=== PATIENT | female | born 1960 ===

== ENCOUNTER 2020-07-21 12:32 | Emergency (ER) | payer OTHER, SELFPAY ==
[2020-07-21 13:08] VITALS: BP 143/65; PULSE 84; RESP 16; TEMP 36.4; O2SAT 96; BMI 50.5
--- NOTE | 2020-07-21 13:16 | ED.FEMALEGU ---
HPI - Female Genitourinary General Chief complaint: Urogenital-Female Stated complaint: bladder pain Time Seen by Provider: 07/21/20 13:00 Source: patient Mode of arrival: ambulatory Limitations: no limitations History of Present Illness HPI Narrative: 59 yo female presenting with painful urination and bladder discomfort for the last 2 days. She has a history of a UTI in the past that felt similar to this. She denies fever, chills, hematuria, back pain, abd pain, N/V/D, vaginal discharge or lesions. MD elicited complaint: dysuria Onset (ago): day(s) (2) Location of symptoms: suprapubic and urethra Severity: moderate Female Urogenital Radiation: Suprapubic Severity scale (1-10): 4 Quality of pain: dull and burning Consistency: intermittent Vaginal discharge: none Vaginal bleeding: none Urinary symptoms: Dysuria, Urgency and Frequency Exacerbating factors: urination Relieving factors: none Associated symptoms: denies other symptoms Treatment prior to arrival: none Sexual activity: No Patient : No Related Data Previous Rx's Medication Instructions Recorded cefuroxime axetil 250 mg PO BID 7 Days #14 tab 07/21/20 phenazopyridine [Pyridium] 200 mg PO TID #6 tab 07/21/20 Allergies Allergy/AdvReac Type Severity Reaction Status Date / Time morphine [MORPHINE] Allergy Severe DIFF Unverified 06/24/20 18:51 BREATHING, DIZZY, anaphylaxis, shortness of breath oxycodone [OXYCODONE] Allergy Severe DIFF Unverified 06/24/20 18:51 BREATHING, DIZZY Sulfa (Sulfonamide Allergy Unknown anaphylaxis Unverified 05/14/20 00:00 Antibiotics) sulfamethoxazole Allergy Unknown UNKNOWN Unverified 06/24/20 18:51 [From BACTRIM] trimethoprim [From BACTRIM] Allergy Unknown UNKNOWN Unverified 06/24/20 18:51 SEASONAL ALLERGIES Allergy Intermediate ITCHY Uncoded 06/24/20 18:51 oxycodone Allergy Unknown Encephalopa Uncoded 05/06/20 00:00 thy Review of Systems Review of Systems: Constitutional: No Fever, No Chills Cardiovascular: No Chest Pain, No SOB Respiratory: No Cough, No Sputum Gastrointestinal: No Nausea, No Vomiting, No Diarrhea, No abdominal Pain Genitourinary: + Dysuria, + Urinary Frequency, No Hematuria Musculoskeletal: No joint pain, No Myalgias Skin: No Skin Lesions, No rash Neuro: No Weakness, No Numbness, No Dizziness, No Headache Heme/Lymph: No Bruising, No Lymphadenopathy Endocrine: No Polyuria, No Polydipsia PMFSH Past Medical History Attestation statement: The following information was validated with the patient. Social History Social History Alcohol intake: unknown Use of substances other than those prescribed or required for medical reasons: Unknown Advance Directives: No Advance Directives Information Provided: No Physical Exam Vital Signs: Vital Signs: Vital Signs Temp Pulse Resp BP Pulse Ox 07/21/20 13:08 97.6 F 84 16 143/65 H 96 Body Mass Index 50.5 Appearance: Alert. Oriented X3. No acute distress. HEENT: normal inspection CVS: Normal heart rate and rhythm. Pulses normal. Respiratory: No respiratory distress. Abd: soft, mild suprapubic tenderness, no rebound or guarding. +BS. exam deferred Skin: Skin warm and dry. Normal skin color, no rashes Extremities: no LE edema. Neuro: Oriented X 3. No motor deficit. No sensory deficit. Course Course Course Narrative: afebrile and well appearing. likely UTI, doubt pyelonephritis, STI, ovarian cyst/torsion, colitis. Reevaluation(s) Reevaluation #1: UA with some blood - no active infection at this time. will treat empircally for cystitis. encouraged to f/u with PCP and return to ED if worsens. MDM - Female Genitourinary Differential Diagnosis Differential diagnosis: Likely urinary tract infection, bacterial vaginosis, trichomoniasis, cervicitis, ovarian cyst, vaginitis, ruptured ovarian cyst, cyst of Bartholin's gland and cystitis Medical Records Attestation: I reviewed the patient's medical records. Lab Data Attestation: I reviewed the patient's lab results. Labs: Lab Results 07/21/20 Range/Units 13:27 Urine Color YELLOW Urine Appearance HAZY Urine pH 7.0 (5.0-8.0) Ur Specific [place] 1.020 (1.005-1.025) Urine Protein NEG (NEG-TRACE) MG/DL Urine Glucose (UA) NEG (NEG) MG/DL Urine Ketones NEG (NEG) MG/DL Urine Blood TRACE (NEG) Urine Nitrite NEG (NEG) Ur Leukocyte Esterase NEG (NEG) Discharge Plan Discharge Clinical Impression: Cystitis Patient Disposition: Home, Self-Care Instructions: Pelvic Pain in Women (ED) Additional Instructions: Stay hydrated and drink plenty of water. Follow up with your Primary Care Doctor this week. If your pain and discomfort do not improve or worsen despite treatment with antibiotics call your doctor right away or come back to the ER for further evaluation. No sexual activity until your symptoms are completely resolved. Prescriptions: New cefuroxime axetil 250 mg tablet 250 mg PO BID 7 Days Qty: 14 RF: 0 phenazopyridine [Pyridium] 200 mg tablet 200 mg PO TID Qty: 6 RF: 0
[2020-07-21 13:50] LABS: Appearance Urine HAZY; Color Urine YELLOW; Glucose Urine UA NEG (NEG); Leukocyte Esterase Urine NEG (NEG); Nitrite Urine NEG (NEG); Urine Blood TRACE (NEG); Urine Ketones NEG (NEG); Urine Protein NEG (NEG-TRACE)
[2020-07-21 13:56] LABS: Bacteria Urine 1+ /LPF; Mucus Urine 2+ /LPF; RBC Urine 0-2 /HPF (0); Squamous Epithelial Cell Urine 3+ /LPF; WBC Urine 0-2 /HPF (0-4)
== END 2020-07-21 14:14 | disposition home or self-care (01) ==
PROVIDERS: Physician Assistant; Emergency Provider Emergency Medicine; PCP Physician Assistant
DX: N30.90 Cystitis, unspecified without hematuria (principal); R10.9 Unspecified abdominal pain
CPT/HCPCS: 81001; 87086; 99283

== ENCOUNTER 2020-08-03 11:21 | Day surgery (SDC) | payer OTHER, SELFPAY ==
[2020-07-29 11:22] VITALS: BMI 49.4
--- NOTE | 2020-07-29 14:58 | HO.ANESPROP2 ---
Documented by User: Tabitha Trinh 08/02/20 12:56 HPI - Anesthesia Eval Consult details Narrative: 59yo F for colonoscopy: screening [facility] Past Medical History Medical History Anemia Arthritis Asthma Depression Elevated cholesterol Hx of transfusion of whole blood Lab test negative for COVID-19 virus Surgical History Surgical History History of carpal tunnel release Hx of Achilles tendon repair Hx of colonoscopy Hx of hysterectomy Social History Social History Alcohol intake: unknown Smoking Status: Former smoker Smoked in Last 30 Days: No Smoking Quit Date: 1998 Use of substances other than those prescribed or required for medical reasons: No Advance Directives Information Provided: No Recently lost weight without trying: No Meds Allergies Allergy/AdvReac Type Severity Reaction Status Date / Time morphine [MORPHINE] Allergy Severe DIFF Verified 07/29/20 11:33 BREATHING, DIZZY, anaphylaxis, shortness of breath oxycodone [OXYCODONE] Allergy Severe DIFF Verified 07/29/20 11:33 BREATHING, DIZZY sulfamethoxazole Allergy Unknown UNKNOWN Verified 07/29/20 11:33 [From BACTRIM] trimethoprim [From BACTRIM] Allergy Unknown UNKNOWN Verified 07/29/20 11:33 SEASONAL ALLERGIES Allergy Intermediate ITCHY Uncoded 06/24/20 18:51 Home Medications Medication Instructions Recorded Confirmed Type albuterol sulfate 1 vial PO Q4H PRN 07/29/20 07/29/20 History atorvastatin 1 tab PO DAILY 07/29/20 07/29/20 History fluticasone propionate [Flovent 1 puff PO BID 07/29/20 07/29/20 History HFA] ibuprofen 1 tab PO TID PRN 07/29/20 07/29/20 History Exam Exam Date and Time: July 29, 2020 1458 Height,Weight and Vital Signs: Height 4 ft 11 in Weight 111.13 kg Pertinent Lab Results Pertinent Lab Results: Laboratory Tests 11/08/18 05/05/20 14:47 11:00 WBC 10.5 Hgb 12.5 Hct 39.7 Plt Count 480 H Sodium 142 Potassium 4.3 Chloride 103 BUN 15 Creatinine 0.77 Assessment and Plan Assessment Anesthesia Assessment: Chart Reviewed Documented by User: Lorene Aguilar 08/03/20 12:59 PMFSH Past Medical History Medical History Anemia Arthritis Asthma Depression Elevated cholesterol Hx of transfusion of whole blood Lab test negative for COVID-19 virus Surgical History Surgical History History of carpal tunnel release Hx of Achilles tendon repair Hx of colonoscopy Hx of hysterectomy Social History Social History Alcohol intake: unknown Smoking Status: Former smoker Smoked in Last 30 Days: No Smoking Quit Date: 1998 Use of substances other than those prescribed or required for medical reasons: No Advance Directives Information Provided: No Recently lost weight without trying: No Meds Allergies Allergy/AdvReac Type Severity Reaction Status Date / Time morphine [MORPHINE] Allergy Severe DIFF Verified 07/29/20 11:33 BREATHING, DIZZY, anaphylaxis, shortness of breath oxycodone [OXYCODONE] Allergy Severe DIFF Verified 07/29/20 11:33 BREATHING, DIZZY sulfamethoxazole Allergy Unknown UNKNOWN Verified 07/29/20 11:33 [From BACTRIM] trimethoprim [From BACTRIM] Allergy Unknown UNKNOWN Verified 07/29/20 11:33 SEASONAL ALLERGIES Allergy Intermediate ITCHY Uncoded 06/24/20 18:51 Home Medications Medication Instructions Recorded Confirmed Type albuterol sulfate 1 vial PO Q4H PRN 07/29/20 07/29/20 History atorvastatin 1 tab PO DAILY 07/29/20 07/29/20 History fluticasone propionate [Flovent 1 puff PO BID 07/29/20 07/29/20 History HFA] ibuprofen 1 tab PO TID PRN 07/29/20 07/29/20 History Assessment and Plan Assessment Anesthesia Assessment: Anesthesia Plan Discussed and PAT Visit Final Anesthetic Review NPO: Yes ASA Class: II Final Preanesthetic Review: No Changes in Pt Med Stat, Meds/Allgs Chart Reviewed and Consent Obtained/Reviewed Patient Risk: Intermediate Procedure Risk: Low Anesthetic Plan Anesthetic Plan: MAC: Disposition: Standard PACU
[2020-08-03] MEDS: Lactated Ringers 1,000 ML 100 ML IVCONT (12:45)
[2020-08-03 12:46] VITALS: BP 137/69; PULSE 79; RESP 16; TEMP 36.6; O2SAT 96
--- NOTE | 2020-08-03 12:59 | MHC.SHP ---
Pre-Procedural Eval Section A The History & Physical has been completed within 30 days and I have reviewed it.: No Section B Chief Complaint: Screening Details of Present Illness: Colon cancer screening, constipation Relevant Social History: Tobacco Use (Past smoker, quitted > 20 yrs ago) Present Medications: see Short Stay Collaborative assessment Medical History: Significant History (Obesity) History of Previous Operations: Relevant previous surgery/procedure and date(s) (hysterectomy achilles tendon repair,right Left carpal tunnel release 02/26/2019 ) Allergies: Allergies Allergy/AdvReac Type Severity Reaction Status Date / Time morphine [MORPHINE] Allergy Severe DIFF Verified 07/29/20 11:33 BREATHING, DIZZY, anaphylaxis, shortness of breath oxycodone [OXYCODONE] Allergy Severe DIFF Verified 07/29/20 11:33 BREATHING, DIZZY sulfamethoxazole Allergy Unknown UNKNOWN Verified 07/29/20 11:33 [From BACTRIM] trimethoprim [From BACTRIM] Allergy Unknown UNKNOWN Verified 07/29/20 11:33 SEASONAL ALLERGIES Allergy Intermediate ITCHY Uncoded 06/24/20 18:51 Review of Systems Sugical H&P ROS: Negative: Constitution, Cardiovascular, Respiratory and Gastrointestinal Exam Surgical H&P Exam: Normal: Heart, Normal: Lungs, Normal: Extremities and Normal: Abdomen Plan Diagnosis/Plan: Unchanged Patient has been examined and remains a candidate for the planned procedure
--- NOTE | 2020-08-03 13:00 | HO.ANESPROP2 ---
[facility] Past Medical History Medical History Anemia Arthritis Asthma Depression Elevated cholesterol Hx of transfusion of whole blood Lab test negative for COVID-19 virus Surgical History Surgical History History of carpal tunnel release Hx of Achilles tendon repair Hx of colonoscopy Hx of hysterectomy Social History Social History Alcohol intake: unknown Smoking Status: Former smoker Smoked in Last 30 Days: No Smoking Quit Date: 1998 Use of substances other than those prescribed or required for medical reasons: No Advance Directives Information Provided: No Recently lost weight without trying: No Meds Allergies Allergy/AdvReac Type Severity Reaction Status Date / Time morphine [MORPHINE] Allergy Severe DIFF Verified 07/29/20 11:33 BREATHING, DIZZY, anaphylaxis, shortness of breath oxycodone [OXYCODONE] Allergy Severe DIFF Verified 07/29/20 11:33 BREATHING, DIZZY sulfamethoxazole Allergy Unknown UNKNOWN Verified 07/29/20 11:33 [From BACTRIM] trimethoprim [From BACTRIM] Allergy Unknown UNKNOWN Verified 07/29/20 11:33 SEASONAL ALLERGIES Allergy Intermediate ITCHY Uncoded 06/24/20 18:51 Home Medications Medication Instructions Recorded Confirmed Type albuterol sulfate 1 vial PO Q4H PRN 07/29/20 07/29/20 History atorvastatin 1 tab PO DAILY 07/29/20 07/29/20 History fluticasone propionate [Flovent 1 puff PO BID 07/29/20 07/29/20 History HFA] ibuprofen 1 tab PO TID PRN 07/29/20 07/29/20 History Exam Exam Date and Time: August 03, 2020 1300 Height,Weight and Vital Signs: Height 4 ft 11 in Weight 111.13 kg Last Vital Signs Temp 97.9 F 08/03/20 12:46 Pulse 79 08/03/20 12:46 Resp 16 08/03/20 12:46 BP 137/69 08/03/20 12:46 Pulse Ox 96 08/03/20 12:46 Airway Mallampati Class: II TM Dist: >3cm Neck ROM: Full Heart: RRR Lungs: CTA BL
--- NOTE | 2020-08-03 13:10 | PM.OP ---
Brief Operative Note Date of procedure: 08/03/20 Pre-op diagnosis: Colon cancer screening Post-op diagnosis: other (Diverticulosis, hemorrhoids) Procedure: COLONOSCOPY TILL CECUM Consent: Indications for the procedure and potential complications of bleeding, perforation, reaction to medications and missed diagnosis were discussed with the patient and informed consent was obtained. Instrument: Olympus PCF H 190 L variable stiffness pediatric colonoscope Monitoring: Vital signs and clinical assessment, intermittent blood pressure monitoring, continuous EKG monitoring, Pulse oximetry and Carbon Dioxide monitoring were done throughout the procedure. Colon withdrawl time was 12 minutes. Procedure: The patient was placed in the left lateral decubitis position and pre-procedure medications were administered. After a digital rectal examination of the ano-rectum, the video colonoscope was inserted into the rectum and advanced through the colon to the cecum. The colonoscope was slowly withdrawn in a retrograde panoramic fashion and the colon mucosa was carefully examined including a retroflexed view of the rectum. Findings and interventions are described below. Procedure Difficulty: Without difficulty Findings: Terminal Ileum: Not evaluated Cecum: Normal Ascending Colon: Normal Transverse Colon: Normal Descending Colon: Moderate diverticulosis Sigmoid Colon: Moderate diverticulosis Rectum: Normal Ano-rectum: Moderate internal hemorrhoids and perianal skin tags Colon preparation: Excellent/Good/ Fair/poor Impression and Post Procedure Diagnosis: Colonoscopy Findings: No polyps were detected. Moderate diverticulosis seen in the left colon Moderate hemorrhoids on retroflexed exam. Plan: Await pathology results Patient has an appointment on 09/27/20 in the GI Clinic with Young Mills M.D.-. Repeat Colonoscopy in 5 years due to past hx of colon polyps. Above findings were reviewed with the patient and a handout on diverticulosis handout was given in the discharge area Surgeon: Young Mills MD Anesthesia: MAC (Dr Tucker) Waiter/Waitress Cafeteria: Nuvia Thrasher Estimated blood loss (mL): 0 Pathology: none sent Condition: stable Disposition: PACU
[2020-08-03 13:59] VITALS: BP 112/57; PULSE 67; RESP 16; TEMP 36.3; O2SAT 96
[2020-08-03 14:14] VITALS: BP 158/82; PULSE 64; RESP 14; TEMP 36.3; O2SAT 97
--- NOTE | 2020-08-03 14:38 | HO.POSTANES ---
Post Anesthesia Evaluation Post Anesthesia Evaluation Vital Signs: Vital Signs Temp Pulse Resp BP Pulse Ox 08/03/20 14:14 97.4 F 64 14 158/82 H 97 08/03/20 13:59 97.4 F 67 16 112/57 L 96 08/03/20 12:46 97.9 F 79 16 137/69 96 Anesthesia: Monitored (TIVA) Mental Status: Awake Pain Control: Satisfactory Nausea/Vomiting: None Hydration: Adequate Anesthesia-Related Issues: No Anes. Related Issues
== END 2020-08-03 14:43 | disposition home or self-care (01) ==
PROVIDERS: PCP Physician Assistant; Visit Provider Internal Medicine Gastroenterology
PROC: 0DJD8ZZ Inspection of Lower Intestinal Tract, Via Natural or Artificial Opening Endoscopic (ICD-10-PCS; CPT 45378; principal; 2020-08-03 12:50)
DX: Z12.11 Encounter for screening for malignant neoplasm of colon (principal); Z86.010 Personal history of colon polyps; K57.30 Diverticulosis of large intestine without perforation or abscess without bleeding; K64.8 Other hemorrhoids; K64.4 Residual hemorrhoidal skin tags; J45.909 Unspecified asthma, uncomplicated; F32.9 Major depressive disorder, single episode, unspecified; E78.00 Pure hypercholesterolemia, unspecified; Z87.891 Personal history of nicotine dependence; Z79.51 Long term (current) use of inhaled steroids; Z79.899 Other long term (current) drug therapy; Z88.2 Allergy status to sulfonamides; Z88.8 Allergy status to other drugs, medicaments and biological substances
CPT/HCPCS: 45378

== ENCOUNTER 2020-09-16 09:33 | Outpatient (REF) | payer OTHER, SELFPAY ==
--- NOTE | 2020-09-16 11:13 | XR_ITS ---
EXAMINATION: XR HIP, LEFT CLINICAL INFORMATION: Left hip pain. COMPARISON: CT of abdomen and pelvis from 11/08/2018. TECHNIQUE: Two views of the left hip. FINDINGS: The femoral head is well-positioned within the intact acetabulum. The hip joint space is normal. No evidence of a significant degenerative or inflammatory arthropathy at the hip. No femoral fracture or osteonecrosis. There is enthesophyte formation at the lateral aspect of the iliac crest. No focal lytic or osteoblastic lesion. Soft tissues are unremarkable. 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 XR/XR hip LT min 2V IMPRESSION: No fracture or malalignment. No acute findings at the left hip compared to 11/08/2018.
[2020-09-16 11:27] LABS: MANUAL DIFF FLAG NO
[2020-09-16 11:45] LABS: Basophils Percent Auto 0.3 % (0-2); Eosinophils Absolute Auto 0.4 X10*3/uL (0.0-0.4); Eosinophils Percent Auto 5.2 % (0-4); Hematocrit 37.3 % (37-47); Imm Gran Abs Auto 0.01 X10*3/uL (0.00-0.03); Imm Gran Pct Auto 0.1 % (0.0-0.4); Lymphocytes Absolute Auto 1.8 X10*3/uL (1.2-4.9); Lymphocytes Percent Auto 25.4 % (20-40); Mean Corpuscular HGB Conc 32.2 g/dl (31.0-35.0); Mean Corpuscular Hemoglobin 28.1 pg (27.0-33.0); Mean Corpuscular Volume 87.4 fL (80-98); Mean Platelet Volume 8.5 fL (9.4-12.3); Monocytes Absolute Auto 0.7 X10*3/uL (0.1-1.2); Monocytes Percent Auto 9.2 % (2-11); Neutrophils Absolute Auto 4.2 X10*3/uL (2.0-8.3); Neutrophils Percent Auto 59.8 % (45-73); Platelet Count 517 X10*3/uL (160-400); Red Blood Count 4.27 X10*6/uL (4.20-5.50); Red Cell Distribution Width 14.1 % (11.0-16.0); White Blood Count 7.1 X10*3/uL (4.8-10.8)
[2020-09-16 12:03] LABS: Estimated Average Glucose 117 mg/dL; Hemoglobin A1c % 5.7 %
[2020-09-16 12:15] LABS: Alanine Aminotransferase 19 U/L (0-31); Albumin Level 4.3 g/dL (3.5-5.0); Alkaline Phosphatase 82 U/L (39-117); Anion Gap 14 (12-20); Aspartate Amino Transferase 22 U/L (5-31); Bilirubin Total 0.3 mg/dL (0.0-1.0); Blood Urea Nitrogen 13 mg/dL (9-16); Calcium 8.9 mg/dL (8.4-10.2); Carbon Dioxide 29 mmol/L (22-29); Chloride 102 mmol/L (96-108); Cholesterol 192 mg/dL; Estimated Glomerular Filt Rate > 60; Glucose Fasting 81 mg/dL (60-99); HDL Cholesterol 49 mg/dL; LDL Cholesterol Calculated 108 mg/dl; Potassium 4.4 mmol/l (3.3-5.1); Sodium 141 mmol/L (135-145); Total Protein 7.3 g/dL (6.5-8.0); Triglycerides 178 mg/dL
== END 2020-09-16 09:34 | disposition home or self-care (01) ==
LOC: HO.LAB 09:33
PROVIDERS: Nurse Practitioner Family; PCP Physician Assistant; Visit Provider Physician Assistant
DX: E78.00 Pure hypercholesterolemia, unspecified (principal); J45.909 Unspecified asthma, uncomplicated; M25.552 Pain in left hip; M19.90 Unspecified osteoarthritis, unspecified site
CPT/HCPCS: 36415; 73502; 80053; 80061; 83036; 85025

== ENCOUNTER 2020-10-11 11:00 | Outpatient (RCR) | payer OTHER, SELFPAY ==
--- NOTE | 2020-09-14 13:41 | MHC.PT.EP ---
[facility] [place] Office [place] Office [place] Office [address] Julissa Kohler [address] [phone] F: [phone] F: [phone] F: [phone] F: [phone] Physical Therapy Plan of Care Date of Evaluation: 09/14/20 Date of Surgery: NA Diagnosis: Trochanteric bursitis, L hip, unspecified throacic, thoracolumbar,and lumbosacral invertebral disorder Assessment: 60 year old female referred for Trochanteric bursitis, L hip, unspecified throacic, thoracolumbar,and lumbosacral invertebral disorder . She reports of having sudden onset of pain in L hip, thigh and knee about 3 weeks back. She denies any trauma or fall. Examination reveals 7/10 pain in L groin, GT, L thigh and knee with prolonged sitting, standing and walking, TTP over L hip flexor, GT, L SI, decreased trunk and hip ROM, altered pelvic symmetry, decreased muscle strength, altered posture, and gait. She is independent with BADLS but has pain with them. 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 She would benefit from PT to decrease in pain, improve ROM, increase muscle strength, postural correction, gait training and functional training. Frequency and Duration: The patient will be seen 2/week for 5 weeks. Short Term Goals: 1. Pt will have 50% decrease in pain in 2 weeks, 2. Pt will be able to move trunk and hip through all planes of motion with a pain no more than 2/10 in 3 weeks. Chief Of Field Operations Goals: 1. Pt will be able to perform all BADLS without any hip pain in 4 weeks. 2. Pt will return to PLOF in 5 weeks. Treatment Plan: Modalities to reduce pain, spasms and effusion. Manual therapy to restore motion and function. Therapeutic exercise to improve strength and flexibility. Neuromuscular re-education for posture and balance. Therapeutic activities to return to functional activities of daily living. Please sign and return to therapist. Thank you for your referral.
--- NOTE | 2020-10-27 10:30 | MHC.PT.DC ---
[facility] [place] Office [place] Office [place] Office [address] Julissa Kohler [address] [phone] F: [phone] F: [phone] F: [phone] F: [phone] Physical Therapy Discharge Report Diagnosis: Trochanteric bursitis, L hip, unspecified throacic, thoracolumbar,and lumbosacral invertebral disorder Date of Surgery: NA Date of Evaluation: 09/14/20 Date of Discharge: 10/27/20 Treatments to Date: 8 Cancellations to Date: 0 No Shows to Date: 0 Discharge Status: Recommend MD Follow-up Discharge Summary: Pt did not make improvements with therapy. She was therefore d/c and recommended to follow up with physician. Electronically signed by: Sunitha Faith DPT Please sign and return to therapist. Thank you for your referral.
== END 2020-10-27 10:31 | disposition other institution (70) ==
LOC: HO.PT 11:00
PROVIDERS: PCP Physician Assistant; Visit Provider Physician Assistant
DX: M70.62 Trochanteric bursitis, left hip (principal); M51.9 Unspecified thoracic, thoracolumbar and lumbosacral intervertebral disc disorder
CPT/HCPCS: 97033; 97110; 97140; 97161

== ENCOUNTER 2020-10-12 13:57 | Outpatient (REF) | payer OTHER, SELFPAY | END 2020-10-12 13:58 | disposition home or self-care (01) | LOC: HO.LAB 13:57 | PROVIDERS: Visit Provider Internal Medicine | DX: Z20.828 Contact with and (suspected) exposure to other viral communicable diseases (principal) | CPT/HCPCS: 36415; C9803; U0003 ==

== ENCOUNTER 2020-11-07 13:23 | Emergency (ER) | payer OTHER, SELFPAY ==
[2020-11-07 14:19] VITALS: BP 133/101; PULSE 86; RESP 16; TEMP 36.9; O2SAT 96; BMI 49.2
[2020-11-07 15:23] VITALS: BP 137/69; PULSE 79; RESP 18; TEMP 36.9; O2SAT 98
--- NOTE | 2020-11-07 16:10 | ED.EYEPROB ---
HPI - Eye Problem General Chief complaint: Eye Problems Stated complaint: eye swelling Time Seen by Provider: 11/07/20 16:09 History of Present Illness HPI Narrative: Patient complains of redness around the left orbit around the left eye that started yesterday that is mildly painful, no vision change no eye pain no discharge from eye, no photophobia, no known injury Related Data Home Medications Medication Instructions Recorded Confirmed albuterol sulfate 1 vial PO Q4H PRN 07/29/20 10/12/20 polyethylene glycol 3350 17 g PO 08/31/20 10/12/20 gram/dose oral powder atorvastatin 80 mg tablet 80 mg PO DAILY 10/19/20 Previous Rx's Medication Instructions Recorded fenofibrate nanocrystallized 48 mg 48 mg PO DAILY #90 tab 08/02/20 tablet ibuprofen 800 mg tablet 800 mg PO TID PRN #60 tab 08/05/20 fluticasone propionate 110 1 puff PO BID 30 Days #12 g 09/07/20 mcg/actuation HFA aerosol inhaler nabumetone 750 mg tablet 750 mg PO BID 30 Days #60 tab 09/07/20 cyclobenzaprine 10 mg tablet 10 mg PO BEDTIME #30 tab 10/12/20 nitrofurantoin macrocrystal 100 mg 100 mg PO BID 5 Days #10 cap 10/12/20 capsule phenazopyridine 200 mg tablet 200 mg PO TID 2 Days #6 tab 10/12/20 atorvastatin 80 mg tablet 80 mg PO DAILY #90 tab 10/19/20 cephalexin [Keflex] 500 mg PO QID 7 Days #28 cap 11/07/20 cetirizine 10 mg PO DAILY PRN #14 cap 11/07/20 erythromycin 0.5 inch OPHTHALMIC (EYE) TID #3.5 11/07/20 g Allergies Allergy/AdvReac Type Severity Reaction Status Date / Time morphine [MORPHINE] Allergy Severe DIFF Verified 09/07/20 17:39 BREATHING, DIZZY, anaphylaxis, shortness of breath oxycodone [OXYCODONE] Allergy Severe DIFF Verified 09/07/20 17:39 BREATHING, DIZZY sulfamethoxazole Allergy Unknown UNKNOWN Verified 09/07/20 17:39 [From BACTRIM] trimethoprim [From BACTRIM] Allergy Unknown UNKNOWN Verified 09/07/20 17:39 SEASONAL ALLERGIES Allergy Intermediate ITCHY Uncoded 06/24/20 18:51 Review of Systems Review of Systems: Positive for redness and mild pain in the orbit around the left eye Negatives are fever chills, no headache, no dizziness no weakness no double vision no pain in the eye, no pain with eye movement, no photophobia no vision change or vision loss, no discharge from the eye, no skin rash, no upper respiratory symptoms no runny nose no cough no sore throat Yes all other systems are reviewed and are negative PMFSH Past Medical History Source: nursing notes reviewed Medical History Anemia Arthritis Asthma Breast pain Depression Diverticulosis Elevated cholesterol Hemorrhoids Hx of transfusion of whole blood Lab test negative for COVID-19 virus Osteoarthritis Surgical History History of carpal tunnel release Hx of Achilles tendon repair Hx of colonoscopy Hx of hysterectomy Family History Family History Father Diabetes Mother CHF (congestive heart failure) Maternal Aunt Stomach cancer Social History Social History Alcohol intake: unknown Smoking Status: Former smoker Smoked in Last 30 Days: No Use of substances other than those prescribed or required for medical reasons: No Advance Directives: No Advance Directives Information Provided: Yes Physical Exam Vital Signs: Vital Signs: Last Vital Signs Temp 98.5 F 11/07/20 15:23 Pulse 79 11/07/20 15:23 Resp 18 11/07/20 15:23 BP 137/69 11/07/20 15:23 Pulse Ox 98 11/07/20 15:23 Body Mass Index 49.2 General appearance is no acute distress, comfortable relaxed and cooperative The head is normocephalic atraumatic The left orbit and upper and lower lids had very mild erythema mild warmth and mild tenderness, extraocular motions were fully intact and painless, pupils were equal round reactive to light, there was no conjunctival redness, no discharge from the eye no evidence of corneal abrasion or foreign body, no photophobia Pharynx was clear without swelling or redness Lungs were clear to auscultation bilaterally with full symmetrical equal breath sounds Respiratory was no acute respiratory distress extremities no rashes Course Course Course Narrative: Patient was treated for periorbital cellulitis Discharge Plan Discharge Clinical Impression: Periorbital cellulitis of left eye Patient Disposition: Home, Self-Care Additional Instructions: Painful redness of the skin around her left eye and eyelid is probably an infection so we are treating with antibiotic We are also treating with an antihistamine allergy medicine Return to ER any time for spreading redness, worse pain and swelling, eye ball pain, vision loss, discharge from the eye, any worse condition or any concerns If not improved in 2-3 days follow with primary doctor or return to ER for recheck Prescriptions: New cephalexin [Keflex] 500 mg capsule 500 mg PO QID 7 Days Qty: 28 RF: 0 cetirizine 10 mg capsule 10 mg PO DAILY PRN (Reason: allergy symptoms) Qty: 14 RF: 0 erythromycin 5 mg/gram (0.5 %) ointment 0.5 inch ophthalmic (eye) TID Qty: 3.5 RF: 0 No Action fenofibrate nanocrystallized 48 mg tablet 48 mg PO DAILY Qty: 90 RF: 0 ibuprofen 800 mg tablet 800 mg PO TID PRN (Reason: pain) Qty: 60 RF: 2 Hold Instructions: Doctor's Order cyclobenzaprine 10 mg tablet 10 mg PO BEDTIME Qty: 30 RF: 2 atorvastatin 80 mg tablet 80 mg PO DAILY RF: 0 atorvastatin 80 mg tablet 80 mg PO DAILY Qty: 90 RF: 3 albuterol sulfate 2.5 mg /3 mL (0.083 %) solution for nebulization 1 vial PO Q4H PRN (Reason: wheezing) RF: 0 polyethylene glycol 3350 17 gram/dose powder PO RF: 0 Flovent HFA 110 mcg/actuation HFA aerosol inhaler 1 puff PO BID 30 Days Qty: 12 RF: 2 nabumetone 750 mg tablet 750 mg PO BID 30 Days Qty: 60 RF: 1 nitrofurantoin macrocrystal 100 mg capsule 100 mg PO BID 5 Days Qty: 10 RF: 0 phenazopyridine [Pyridium] 200 mg tablet 200 mg PO TID 2 Days Qty: 6 RF: 0 Interventions: ED Discharge Assessment Last Done: 11/07/20 16:39 Discharge Date/Time: 11/07/20 16:52
[2020-11-07] MEDS: cephALEXin 500 MG CAPSULE PO (16:19)
[2020-11-07] MEDS: Loratadine 10 MG TABLET PO (16:19)
== END 2020-11-07 16:52 | disposition home or self-care (01) ==
PROVIDERS: Emergency Provider Emergency Medicine; PCP Physician Assistant
DX: L03.213 Periorbital cellulitis (principal); H57.12 Ocular pain, left eye; Z79.899 Other long term (current) drug therapy; Z87.891 Personal history of nicotine dependence
CPT/HCPCS: 99283; 99284

== ENCOUNTER 2020-11-11 13:58 | Outpatient (REF) | payer OTHER, SELFPAY ==
--- NOTE | ~2020-11-11 | US_ITS ---
EXAMINATION: US DIAGNOSTIC ULTRASOUND BREAST, RIGHT CLINICAL INFORMATION: Palpable abnormality with pain not o'clock position. COMPARISON: Mammography of same day and studies dating back to August 27, 2015. TECHNIQUE: Ultrasound of the breast is performed with real-time reyna scale imaging and color Doppler. FINDINGS: There is no focal suspicious finding. There is no solid mass, architectural abnormality, duct ectasia, or edema in the soft tissue planes. Results are discussed with the patient at time of visit. US/US breast RT limited IMPRESSION: No specific ultrasound findings to suggest malignancy. ASSESSMENT: BI-RADS 1: Negative RECOMMENDATION: Routine annual mammography screening due in 12 months. This patient's information was entered into a reminder system with a target due date for their next mammogram.
--- NOTE | ~2020-11-11 | MM_ITS ---
EXAMINATION: MM DIAGNOSTIC DIGITAL BREAST TOMOSYNTHESIS, BILATERAL CLINICAL INFORMATION: Bilateral palpable lumps/pain 9 o'clock position on the right and 3 o'clock position on the left. The lifetime risk of breast cancer based on the Tyrer-Cuzick Model is 3.9%. COMPARISON: Mammography: 08/14/2019 and studies dating back to 08/27/2015. TECHNIQUE: Digital breast tomosynthesis is performed in both the craniocaudal and mediolateral oblique views along with computer-aided detection (CAD). Synthesized 2D images are generated from the tomosynthesis. Additional spot compression views of the left breast in craniocaudal and mediolateral projections were performed. Bilateral targeted breast ultrasound was performed and reported separately. FINDINGS: The breasts are almost entirely fatty (ACR BI-RADS breast composition Category a). There is a stable parenchymal pattern of the right breast without new abnormal dominant mass or suspicious grouping of microcalcifications. Within the left breast superiorly approximately 8 cm from the nipple there is a macrolobular density containing a single calcification. This measures approximately 9 x 5 mm in size. This does not correspond with the region of palpable abnormality at the 3 o'clock position. Review of previous studies demonstrates that this was present back to the study of 10/04/2016 without significant change. Ultrasound examination of the right and left breast does not demonstrate any evidence of abnormal cystic or solid mass in the region of palpable abnormalities. No abnormal distal sound-shadowing is seen. No edematous change within the tissues is noted. Results are provided to the patient at the time of the visit by the technologist. MM/MM tomosynthesis diagnostic BI IMPRESSION: No specific mammographic or ultrasound findings to suggest malignancy. ASSESSMENT: BI-RADS 1: Negative RECOMMENDATION: Routine annual mammography screening due in 12 months. This patient's information was entered into a reminder system with a target due date for their next mammogram.
--- NOTE | ~2020-11-11 | US_ITS ---
EXAMINATION: US DIAGNOSTIC ULTRASOUND BREAST, LEFT CLINICAL INFORMATION: Palpable abnormality with pain 9:00 position. COMPARISON: Mammography of same day and studies dating back to August 27, 2015. TECHNIQUE: Ultrasound of the breast is performed with real-time reyna scale imaging and color Doppler. FINDINGS: There is no focal suspicious finding. There is no solid mass, architectural abnormality, duct ectasia, or edema in the soft tissue planes. Results are discussed with the patient at time of visit. US/US breast LT limited IMPRESSION: No specific ultrasound findings to suggest malignancy. ASSESSMENT: BI-RADS 1: Negative RECOMMENDATION: Routine annual mammography screening due in 12 months. This patient's information was entered into a reminder system with a target due date for their next mammogram.
== END 2020-11-11 13:59 | disposition home or self-care (01) ==
LOC: HO.MAMMO 13:58
PROVIDERS: PCP Physician Assistant; Visit Provider Physician Assistant
DX: N63.25 Unspecified lump in the left breast, overlapping quadrants (principal); N63.15 Unspecified lump in the right breast, overlapping quadrants; N64.4 Mastodynia
CPT/HCPCS: 76642; 77062; 77066

== ENCOUNTER → 2020-11-29 08:46 | Outpatient (BNVA) | payer OTHER, SELFPAY | PROVIDERS: PCP Physician Assistant; Visit Provider Internal Medicine Gastroenterology ==

== ENCOUNTER → 2020-12-01 13:02 | Outpatient (BNVA) | payer OTHER, SELFPAY | PROVIDERS: PCP Physician Assistant; Visit Provider Surgery | DX: N63.0 Unspecified lump in unspecified breast (principal) | CPT/HCPCS: 99202 ==

== ENCOUNTER 2021-01-22 10:29 | Emergency (ER) | payer OTHER, SELFPAY ==
[2021-01-22 10:34] VITALS: BP 159/60; PULSE 98; RESP 18; TEMP 36.8; O2SAT 97; BMI 36.6
[2021-01-22 11:01] LABS: Glucose Urine UA NEG (NEG); Leukocyte Esterase Urine 2+ (NEG); Nitrite Urine NEG (NEG); PH 6.5 (5.0-8.0); UACC Culture Trigger YES; Urine Blood 1+ (NEG); Urine Ketones NEG (NEG); Urine Protein NEG (NEG-TRACE)
[2021-01-22 11:04] LABS: Appearance Urine CLEAR; Color Urine YELLOW
[2021-01-22 11:20] LABS: Renal Epithelial Cells Urine 2+ /LPF; Squamous Epithelial Cell Urine 2+ /LPF
[2021-01-22 11:49] LABS: MANUAL DIFF FLAG NO
[2021-01-22 11:50] LABS: Basophils Percent Auto 0.2 % (0-2); Eosinophils Absolute Auto 0.1 X10*3/uL (0.0-0.4); Hematocrit 36.6 % (37-47); Hemoglobin 11.6 g/dl (12.0-16.0); Imm Gran Abs Auto 0.03 X10*3/uL (0.00-0.03); Imm Gran Pct Auto 0.2 % (0.0-0.4); Lymphocytes Absolute Auto 1.6 X10*3/uL (1.2-4.9); Lymphocytes Percent Auto 12.3 % (20-40); Mean Corpuscular HGB Conc 31.7 g/dl (31.0-35.0); Mean Corpuscular Hemoglobin 27.4 pg (27.0-33.0); Mean Corpuscular Volume 86.3 fL (80-98); Mean Platelet Volume 8.3 fL (9.4-12.3); Monocytes Absolute Auto 1.3 X10*3/uL (0.1-1.2); Monocytes Percent Auto 9.6 % (2-11); Neutrophils Percent Auto 76.7 % (45-73); Platelet Count 422 X10*3/uL (160-400); Red Blood Count 4.24 X10*6/uL (4.20-5.50); Red Cell Distribution Width 14.5 % (11.0-16.0)
[2021-01-22 12:17] LABS: Anion Gap 14 (12-20); Blood Urea Nitrogen 13 mg/dL (9-16); Calcium 9.5 mg/dL (8.4-10.2); Carbon Dioxide 28 mmol/L (22-29); Chloride 103 mmol/L (96-108); Creatinine Clr Calc Pharmacy 79.3; Estimated Glomerular Filt Rate > 60; Glucose Random 97 mg/dL (60-115); Potassium 5.1 mmol/L (3.3-5.1); Sodium 140 mmol/L (135-145)
--- NOTE | 2021-01-22 12:35 | ED_ITS ---
HPI - Abdominal Pain General Chief Complaint: Abdominal Pain Stated Complaint: LOWER ABD PAIN Time Seen by Provider: 01/22/21 10:43 Source: patient Mode of arrival: ambulatory Limitations: no limitations History of Present Illness HPI narrative: 60-year-old female with a past medical history of chronic back pain, GERD, high cholesterol, osteoarthritis, asthma here with complaints of suprapubic discomfort with urinary frequency and foul odor x3 days. Also having some low back pain. No flank pain or abdominal pain or nausea or vomiting. Had some chills last evening but no fever. Related Data Home Medications Medication Instructions Recorded Confirmed albuterol sulfate 1 vial PO Q4H PRN 07/29/20 01/11/21 polyethylene glycol 3350 17 g PO 08/31/20 01/11/21 gram/dose oral powder Previous Rx's Medication Instructions Recorded fluticasone propionate 110 1 puff PO BID 30 Days #12 g 09/07/20 mcg/actuation HFA aerosol inhaler phenazopyridine 200 mg tablet 200 mg PO TID 2 Days #6 tab 10/12/20 atorvastatin 80 mg tablet 80 mg PO DAILY #90 tab 10/19/20 cetirizine 10 mg PO DAILY PRN #14 cap 11/07/20 cyclobenzaprine 10 mg tablet 10 mg PO BEDTIME #30 tab 01/11/21 fenofibrate nanocrystallized 48 mg 48 mg PO DAILY #90 tab 01/11/21 tablet ibuprofen 800 mg tablet 800 mg PO TID PRN #60 tab 01/11/21 cefpodoxime 100 mg PO Q12H #14 tab 01/22/21 phenazopyridine [Pyridium] 200 mg PO TID PRN #6 tab 01/22/21 Allergies Allergy/AdvReac Type Severity Reaction Status Date / Time morphine [MORPHINE] Allergy Severe DIFF Verified 11/29/20 08:47 BREATHING, DIZZY, anaphylaxis, shortness of breath oxycodone [OXYCODONE] Allergy Severe DIFF Verified 11/29/20 08:47 BREATHING, DIZZY sulfamethoxazole Allergy Unknown UNKNOWN Verified 11/29/20 08:47 [From BACTRIM] trimethoprim [From BACTRIM] Allergy Unknown UNKNOWN Verified 11/29/20 08:47 SEASONAL ALLERGIES Allergy Intermediate ITCHY Uncoded 06/24/20 18:51 Review of Systems Review of Systems Yes all other systems are reviewed and are negative Constitutional: Reports no additional constitutional complaints, Denies body ache(s), Reports chills, Denies fever(s), Denies headache(s) and Denies weakness Eyes: Reports no additional eye complaints and Denies change in vision Reports system reviewed and no additional complaints, except as documented, Denies dizziness, Denies headache(s), Denies nasal congestion, Denies nasal discharge and Denies neck pain Cardiovascular: Reports no additional cardiovascular complaints, Denies chest pain, Denies leg edema and Denies dyspnea Respiratory: Reports no additional respiratory complaints, Denies cough and Denies dyspnea Gastrointestinal: Reports no additional gastrointestinal complaints, Denies abdominal pain, Denies diarrhea, Denies nausea and Denies vomiting Genitourinary: Reports no additional female genitourinary complaints, Denies hematuria, Denies dysuria, Denies flank pain, Denies urinary incontinence and Reports urinary urgency Comments: frequency, suprapubic discomfort Musculoskeletal: Reports no additional musculoskeletal complaints, Reports back pain, Denies arthralgias, Denies joint swelling, Denies neck pain, Denies numbness and Denies tingling Skin/Breast: Reports system reviewed and no additional complaints, except as docu and Denies rash Reports system reviewed and no additional complaints, except as documented, Denies Abnormal speech present, Denies dizziness, Denies headache(s), Denies numbness, Denies tingling and Denies weakness Physical Exam Vital Signs: Vital Signs: Last Vital Signs Temp 98.4 F 01/22/21 12:45 Pulse 84 01/22/21 12:45 Resp 16 01/22/21 12:45 BP 130/64 01/22/21 12:45 Pulse Ox 96 01/22/21 12:45 Body Mass Index 36.6 Const: General: cooperative, healthy appearing, comfortable and no acute distress Orientation/consciousness: patient oriented x3 Limitations: no limitations HENMT: Head: Yes normal to inspection Ears: hearing grossly normal bilaterally General nose exam: Normal external nose present Face and sinus: Yes normal facial exam Mouth: Normal oral and palatal mucosa present Throat: Yes posterior oropharynx normal Eyes: General: appearance normal, both eyes and all related structures Pupils: Equal, round and reactive pupils present Neck: Neck: Yes normal visual inspection Chest: Chest palpation & inspection: normal inspection of the chest Resp: Effort & Inspection: normal respiratory effort Auscultation: clear to auscultation bilaterally Cardio: Rate: regular rate Rhythm: regular rhythm Peripheral pulses: Peripheral pulses 2+ throughout GI: Inspection: Yes normal to inspection Palpation (GI): Soft to palpation, Tenderness to palpation present (GI) suprapubicly, no guarding and not rigid Auscultation: normal bowel sounds Back/Spine/Pelvis: Thoracic/Lumbar Spine: thoracic and lumbar spine normal to inspection Skin: General skin exam: no rashes or lesions noted Neuro: General: patient oriented x3, no focal motor deficits and normal sensation to monofilament Cranial nerves: Yes Equal, round and reactive pupils present Cognition (Neuro): normal cognition Speech: No Abnormal speech present Gait exam (Neuro): Normal gait present Motor exam (neuro): 5/5 motor strength present throughout Extrem: General: Yes normal to inspection, Yes no pedal edema and Yes no calf tenderness Course Course Course Narrative: 60 year old female here with suprapubic discomfort, urinary frequency and urgency and foul odor with low back pain and subjective chills x3 days. On arrival she has some mild discomfort suprapubic area but no abdominal pain. No flank pain or tenderness. Afebrile on arrival. Labs and urine reviewed from triage. UA consistent with a UTI. Will start patient on course of antibiotics with Pyridium for symptoms. Reviewed worrisome signs and symptoms such as fever, vomiting, flank pain and when to return to the emergency department. Comfortable with discharge home. MDM - Abdominal Pain Medical Records Attestation: I reviewed the patient's medical records. Lab Data Attestation: I reviewed the patient's lab results. Result diagrams: 01/22/21 11:45 01/22/21 11:45 Labs: Lab Results 01/22/21 01/22/21 01/22/21 Range/Units 10:42 11:45 11:45 WBC 13.0 H (4.8-10.8) X10*3/uL RBC 4.24 (4.20-5.50) X10*6/uL Hgb 11.6 L (12.0-16.0) g/dl Hct 36.6 L (37-47) % MCV 86.3 (80-98) fL MCH 27.4 (27.0-33.0) pg MCHC 31.7 (31.0-35.0) g/dl RDW 14.5 (11.0-16.0) % Plt Count 422 H (160-400) X10*3/uL MPV 8.3 L (9.4-12.3) fL Immature Gran % (Auto) 0.2 (0.0-0.4) % Neut % (Auto) 76.7 H (45-73) % Lymph % (Auto) 12.3 L (20-40) % [place] % (Auto) 9.6 (2-11) % Eos % (Auto) 1.0 (0-4) % Baso % (Auto) 0.2 (0-2) % Lymph # (Auto) 1.6 (1.2-4.9) X10*3/uL [place] # (Auto) 1.3 H (0.1-1.2) X10*3/uL Eos # (Auto) 0.1 (0.0-0.4) X10*3/uL Baso # (Auto) 0.0 (0.0-0.2) X10*3/uL Abs Immat Gran (auto) 0.03 (0.00-0.03) X10*3/uL Absolute Neuts (auto) 10.0 H (2.0-8.3) X10*3/uL Absolute Nucleated RBC 0.000 (0.0-0.012) X10*3/uL Nucleated RBC % (auto) 0.0 (0.0-0.2) /100WBC Hold Blue Top SEE NOTE Sodium (135-145) mmol/L Potassium (3.3-5.1) mmol/L Chloride (96-108) mmol/L Carbon Dioxide (22-29) mmol/L Anion Gap (12-20) BUN (9-16) mg/dL Creatinine (0.5-1.4) mg/dL Estim Creat Clear Calc Estimated GFR Random Glucose (60-115) mg/dL Calcium (8.4-10.2) mg/dL Urine Color YELLOW Urine Appearance CLEAR Urine pH 6.5 (5.0-8.0) Ur Specific [place] 1.010 (1.005-1.025) Urine Protein NEG (NEG-TRACE) MG/DL Urine Glucose (UA) NEG (NEG) MG/DL Urine Ketones NEG (NEG) MG/DL Urine Blood 1+ H (NEG) Urine Nitrite NEG (NEG) Ur Leukocyte Esterase 2+ H (NEG) Urine RBC 1-4 (0) /HPF Urine WBC 10-14 H (0-4) /HPF Ur Squamous Epith Cells 2+ /LPF Ur Renal Epithelial Cell 2+ /LPF Urine Bacteria NONE /LPF 01/22/21 Range/Units 11:45 WBC (4.8-10.8) X10*3/uL RBC (4.20-5.50) X10*6/uL Hgb (12.0-16.0) g/dl Hct (37-47) % MCV (80-98) fL MCH (27.0-33.0) pg MCHC (31.0-35.0) g/dl RDW (11.0-16.0) % Plt Count (160-400) X10*3/uL MPV (9.4-12.3) fL Immature Gran % (Auto) (0.0-0.4) % Neut % (Auto) (45-73) % Lymph % (Auto) (20-40) % [place] % (Auto) (2-11) % Eos % (Auto) (0-4) % Baso % (Auto) (0-2) % Lymph # (Auto) (1.2-4.9) X10*3/uL [place] # (Auto) (0.1-1.2) X10*3/uL Eos # (Auto) (0.0-0.4) X10*3/uL Baso # (Auto) (0.0-0.2) X10*3/uL Abs Immat Gran (auto) (0.00-0.03) X10*3/uL Absolute Neuts (auto) (2.0-8.3) X10*3/uL Absolute Nucleated RBC (0.0-0.012) X10*3/uL Nucleated RBC % (auto) (0.0-0.2) /100WBC Hold Blue Top Sodium 140 (135-145) mmol/L Potassium 5.1 (3.3-5.1) mmol/L Chloride 103 (96-108) mmol/L Carbon Dioxide 28 (22-29) mmol/L Anion Gap 14 (12-20) BUN 13 (9-16) mg/dL Creatinine 0.77 (0.5-1.4) mg/dL Estim Creat Clear Calc 79.3 Estimated GFR > 60 Random Glucose 97 (60-115) mg/dL Calcium 9.5 D (8.4-10.2) mg/dL Urine Color Urine Appearance Urine pH (5.0-8.0) Ur Specific [place] (1.005-1.025) Urine Protein (NEG-TRACE) MG/DL Urine Glucose (UA) (NEG) MG/DL Urine Ketones (NEG) MG/DL Urine Blood (NEG) Urine Nitrite (NEG) Ur Leukocyte Esterase (NEG) Urine RBC (0) /HPF Urine WBC (0-4) /HPF Ur Squamous Epith Cells /LPF Ur Renal Epithelial Cell /LPF Urine Bacteria /LPF Discharge Plan Discharge Clinical Impression: UTI (urinary tract infection) Patient Disposition: Home, Self-Care Instructions: Urinary Tract Infection in Women (ED) Additional Instructions: Increase fluids, rest See PCP Sunday for persistent symptoms Return here for 2 or more vomiting episodes, high back pain, fever >100.4 Prescriptions: New phenazopyridine [Pyridium] 200 mg tablet 200 mg PO TID PRN (Reason: pain) Qty: 6 RF: 0 cefpodoxime 100 mg tablet 100 mg PO Q12H Qty: 14 RF: 0 No Action atorvastatin 80 mg tablet 80 mg PO DAILY Qty: 90 RF: 3 albuterol sulfate 2.5 mg /3 mL (0.083 %) solution for nebulization 1 vial PO Q4H PRN (Reason: wheezing) RF: 0 cetirizine 10 mg capsule 10 mg PO DAILY PRN (Reason: allergy symptoms) Qty: 14 RF: 0 polyethylene glycol 3350 17 gram/dose powder PO RF: 0 ibuprofen 800 mg tablet 800 mg PO TID PRN (Reason: pain) Qty: 60 RF: 2 Hold Instructions: Doctor's Order cyclobenzaprine 10 mg tablet 10 mg PO BEDTIME Qty: 30 RF: 2 fenofibrate nanocrystallized 48 mg tablet 48 mg PO DAILY Qty: 90 RF: 0 Flovent HFA 110 mcg/actuation HFA aerosol inhaler 1 puff PO BID 30 Days Qty: 12 RF: 2 phenazopyridine [Pyridium] 200 mg tablet 200 mg PO TID 2 Days Qty: 6 RF: 0 Referrals: Lit Billings PA-C [Primary Care Provider] - 2 days Interventions: ED Discharge Assessment Last Done: 01/22/21 13:22 Discharge Date/Time: 01/22/21 13:22 [facility] Past Medical History Attestation statement: The following information was validated with the patient. Source: old records reviewed and nursing notes reviewed Medical History Anemia Arthritis Asthma Breast pain Depression Diverticulosis Elevated cholesterol Hemorrhoids Hx of transfusion of whole blood Lab test negative for COVID-19 virus Osteoarthritis Surgical History History of carpal tunnel release Hx of Achilles tendon repair Hx of colonoscopy Hx of hysterectomy Family History Family History Father Diabetes Mother CHF (congestive heart failure) Maternal Aunt Stomach cancer Social History Social History Household Members: Spouse Alcohol intake: never Smoking Status: Never smoker Use of substances other than those prescribed or required for medical reasons: No Advance Directives: Yes Advance Directives Information Provided: Yes Advance Directives on File: No
[2021-01-22 12:45] VITALS: BP 130/64; PULSE 84; RESP 16; TEMP 36.9; O2SAT 96
== END 2021-01-22 13:22 | disposition home or self-care (01) ==
PROVIDERS: Emergency Provider Emergency Medicine; PCP Physician Assistant
DX: N39.0 Urinary tract infection, site not specified (principal); R10.30 Lower abdominal pain, unspecified; Z79.899 Other long term (current) drug therapy
CPT/HCPCS: 36415; 80048; 81001; 81003; 85025; 87086; 99283; 99284

== ENCOUNTER 2021-03-22 12:49 | Outpatient (REF) | payer OTHER, SELFPAY | END 2021-03-22 12:50 | disposition home or self-care (01) | LOC: HO.LAB 12:49 | PROVIDERS: Visit Provider Nurse Practitioner Family | DX: N30.00 Acute cystitis without hematuria (principal) | CPT/HCPCS: 87086 ==

== ENCOUNTER 2021-04-28 12:04 | Emergency (ER) | payer OTHER, SELFPAY ==
--- NOTE | ~2021-04-28 | CT_ITS ---
EXAMINATION: CT ABDOMEN AND PELVIS WITH CONTRAST CLINICAL INFORMATION: Left lower quadrant pain. COMPARISON: CT abdomen and pelvis IV contrast 11/08/2018 TECHNIQUE: Multidetector volumetric images were obtained from the superior aspect of the liver through the pubic symphysis following administration 85 mL of Omnipaque 350 intravenous contrast. Sagittal and coronal reformatted images were obtained on the technologist's workstation. Oral contrast: No This CT examination was performed using dose optimization techniques as appropriate, variously including the following: *Automated exposure control *Adjustment of mA and/or kV according to patient size (this includes techniques or standardized protocols for targeted exams where dose is matched to indication/reason for exam; i.e. extremities or head) *Use of iterative reconstruction technique DLP: 1009 mGy-cm FINDINGS: LUNG BASES: The heart size is enlarged. The lung bases are clear. LIVER, GALLBLADDER, AND BILIARY TREE: The liver is normal in size, shape, and diffusely hypoattenuated. No focal hepatic lesion or biliary ductal dilatation is present. The gallbladder is unremarkable with no evidence of radiopaque gallstones, gallbladder wall thickening, or obvious pericholecystic inflammatory changes. PANCREAS: Unremarkable. SPLEEN: Unremarkable. ADRENAL GLANDS: Unremarkable. KIDNEYS AND URETERS: The kidneys are normal in size, shape, and attenuation. There is a nonobstructive 3 mm calculi lower pole left kidney. No additional radiopaque calculi, caliectasis or hydronephrosis seen. No perinephric stranding. -11 Hounsfield units question likely angiomyolipoma. BLADDER: Unremarkable. GASTROINTESTINAL TRACT: There is diffuse colonic diverticulosis with focal area of mural thickening at the junction of sigmoid and descending colon with pericolic fat stranding consistent with acute diverticulitis. Rest of the colon, small bowel loops and appendix is unremarkable. No free air or collection seen. ABDOMINAL WALL: No significant hernia is appreciated. LYMPH NODES: Normal. VASCULAR: Unremarkable. PELVIC VISCERA: No fracture pelvic mass or free fluid seen. The uterus is atrophied or surgically absent. OSSEOUS STRUCTURES: There are degenerative disc changes with vacuum disc phenomena and spondylosis at every lumbar disc level including lower thoracic disc levels. No fracture or lytic process seen. CT/CT abdomen pelvis w con IMPRESSION: Diffuse colonic diverticulosis with acute sigmoid diverticulitis without obstruction, free air or fluid collection. Mild constipation. Nonobstructive 3 mm radiopaque calculi are lower pole left kidney. Mild attenuation of liver likely fatty replacement.
[2021-04-28 12:22] VITALS: BP 134/77; PULSE 90; RESP 18; TEMP 36.7; O2SAT 96; BMI 70.8
[2021-04-28 13:02] LABS: Glucose Urine UA NEG (NEG); Leukocyte Esterase Urine 1+ (NEG); Nitrite Urine NEG (NEG); PH 7.5 (5.0-8.0); UACC Culture Trigger YES; Urine Blood NEG (NEG); Urine Ketones NEG (NEG); Urine Protein NEG (NEG-TRACE)
[2021-04-28 13:03] LABS: Appearance Urine CLOUDY; Color Urine YELLOW
[2021-04-28 13:13] LABS: Amorphous Sediment Urine 4+ /LPF; RBC Urine 0-2 /HPF (0); Squamous Epithelial Cell Urine 1+ /LPF; WBC Urine 0-2 /HPF (0-4)
--- NOTE | 2021-04-28 14:05 | ED.FEMALEGU ---
HPI - Female Genitourinary General Chief complaint: Urogenital-Female Stated complaint: bladder pain Time Seen by Provider: 04/28/21 13:31 Source: patient Mode of arrival: ambulatory Limitations: no limitations History of Present Illness HPI Narrative: 60-year-old female with history of recurrent UTIs who presents to the ED with lower abdominal pain and concern for UTI. Patient denies any dysuria states she has felt like this before with infections denies fevers or chills, denies chest pain or shortness of breath. Denies nausea vomiting or diarrhea. Does admit to feeling more constipated recently but did have a bowel movement this morning. Related Data Home Medications Medication Instructions Recorded Confirmed albuterol sulfate 1 vial PO Q4H PRN 07/29/20 01/11/21 polyethylene glycol 3350 17 g PO 08/31/20 01/11/21 gram/dose oral powder Previous Rx's Medication Instructions Recorded phenazopyridine 200 mg tablet 200 mg PO TID 2 Days #6 tab 10/12/20 atorvastatin 80 mg tablet 80 mg PO DAILY #90 tab 10/19/20 cetirizine 10 mg PO DAILY PRN #14 cap 11/07/20 cyclobenzaprine 10 mg tablet 10 mg PO BEDTIME #30 tab 01/11/21 cefpodoxime 100 mg PO Q12H #14 tab 01/22/21 phenazopyridine [Pyridium] 200 mg PO TID PRN #6 tab 01/22/21 ibuprofen 800 mg tablet 800 mg PO TID PRN #60 tab 03/21/21 ciprofloxacin HCl 500 mg tablet 500 mg PO BID 5 Days #10 tab 03/22/21 phenazopyridine 100 mg tablet 100 mg PO TID PRN #6 tab 03/22/21 fluticasone propionate 110 1 puff PO BID #12 g 03/31/21 mcg/actuation HFA aerosol inhaler fenofibrate nanocrystallized 48 mg 48 mg PO DAILY #90 tab 04/04/21 tablet amoxicillin-pot clavulanate 1 tab PO Q12H #20 tab 04/28/21 [Augmentin] Allergies Allergy/AdvReac Type Severity Reaction Status Date / Time morphine [MORPHINE] Allergy Severe DIFF Verified 04/28/21 12:22 BREATHING, DIZZY, anaphylaxis, shortness of breath oxycodone [OXYCODONE] Allergy Severe DIFF Verified 04/28/21 12:22 BREATHING, DIZZY sulfamethoxazole Allergy Unknown UNKNOWN Verified 04/28/21 12:22 [From BACTRIM] trimethoprim [From BACTRIM] Allergy Unknown UNKNOWN Verified 04/28/21 12:22 SEASONAL ALLERGIES Allergy Intermediate ITCHY Uncoded 06/24/20 18:51 Review of Systems Review of Systems: Constitutional : No Weight loss, No Fever, No Chills, No Night Sweats, No Fatigue, No Malaise ENT/Mouth : No Hearing loss, No Ear Pain, No Nasal Congestion, No Sinus Pain, No Hoarseness, No sore throat, No Rhinorrhea, No Swallowing Difficulty Eyes: No Eye Pain, No Swelling, No Redness, No Foreign Body, No Discharge, No Vision Changes Cardiovascular : No Chest Pain, No SOB, No Dyspnea on Exertion, No Orthopnea, No Edema, No Palpitations Respiratory : No Cough, No Sputum, No Wheezing, No Smoke Exposure, No Dyspnea Gastrointestinal : No Nausea, No Vomiting, No Diarrhea, No Constipation, + abdominal Pain, No Hematochezia, No Melena Genitourinary : no irregular bleeding, No Dysuria, No Urinary Frequency, No Hematuria, No Urinary Incontinence, No Urgency, No Flank Pain, No Urinary Flow Changes, No Hesitancy Musculoskeletal : No joint pain, No Myalgias, No Joint Swelling Skin : No Skin Lesions, No rash Neuro : No Weakness, No Numbness, No Paresthesias, No Loss of Consciousness, No Dizziness, No Headache Psych : No Anxiety/Panic, No Depression, No SI/HI/AH/VH, No Social Issues, Heme/Lymph: No Bruising, No Bleeding,No Lymphadenopathy Endocrine : No Polyuria, No Polydipsia, No Temperature Intolerance [facility] Past Medical History Attestation statement: The following information was validated with the patient. Source: old records reviewed and obtained from family Medical History (Updated 04/28/21 @ 16:16 by SURYA Esquivel) Anemia Arthritis Asthma Breast pain Depression Diverticulosis Elevated cholesterol Hemorrhoids Hx of transfusion of whole blood Lab test negative for COVID-19 virus Osteoarthritis UTI (urinary tract infection) Surgical History History of carpal tunnel release Hx of Achilles tendon repair Hx of colonoscopy Hx of hysterectomy Family History Family History Father Diabetes Mother CHF (congestive heart failure) Maternal Aunt Stomach cancer Social History Social History Household Members: Spouse Alcohol intake: never Advance Directives: Yes Advance Directives Information Provided: Yes Advance Directives on File: No Patient : No Physical Exam Vital Signs: Vital Signs: Last Vital Signs Temp 96.9 F 04/28/21 14:20 Pulse 71 04/28/21 14:20 Resp 16 04/28/21 14:20 BP 134/69 04/28/21 14:20 Pulse Ox 97 04/28/21 14:20 Body Mass Index 70.8 vital signs have been reviewed as normal and appeared to be correct. Blood pressure normal. Heart rate normal. Respiration rate normal. Temperature normal. Oxygen saturation normal. Appearance: Alert. Oriented X3. No acute distress. Head: Normal external exam. Normocephalic. Atraumatic. No Sal[place]o signs noted. No raccoon eyes noted Eyes: Conjunctiva and sclera normal. ENT: EAC normal. Moist mucous membranes. No drooling noted. No muffled voice noted. Neck: Normal inspection. Neck supple. FROM. No meningeal signs. CVS: Pulses normal throughout. Regular rate and rhythm Respiratory: No respiratory distress. Painless inspiration. No accessory muscle usage noted lungs clear to auscultation bilaterally no wheezing rhonchi or rales. Abdomen: No visible injury noted. Abdomen soft with focal tenderness to left lower abdomen. No tenderness to the right lower abdomen right upper abdomen or epigastric region. Back: Full range of motion noted. No CVA tenderness Skin: Skin warm and dry. Normal skin color. Normal skin turgor. Extremities: No lower extremity edema. Extremities exhibit normal range of motion. Neuro: Oriented X 3. No motor deficit. No sensory deficit. Course Course Course Narrative: Patient's blood returning without significant abnormalities however CT scan with evidence of acute sigmoid diverticulitis without perforation will treat patient with Cipro Flagyl discharged home with close outpatient follow-up and strict return precautions. MDM - Female Genitourinary MDM Narrative Medical decision making narrative: Patient's vital signs are stable and she is afebrile. Patient presenting to the ED with lower abdominal pain. Urinalysis obtained in triage without evidence of infection. Given left lower abdominal nature concern for intra-abdominal pathology such as diverticulitis is and this patient has total hysterectomy no longer has her ovaries no acute concern for ovarian torsion no reports of vaginal discharge or vaginal bleeding. Will check basic blood work including LFTs and lipase. We will obtain a CT scan looking for evidence of intra-abdominal pathology. Patient resting comfortably at this time. Lab Data Result diagrams: 04/28/21 14:00 04/28/21 14:00 Labs: Lab Results 04/28/21 04/28/21 04/28/21 Range/Units 12:50 14:00 14:00 WBC 9.7 (4.8-10.8) X10*3/uL RBC 4.28 (4.20-5.50) X10*6/uL Hgb 11.5 L (12.0-16.0) g/dl Hct 37.3 (37-47) % MCV 87.1 (80-98) fL MCH 26.9 L (27.0-33.0) pg MCHC 30.8 L (31.0-35.0) g/dl RDW 14.2 (11.0-16.0) % Plt Count 446 H (160-400) X10*3/uL MPV 8.3 L (9.4-12.3) fL Immature Gran % (Auto) 0.2 (0.0-0.4) % Neut % (Auto) 69.8 (45-73) % Lymph % (Auto) 18.3 L (20-40) % [place] % (Auto) 8.4 (2-11) % Eos % (Auto) 3.0 (0-4) % Baso % (Auto) 0.3 (0-2) % Lymph # (Auto) 1.8 (1.2-4.9) X10*3/uL [place] # (Auto) 0.8 (0.1-1.2) X10*3/uL Eos # (Auto) 0.3 (0.0-0.4) X10*3/uL Baso # (Auto) 0.0 (0.0-0.2) X10*3/uL Abs Immat Gran (auto) 0.02 (0.00-0.03) X10*3/uL Absolute Neuts (auto) 6.8 (2.0-8.3) X10*3/uL Absolute Nucleated RBC 0.000 (0.0-0.012) X10*3/uL Nucleated RBC % (auto) 0.0 (0.0-0.2) /100WBC Sodium 142 (135-145) mmol/L Potassium 4.6 (3.3-5.1) mmol/L Chloride 104 (96-108) mmol/L Carbon Dioxide 31 H (22-29) mmol/L Anion Gap 12 (12-20) BUN 17 H (9-16) mg/dL Creatinine 0.81 (0.5-1.4) mg/dL Estim Creat Clear Calc 63.7 Estimated GFR > 60 Random Glucose 90 (60-115) mg/dL Calcium 9.9 (8.4-10.2) mg/dL Total Bilirubin 0.4 (0.0-1.0) mg/dL AST 21 (5-31) U/L ALT 14 (0-31) U/L Alkaline Phosphatase 85 (39-117) U/L Total Protein 7.4 (6.5-8.0) g/dL Albumin 4.1 (3.5-5.0) g/dL Lipase 23 (8-78) U/L Urine Color YELLOW Urine Appearance CLOUDY Urine pH 7.5 (5.0-8.0) Ur Specific [place] 1.010 (1.005-1.025) Urine Protein NEG (NEG-TRACE) MG/DL Urine Glucose (UA) NEG (NEG) MG/DL Urine Ketones NEG (NEG) MG/DL Urine Blood NEG (NEG) Urine Nitrite NEG (NEG) Ur Leukocyte Esterase 1+ H (NEG) Urine RBC 0-2 (0) /HPF Urine WBC 0-2 (0-4) /HPF Ur Squamous Epith Cells 1+ /LPF Amorphous Sediment 4+ /LPF Urine Bacteria NONE /LPF Discharge Plan Discharge Clinical Impression: Diverticulitis Patient Disposition: Home, Self-Care Additional Instructions: Today you were diagnosed with diverticulitis you will be treated with an antibiotic. As discussed modify your diet at least for the next 10 days to avoid any spicy fatty or small foods, stick to a bland foods. Afterwards I would completely continue to cut out nuts and seeds as this increases your risk of recurrent infection. Prescriptions: New amoxicillin-pot clavulanate [Augmentin] 875-125 mg tablet 1 tab PO Q12H Qty: 20 RF: 0 No Action atorvastatin 80 mg tablet 80 mg PO DAILY Qty: 90 RF: 3 ibuprofen 800 mg tablet 800 mg PO TID PRN (Reason: pain) Qty: 60 RF: 1 Hold Instructions: Doctor's Order fluticasone propionate [Flovent HFA] 110 mcg/actuation HFA aerosol inhaler 1 puff PO BID Qty: 12 RF: 2 fenofibrate nanocrystallized 48 mg tablet 48 mg PO DAILY Qty: 90 RF: 3 albuterol sulfate 2.5 mg /3 mL (0.083 %) solution for nebulization 1 vial PO Q4H PRN (Reason: wheezing) RF: 0 cetirizine 10 mg capsule 10 mg PO DAILY PRN (Reason: allergy symptoms) Qty: 14 RF: 0 phenazopyridine [Pyridium] 200 mg tablet 200 mg PO TID PRN (Reason: pain) Qty: 6 RF: 0 cefpodoxime 100 mg tablet 100 mg PO Q12H Qty: 14 RF: 0 polyethylene glycol 3350 17 gram/dose powder PO RF: 0 cyclobenzaprine 10 mg tablet 10 mg PO BEDTIME Qty: 30 RF: 2 phenazopyridine [Pyridium] 200 mg tablet 200 mg PO TID 2 Days Qty: 6 RF: 0 ciprofloxacin HCl 500 mg tablet 500 mg PO BID 5 Days Qty: 10 RF: 0 phenazopyridine 100 mg tablet 100 mg PO TID PRN (Reason: pain) Qty: 6 RF: 0 Interventions: ED Discharge Assessment Last Done: 04/28/21 16:32 Discharge Date/Time: 04/28/21 16:33 Print Language: Upper Sorbian
[2021-04-28 14:08] LABS: MANUAL DIFF FLAG NO
[2021-04-28 14:11] LABS: Basophils Percent Auto 0.3 % (0-2); Eosinophils Absolute Auto 0.3 X10*3/uL (0.0-0.4); Hematocrit 37.3 % (37-47); Hemoglobin 11.5 g/dl (12.0-16.0); Imm Gran Abs Auto 0.02 X10*3/uL (0.00-0.03); Imm Gran Pct Auto 0.2 % (0.0-0.4); Lymphocytes Absolute Auto 1.8 X10*3/uL (1.2-4.9); Lymphocytes Percent Auto 18.3 % (20-40); Mean Corpuscular HGB Conc 30.8 g/dl (31.0-35.0); Mean Corpuscular Hemoglobin 26.9 pg (27.0-33.0); Mean Corpuscular Volume 87.1 fL (80-98); Mean Platelet Volume 8.3 fL (9.4-12.3); Monocytes Absolute Auto 0.8 X10*3/uL (0.1-1.2); Monocytes Percent Auto 8.4 % (2-11); Neutrophils Absolute Auto 6.8 X10*3/uL (2.0-8.3); Neutrophils Percent Auto 69.8 % (45-73); Platelet Count 446 X10*3/uL (160-400); Red Blood Count 4.28 X10*6/uL (4.20-5.50); Red Cell Distribution Width 14.2 % (11.0-16.0); White Blood Count 9.7 X10*3/uL (4.8-10.8)
[2021-04-28 14:20] VITALS: BP 134/69; PULSE 71; RESP 16; TEMP 36.1; O2SAT 97
[2021-04-28 14:41] LABS: Alanine Aminotransferase 14 U/L (0-31); Albumin Level 4.1 g/dL (3.5-5.0); Alkaline Phosphatase 85 U/L (39-117); Anion Gap 12 (12-20); Aspartate Amino Transferase 21 U/L (5-31); Bilirubin Total 0.4 mg/dL (0.0-1.0); Blood Urea Nitrogen 17 mg/dL (9-16); Calcium 9.9 mg/dL (8.4-10.2); Carbon Dioxide 31 mmol/L (22-29); Chloride 104 mmol/L (96-108); Creatinine Clr Calc Pharmacy 63.7; Estimated Glomerular Filt Rate > 60; Glucose Random 90 mg/dL (60-115); Lipase 23 U/L (8-78); Potassium 4.6 mmol/L (3.3-5.1); Sodium 142 mmol/L (135-145); Total Protein 7.4 g/dL (6.5-8.0)
[2021-04-28] MEDS: iohexoL 350 MG/ML 100 ML INFUS..BTL IV (14:57)
[2021-04-28] MEDS: Amoxicillin/Potassium Clav 875 MG TABLET PO (16:24)
== END 2021-04-28 16:33 | disposition home or self-care (01) ==
PROVIDERS: Physician Assistant; Emergency Provider Emergency Medicine Emergency Medical Services; PCP Physician Assistant
DX: K57.32 Diverticulitis of large intestine without perforation or abscess without bleeding (principal); Z87.440 Personal history of urinary (tract) infections
CPT/HCPCS: 36415; 74177; 80053; 81001; 81003; 83690; 85025; 87086; 99284; Q9967

== ENCOUNTER 2021-05-16 13:13 | Outpatient (REF) | payer OTHER, SELFPAY | END 2021-05-16 13:14 | disposition home or self-care (01) | LOC: HO.LNP 13:13 | PROVIDERS: PCP Physician Assistant | DX: N39.0 Urinary tract infection, site not specified (principal) | CPT/HCPCS: 87086; 87088; 87186; 99202 ==

== ENCOUNTER 2021-05-27 09:54 | Emergency (ER) | payer OTHER, SELFPAY ==
[2021-05-27 10:35] VITALS: BP 152/72; PULSE 95; RESP 18; TEMP 37.2; O2SAT 96; BMI 49.1
--- NOTE | 2021-05-27 10:56 | ED_ITS ---
HPI - Abdominal Pain General Chief Complaint: Abdominal Pain Stated Complaint: low abd pain Time Seen by Provider: 05/27/21 10:55 Source: patient Mode of arrival: ambulatory Limitations: no limitations History of Present Illness HPI narrative: History of recurrent UTI treated with cefpodoxime and Levaquin last week urine showed E coli which was sensitive to Cipro toxin is still feeling the pain in the suprapubic area with frequency which is going on almost every month for last 1 year seen urologist 2 weeks ago for same never had any cystoscopy no hematuria no flank pain no nausea or vomiting Related Data Home Medications Medication Instructions Recorded Confirmed albuterol sulfate 1 vial PO Q4H PRN 07/29/20 01/11/21 polyethylene glycol 3350 17 g PO 08/31/20 01/11/21 gram/dose oral powder bisacodyl 5 mg tablet,delayed 10 mg PO ONCE 05/16/21 release cetirizine 10 mg tablet 10 mg PO DAILY PRN 05/16/21 Previous Rx's Medication Instructions Recorded phenazopyridine 200 mg tablet 200 mg PO TID 2 Days #6 tab 10/12/20 (Pyridium) atorvastatin 80 mg tablet 80 mg PO DAILY #90 tab 10/19/20 cetirizine 10 mg capsule 10 mg PO DAILY PRN #14 cap 11/07/20 cefpodoxime 100 mg tablet 100 mg PO Q12H #14 tab 01/22/21 phenazopyridine 200 mg tablet 200 mg PO TID PRN #6 tab 01/22/21 (Pyridium) ciprofloxacin HCl 500 mg tablet 500 mg PO BID 5 Days #10 tab 03/22/21 phenazopyridine 100 mg tablet 100 mg PO TID PRN #6 tab 03/22/21 fluticasone propionate 110 1 puff PO BID #12 g 03/31/21 mcg/actuation HFA aerosol inhaler (Flovent HFA) fenofibrate nanocrystallized 48 mg 48 mg PO DAILY #90 tab 04/04/21 tablet amoxicillin 875 mg-potassium 1 tab PO Q12H #20 tab 04/28/21 clavulanate 125 mg tablet (Augmentin) cyclobenzaprine 10 mg tablet 10 mg PO BEDTIME #30 tab 05/03/21 ibuprofen 800 mg tablet 800 mg PO TID PRN #60 tab 05/03/21 nitrofurantoin macrocrystal 100 mg 100 mg PO BID 5 Days #10 cap 05/18/21 capsule amitriptyline 25 mg tablet 25 mg PO BEDTIME #30 tab 05/27/21 phenazopyridine 200 mg tablet 200 mg PO TID PRN #6 tab 05/27/21 (Pyridium) Allergies Allergy/AdvReac Type Severity Reaction Status Date / Time morphine [MORPHINE] Allergy Severe DIFF Verified 05/16/21 13:14 BREATHING, DIZZY, anaphylaxis, shortness of breath oxycodone [OXYCODONE] Allergy Severe DIFF Verified 05/16/21 13:14 BREATHING, DIZZY sulfamethoxazole Allergy Unknown UNKNOWN Verified 05/16/21 13:14 [From BACTRIM] trimethoprim [From BACTRIM] Allergy Unknown UNKNOWN Verified 05/16/21 13:14 SEASONAL ALLERGIES Allergy Intermediate ITCHY Uncoded 06/24/20 18:51 Review of Systems Review of Systems Yes all other systems are reviewed and are negative Physical Exam Vital Signs: Vital Signs: Last Vital Signs Temp 99.0 F 05/27/21 10:35 Pulse 95 05/27/21 10:35 Resp 18 05/27/21 10:35 BP 152/72 H 05/27/21 10:35 Pulse Ox 96 05/27/21 10:35 Body Mass Index 49.1 Appearance: Alert. Oriented X3. No acute distress. Eyes: No pallor or icterus ENT: Pharynx normal. Oral Mucosa moist Neck: Normal inspection. Neck supple. CVS: Normal heart rate and rhythm. Pulses normal. Respiratory: No respiratory distress. Equal air entry bilateral, no wheezing/rales/rhonchi Abdomen: Soft and mild tenderness suprapubic area. Bowel sounds are present, no mass palpable, no CVA tenderness Skin: Skin warm and dry. Normal skin color. Normal skin turgor. Extremities: No lower extremity edema. No calf tenderness Neuro: Oriented X 3. Course Course Course Narrative: Patient's symptoms likely from chronic interstitial history of cystitis UA done which shows nitrite negative leuko esterase positive with blood will start patient on Pyridium and amitriptyline advised to follow-up with urologist to do cystoscopy will wait for the urine culture before starting on any antibiotic at this time MDM - Abdominal Pain Lab Data Labs: Lab Results 05/27/21 Range/Units 11:55 Urine Color YELLOW Urine Appearance CLEAR Urine pH 6.5 (5.0-8.0) Ur Specific [place] 1.020 (1.005-1.025) Urine Protein NEG (NEG-TRACE) MG/DL Urine Glucose (UA) NEG (NEG) MG/DL Urine Ketones NEG (NEG) MG/DL Urine Blood 1+ H (NEG) Urine Nitrite NEG (NEG) Ur Leukocyte Esterase 2+ H (NEG) Urine RBC 1-4 (0) /HPF Urine WBC 10-14 H (0-4) /HPF Ur Squamous Epith Cells 1+ /LPF Ur Renal Epithelial Cell TRACE /LPF Urine Bacteria 1+ /LPF Discharge Plan Discharge Clinical Impression: Chronic interstitial cystitis Patient Disposition: Home, Self-Care Instructions: Interstitial Cystitis (ED) Additional Instructions: You likely have chronic interstitial cystitis Take amitriptyline as advise every night Pyridium for 2 days for severe pain Follow-up with urologist next week Prescriptions: New amitriptyline 25 mg tablet 25 mg PO BEDTIME Qty: 30 RF: 0 phenazopyridine [Pyridium] 200 mg tablet 200 mg PO TID PRN (Reason: pain) Qty: 6 RF: 0 No Action atorvastatin 80 mg tablet 80 mg PO DAILY Qty: 90 RF: 3 fluticasone propionate [Flovent HFA] 110 mcg/actuation HFA aerosol inhaler 1 puff PO BID Qty: 12 RF: 2 fenofibrate nanocrystallized 48 mg tablet 48 mg PO DAILY Qty: 90 RF: 3 ibuprofen 800 mg tablet 800 mg PO TID PRN (Reason: pain) Qty: 60 RF: 2 Hold Instructions: Doctor's Order cyclobenzaprine 10 mg tablet 10 mg PO BEDTIME Qty: 30 RF: 3 nitrofurantoin macrocrystal 100 mg capsule 100 mg PO BID 5 Days Qty: 10 RF: 0 albuterol sulfate 2.5 mg /3 mL (0.083 %) solution for nebulization 1 vial PO Q4H PRN (Reason: wheezing) RF: 0 cetirizine 10 mg capsule 10 mg PO DAILY PRN (Reason: allergy symptoms) Qty: 14 RF: 0 phenazopyridine [Pyridium] 200 mg tablet 200 mg PO TID PRN (Reason: pain) Qty: 6 RF: 0 cefpodoxime 100 mg tablet 100 mg PO Q12H Qty: 14 RF: 0 amoxicillin-pot clavulanate [Augmentin] 875-125 mg tablet 1 tab PO Q12H Qty: 20 RF: 0 polyethylene glycol 3350 17 gram/dose powder PO RF: 0 phenazopyridine [Pyridium] 200 mg tablet 200 mg PO TID 2 Days Qty: 6 RF: 0 ciprofloxacin HCl 500 mg tablet 500 mg PO BID 5 Days Qty: 10 RF: 0 phenazopyridine 100 mg tablet 100 mg PO TID PRN (Reason: pain) Qty: 6 RF: 0 Interventions: ED Discharge Assessment Last Done: 05/27/21 12:59 Discharge Date/Time: 05/27/21 12:59 PMFSH Past Medical History Medical History Anemia Arthritis Asthma Breast pain Depression Diverticulosis Elevated cholesterol Hemorrhoids Hx of transfusion of whole blood Lab test negative for COVID-19 virus Lumbar spondylitis Osteoarthritis Other chronic pain UTI (urinary tract infection) Surgical History History of carpal tunnel release Hx of Achilles tendon repair Hx of colonoscopy Hx of hysterectomy Family History Family History Father Diabetes Mother CHF (congestive heart failure) Maternal Aunt Stomach cancer Social History Social History Household Members: Spouse Alcohol intake: never Advance Directives: Yes Advance Directives Information Provided: Yes Advance Directives on File: No
[2021-05-27] MEDS: Phenazopyridine HCL 200 MG TABLET PO (11:54)
[2021-05-27 12:05] LABS: Appearance Urine CLEAR; Color Urine YELLOW; Glucose Urine UA NEG (NEG); Leukocyte Esterase Urine 2+ (NEG); Nitrite Urine NEG (NEG); PH 6.5 (5.0-8.0); UACC Culture Trigger YES; Urine Blood 1+ (NEG); Urine Ketones NEG (NEG); Urine Protein NEG (NEG-TRACE)
[2021-05-27 12:24] LABS: Bacteria Urine 1+ /LPF; Renal Epithelial Cells Urine TRACE /LPF; Squamous Epithelial Cell Urine 1+ /LPF
== END 2021-05-27 12:59 | disposition home or self-care (01) ==
PROVIDERS: Emergency Provider Internal Medicine; PCP Physician Assistant
DX: N30.10 Interstitial cystitis (chronic) without hematuria (principal); R10.30 Lower abdominal pain, unspecified; E78.5 Hyperlipidemia, unspecified; Z87.440 Personal history of urinary (tract) infections; Z79.02 Long term (current) use of antithrombotics/antiplatelets; Z79.899 Other long term (current) drug therapy
CPT/HCPCS: 81001; 81003; 87086; 99283

== ENCOUNTER 2021-06-09 18:28 | Emergency (ER) | payer OTHER, SELFPAY ==
[2021-06-09 19:20] VITALS: BP 153/78; PULSE 97; RESP 18; TEMP 36.8; O2SAT 95; BMI 48.4
[2021-06-09 19:32] LABS: Glucose Urine UA 100 MG/DL (NEG); Leukocyte Esterase Urine TRACE (NEG); Nitrite Urine POS (NEG); Specific Gravity - Urine 1.015 (1.005-1.025); UACC Culture Trigger YES; Urine Blood TRACE (NEG); Urine Ketones 5 MG/DL (NEG); Urine Protein 2+ MG/DL (NEG-TRACE)
[2021-06-09 19:33] LABS: Appearance Urine CLEAR; Color Urine ORANGE
[2021-06-09 19:38] LABS: Bacteria Urine 1+ /LPF; Squamous Epithelial Cell Urine 1+ /LPF; WBC Urine 0-2 /HPF (0-4)
== END 2021-06-09 21:00 | disposition left against medical advice (07) ==
PROVIDERS: Emergency Provider Emergency Medicine; PCP Physician Assistant
DX: R10.9 Unspecified abdominal pain (principal); Z87.440 Personal history of urinary (tract) infections
CPT/HCPCS: 81001; 87086; 99282; 99283

== ENCOUNTER → 2021-07-04 09:04 | Outpatient (BNVA) | payer OTHER, SELFPAY | PROVIDERS: PCP Physician Assistant | DX: N30.00 Acute cystitis without hematuria (principal) | CPT/HCPCS: 99212 ==

== ENCOUNTER → 2021-09-05 08:48 | Outpatient (BNVA) | payer OTHER, SELFPAY | PROVIDERS: PCP Physician Assistant | DX: N30.00 Acute cystitis without hematuria (principal) | CPT/HCPCS: 99212 ==

== ENCOUNTER 2021-10-03 06:58 | Emergency (ER) | payer OTHER, SELFPAY ==
[2021-10-03 07:16] VITALS: BP 164/72; PULSE 69; RESP 20; TEMP 36.2; O2SAT 96; BMI 48.4
[2021-10-03 08:01] LABS: IDNOW Serial# 08D9AD1C
[2021-10-03 08:02] LABS: COVID-19 Test Positive (Negative)
--- NOTE | 2021-10-03 08:17 | ED.URI ---
HPI - URI/Sore Throat General Chief Complaint: Upper Respiratory Symptoms Stated Complaint: COVID Symptoms Time Seen by Provider: 10/03/21 08:17 Source: patient Mode of arrival: ambulatory Limitations: no limitations History of Present Illness MD elicited complaint: cough and other (body aches) Pertinent past history: other (vaccinated x 2) Onset (ago): day(s) (yesterday) Consistency: constant Severity: mild Description of mucous: clear Able to tolerate fluids by mouth: Yes Exacerbating factors: nothing Relieving factors: nothing Context: sick contacts (daughter with COVID) Associated symptoms: myalgias and cough Treatments prior to arrival: none Related Data Home Medications Medication Instructions Recorded Confirmed albuterol sulfate 1 vial PO Q4H PRN 07/29/20 08/25/21 polyethylene glycol 3350 17 g PO 08/31/20 08/25/21 gram/dose oral powder bisacodyl 5 mg tablet,delayed 10 mg PO ONCE 05/16/21 08/25/21 release cetirizine 10 mg tablet 10 mg PO DAILY PRN 05/16/21 08/25/21 fenofibrate 160 mg tablet 160 mg PO DAILY 07/12/21 08/25/21 fenofibrate nanocrystallized 48 mg 48 mg PO DAILY 09/05/21 tablet Previous Rx's Medication Instructions Recorded ibuprofen 800 mg tablet 800 mg PO TID PRN #60 tab 05/03/21 estradiol (Estrace) See Rx Instructions .ROUTE DAILY 07/04/21 30 Days #42.5 g lisinopril 5 mg tablet 5 mg PO DAILY #30 tab 07/12/21 rosuvastatin 10 mg tablet 10 mg PO DAILY 30 Days #30 tab 07/12/21 nitrofurantoin 100 mg PO Q12H 7 Days #14 cap 08/25/21 monohydrate/macrocrystals 100 mg capsule (Macrobid) phenazopyridine 100 mg tablet 100 mg PO TID PRN #6 tab 08/25/21 (Pyridium) cyclobenzaprine 10 mg tablet 10 mg PO BEDTIME #30 tab 09/13/21 fluticasone propionate 110 1 puff PO BID #12 g 09/19/21 mcg/actuation HFA aerosol inhaler (Flovent HFA) Allergies Allergy/AdvReac Type Severity Reaction Status Date / Time morphine [MORPHINE] Allergy Severe DIFF Verified 09/05/21 09:08 BREATHING, DIZZY, anaphylaxis, shortness of breath oxycodone [OXYCODONE] Allergy Severe DIFF Verified 09/05/21 09:08 BREATHING, DIZZY sulfamethoxazole Allergy Unknown UNKNOWN Verified 09/05/21 09:08 [From BACTRIM] trimethoprim [From BACTRIM] Allergy Unknown UNKNOWN Verified 09/05/21 09:08 SEASONAL ALLERGIES Allergy Intermediate ITCHY Uncoded 09/05/21 09:08 Review of Systems Review of Systems: Constitutional : no Fever, positive Chills, positive fatigue, positive Malaise ENT/Mouth : no sore throat, positive runny nose Eyes: No Discharge Cardiovascular : No Chest Pain, No SOB Respiratory : No Cough, No Sputum Gastrointestinal : No Nausea, No Vomiting, No Diarrhea Genitourinary : No Dysuria, No Urinary Frequency Musculoskeletal : positive Myalgia Skin : No rash Neuro : No Headache PMFSH Past Medical History Medical History Anemia Arthritis Asthma Breast pain Depression Diverticulosis Elevated cholesterol Hemorrhoids Hx of transfusion of whole blood Lab test negative for COVID-19 virus Lumbar spondylitis Osteoarthritis Other chronic pain UTI (urinary tract infection) Surgical History History of carpal tunnel release Hx of Achilles tendon repair Hx of colonoscopy Hx of hysterectomy Family History Family History Father Diabetes Mental health disorder Mother CHF (congestive heart failure) Maternal Aunt Stomach cancer Social History Social History Household Members: Spouse Housing: Apartment Alcohol intake: never Patient Tobacco Use Status: Never used Tobacco e-Cigarette/Vaping Use: Never Used Second Hand Smoke Exposure: No Advance Directives: No Advance Directives Information Provided: No service: No Current occupational status: retired and disabled Physical Exam Vital Signs: Vital Signs: Last Vital Signs Temp 97.1 F 10/03/21 07:16 Pulse 69 10/03/21 07:16 Resp 20 10/03/21 07:16 BP 164/72 H 10/03/21 07:16 Pulse Ox 96 10/03/21 07:16 BMI result Body Mass Index 48.4 Appearance: Alert. Oriented X3. No acute distress. Eyes: Pupils equal, round and reactive to light. ENT: Pharynx normal. Neck: Normal inspection. Neck supple. CVS: Normal heart rate and rhythm. Pulses normal. Respiratory: No respiratory distress. Breath sounds normal. Abdomen: Soft and nontender. Skin: Skin warm and dry. Normal skin color. Normal skin turgor. Extremities: No lower extremity edema. Neuro: Oriented X 3. No motor deficit. No sensory deficit. MDM - URI/Sore Throat MDM Narrative Medical decision making narrative: 61 yo female with obesity, HTN, asthma here with COVID symptoms after exposure - no hypoxia clear lungs - not toxic, vaccianted x 2, given preacutions to return. Mab form filled out though discussed if this is omicron it won't work for her. Patient aware unsure she is going to get Mab done. Lab Data Labs: Lab Results 10/03/21 Range/Units 07:39 COVID-19 ([facility]) Positive A (Negative) COVID-19 Clin Com See Note Discharge Plan Discharge Clinical Impression: COVID-19 Patient Disposition: Home, Self-Care Instructions: COVID-19 (Coronavirus Disease 2019) (ED) Additional Instructions: return to ED for any worsening symptoms or concerns monitor your breathing quarantine for 10 days Prescriptions: No Action ibuprofen 800 mg tablet 800 mg PO TID PRN (Reason: pain) Qty: 60 RF: 2 Hold Instructions: Doctor's Order cyclobenzaprine 10 mg tablet 10 mg PO BEDTIME Qty: 30 RF: 3 Flovent HFA 110 mcg/actuation HFA aerosol inhaler 1 puff PO BID Qty: 12 RF: 4 albuterol sulfate 2.5 mg /3 mL (0.083 %) solution for nebulization 1 vial PO Q4H PRN (Reason: wheezing) RF: 0 polyethylene glycol 3350 17 gram/dose powder PO RF: 0 fenofibrate 160 mg tablet 160 mg PO DAILY RF: 0 rosuvastatin 10 mg tablet 10 mg PO DAILY 30 Days Qty: 30 RF: 3 lisinopril 5 mg tablet 5 mg PO DAILY Qty: 30 RF: 4 nitrofurantoin monohyd/m-cryst [Macrobid] 100 mg capsule 100 mg PO Q12H 7 Days Qty: 14 RF: 0 phenazopyridine [Pyridium] 100 mg tablet 100 mg PO TID PRN (Reason: pain) Qty: 6 RF: 0 estradiol [Estrace] 0.01 % (0.1 mg/gram) cream See Rx Instructions .Route DAILY 30 Days Qty: 42.5 RF: 0 cetirizine 10 mg tablet 10 mg PO DAILY PRN (Reason: allergies) RF: 0 bisacodyl 5 mg tablet,delayed release (DR/EC) 10 mg PO ONCE RF: 0
== END 2021-10-03 09:14 | disposition home or self-care (01) ==
PROVIDERS: Emergency Provider Emergency Medicine; PCP Physician Assistant
DX: U07.1 COVID-19 (principal); I10 Essential (primary) hypertension; J45.909 Unspecified asthma, uncomplicated
CPT/HCPCS: 36415; 87635; 99283

== ENCOUNTER → 2021-11-17 07:47 | Outpatient (BNVA) | payer OTHER, SELFPAY | PROVIDERS: PCP Physician Assistant; Referring Provider Physician Assistant; Visit Provider Internal Medicine Gastroenterology | DX: K59.09 Other constipation (principal); K21.9 Gastro-esophageal reflux disease without esophagitis; K64.9 Unspecified hemorrhoids; K57.90 Diverticulosis of intestine, part unspecified, without perforation or abscess without bleeding; E66.01 Morbid (severe) obesity due to excess calories; Z68.42 Body mass index [BMI] 45.0-49.9, adult; Z86.010 Personal history of colon polyps | CPT/HCPCS: 99212 ==

== ENCOUNTER 2022-01-03 13:34 | Outpatient (REF) | payer OTHER, SELFPAY ==
--- NOTE | ~2022-01-03 | US_ITS ---
EXAMINATION: US VENOUS WITH DOPPLER UPPER EXTREMITY, RIGHT CLINICAL INFORMATION: Pain COMPARISON: None TECHNIQUE: Ultrasound of the upper extremity is performed using compression sonography and color and pulse Doppler flow with assessment of augmentation of flow. There is also imaging and Doppler assessment of the jugular and subclavian veins. Spectral analysis with color-flow imaging is performed. FINDINGS: The right internal jugular, subclavian, axillary, brachial, basilic and cephalic veins are patent. Radial and ulnar veins are patent. There is a small fluid collection adjacent to the vessels in the medial antecubital fossa measuring 2.8 x 0.9 1.7 cm. US/US venous duplex UE RT IMPRESSION: No DVT demonstrated in the rightupper extremity. Small 2.8 x 0.9 x 1.7 cm fluid collection in the medial antecubital fossa.
== END 2022-01-03 13:35 | disposition home or self-care (01) ==
LOC: HO.US 13:34
PROVIDERS: PCP Physician Assistant; Visit Provider Nurse Practitioner Family
DX: M79.601 Pain in right arm (principal); M79.89 Other specified soft tissue disorders
CPT/HCPCS: 93971

== ENCOUNTER 2022-01-18 11:34 | Outpatient (REF) | payer OTHER, SELFPAY ==
--- NOTE | ~2022-01-18 | XR_ITS ---
EXAMINATION: XR SHOULDER, RIGHT CLINICAL INFORMATION: Right shoulder pain. COMPARISON: None TECHNIQUE: AP external rotation, Grashey, scapular Y, and axillary views of the right shoulder. FINDINGS: Prominent acromioclavicular marginal osteophytes with mild adjacent soft tissue calcification. Tiny inferior glenohumeral marginal osteophytes. No osseous erosion. No fracture or dislocation. XR/XR shoulder RT min 2V IMPRESSION: Severe acromioclavicular and minimal glenohumeral osteoarthritis.
== END 2022-01-18 11:35 | disposition home or self-care (01) ==
LOC: HO.XRAY 11:34
PROVIDERS: PCP Physician Assistant; Visit Provider Nurse Practitioner Family
DX: M25.511 Pain in right shoulder (principal)
CPT/HCPCS: 73030

== ENCOUNTER → 2022-01-19 10:18 | Outpatient (BNVA) | payer OTHER, SELFPAY | PROVIDERS: PCP Physician Assistant; Visit Provider Physician Assistant | DX: M19.011 Primary osteoarthritis, right shoulder (principal) | CPT/HCPCS: 99202 ==

== ENCOUNTER 2022-02-02 12:09 | Outpatient (REF) | payer OTHER, SELFPAY ==
--- NOTE | ~2022-02-02 | FL_ITS ---
PROCEDURE: XR ARTHROGRAM SHOULDER, RIGHT CLINICAL INFORMATION: Primary osteoarthritis right AC joint. COMPARISON: None TECHNIQUE: Following explaining fluoroscopy-guided right shoulder steroid injection procedure, benefits and risk, a written consent was obtained. The area around the right anterior shoulder joint was marked, cleaned and draped in usual sterile manner. 1% lidocaine was injected overlying the right AC joint. A 22-gauge spinal needle was advanced from the skin into the joint space and 2 mL of nonionic contrast was injected and single image obtained for documentation. Subsequently 40 mg of Depo-Medrol, 1 mL of 1% lidocaine and 1 mL of 0.25% Sensorcaine as a 3 mL volume was injected. Postprocedure needle was withdrawn and complete hemostasis achieved at puncture site. Sterile Band-Aid applied postprocedure. Patient tolerated procedure extremely well. FINDINGS: There are moderate hypertrophic changes of right AC joint on AP view. 40 mg of Depo-Medrol was injected into the right AC joint. FLUOROSCOPY TIME: 2.0 minutes DOSE AREA PRODUCT: 7.039 uGy-m2 (microgray-meter squared) FL/FL arthrogram shoulder RT IMPRESSION: Successful fluoroscopy-guided right AC joint steroid injection performed without immediate complications.
== END 2022-02-02 12:10 | disposition home or self-care (01) ==
LOC: HO.XRAY 12:09
PROVIDERS: Visit Provider Physician Assistant
DX: M19.011 Primary osteoarthritis, right shoulder (principal)
CPT/HCPCS: 23350; 73040

== ENCOUNTER 2022-02-08 08:22 | Outpatient (REF) | payer OTHER, SELFPAY ==
[2022-02-08 08:41] LABS: MANUAL DIFF FLAG NO
[2022-02-08 09:09] LABS: Basophils Absolute Auto 0.1 X10*3/uL (0.0-0.2); Basophils Percent Auto 0.6 % (0-2); Eosinophils Absolute Auto 0.3 X10*3/uL (0.0-0.4); Eosinophils Percent Auto 2.6 % (0-4); Hemoglobin 12.1 g/dl (12.0-16.0); Imm Gran Abs Auto 0.02 X10*3/uL (0.00-0.03); Imm Gran Pct Auto 0.2 % (0.0-0.4); Immature Retic Fraction 11.5 % (3.0-15.9); Lymphocytes Absolute Auto 1.9 X10*3/uL (1.2-4.9); Lymphocytes Percent Auto 18.8 % (20-40); Mean Corpuscular HGB Conc 31.8 g/dl (31.0-35.0); Mean Corpuscular Hemoglobin 27.3 pg (27.0-33.0); Mean Corpuscular Volume 85.8 fL (80.0-98.0); Mean Platelet Volume 8.3 fL (9.4-12.3); Monocytes Percent Auto 9.3 % (2-11); Neutrophils Percent Auto 68.5 % (45-73); Platelet Count 494 X10*3/uL (160-400); Red Blood Count 4.43 X10*6/uL (4.20-5.50); Red Cell Distribution Width 14.9 % (11.0-16.0); Retic HGB Equivalent 31.5 pg (30.0-35.0); Reticulocyte Percent 1.6 % (0.5-1.8); White Blood Count 10.2 X10*3/uL (4.8-10.8)
[2022-02-08 09:35] LABS: Alanine Aminotransferase 14 U/L (0-31); Albumin Level 4.1 g/dL (3.5-5.0); Alkaline Phosphatase 79 U/L (39-117); Anion Gap 12 (12-20); Aspartate Amino Transferase 18 U/L (5-31); Bilirubin Direct 0.2 mg/dL (0.0-0.5); Bilirubin Total 0.7 mg/dL (0.0-1.0); Blood Urea Nitrogen 19 mg/dL (9-16); Calcium 9.9 mg/dL (8.4-10.2); Carbon Dioxide 29 mmol/L (22-29); Chloride 102 mmol/L (96-108); Estimated Glomerular Filt Rate > 60; Glucose Random 89 mg/dL (60-115); Iron 63 mcg/dL (30-160); Percent Iron Saturation 19 % (15-50); Potassium 4.3 mmol/L (3.3-5.1); Sodium 139 mmol/L (135-145); Total Iron Binding Capacity 334 mcg/dL (228-428); Total Protein 7.4 g/dL (6.5-8.0); Unsaturated Iron Binding 271 ug/dL
[2022-02-08 09:54] LABS: Ferritin 126 ng/mL (10-250)
[2022-02-08 11:08] LABS: Folate 17.1 ng/mL (> or = 4.0); Vitamin B12 437 pg/mL (200-900)
== END 2022-02-08 08:23 | disposition home or self-care (01) ==
LOC: HO.LAB 08:22
PROVIDERS: PCP Physician Assistant; Visit Provider Internal Medicine
DX: R79.89 Other specified abnormal findings of blood chemistry (principal); D64.9 Anemia, unspecified; E78.00 Pure hypercholesterolemia, unspecified
CPT/HCPCS: 36415; 80053; 82248; 82607; 82728; 82746; 83540; 85025; 85045

== ENCOUNTER 2022-02-21 09:03 | Outpatient (REF) | payer OTHER, SELFPAY ==
--- NOTE | ~2022-02-21 | MM_ITS ---
EXAMINATION: MM SCREENING DIGITAL BREAST TOMOSYNTHESIS, BILATERAL CLINICAL INFORMATION: Screening. Asymptomatic. The lifetime risk of breast cancer based on the Tyrer-Cuzick Model is 3%. COMPARISON: Mammography: 11/11/2020, 08/14/2019, 08/30/2018; bilateral targeted breast ultrasound 11/11/2020; outside mammography 10/19/2017 ([facility]). TECHNIQUE: Digital breast tomosynthesis is performed in both the craniocaudal and mediolateral oblique views along with computer-aided detection (CAD). Synthesized 2D images are generated from the tomosynthesis. Additional left cleavage and left MLO views are provided. FINDINGS: The breasts are almost entirely fatty (ACR BI-RADS breast composition Category a). Background stromal markings are stable. There is no developing density or interval mass or architectural abnormality. No abnormal calcifications. There is a wire fragment again seen mid lower inner right breast approximately 1.5 cm length similar to prior exams. The axilla and skin contours are unremarkable. No significant changes. MM/MM tomosynthesis screening BI IMPRESSION: No mammographic evidence of malignancy. ASSESSMENT: BI-RADS 2: Benign RECOMMENDATION: Routine annual mammography screening. This patient's information was entered into a reminder system with a target due date for their next mammogram.
== END 2022-02-21 09:04 | disposition home or self-care (01) ==
LOC: HO.MAMMO 09:03
PROVIDERS: PCP Physician Assistant; Visit Provider Physician Assistant
DX: Z12.31 Encounter for screening mammogram for malignant neoplasm of breast (principal)
CPT/HCPCS: 77063; 77067

== ENCOUNTER 2022-03-03 08:27 | Outpatient (REF) | payer OTHER, SELFPAY | END 2022-03-03 08:28 | disposition home or self-care (01) | LOC: HO.LAB 08:27 | PROVIDERS: PCP Physician Assistant | DX: N30.00 Acute cystitis without hematuria (principal); R73.03 Prediabetes; Z87.440 Personal history of urinary (tract) infections | CPT/HCPCS: 87086; 99212 ==

== ENCOUNTER → 2022-05-18 07:58 | Outpatient (BNVA) | payer OTHER, SELFPAY | PROVIDERS: PCP Physician Assistant; Referring Provider Physician Assistant; Visit Provider Internal Medicine Gastroenterology | DX: D64.9 Anemia, unspecified (principal); K21.9 Gastro-esophageal reflux disease without esophagitis; K59.09 Other constipation; K57.90 Diverticulosis of intestine, part unspecified, without perforation or abscess without bleeding; K64.9 Unspecified hemorrhoids; Z86.010 Personal history of colon polyps | CPT/HCPCS: 99212 ==

== ENCOUNTER 2022-08-02 09:51 | Outpatient (REF) | payer OTHER, SELFPAY | END 2022-08-02 09:52 | disposition home or self-care (01) | LOC: HO.LAB 09:51 | PROVIDERS: Visit Provider Nurse Practitioner Family | DX: R35.0 Frequency of micturition (principal) | CPT/HCPCS: 87086 ==

== ENCOUNTER 2022-11-13 09:19 | Outpatient (REF) | payer OTHER, SELFPAY ==
--- NOTE | ~2022-11-13 | XR_ITS ---
EXAMINATION: XR HIP, RIGHT CLINICAL INFORMATION: Right hip pain COMPARISON: None TECHNIQUE: Two views of the right hip. FINDINGS: No fracture or dislocation. The right hip is well aligned. Subchondral sclerosis present. Osteophyte formation along the acetabulum. The visualized right pelvis is intact. Soft tissue calcification adjacent to the greater trochanter can be seen with calcific tendinosis. Degenerative change of the visualized lumbar spine. XR/XR hip RT min 2V IMPRESSION: Mild to moderate degenerative changes of the right hip. Possible calcific tendinosis at the right femoral greater trochanter.
[2022-11-13 09:34] LABS: MANUAL DIFF FLAG NO
[2022-11-13 10:18] LABS: Basophils Absolute Auto 0.1 X10*3/uL (0.0-0.2); Basophils Percent Auto 0.9 % (0-2); Eosinophils Absolute Auto 0.4 X10*3/uL (0.0-0.4); Eosinophils Percent Auto 6.5 % (0-4); Hematocrit 37.9 % (37.0-47.0); Hemoglobin 11.9 g/dl (12.0-16.0); Imm Gran Abs Auto 0.02 X10*3/uL (0.00-0.03); Imm Gran Pct Auto 0.3 % (0.0-0.4); Lymphocytes Absolute Auto 1.5 X10*3/uL (1.2-4.9); Lymphocytes Percent Auto 26.3 % (20-40); Mean Corpuscular HGB Conc 31.4 g/dl (31.0-35.0); Mean Corpuscular Hemoglobin 27.5 pg (27.0-33.0); Mean Corpuscular Volume 87.5 fL (80.0-98.0); Mean Platelet Volume 8.6 fL (9.4-12.3); Monocytes Absolute Auto 0.6 X10*3/uL (0.1-1.2); Monocytes Percent Auto 9.7 % (2-11); Neutrophils Absolute Auto 3.3 x10*3/uL (2.0-8.3); Neutrophils Percent Auto 56.3 % (45-73); Platelet Count 529 X10*3/uL (160-400); Red Blood Count 4.33 X10*6/uL (4.20-5.50); Red Cell Distribution Width 13.8 % (11.0-16.0); White Blood Count 5.9 X10*3/uL (4.8-10.8)
[2022-11-13 11:13] LABS: Alanine Aminotransferase 18 U/L (0-31); Albumin Level 4.2 g/dL (3.5-5.0); Alkaline Phosphatase 68 U/L (39-117); Anion Gap 10 (12-20); Aspartate Amino Transferase 23 U/L (5-31); Bilirubin Total 0.4 mg/dL (0.0-1.0); Blood Urea Nitrogen 15 mg/dL (9-16); Calcium 9.7 mg/dL (8.4-10.2); Carbon Dioxide 32 mmol/L (22-29); Chloride 104 mmol/L (96-108); Cholesterol 269 mg/dL; Estimated Glomerular Filt Rate > 60; Glucose Fasting 91 mg/dL (60-99); HDL Cholesterol 51 mg/dL; LDL Cholesterol Calculated 175 mg/dl; Potassium 4.4 mmol/L (3.3-5.1); Sodium 142 mmol/L (135-145); Total Protein 7.1 g/dL (6.5-8.0); Triglycerides 218 mg/dL
== END 2022-11-13 09:20 | disposition home or self-care (01) ==
LOC: HO.LAB 09:19
PROVIDERS: PCP Physician Assistant; Visit Provider Nurse Practitioner Family
DX: R42 Dizziness and giddiness (principal); M25.551 Pain in right hip; I10 Essential (primary) hypertension; E78.00 Pure hypercholesterolemia, unspecified
CPT/HCPCS: 36415; 73502; 80053; 80061; 84443; 85025

== ENCOUNTER 2022-11-14 07:29 | Outpatient (RCR) | payer OTHER, SELFPAY ==
--- NOTE | 2022-11-14 16:36 | MHC.PT.EP ---
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 REPORTS PAIN FOR ABOUT 1 YEAR, I THINK IT MAY BE ARTHRITIS . OF NOTE, Pt ALSO REPORTS R SHLDER PAIN. REPORTS NO SPECIFIC TRAUMA. PRESENTS TO PT WITH DECREASED R HIP STRENGTH, TTP GREATER TROCH/ITB R, DECREASED HIP MOBILITY. SHOULD BENEFIT FROM PT TO ADDRESS THESE ISSUES Frequency and Duration: The patient will be seen 2X/WK X 6 WKS Short Term Goals: 1. INCREASED AWARENESS POSTURE AND HIP CARE 2. IMPROVED TOLERANCE TO PROLONGED SIT/STAND Prison Goals: 1. DECREASED R HIP PAIN AT LEAST 50% WITH ADLS 2. I HEP WITH DC EX PLAN Treatment Plan: Modalities to reduce pain, spasms and effusion. Manual therapy to restore motion and function. Therapeutic exercise to improve strength and flexibility. Neuromuscular re-education for posture and balance. Therapeutic activities to return to functional activities of daily living. Electronically signed by: JO PRITCHARD PT Please sign and return to therapist. Thank you for your referral.
--- NOTE | 2023-01-26 11:45 | MHC.PT.DC ---
[facility] [place] Office [place] Office [place] Office [address] Julissa Koh[address] [phone] F: [phone] F: [phone] F: [phone] F: [phone] Physical Therapy Discharge Report Diagnosis: PAIN IN R HIP Date of Surgery: NA Date of Evaluation: 11/14/22 Date of Discharge: 01/26/23 Treatments to Date: 1 Cancellations to Date: 1 No Shows to Date: 2 Discharge Status: Visit Non-compliance Discharge Summary: Pt SEEN FOR INIT EVAL ONLY. 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 REPORTS PAIN FOR ABOUT 1 YEAR, I THINK IT MAY BE ARTHRITIS . OF NOTE, Pt ALSO REPORTS R SHLDER PAIN. REPORTS NO SPECIFIC TRAUMA. PRESENTS TO PT WITH DECREASED R HIP STRENGTH, TTP GREATER TROCH/ITB R, DECREASED HIP MOBILITY. SHOULD BENEFIT FROM PT TO ADDRESS THESE ISSUES. Pt THEN CANCELLED NEXT APPT THEN NO SHOW X 2 Electronically signed by: JO PRITCHARD PT Please sign and return to therapist. Thank you for your referral.
== END 2023-01-26 11:46 | disposition home or self-care (01) ==
LOC: HO.PT 07:29
PROVIDERS: Visit Provider Nurse Practitioner Family
DX: M25.551 Pain in right hip (principal)
CPT/HCPCS: 97110; 97161

== ENCOUNTER 2022-11-22 08:42 | Outpatient (REF) | payer OTHER, SELFPAY ==
[2022-11-22 10:03] LABS: Alanine Aminotransferase 17 U/L (0-31); Albumin Level 4.1 g/dL (3.5-5.0); Alkaline Phosphatase 67 U/L (39-117); Anion Gap 13 (12-20); Aspartate Amino Transferase 21 U/L (5-31); Bilirubin Total 0.4 mg/dL (0.0-1.0); Blood Urea Nitrogen 14 mg/dL (9-16); Calcium 9.5 mg/dL (8.4-10.2); Carbon Dioxide 27 mmol/L (22-29); Chloride 106 mmol/L (96-108); Estimated Glomerular Filt Rate > 60; Glucose Random 91 mg/dL (60-115); Iron 87 mcg/dL (30-160); Potassium 4.3 mmol/L (3.3-5.1); Sodium 142 mmol/L (135-145); Total Protein 6.9 g/dL (6.5-8.0)
[2022-11-22 10:36] LABS: Percent Iron Saturation 33 % (15-50); Total Iron Binding Capacity 260 mcg/dL (228-428); Unsaturated Iron Binding 173 ug/dL
== END 2022-11-22 08:43 | disposition home or self-care (01) ==
LOC: HO.LAB 08:42
PROVIDERS: PCP Physician Assistant; Visit Provider Nurse Practitioner Family
DX: D64.9 Anemia, unspecified (principal); D75.839 Thrombocytosis, unspecified; R42 Dizziness and giddiness
CPT/HCPCS: 36415; 80053; 83540

== ENCOUNTER → 2022-12-11 13:46 | Outpatient (BNV) | payer MEDICARE, OTHER, MEDICAID, SELFPAY | PROVIDERS: PCP Physician Assistant; Visit Provider Internal Medicine | DX: D75.839 Thrombocytosis, unspecified (principal) | CPT/HCPCS: 99204; 99213 ==

== ENCOUNTER 2022-12-18 09:01 | Outpatient (REF) | payer OTHER, SELFPAY ==
[2022-12-18 11:42] LABS: Cholesterol 274 mg/dL; HDL Cholesterol 50 mg/dL; LDL Cholesterol Calculated 182 mg/dl; Triglycerides 214 mg/dL
== END 2022-12-18 09:02 | disposition home or self-care (01) ==
LOC: HO.LAB 09:01
PROVIDERS: PCP Physician Assistant; Visit Provider Nurse Practitioner Family
DX: E78.00 Pure hypercholesterolemia, unspecified (principal)
CPT/HCPCS: 36415; 80061

== ENCOUNTER 2023-02-20 10:01 | Day surgery (SDC) | payer OTHER, SELFPAY ==
--- NOTE | ~2023-02-20 | CT_ITS ---
PROCEDURE: CT-GUIDED BONE MARROW ASPIRATION AND BIOPSY CLINICAL INDICATION: Thrombocytosis. COMPARISON: None available. TECHNIQUE: Following explaining CT fluoroscopy-guided iliac crest biopsy procedure, benefits and risk, a written consent was obtained. Patient was placed prone on CT fluoroscopy table and preliminary CT imaging was obtained through the pelvis. Lead markers were placed along the right posterior iliac crest and repeat CT imaging was performed. An optimal lead marker was selected and marked on the skin. The marked area was cleaned and draped in the usual sterile manner. 1% lidocaine was administered at puncture site. Through a small skin incision an 18-gauge guide needle was advanced from the skin incision to the posterior iliac crest cortex. Hand drill was applied and the needle was drilled through the cortex. Syringes containing heparin and EDTA were attached to syringe and simple bone marrow aspirates were performed. Subsequently coaxial long needle was advanced and a bone matter biopsy was performed. Postprocedure the guide needle was withdrawn and complete hemostasis achieved at puncture site. Simple Band-Aid applied postprocedure. Conscious sedation was administered for 30 minutes and patient monitored by IR nursing and IR radiologist. FINDINGS: On preliminary CT imaging there are scattered diverticuli and stool in the colon. No mass, free fluid seen. The urinary bladder is nondistended. Bone windows reveal no abnormality of the pelvis. There is mild sclerosis of the left SI joint likely sacroiliitis. Mild degenerative disc changes are seen at L3-L4, L4-L5 and L5/S1 disc levels with vacuum disc phenomena. Bilateral facet joint arthropathy seen at these disc levels worse at the L5-S1 disc level. CT fluoroscopy-guided right posterior iliac crest bone marrow biopsy was performed. DLP: 244 mGy-cm
[2023-02-20 10:32] VITALS: BMI 43.0
[2023-02-20 10:58] LABS: MANUAL DIFF FLAG NO
[2023-02-20 11:00] LABS: Basophils Percent Auto 0.5 % (0-2); Eosinophils Absolute Auto 0.4 X10*3/uL (0.0-0.4); Eosinophils Percent Auto 5.2 % (0-4); Hematocrit 39.2 % (37.0-47.0); Hemoglobin 12.6 g/dl (12.0-16.0); Imm Gran Abs Auto 0.02 X10*3/uL (0.00-0.03); Imm Gran Pct Auto 0.2 % (0.0-0.4); Lymphocytes Absolute Auto 1.6 X10*3/uL (1.2-4.9); Lymphocytes Percent Auto 20.2 % (20-40); Mean Corpuscular HGB Conc 32.1 g/dl (31.0-35.0); Mean Corpuscular Hemoglobin 27.7 pg (27.0-33.0); Mean Corpuscular Volume 86.2 fL (80.0-98.0); Mean Platelet Volume 8.3 fL (9.4-12.3); Monocytes Absolute Auto 0.6 X10*3/uL (0.1-1.2); Neutrophils Absolute Auto 5.4 x10*3/uL (2.0-8.3); Neutrophils Percent Auto 66.9 % (45-73); Platelet Count 483 X10*3/uL (160-400); Red Blood Count 4.55 X10*6/uL (4.20-5.50); Red Cell Distribution Width 14.1 % (11.0-16.0)
[2023-02-20 11:06] LABS: Prothrombin Time 11.5 SEC (10.0-13.1)
[2023-02-20 11:08] LABS: Partial Thromboplastin Time 36.1 SEC (26.0-36.4)
[2023-02-20 12:34] LABS: Bone Marrow SEE SEPARATE REPORT
[2023-02-20 12:40] VITALS: BP 143/77; PULSE 64; RESP 18; TEMP 36.8; O2SAT 97
[2023-02-20 12:55] VITALS: BP 145/77; PULSE 63; RESP 18; O2SAT 94
[2023-02-20 13:10] VITALS: BP 137/72; PULSE 73; RESP 18; O2SAT 96
[2023-02-20 13:25] VITALS: BP 136/83; PULSE 73; RESP 18; O2SAT 96
[2023-02-20 13:55] VITALS: BP 128/77; PULSE 81; RESP 18; O2SAT 95
[2023-02-20 14:35] VITALS: BP 123/78; PULSE 71; RESP 18; TEMP 36.8; O2SAT 99
== END 2023-02-20 15:00 | disposition home or self-care (01) ==
PROVIDERS: Pathology Anatomic Pathology & Clinical Pathology; Radiology Diagnostic Radiology; PCP Physician Assistant; Visit Provider Internal Medicine
DX: D75.839 Thrombocytosis, unspecified (principal); D64.9 Anemia, unspecified; J45.909 Unspecified asthma, uncomplicated
CPT/HCPCS: 36415; 38222; 85025; 85610; 85730; 88184; 88185; 88237; 88264; 88305; 88311; 88313; 88374; 99152; J1642; J2250; J3010

== ENCOUNTER 2023-02-24 11:00 | Outpatient (REF) | payer OTHER, SELFPAY ==
--- NOTE | ~2023-02-24 | MR_ITS ---
EXAMINATION: MR BRAIN WITHOUT CONTRAST CLINICAL INFORMATION: Concern for Alzheimer's disease COMPARISON: None. TECHNIQUE: MRI of the brain was obtained using routine sequences without contrast. FINDINGS: Motion degraded examination. No acute infarct. No acute intracranial hemorrhage or extra-axial fluid collection. Age appropriate mild generalized parenchymal volume loss. Slight asymmetric prominence of the anterior left temporal horn, however the hippocampi appear relatively symmetric. Patchy T2 hyperintense foci in the subcortical and periventricular white matter are nonspecific but most suggestive of mild chronic microangiopathy.No mass lesion, mass effect, or herniation pattern. Normal intracranial arterial and dural venous sinus flow voids. Expanded partially empty sella. The orbits are grossly unremarkable. Mild patchy ethmoid air cell mucosal disease. The mastoid air cells are well aerated. Normal marrow signal. MR/MR head/brain wo con IMPRESSION: No acute intracranial abnormality. Mild nonspecific white matter disease likely reflecting mild chronic microangiopathy. Mild age-appropriate generalized parenchymal volume loss, without specific lobar predilection. Expanded partially empty sella.
== END 2023-02-24 11:01 | disposition home or self-care (01) ==
LOC: HO.MRI 11:00
PROVIDERS: PCP Physician Assistant; Visit Provider Physician Assistant
DX: R41.3 Other amnesia (principal)
CPT/HCPCS: 70551

== ENCOUNTER → 2023-03-19 09:15 | Outpatient (BNVA) | payer OTHER, SELFPAY | PROVIDERS: PCP Physician Assistant; Visit Provider Nurse Practitioner Family | DX: G56.03 Carpal tunnel syndrome, bilateral upper limbs (principal); M25.512 Pain in left shoulder; M70.61 Trochanteric bursitis, right hip; M16.11 Unilateral primary osteoarthritis, right hip | CPT/HCPCS: 99202 ==

== ENCOUNTER 2023-04-25 06:03 | Outpatient (REF) | payer OTHER, SELFPAY ==
--- NOTE | ~2023-04-25 | FL_ITS ---
EXAMINATION: XR FLUOROSCOPY WITH IMAGES CLINICAL INFORMATION: Pain in right hip. Right hip injection. COMPARISON: None available. TECHNIQUE: Fluoroscopy Supervised By: Dr. Brian Lanza. Fluoroscopy Time: 0.1 minutes. Cumulative Dose: 1.44 mGy. DAP: 0.242 Gycm2. Images: 1. FINDINGS: A single right hip exam reveals needle positioned along the greater trochanter with contrast opacifying the adjacent soft tissues. No gross bony abnormality seen FL/FL guidance in treatment room IMPRESSION: Fluoroscopy was provided to referring physician for right hip injection.
--- NOTE | ~2023-04-25 | FL_ITS ---
EXAMINATION: XR FLUOROSCOPY WITH IMAGES CLINICAL INFORMATION: Pain in left shoulder. COMPARISON: None available. TECHNIQUE: Fluoroscopy Supervised By: Dr. Brian Lanza. Fluoroscopy Time: 0.2 minutes. Cumulative Dose: 1.15 mGy. DAP: 0.126 Gycm2. Images: 1. FINDINGS: There is solitary needle positioned overlying the AC joint with contrast opacifying the joint space. There is hypertrophic changes at the AC joint. FL/FL guidance in treatment room IMPRESSION: Fluoroscopy guidance was provided for left AC joint injection by pain management team..
== END 2023-04-25 06:04 | disposition home or self-care (01) ==
LOC: CF 06:03
PROVIDERS: Visit Provider Internal Medicine
DX: M70.61 Trochanteric bursitis, right hip (principal); M25.512 Pain in left shoulder
CPT/HCPCS: 20605; 20610; J3301

== ENCOUNTER 2023-04-25 09:15 | Outpatient (AMB) | payer OTHER, SELFPAY ==
[2023-04-25 09:26] VITALS: BP 162/78; PULSE 60; RESP 14; O2SAT 98
--- NOTE | 2023-04-25 09:26 | MHC.OFFVIS ---
Intake Vital Signs 04/25/23 09:26 BP 162/78 H Blood Pressure Location Lt radial Position Sitting Respiration 14 Pulse 60 Pulse Source Pulse Oximeter Pulse Oximetry (%) 98 Oxygen Delivery Method Room Air Intake Visit Reasons: L acromioclavicular thera/ R thera GTB inj Allergies morphine [MORPHINE] Allergy (Severe, Verified 04/25/23 09:26) DIFF BREATHING, DIZZY, anaphylaxis, shortness of breath oxycodone [OXYCODONE] Allergy (Severe, Verified 04/25/23 09:26) DIFF BREATHING, DIZZY sulfamethoxazole [From BACTRIM] Allergy (Unknown, Verified 04/25/23 09:) UNKNOWN trimethoprim [From BACTRIM] Allergy (Unknown, Verified 04/25/23:) UNKNOWN SEASONAL ALLERGIES Allergy (Intermediate, Uncoded 04/25/23 09:26) ITCHY HPI L acromioclavicular thera/ R thera GTB inj HPI Details Patient presents for scheduled procedure. Denies any recent cough, cold, infection, fever or other significant changes in medical history since last office visit. COUNTS INCLUDE 234 BEDS AT THE [facility] Medical History Anemia Arthritis Asthma Breast pain COVID-19 Depression Diverticulosis Elevated cholesterol Hemorrhoids Hx of transfusion of whole blood Lab test negative for COVID-19 virus Lumbar spondylitis Osteoarthritis Other chronic pain UTI (urinary tract infection) Surgical History History of carpal tunnel release Hx of Achilles tendon repair Hx of colonoscopy Hx of hysterectomy Family History Father Diabetes Mental health disorder Schizo-affective schizophrenia Mother CHF (congestive heart failure) Dementia Maternal Aunt Stomach cancer Social History Household Members: Spouse Housing: Apartment Alcohol intake: never Patient Tobacco Use Status: Never used Tobacco e-Cigarette/Vaping Use: Never Used Second Hand Smoke Exposure: No service: No Current occupational status: retired and disabled Cognitive needs: No Hearing needs: No Vision needs: No Physical Exam Vital Signs: Last Vital Signs Pulse 60 04/25/23 09:26 Resp 14 04/25/23 09:26 BP 162/78 H 04/25/23 09:26 Pulse Ox 98 04/25/23 09:26 Oxygen Delivery Method Room Air 04/25/23 09:26 Office Procedures Joint Injection/Drain Joint Injection/Drain Primary Site: left shoulder Prep: site was prepped using sterile technique Injected: 40 mg of, Kenalog, with 1 mL of (ropivacaine 0.5%) and in the joint Approach Used: anterior Procedure: The patient tolerated the procedure well Coding 22623 - Acromioclavicular (with fluoro guidance) Procedure code (CPT) selection complete Joint Injection/Drain Joint Injection/Drain Details: Greater Trochanteric Bursa Injection, Right After informed written consent was obtained, the patient was placed in the supine position. Pre-procedure oxygen saturation, heart rate, and blood pressure were recorded. The skin was prepped with Chloroprep, and draped in a sterile fashion. With the use of fluroscopy the greater trochanter was identified. With a 25-gauge 1.5 hypodermic needle 1% lidocaine was injected subcutaneously over the entry site. A 22-gauge 5 spinal needle was then advanced toward the trochanteric bursa. Once in position, and after negative aspiration, 0.5 mL of Isovue was injected outlining the bursa followed by injection of 40 mg Kenalog mixed with 0.5% ropivcaine (3mL total). There was no evidence of paresthesias throughout needle placement. The stylet was replaced and then the needle was withdrawn. The patient tolerated the procedure well and there was no evidence of procedural complications. The patient was observed in the procedure room for 20 minutes, vitals were stable, and discharged in stable condition. Coding 35478 - Glenohumeral/Tronchanteric Bursa/Intraarticular Procedure code (CPT) selection complete Assessment & Plan Assessment & Plan (1) Trochanteric bursitis of right hip: Code(s): M70.61 - Trochanteric bursitis, right hip (2) Left shoulder pain: Code(s): M25.512 - Pain in left shoulder Plan Patient is status post left AC joint and right GTB injection with Kenalog 40 mg at each site. Patient tolerated procedure well and was discharged home in stable condition with discharge instructions. All questions were answered. We will follow-up via telephone or in clinic to assess response to therapy. A follow-up appointment was made during today's visit. Orders: Orders FL guidance in treatment room Today M25.512 - Pain in left shoulder FL guidance in treatment room Today M70.61 - Trochanteric bursitis, right hip Coding Level of Care Code Procedure Only Diagnoses Trochanteric bursitis of right hip M70.61 Left shoulder pain M25.512 CPT Codes Coding - Joint 5: 91040 - Acromioclavicular ([id number]) Coding - Joint 7: 89271 - Glenohumeral/Tronchanteric Bursa/Intraarticular ([id number])
== END 2023-04-25 10:47 | disposition home or self-care (01) ==
PROVIDERS: PCP Physician Assistant; Visit Provider Internal Medicine
DX: M70.61 Trochanteric bursitis, right hip (principal); M25.512 Pain in left shoulder
CPT/HCPCS: 20605; 20610; 77002

== ENCOUNTER 2023-05-02 08:12 | Outpatient (REF) | payer OTHER, SELFPAY ==
--- NOTE | 2023-05-02 08:15 | EMG_ITS ---
Please see scanned EMG / Nerve Conduction Report. MTDD
== END 2023-05-02 08:13 | disposition home or self-care (01) ==
LOC: HO.NEURO 08:12
PROVIDERS: PCP Physician Assistant; Visit Provider Nurse Practitioner Family
DX: G56.03 Carpal tunnel syndrome, bilateral upper limbs (principal)
CPT/HCPCS: 95885; 95913

== ENCOUNTER 2023-06-29 09:13 | Outpatient (AMB) | payer OTHER, SELFPAY ==
[2023-06-29 09:30] VITALS: BP 156/76; PULSE 86; RESP 18; O2SAT 96; BMI 43.1
--- NOTE | 2023-06-29 09:30 | MHC.OFFVIS ---
Intake Vital Signs 06/29/23 09:30 Height 4 ft 11 in Weight 213 lb 4 oz BMI 43.1 BP 156/76 H Blood Pressure Location Lt radial Position Sitting Respiration 18 Pulse 86 Pulse Source Pulse Oximeter Pulse Oximetry (%) 96 Oxygen Delivery Method Room Air Intake Visit Reasons: RIGHT ANKLE PAIN Allergies morphine [MORPHINE] Allergy (Severe, Verified 06/29/23 09:31) DIFF BREATHING, DIZZY, anaphylaxis, shortness of breath oxycodone [OXYCODONE] Allergy (Severe, Verified 06/29/23 09:31) DIFF BREATHING, DIZZY sulfamethoxazole [From BACTRIM] Allergy (Unknown, Verified 06/29/23 09:31) UNKNOWN trimethoprim [From BACTRIM] Allergy (Unknown, Verified 06/29/23 09:31) UNKNOWN SEASONAL ALLERGIES Allergy (Intermediate, Uncoded 04/25/23 09:26) ITCHY HPI HPI Comments History of Present Illness Details Shobha is a very pleasant 62-year-old female presents the office today for one-week of right ankle pain. Patient reports she developed pain while she was walking. The pain initially was 10/10 worse with movement and tender to palpation on the lateral aspect of her right ankle. She has been taking ibuprofen for the pain with good effect. Today she reports the pain is much improved, no longer tender to palpation or experiencing pain with movement/walking. She reports her pain is currently 5/10. She has not had imaging done since the injury. [facility] Medical History COVID-19 Lumbar spondylitis Other chronic pain UTI (urinary tract infection) Osteoarthritis Breast pain Hemorrhoids Diverticulosis Arthritis Hx of transfusion of whole blood Anemia Depression Lab test negative for COVID-19 virus Asthma Elevated cholesterol Surgical History Hx of hysterectomy Hx of Achilles tendon repair Hx of colonoscopy History of carpal tunnel release Family History Father Diabetes Mental health disorder Schizo-affective schizophrenia Mother CHF (congestive heart failure) Dementia Maternal Aunt Stomach cancer Social History Household Members: Spouse Housing: Apartment Alcohol intake: never Patient Tobacco Use Status: Never used Tobacco e-Cigarette/Vaping Use: Never Used Second Hand Smoke Exposure: No service: No Current occupational status: retired and disabled Cognitive needs: No Hearing needs: No Vision needs: No Review of Systems Const All systems reviewed & are unremarkable except as noted in HPI and below Physical Exam Vital Signs: Last Vital Signs Pulse 86 06/29/23 09:30 Resp 18 06/29/23 09:30 BP 156/76 H 06/29/23 09:30 Pulse Ox 96 06/29/23 09:30 Oxygen Delivery Method Room Air 06/29/23 09:30 BMI result Body Mass Index 43.1 General: awake, alert, oriented. Answers questions appropriately. Fully engaged in examination. Skin: warm, dry, intact HEENT: Normocephalic. Hearing intact. Cardiac: External chest normal in appearance. Respiratory: No cough, audible wheezing or stridor. Abdomen: without gross distension. MS: No obvious swelling or deformities. Right ankle nontender to palpation with full active ROM. No gait abnormalities appreciated. Neurological: Oriented to person, place, time and situation. Thought process intact. Psychiatric: Appropriate mood and affect. Good judgment and insight. Assessment & Plan Assessment & Plan (1) Right ankle pain: Code(s): M25.571 - Pain in right ankle and joints of right foot Qualifiers: Chronicity: acute Qualified Code(s): M25.571 - Pain in right ankle and joints of right foot Plan Shobha is a very pleasant 62-year-old female who presented to the office today for evaluation and management of her acute right ankle pain. History, physical exam and provocative testing most consistent with right ankle sprain. Continue with ibuprofen as needed for the pain. X-ray right ankle ordered Referral placed for Orthopedics, patient advised to follow-up with them if pain persists. All questions and concerns were answered during the visit. Patient verbalizes understanding and agrees with the plan. Orders: Orders XR ankle RT min 3V Today M25.571 - Pain in right ankle and joints of right foot Referrals Orthopedics Referral M25.571 - Pain in right ankle and joints of right foot Coding Level of Care Code Est Pt Level 3 (15938) Diagnoses Acute right ankle pain M25.571 Chronicity: acute
== END 2023-06-29 09:35 | disposition home or self-care (01) ==
PROVIDERS: PCP Physician Assistant; Visit Provider Registered Nurse Emergency
DX: M25.571 Pain in right ankle and joints of right foot (principal)
CPT/HCPCS: 99213

== ENCOUNTER → 2023-06-29 09:13 | Outpatient (BNVA) | payer OTHER, SELFPAY | PROVIDERS: PCP Physician Assistant; Visit Provider Registered Nurse Emergency | DX: M25.571 Pain in right ankle and joints of right foot (principal) | CPT/HCPCS: 99212 ==

== ENCOUNTER 2023-07-04 07:56 | Outpatient (AMB) | payer OTHER, SELFPAY ==
--- NOTE | 2023-07-04 08:18 | A.OFFVIS_ITS ---
Intake Vital Signs 07/04/23 08:19 Height 4 ft 11 in Weight 214 lb 2 oz BMI 43.2 BP 132/80 Blood Pressure Location Lt brachial Position Sitting Pulse 82 Pulse Source Pulse Oximeter Pulse Oximetry (%) 97 Oxygen Delivery Method Room Air Intake Visit Reasons: [id number] Intake Note: Pt presents to the office today for a new patient visit for amnesia. Pt is here with her . Patients states she is starting to forget little things which is causing her anxiety. Patients states she gets confused with times, what day it is, if he's working or not. Patients states she gets angry sometimes for no reason. Allergies morphine [MORPHINE] Allergy (Severe, Verified 07/04/23 08:22) DIFF BREATHING, DIZZY, anaphylaxis, shortness of breath oxycodone [OXYCODONE] Allergy (Severe, Verified 07/04/23 08:22) DIFF BREATHING, DIZZY sulfamethoxazole [From BACTRIM] Allergy (Unknown, Verified 07/04/23 08:22) UNKNOWN trimethoprim [From BACTRIM] Allergy (Unknown, Verified 07/04/23 08:22) UNKNOWN SEASONAL ALLERGIES Allergy (Intermediate, Uncoded 07/04/23 08:22) ITCHY Medication List - Last Reconciled 07/04/23 by Porsche Taylor MD acetaminophen 500 mg PO Q4-6H PRN albuterol sulfate 2.5 mg (3 mL) PO Q4H PRN cetirizine 10 mg PO DAILY PRN 90 days diclofenac sodium 1% 2 grams topical QID fenofibrate nanocrystallized 48 mg PO DAILY fluticasone propionate 110 mcg/actuation (Flovent HFA) 1 puff PO BID ibuprofen 800 mg PO TID PRN lisinopril 5 mg PO DAILY olopatadine 0.2% 1 drp ophthalmic (eye) DAILY 30 days rosuvastatin 20 mg PO DAILY 90 days tizanidine 4 mg PO BID PRN HPI HPI Comments History of Present Illness Details 62y/o female comes for evaluation of mem ory issues. SHe is accompanied by her who says that she started having memory issues about 2 years ago and has worsened since then.she frequently misplaces her keys , forgets to eat, forgets her wallet, repeats questions, forgets appointments etc. she forgets her grocery list often. she is independent in all her ADLs. and does chores at home. She has anxiety and depression . No hallucinations or behavior issues. she sleeps good.No snoring. [facility] Medical History (Updated 07/04/23 @ 09:29 by Porsche Taylor MD) Mild cognitive impairment COVID-19 Lumbar spondylitis Other chronic pain UTI (urinary tract infection) Osteoarthritis Breast pain Hemorrhoids Diverticulosis Arthritis Hx of transfusion of whole blood Anemia Depression Lab test negative for COVID-19 virus Asthma Elevated cholesterol Surgical History Hx of hysterectomy Hx of Achilles tendon repair Hx of colonoscopy History of carpal tunnel release Family History Father Diabetes Mental health disorder Schizo-affective schizophrenia Mother CHF (congestive heart failure) Dementia Maternal Aunt Stomach cancer Social History Household Members: Spouse Housing: Apartment Alcohol intake: never Patient Tobacco Use Status: Never used Tobacco e-Cigarette/Vaping Use: Never Used Second Hand Smoke Exposure: No service: No Current occupational status: retired and disabled Cognitive needs: No Hearing needs: No Vision needs: No Review of Systems Const Denies body aches, Denies chills, Denies excessive sweating, Denies fatigue and Denies fever(s) Eyes Denies blurry vision Card Denies chest pain, Denies chest pain with activity, Denies syncope, Denies irregular heart rhythm and Denies dyspnea Resp Denies chest congestion, Denies cough, Denies hemoptysis, Denies dyspnea and Denies wheezing GI Denies abdominal pain, Denies melena, Denies hematochezia, Denies coffee ground emesis, Denies diarrhea, Denies nausea and Denies vomiting Denies urinary frequency, Denies dysuria, Denies urinary hesitancy and Denies urinary urgency Musc Denies arthralgias, Denies limited range of motion, Denies muscle cramps and Denies muscle weakness Skin/Breast Denies rash and Denies skin ulcer Neuro Denies syncope, Denies memory loss and Denies seizure-like activity Psych Denies anxiety, Denies depression, Denies memory loss, Denies panic attacks and Denies paranoia Endo Denies excessive sweating, Denies fatigue, Denies flushing, Denies polydipsia and Denies polyuria Aller/Immun Denies wheezing Physical Exam Vital Signs: Last Vital Signs Pulse 82 07/04/23 08:19 BP 132/80 07/04/23 08:19 Pulse Ox 97 07/04/23 08:19 Oxygen Delivery Method Room Air 07/04/23 08:19 BMI result Body Mass Index 43.2 Const General: cooperative, healthy appearing and comfortable Eyes Pupils: Equal, round and reactive pupils present Neuro General: gait normal, tone normal, moves all extremities and no focal motor deficits Cranial nerves: Yes Facial sensation intact/muscles of mastication intact, Yes Equal, round and reactive pupils present, Yes Bilaterally intact EOM present, Yes Nystagmus not present, Yes Normal facial strength present, Yes Midline tongue present and Yes Symmetric palate elevation present Gait exam (Neuro): Antalgic gait present Motor exam (neuro): 5/5 motor strength present throughout and Normal motor muscle tone present throughout Deep tendon reflexes (DTR's): Right triceps reflex intensity grade: 2+, Left triceps reflex intensity grade: 2+, Rt Biceps (C5, C6): 2+, Left biceps reflex intensity grade: 2+, Right brachioradialis reflex intensity grade: 2+, Left brachioradialis reflex intensity grade: 2+, Right patellar reflex intensity grade: 2+ and Left patellar reflex intensity grade: 2+ Coordination: [id number] test normal Psych Appearance: grossly normal Speech and movement: Normal speech and movement present Affect: Anxious affect present Orientation What is the (year) (season) (date) (day) (month)?: year, season and month Where are we (state) ([facility]) (town or city) (hospital) (floor)?: state, town or city, hospital/clinic and floor Registration Name of 3 unrelated objects clearly and slowly, then ask patient to repeat all 3 of them. (1st repeat determines score. Make sure they can repeat all three): object 1, object 2 and object 3 Attention & Calculation (CHOOSE ONE) Spell WORLD backwards (DLROW): 4 letters Language Show patient a wristwatch & ask what it is. Repeat for pencil.: watch and pencil Ask the patient to repeat the phrase 'No ifs, ands, or buts' after you.: correct Ask the patient to 'take a piece of paper with their right hand' 'fold paper in half' 'place paper on floor': take paper in right hand, fold paper in half and place paper on floor Print the sentence 'CLOSE YOUR EYES' on a piece. If patient actually closes eyes then score.: followed written direction Give patient a blank piece of paper & ask to write a sentence. Score if it contains a noun & verb.: sentence contains subject and verb Score Score: 22 Results Reviewed Results Reviewed: MRI Brain 02/27 Mild nonspecific white matter disease likely reflecting mild chronic microangiopathy. Mild age-appropriate generalized parenchymal volume loss, without specific lobar predilection. Expanded partially empty sella. Assessment & Plan Assessment & Plan (1) Mild cognitive impairment: Comment: ? related to mood or early dementia Code(s): G31.84 - Mild cognitive impairment of uncertain or unknown etiology Plan Reviewed her MRI , TSH ESR and Vit B 12 . I will trial her on namenda XR 7 mg qd and refer her for cognitive therapy. will consider SSRI if her mood worsens Orders: Orders OT Evaluation and Treatment Today G31.84 - Mild cognitive impairment of uncertain or unknown etiology Medications: New memantine 7 mg PO DAILY 30 ea 0RF Coding Level of Care Code New Pt Level 4 (51627) Diagnoses Mild cognitive impairment G31.84
[2023-07-04 08:19] VITALS: BP 132/80; PULSE 82; O2SAT 97; BMI 43.2
== END 2023-07-04 08:59 | disposition home or self-care (01) ==
PROVIDERS: Visit Provider Psychiatry & Neurology Neurology
DX: G31.84 Mild cognitive impairment of uncertain or unknown etiology (principal)
CPT/HCPCS: 99204

== ENCOUNTER → 2023-07-04 07:56 | Outpatient (BNVA) | payer OTHER, SELFPAY | PROVIDERS: Visit Provider Psychiatry & Neurology Neurology ==

== ENCOUNTER 2023-08-13 11:42 | Outpatient (REF) | payer MEDICARE, MEDICAID, SELFPAY ==
--- NOTE | ~2023-08-13 | XR_ITS ---
EXAMINATION: XR ANKLE, RIGHT CLINICAL INFORMATION: Pain in right ankle and joints of foot COMPARISON: None available. TECHNIQUE: AP, lateral, and mortise views of the right ankle. FINDINGS: Small plantar calcaneal spur. Ankle joint effusion with lateral soft tissue swelling. Tiny 2 mm ossific/calcific focus at the inferomedial aspect of the medial malleolus. 5 mm ossicle projecting over the medial aspect of the tibiotalar joint. XR/XR ankle RT min 3V IMPRESSION: Small ossicles at the medial aspect of the ankle of indeterminate age. Soft tissue swelling predominantly at the lateral aspect of the ankle with ankle joint effusion. Correlation with clinical exam recommended to determine further management. Recommend follow-up imaging in 10-14 days if fracture is suspected. This study was presented today 08/15/2023 at 1:40 PM for interpretation. Stat results provided at this time as requested by referring provider.
== END 2023-08-13 11:43 | disposition home or self-care (01) ==
LOC: HO.XRAY 11:42
PROVIDERS: PCP Physician Assistant; Visit Provider Registered Nurse Emergency
DX: M25.571 Pain in right ankle and joints of right foot (principal)
CPT/HCPCS: 73610

== ENCOUNTER 2023-08-13 13:33 | Outpatient (AMB) | payer MEDICARE, MEDICAID, SELFPAY ==
--- NOTE | 2023-08-13 13:33 | MHC.PC.OV ---
Vital Signs 08/13/23 13:35 Height 4 ft 11 in Weight 203 lb 2 oz BMI 41.0 BP 138/74 Blood Pressure Location Lt brachial Position Sitting Pulse 79 Pulse Source Pulse Oximeter Pulse Oximetry (%) 95 Oxygen Delivery Method Room Air Intake Visit Reasons: groin pain/ possible scyatica Intake Note: Patient is here today for pain in lower back and both ankle. Right is worse than left. Complaint of numbness over abdomen and both hips. 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 Accompanied by: Spouse Allergies morphine [MORPHINE] Allergy (Severe, Verified 08/13/23 14:04) DIFF BREATHING, DIZZY, anaphylaxis, shortness of breath oxycodone [OXYCODONE] Allergy (Severe, Verified 08/13/23 14:04) DIFF BREATHING, DIZZY sulfamethoxazole [From BACTRIM] Allergy (Unknown, Verified 08/13/23 14:04) UNKNOWN trimethoprim [From BACTRIM] Allergy (Unknown, Verified 08/13/23 14:04) UNKNOWN SEASONAL ALLERGIES Allergy (Intermediate, Uncoded 08/13/23 13:35) ITCHY Medication List - Last Reconciled 08/13/23 by Lit Billings PA-C acetaminophen 500 mg PO Q4-6H PRN albuterol sulfate 2.5 mg (3 mL) PO Q4H PRN cetirizine 10 mg PO DAILY PRN 90 days diclofenac sodium 1% 2 grams topical QID fenofibrate nanocrystallized 48 mg PO DAILY fluticasone propionate 110 mcg/actuation (Flovent HFA) 1 puff PO BID ibuprofen 800 mg PO TID PRN lisinopril 5 mg PO DAILY memantine 21 mg PO DAILY olopatadine 0.2% 1 drp ophthalmic (eye) DAILY 30 days rosuvastatin 20 mg PO DAILY 90 days tizanidine 4 mg PO BID PRN Tobacco use date assessed: 08/13/23 Fall risk assessment: No Falls in past year Last assessed Fall Risk: 08/13/23 Dental Screening Dental Screen Date: 08/13/23 Did you have a dental visit in the last 12 months?: No Did you have a dental problem in the last 6 months where you did not have access to dental care?: No Was dental information given to patient?: Patient has dentist HPI groin pain/ possible scyatica HPI Details Patient is a 62-year-old female here today for problem visit. Has been suffering with lower back and bilateral hip pain with radiculopathy down right lower extremity over the last 4 weeks. She reports she has been experiencing right lower foot and ankle numbness and tingling. Has followed with Pain Management gotten x-ray of her ankle those awaiting radiology read out. She has been using [id number] pain medication without much relief. She reports it is difficult to stand or sit for long periods of time. Of note she does have bilateral osteoarthritis of hips. [facility] Medical History Mild cognitive impairment COVID-19 Lumbar spondylitis Other chronic pain UTI (urinary tract infection) Osteoarthritis Breast pain Hemorrhoids Diverticulosis Arthritis Hx of transfusion of whole blood Anemia Depression Lab test negative for COVID-19 virus Asthma Elevated cholesterol Surgical History Hx of hysterectomy Hx of Achilles tendon repair Hx of colonoscopy History of carpal tunnel release Family History Father Diabetes Mental health disorder Schizo-affective schizophrenia Mother CHF (congestive heart failure) Dementia Maternal Aunt Stomach cancer Social History Household Members: Spouse Housing: Apartment Alcohol intake: never Patient Tobacco Use Status: Never used Tobacco e-Cigarette/Vaping Use: Never Used Second Hand Smoke Exposure: No service: No Current occupational status: retired and disabled Cognitive needs: No Hearing needs: No Vision needs: No Questionnaire Thrive Questionnaire Date Thrive assessed: 10/24/22 KWADWO-7 AMB Questionnaire KWADWO-7 Date KWADWO - 7 assessed: 10/24/22 Source: Developed by Drs. Nakul Lee, Sonya Jo, Freddie Kothari and colleagues, with an educational jena from [employer]. Review of Systems Const Denies headache(s) Eyes Denies loss of vision ENT Denies vertigo, Denies dizziness, Denies headache(s) and Denies sore throat Card Denies chest pain, Denies leg edema and Denies lightheadedness Resp Denies cough, Denies hemoptysis and Denies wheezing GI Denies abdominal pain, Denies melena, Denies constipation, Denies diarrhea and Denies vomiting Denies urinary frequency, Denies dysuria and Denies urinary urgency Musc Denies arthralgias, Denies joint swelling, Denies numbness and Denies tingling Neuro Denies Abnormal speech present, Denies behavioral changes, Denies vertigo, Denies dizziness, Denies headache(s), Denies loss of vision, Denies memory loss, Denies numbness and Denies tingling Psych Denies anxiety, Denies behavioral changes, Denies depression, Denies memory loss and Denies panic attacks Darrel/Lymph Denies easy bleeding and Denies easy bruising Aller/Immun Denies wheezing Physical exam (Primary Care) Vital Signs: Last Vital Signs Pulse 79 08/13/23 13:35 BP 138/74 08/13/23 13:35 Pulse Ox 95 08/13/23 13:35 Oxygen Delivery Method Room Air 08/13/23 13:35 BMI result Body Mass Index 41.0 Tobacco/Smoking Status: Tobacco use Status Tobacco use date assessed 08/13/23 08/13/23 13:43 Patient Tobacco Use Status Never used Tobacco 08/13/23 13:43 e-Cigarette/Vaping Use Never Used 08/13/23 13:43 Thrive Assessment: Date of Thrive Assessment Date Thrive assessed 10/24/22 08/13/23 13:43 Const General: healthy appearing, no acute distress, alert and awake Nutritional Appearance: well nourished Orientation/consciousness: oriented to person, oriented to place and oriented to time HENMT Ears: TM's normal bilaterally General nose exam: Normal nasal mucous membranes and turbinates present Eyes Conjunctivae: conjunctivae normal Sclerae: sclerae normal Pupils: Equal, round and reactive pupils present Neck Neck: Yes no lymphadenopathy and Yes no JVD Thyroid: Thyroid normal Carotids: no bruits Resp Effort & Inspection: normal respiratory effort and not tachypneic Auscultation: no crackles, no rales, no rhonchi and no wheezes Cardio Rate: regular rate Rhythm: regular rhythm Heart sounds: no murmurs and normal S1 and S2 GI Palpation (GI): Soft to palpation, nontender, no hepatomegaly and no splenomegaly Auscultation: normal bowel sounds Back/Spine/Pelvis Other: AMBULATING WITH AN ANTALGIC GAIT. ABLE TO PERFORM STRAIGHT LEG RAISE. 2+ PATELLAR DEEP TENDON REFLEXES Skin General skin exam: no rashes or lesions noted and dry skin Neuro General: oriented to person, oriented to place and oriented to time Cranial nerves: Yes Equal, round and reactive pupils present Speech: No Abnormal speech present Gait exam (Neuro): Normal gait present Motor exam (neuro): no tremor noted Extrem Right upper extremity: full ROM Left upper extremity: full ROM Right lower extremity: full ROM; no edema Left lower extremity: full ROM; no edema Psych Mental Status: mental status grossly normal Speech and movement: Normal speech and movement present Affect: normal affect Attitude: cooperative Thought process: Normal thought process present Office Procedures Flu Questionnaire Does the patient have a severe egg allergy?: No Does the patient have severe life threatening allergies?: No Does the patient have a fever or illness today?: No Has the patient ever had Guillain-[place] Syndrome?: No Has the patient ever had any past reaction to a flu shot?: No Immunizations flu vacc [id number] 6mos up(PF) 60 mcg(15 mcgx4)/0.5 mL IM syringe Performing Provider: Lit Billings PA-C Performing Location: [facility] Administered by: CARLA Amaya on 08/13/23 14:10 Dose Route Admin Location Dispensed Lot Number Expiration Date NDC Bilingual Teacher 0.5 mL IM Left Deltoid 0.5 mL [id number] 04/06/24 94501-485-70 [employer] VIS Given Date VIS Provided VIS Publication Date 08/13/23 Single Vaccine 21 Eligibility Eligibility Date Funding Source Not [facility] Eligible 08/13/23 Private Assessment and Plan Assessment & Plan (1) Lumbar radiculopathy: Code(s): M54.16 - Radiculopathy, lumbar region Plan: PATIENT PRESENTS WITH LOWER LUMBAR SPINE PAIN WITH SIGNS SYMPTOMS OF RADICULOPATHY YOU WORSE DOWN RIGHT LOWER EXTREMITY. SHE ALSO HAS SOME PAIN LOCATED IN BILATERAL GROIN LIKELY RELATED TO HER OSTEOARTHRITIS. WILL SUPPLY PATIENT WITH PREDNISONE TAPER. WOULD LIKELY BENEFIT FROM FORMAL PHYSICAL THERAPY FOR. SHE WILL FOLLOW-UP WITH PAIN MANAGEMENT FOR POSSIBLE CORTISONE INJECTION ONLY BY SPINE. Orders: Orders Influenza [id number] Immunization 08/13/23 Z23 - Encounter for immunization XR lumbar spine 2-3V 08/13/23 M54.16 - Radiculopathy, lumbar region PT Evaluation and Treatment 08/13/23 M51.9 - Unspecified thoracic, thoracolumbar and lumbosacral intervertebral disc disorder, M54.16 - Radiculopathy, lumbar region Medications: New prednisone Take 3 tablets x3 days, 2 tablets x3 days, 1 tablet x3 days 10 mg PO DIRECTED 9 days 18 tabs 0RF Refilled ibuprofen 800 mg PO TID PRN 60 tabs 4RF pain M54.5 - Low back pain Coding Level of Care Code Est Pt Level 3 (96179) Diagnoses Lumbar radiculopathy M54.16
[2023-08-13 13:35] VITALS: BP 138/74; PULSE 79; O2SAT 95; BMI 41.0
== END 2023-08-13 14:24 | disposition home or self-care (01) ==
PROVIDERS: PCP Physician Assistant; Visit Provider Physician Assistant
DX: Z23 Encounter for immunization (principal)
CPT/HCPCS: 90471; 90686; 99213

== ENCOUNTER 2023-09-03 07:07 | Outpatient (REF) | payer MEDICARE, MEDICAID, SELFPAY ==
--- NOTE | ~2023-09-03 | XR_ITS ---
EXAMINATION: XR LUMBOSACRAL SPINE CLINICAL INFORMATION: Radiculopathy COMPARISON: None available. TECHNIQUE: Three views of the lumbosacral spine. FINDINGS: 5 nonrib-bearing lumbar-type vertebral bodies. No acute visible fracture or dislocation. Moderate multilevel degenerative changes disc space narrowing, endplate sclerosis, vacuum disc phenomenon, osteophyte formation, and lower lumbar spine facet arthropathy. Vertebral body heights and disc spaces are otherwise maintained. Posterior elements are intact. Paraspinal soft tissues are unremarkable. Visualized bowel gas is unremarkable. Pelvic phleboliths are noted. XR/XR lumbar spine 2-3V IMPRESSION: 1. No acute visible fracture or dislocation. 2. Moderate multilevel degenerative changes.
[2023-09-03 08:15] LABS: Hemoglobin 11.8 g/dl (12.0-16.0); Mean Corpuscular HGB Conc 31.9 g/dl (31.0-35.0); Mean Corpuscular Hemoglobin 28.3 pg (27.0-33.0); Mean Corpuscular Volume 88.7 fL (80.0-98.0); Mean Platelet Volume 8.3 fL (9.4-12.3); Platelet Count 514 X10*3/uL (160-400); Red Blood Count 4.17 X10*6/uL (4.20-5.50); Red Cell Distribution Width 13.5 % (11.0-16.0); White Blood Count 10.9 X10*3/uL (4.8-10.8)
[2023-09-03 08:40] LABS: Creatinine Urine 27.59 mg/dL; Microalbum/Creatinine Ratio Ur 32.6 ug/mg cr (<30)
[2023-09-03 08:41] LABS: Alanine Aminotransferase 21 U/L (0-31); Albumin Level 4.1 g/dL (3.5-5.0); Alkaline Phosphatase 49 U/L (39-117); Anion Gap 11 (12-20); Aspartate Amino Transferase 24 U/L (5-31); Bilirubin Total 0.4 mg/dL (0.0-1.0); Blood Urea Nitrogen 17 mg/dL (9-16); Calcium 9.6 mg/dL (8.4-10.2); Carbon Dioxide 31 mmol/L (22-29); Chloride 106 mmol/L (96-108); Cholesterol 207 mg/dL (<200); Estimated Glomerular Filt Rate > 60; Glucose Fasting 96 mg/dL (60-99); HDL Cholesterol 56 mg/dL (>40); LDL Cholesterol Calculated 122 mg/dL (<100); Potassium 4.1 mmol/L (3.3-5.1); Sodium 144 mmol/L (135-145); Total Protein 7.2 g/dL (6.5-8.0); Triglycerides 147 mg/dL (<150)
== END 2023-09-03 07:08 | disposition home or self-care (01) ==
LOC: HO.XRAY 07:07
PROVIDERS: PCP Physician Assistant; Visit Provider Physician Assistant
DX: M54.16 Radiculopathy, lumbar region (principal); I10 Essential (primary) hypertension; E78.2 Mixed hyperlipidemia
CPT/HCPCS: 36415; 72100; 80053; 80061; 82043; 82570; 85027

== ENCOUNTER 2023-09-19 09:23 | Outpatient (AMB) | payer MEDICARE, MEDICAID, SELFPAY ==
--- NOTE | 2023-09-19 09:30 | A.OFFVIS_ITS ---
Intake Vital Signs 09/19/23 09:35 Height 4 ft 11 in Weight 200 lb BMI 40.4 Intake Visit Reasons: nprob- Pain in right ankle and right foot Intake Note: Shobha 63 yr old female presents today wit her Alexei for a new problem visit for her pain in right ankle and foot. States she has numbness from her heel to her toes and pain in her plantar and started about 3 months ago. States she doesn't recall any injury. Reports she is having difficulty walking up stairs due to complete numbness. Also states she is having groin pain for about 1 yr ago. States she also had an injection in her lower back that was suppose to help with her hip however pain never improved. Allergies morphine [MORPHINE] Allergy (Severe, Verified 09/19/23 09:34) DIFF BREATHING, DIZZY, anaphylaxis, shortness of breath oxycodone [OXYCODONE] Allergy (Severe, Verified 09/19/23 09:34) DIFF BREATHING, DIZZY sulfamethoxazole [From BACTRIM] Allergy (Unknown, Verified 09/19/23 09:34) UNKNOWN trimethoprim [From BACTRIM] Allergy (Unknown, Verified 09/19/23 09:34) UNKNOWN SEASONAL ALLERGIES Allergy (Intermediate, Uncoded 09/19/23 09:34) ITCHY Medication List - Last Reconciled 09/19/23 by Jud Snowden MD acetaminophen 500 mg PO Q4-6H PRN albuterol sulfate 2.5 mg (3 mL) PO Q4H PRN cetirizine 10 mg PO DAILY PRN 90 days diclofenac sodium 1% 2 grams topical QID fenofibrate nanocrystallized 48 mg PO DAILY fluticasone propionate 110 mcg/actuation (Flovent HFA) 1 puff PO BID ibuprofen 800 mg PO TID PRN lisinopril 5 mg PO DAILY memantine 28 mg PO DAILY olopatadine 0.2% 1 drp ophthalmic (eye) DAILY 30 days prednisone 10 mg PO DIRECTED 9 days rosuvastatin 20 mg PO DAILY 90 days tizanidine 4 mg PO BID PRN HPI HPI Comments History of Present Illness Details Her main complaints is numbness for the past 3-4 months, new onset. Woke up Tinging/tightness, feels like a band around ankle. Numb from ankle to plantar aspect. Says it is not pain. Denies symptoms on calf. She also has hip/thigh pain, worse with standing. No groin pain. Achilles tendon surgery 2013. No issues post op. Treatment done so far: prednisone, ibuprofen injection - SI? Seen by Neurology for forgetfulness. Internal medicine/PCP, suspected lumbar radiculitis. Prescribed prednisone taper. Has seen pain management for shoulder, hip, ankle pain. They show me a linda on right SI area from pain management. [facility] Medical History Mild cognitive impairment COVID-19 Lumbar spondylitis Other chronic pain UTI (urinary tract infection) Osteoarthritis Breast pain Hemorrhoids Diverticulosis Arthritis Hx of transfusion of whole blood Anemia Depression Lab test negative for COVID-19 virus Asthma Elevated cholesterol Surgical History Hx of hysterectomy Hx of Achilles tendon repair Hx of colonoscopy History of carpal tunnel release Family History Father Diabetes Mental health disorder Schizo-affective schizophrenia Mother CHF (congestive heart failure) Dementia Maternal Aunt Stomach cancer Social History (Updated 09/19/23 @ 09:35 by Daisha Camarena [facility]) Household Members: Spouse Housing: Apartment Alcohol intake: never Patient Tobacco Use Status: Never used Tobacco e-Cigarette/Vaping Use: Never Used Second Hand Smoke Exposure: No service: No Current occupational status: retired and disabled 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 Patient was appropriately conversant and oriented. Good historian. MSK: No specific abnormalities found on inspection of the spine and all extremities. No pain with palpation over the lumbar area. Lumbar ROM was full. Bilateral hip, knee and ankle ROM WNL. No ligamentous laxity or crepitance. No increased effusion. Straight-leg raising test negative. FABERE test negative. No tenderness on plantar fascia, malleoli, Achillis tendon. But she says that on a regular basis, it feels numb and tight. No footdrop. Strength is 5/5 in all muscle groups tested. No increased tone noted. Neurological: Neurologic examination of the upper and lower extremities was nonfocal with intact sensation, muscle stretch reflexes and without focal motor deficits . Thomas?s negative bilaterally. Babinski was down going bilaterally. Clonus was negative. Gait is non-antalgic without loss of balance. Results Reviewed Results Reviewed: I independently reviewed the results of the following: EMG done by Dr. Etienne 05/02 showed bilateral Carpal Tunnel Syndrome Ordering Physician: Lit Billings PA-C Date of Service: 09/03/23 Procedure(s): XR lumbar spine 2-3V Accession Number(s): [id number] cc: Lit Billings PA-C~ EXAMINATION: XR LUMBOSACRAL SPINE CLINICAL INFORMATION: Radiculopathy COMPARISON: None available. TECHNIQUE: Three views of the lumbosacral spine. FINDINGS: 5 nonrib-bearing lumbar-type vertebral bodies. No acute visible fracture or dislocation. Moderate multilevel degenerative changes disc space narrowing, endplate sclerosis, vacuum disc phenomenon, osteophyte formation, and lower lumbar spine facet arthropathy. Vertebral body heights and disc spaces are otherwise maintained. Posterior elements are intact. Paraspinal soft tissues are unremarkable. Visualized bowel gas is unremarkable. Pelvic phleboliths are noted. XR/XR lumbar spine 2-3V IMPRESSION: 1. No acute visible fracture or dislocation. 2. Moderate multilevel degenerative changes. Ordering Physician: Liza Glass APRN, [facility]AUHT[facility]OC Date of Service: 08/13/23 Procedure(s): XR ankle RT min 3V Accession Number(s): [id number] cc: Lit Billings PA-C; Liza Glass APRN, CLINICAL STAFF ANESTHESIOLOGIST~ EXAMINATION: XR ANKLE, RIGHT CLINICAL INFORMATION: Pain in right ankle and joints of foot COMPARISON: None available. TECHNIQUE: AP, lateral, and mortise views of the right ankle. FINDINGS: Small plantar calcaneal spur. Ankle joint effusion with lateral soft tissue swelling. Tiny 2 mm ossific/calcific focus at the inferomedial aspect of the medial malleolus. 5 mm ossicle projecting over the medial aspect of the tibiotalar joint. XR/XR ankle RT min 3V IMPRESSION: Small ossicles at the medial aspect of the ankle of indeterminate age. Soft tissue swelling predominantly at the lateral aspect of the ankle with ankle joint effusion. Correlation with clinical exam recommended to determine further management. Recommend follow-up imaging in 10-14 days if fracture is suspected. This study was presented today 08/15/2023 at 1:40 PM for interpretation. Stat results provided at this time as requested by referring provider. I reviewed records from the following: As above Assessment & Plan Assessment & Plan (1) Numbness of foot: Code(s): R20.0 - Anesthesia of skin (2) Right tibial neuropathy: Code(s): G57.41 - Lesion of medial popliteal nerve, right lower limb (3) Lumbar radiculopathy: Code(s): M54.16 - Radiculopathy, lumbar region Plan Numbness in the distribution of distal tibial nerve. She has already seen pain management and had injections for possibly the SI joint or GT? Her symptoms are suggestive of distal entrapment neuropathy? We will schedule for EMG right lower extremity evaluate between distal tibial neuropathy versus lumbar radiculopathy. Assessment and plan discussed with patient, and patient was agreeable. All questions were answered thoroughly. Jud Snowden MD, MIKAEL Board Certified, [place] Board of Physical Medicine and Rehabilitation (ABPMR) Board Certified, [place] Board of Electrodiagnostic Medicine (ABEM) Orders: Orders NE electromyogram (EMG) Today M54.16 - Radiculopathy, lumbar region, R20.0 - Anesthesia of skin NE nerve conduction velocity Today M54.16 - Radiculopathy, lumbar region, R20.0 - Anesthesia of skin Coding Level of Care Code New Pt Level 4 (89075) Diagnoses Numbness of foot R20.0 Right tibial neuropathy G57.41 Lumbar radiculopathy M54.16
[2023-09-19 09:35] VITALS: BMI 40.4
== END 2023-09-19 09:52 | disposition home or self-care (01) ==
PROVIDERS: PCP Physician Assistant; Visit Provider Physical Medicine & Rehabilitation
DX: R20.0 Anesthesia of skin (principal); G57.41 Lesion of medial popliteal nerve, right lower limb
CPT/HCPCS: 99203

== ENCOUNTER → 2023-09-19 09:23 | Outpatient (BNVA) | payer MEDICARE, MEDICAID, SELFPAY | PROVIDERS: PCP Physician Assistant; Visit Provider Physical Medicine & Rehabilitation | DX: R20.0 Anesthesia of skin (principal); G57.41 Lesion of medial popliteal nerve, right lower limb; M54.16 Radiculopathy, lumbar region | CPT/HCPCS: 99202 ==

== ENCOUNTER 2023-09-24 14:35 | Outpatient (AMB) | payer MEDICARE, MEDICAID, SELFPAY ==
--- NOTE | 2023-09-24 14:49 | MHC.OFFVIS ---
Intake Vital Signs 09/24/23 14:51 Height 4 ft 11 in Weight 199 lb 2 oz BMI 40.2 BP 142/74 H Blood Pressure Location Rt brachial Position Sitting Respiration 16 Pulse 75 Pulse Source Pulse Oximeter Pulse Oximetry (%) 98 Oxygen Delivery Method Room Air Intake Visit Reasons: 3m f/u Amnesia - Confirmed Intake Note: Pt presents to the office for a 3 month follow up for amnesia. 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 She is accompanied by her . Pt's reports that patient is more alert and remember better. She is on memantine 28 mg and no side effect reported. Pt remember conversation and not asking same questions over and over again. She still can misplaces her keys, forgets her grocery list but it happen much less. She is independent in all her ADLs, drives locally and does chores at home. Denies anxiety or depression at this time. No hallucinations or behavior issues. She sleeps good for 8 hrs. [facility] Medical History Mild cognitive impairment COVID-19 Lumbar spondylitis Other chronic pain UTI (urinary tract infection) Osteoarthritis Breast pain Hemorrhoids Diverticulosis Arthritis Hx of transfusion of whole blood Anemia Depression Lab test negative for COVID-19 virus Asthma Elevated cholesterol Surgical History Hx of hysterectomy Hx of Achilles tendon repair Hx of colonoscopy History of carpal tunnel release Family History Father Diabetes Mental health disorder Schizo-affective schizophrenia Mother CHF (congestive heart failure) Dementia Maternal Aunt Stomach cancer Social History Household Members: Spouse Housing: Apartment Alcohol intake: never Patient Tobacco Use Status: Never used Tobacco e-Cigarette/Vaping Use: Never Used Second Hand Smoke Exposure: No service: No Current occupational status: retired and disabled 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 Cognitive needs: No Hearing needs: No Vision needs: No Review of Systems Const All systems reviewed & are unremarkable except as noted in HPI and below Physical Exam Vital Signs: Last Vital Signs Pulse 75 09/24/23 14:51 Resp 16 09/24/23 14:51 BP 142/74 H 09/24/23 14:51 Pulse Ox 98 09/24/23 14:51 Oxygen Delivery Method Room Air 09/24/23 14:51 BMI result Body Mass Index 40.2 Const General: cooperative, healthy appearing and comfortable Eyes Pupils: Equal, round and reactive pupils present Neuro General: gait normal, tone normal, moves all extremities and no focal motor deficits Cranial nerves: Yes Facial sensation intact/muscles of mastication intact, Yes Equal, round and reactive pupils present, Yes Bilaterally intact EOM present, Yes Nystagmus not present, Yes Normal facial strength present, Yes Midline tongue present and Yes Symmetric palate elevation present Gait exam (Neuro): Antalgic gait present Motor exam (neuro): 5/5 motor strength present throughout and Normal motor muscle tone present throughout Deep tendon reflexes (DTR's): Right triceps reflex intensity grade: 2+, Left triceps reflex intensity grade: 2+, Rt Biceps (C5, C6): 2+, Left biceps reflex intensity grade: 2+, Right brachioradialis reflex intensity grade: 2+, Left brachioradialis reflex intensity grade: 2+, Right patellar reflex intensity grade: 2+ and Left patellar reflex intensity grade: 2+ Coordination: [id number] test normal Psych Appearance: grossly normal Speech and movement: Normal speech and movement present Affect: Anxious affect present Assessment & Plan Assessment & Plan (1) Mild cognitive impairment: Comment: ? related to mood or early dementia Code(s): G31.84 - Mild cognitive impairment of uncertain or unknown etiology Plan Continue to take memantine 28 mg daily. Advised patient to increase physical, social and cognitive activities. Have well balanced diet, manages blood pressure well. Medications: Refilled memantine 28 mg PO DAILY 30 ea 2RF Coding Level of Care Code Est Pt Level 3 (08921) Diagnoses Mild cognitive impairment G31.84
[2023-09-24 14:51] VITALS: BP 142/74; PULSE 75; RESP 16; O2SAT 98; BMI 40.2
== END 2023-09-24 15:09 | disposition home or self-care (01) ==
PROVIDERS: PCP Physician Assistant; Visit Provider Nurse Practitioner Family
DX: G31.84 Mild cognitive impairment of uncertain or unknown etiology (principal)
CPT/HCPCS: 99213

== ENCOUNTER → 2023-09-24 14:35 | Outpatient (BNVA) | payer MEDICARE, MEDICAID, SELFPAY | PROVIDERS: PCP Physician Assistant; Visit Provider Nurse Practitioner Family | DX: G31.84 Mild cognitive impairment of uncertain or unknown etiology (principal) | CPT/HCPCS: 99212 ==

== ENCOUNTER 2023-11-05 13:52 | Outpatient (AMB) | payer MEDICARE, MEDICAID, SELFPAY ==
[2023-11-05 13:53] VITALS: BP 138/84; PULSE 76; O2SAT 98; BMI 39.4
--- NOTE | 2023-11-05 13:53 | A.OFFPC_ITS ---
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: No Accompanied by: Spouse Allergies morphine [MORPHINE] Allergy (Severe, Verified 11/05/23 14:08) DIFF BREATHING, DIZZY, anaphylaxis, shortness of breath oxycodone [OXYCODONE] Allergy (Severe, Verified 11/05/23 14:08) DIFF BREATHING, DIZZY sulfamethoxazole [From BACTRIM] Allergy (Unknown, Verified 11/05/23 14:08) UNKNOWN trimethoprim [From BACTRIM] Allergy (Unknown, Verified 11/05/23 14:08) UNKNOWN SEASONAL ALLERGIES Allergy (Intermediate, Uncoded 11/05/23 13:55) ITCHY Medication List - Last Reconciled 11/05/23 by Lit Billings PA-C acetaminophen 500 mg PO Q4-6H PRN albuterol sulfate 2.5 mg (3 mL) PO Q4H PRN cetirizine 10 mg PO DAILY PRN 90 days diclofenac sodium 1% 2 grams topical QID fenofibrate nanocrystallized 48 mg PO DAILY fluticasone propionate 110 mcg/actuation (Flovent HFA) 1 puff PO BID ibuprofen 800 mg PO TID PRN ibuprofen 800 mg PO TID PRN lisinopril 5 mg PO DAILY memantine 28 mg PO DAILY olopatadine 0.2% 1 drp ophthalmic (eye) DAILY 30 days rosuvastatin 20 mg PO DAILY 90 days tizanidine 4 mg PO BID PRN 30 days Tobacco use date assessed: 11/05/23 Fall risk assessment: No Falls in past year Last assessed Fall Risk: 11/05/23 Dental Screening Dental Screen Date: 11/05/23 Did you have a dental visit in the last 12 months?: Yes Did you have a dental problem in the last 6 months where you did not have access to dental care?: No Was dental information given to patient?: Patient has dentist HPI f/u HLD 2 HPI Details Patient is a 63 year-old female?here today for a follow-up. Patient's past medical history significant for bilateral carpal syndrome, hyperlipidemia, obesity hypertension, asthma, memory impairment Concern--> continues to suffer with bilateral plantar fasciitis symptoms. Has trouble with ambulating with 1st steps after long periods of sitting. Will be getting EMG test in her lower extremities to evaluate for neuropathy. .. Mild cognitive impairment: Now seeing Neurology and has been started on medication. Has good family support and lives with her of 30 years.. .. Asthma:? Has been stable with the use of her albuterol inhaler and need. Has some trouble with changes in seasons. Otherwise no recent asthma exacerbations .. Obesity: Patient's BMI remains elevated at 39.4. She does understand she needs to be more physically active and adapt to better eating habits to reduce her weight. .. Hyperlipidemia:? Most recent lipid panel showing much improved total cholesterol and LDL. She continues now on moderate dose statin therapy. .. Thrombocythemia: Followed by Hematology for her elevated platelet count levels, ? myelodysplastic disease. Has underwent bone marrow biopsy which was negative. Laboratory Tests 02/08/22 11/13/22 12/13/22 08:39 09:33 15:15 RBC 4.43 Hgb 12.1 Plt Count 529 H 562 H Triglycerides Cholesterol LDL Cholesterol, C alc Urine Microalbumin 12/18/22 12/18/22 09/03/23 09:07 09:07 07:24 RBC Hgb Plt Count Triglycerides 214 Cholesterol 274 LDL Cholesterol, C alc 182 Urine Microalbumin 9.0 09/03/23 09/03/23 07:26 07:26 RBC 4.17 L Hgb Plt Count Triglycerides 147 Cholesterol 207 H LDL Cholesterol, C alc 122 H Urine Microalbumin [facility] Medical History Mild cognitive impairment COVID-19 Lumbar spondylitis Other chronic pain UTI (urinary tract infection) Osteoarthritis Breast pain Hemorrhoids Diverticulosis Arthritis Hx of transfusion of whole blood Anemia Depression Lab test negative for COVID-19 virus Asthma Elevated cholesterol Surgical History Hx of hysterectomy Hx of Achilles tendon repair Hx of colonoscopy History of carpal tunnel release Family History Father Diabetes Mental health disorder Schizo-affective schizophrenia Mother CHF (congestive heart failure) Dementia Maternal Aunt Stomach cancer Social History Household Members: Spouse Housing: Apartment Alcohol intake: never Patient Tobacco Use Status: Never used Tobacco e-Cigarette/Vaping Use: Never Used Second Hand Smoke Exposure: No service: No Current occupational status: retired and disabled 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 1. Little interest or pleasure in doing things: not at all 2. Feeling down, depressed, or hopeless: not at all 3. Trouble falling or staying asleep, or sleeping too much: not at all 4. Feeling tired or having little energy: not at all 5. Poor appetite or overeating: not at all 6. Feeling bad about yourself - or that you are a failure or have let yourself or your family down: not at all 7. Trouble concentrating on things, such as reading the newspaper or watching television: not at all 8. Moving or speaking so slowly that other people could have noticed. Or the opposite - being so fidgety or restless that you have been moving around a lot more than usual: not at all 9. Thoughts that you would be better off or of hurting yourself in some way: not at all Total score: 0 Depression Screening Interpretation: Negative Depression Screening Done: Yes [id number] - PHQ-9 Billing: Yes Source: Developed by Drs. Nakul Lee, Sonya Jo, Freddie Kothari and colleagues, with an educational jena from [employer]. Thrive Questionnaire Date Thrive assessed: 11/05/23 I am a: Patient What is your living situation today?: I have a steady place to live Within the past 12 months, did the food you bought not last and you didn't have the money to get more?: Never true Within the past 12 months, did you worry whether your food would run out before you got money to buy more?: Never true Do you have trouble paying for medicines?: No Do you have trouble getting transportation to medical appointments?: No Do you have trouble paying your heating and electricity bill?: No Do you have trouble taking care of your child, family member or friend?: No Do you have trouble with day-to-day activities such as bathing, preparing meals, shopping, managing finances, etc.?: No Are you currently unemployed and looking for a job?: No Are you interested in more education?: No Please select the resources that you would like help with: None Currently or been in a relationship where the following occur: no concerns reported THRIVE Score: 0 AUDIT C Alcohol Use Questionnaire (AUDIT-C) 1. How often do you have a drink containing alcohol?: Never 3. How often do you have six or more drinks on one occasion?: Never Total Score: 0 Score Reviewed/Action Taken: No KWADWO-7 AMB Questionnaire KWADWO-7 Date KWADWO - 7 assessed: 11/05/23 Feeling nervous, anxious, or on edge: 0 = Not at all Not being able to stop or control worryin = Not at all Worrying too much about different things: 0 = Not at all Trouble relaxin = Not at all Being so restless that it is hard to sit still: 0 = Not at all Becoming easily annoyed or irritable: 0 = Not at all Feeling afraid as if something awful might happen: 0 = Not at all Total KWADWO-7 score (0-4 normal; 5-9 mild; 10-14 moderate; 15-21 severe): 0 Source: Developed by Drs. Nakul Lee, Sonya Jo, Freddie Kothari and colleagues, with an educational jena from [employer]. KWADWO-7 Assessment Billing KWADWO-7 Assessment Tool: KWADWO-7 Assessment 91908 ACT Questionnaire In the past 4 weeks, how much of the time did your asthma keep you from getting as much done at work, school or at home?: None of the time During the past 4 weeks, how often have you had shortness of breath?: Not at all During the past 4 weeks, how often did your asthma symptoms wake you up at night or earlier than usual in the morning?: Not at all During the past 4 weeks, how often have you had to use your rescue inhaler or nebulizer medication?: Not at all How would you rate your asthma control during the past 4 weeks?: Completely controlled ACT Interpretation: Negative Score: 25 Review of Systems Const Denies headache(s) Eyes Denies loss of vision ENT Denies vertigo, Denies dizziness, Denies headache(s) and Denies sore throat Card Denies chest pain, Denies leg edema and Denies lightheadedness Resp Denies cough, Denies hemoptysis and Denies wheezing GI Denies abdominal pain, Denies melena, Denies constipation, Denies diarrhea and Denies vomiting Denies urinary frequency, Denies dysuria and Denies urinary urgency Musc Denies arthralgias, Denies joint swelling, Denies numbness and Denies tingling Neuro Denies Abnormal speech present, Denies behavioral changes, Denies vertigo, Denies dizziness, Denies headache(s), Denies loss of vision, Denies memory loss, Denies numbness and Denies tingling Psych Denies anxiety, Denies behavioral changes, Denies depression, Denies memory loss and Denies panic attacks Darrel/Lymph Denies easy bleeding and Denies easy bruising Aller/Immun Denies wheezing Physical exam (Primary Care) Vital Signs: Last Vital Signs Pulse 76 11/05/23 13:53 BP 138/84 11/05/23 13:53 Pulse Ox 98 11/05/23 13:53 Oxygen Delivery Method Room Air 11/05/23 13:53 BMI result Body Mass Index 39.4 BMI Assessment/Plan discussion: High Tobacco/Smoking Status: Tobacco use Status Tobacco use date assessed 11/05/23 11/05/23 13:56 Patient Tobacco Use Status Never used Tobacco 11/05/23 13:54 e-Cigarette/Vaping Use Never Used 11/05/23 13:54 PHQ-9: PHQ-9 Score PHQ-9: Total score 0 11/05/23 14:01 Depression Screening Interpretation: Negative Thrive Assessment: Date of Thrive Assessment Date Thrive assessed 11/05/23 11/05/23 13:56 Currently or been in a relationship where the following occur: no concerns reported Const Other: Obese General: healthy appearing, no acute distress, alert and awake Nutritional Appearance: well nourished Orientation/consciousness: oriented to person, oriented to place and oriented to time HENMT Ears: TM's normal bilaterally General nose exam: Normal nasal mucous membranes and turbinates present Eyes Conjunctivae: conjunctivae normal Sclerae: sclerae normal Pupils: Equal, round and reactive pupils present Neck Neck: Yes no lymphadenopathy and Yes no JVD Thyroid: Thyroid normal Carotids: no bruits Resp Effort & Inspection: normal respiratory effort and not tachypneic Auscultation: no crackles, no rales, no rhonchi and no wheezes Cardio Rate: regular rate Rhythm: regular rhythm Heart sounds: no murmurs and normal S1 and S2 GI Palpation (GI): Soft to palpation, nontender, no hepatomegaly and no splenomegaly Auscultation: normal bowel sounds Skin General skin exam: no rashes or lesions noted and dry skin Neuro General: oriented to person, oriented to place and oriented to time Cranial nerves: Yes Equal, round and reactive pupils present Speech: No Abnormal speech present Gait exam (Neuro): Normal gait present Motor exam (neuro): no tremor noted Extrem Right upper extremity: full ROM Left upper extremity: full ROM Right lower extremity: full ROM; no edema Left lower extremity: full ROM; no edema Psych Mental Status: mental status grossly normal Speech and movement: Normal speech and movement present Affect: normal affect Attitude: cooperative Thought process: Normal thought process present Assessment and Plan Assessment & Plan (1) Hypertension: Code(s): I10 - Essential (primary) hypertension Qualifiers: Hypertension type: primary hypertension Qualified Code(s): I10 - Essential (primary) hypertension Plan: patient's blood pressure today in office acceptable. Will continue current dose of antihypertensive medication with goal blood pressure to be below 140/90 (2) HLD (hyperlipidemia): Code(s): E78.5 - Hyperlipidemia, unspecified Qualifiers: Hyperlipidemia type: mixed hyperlipidemia Qualified Code(s): E78.2 - Mixed hyperlipidemia Plan: patient's most recent lipid panel showing much improved total cholesterol and LDL. Will continue her on her current dose of statin therapy with goal LDL to remain below 130 (3) Thrombocythemia: Code(s): D75.839 - Thrombocytosis, unspecified Plan: patient followed by Hematology for her thrombocytopenia. Had bone marrow biopsy which was negative. Continues to follow hematology. (4) Asthma: Code(s): J45.909 - Unspecified asthma, uncomplicated Qualifiers: Asthma severity: mild Asthma persistence: unspecified Asthma complication type: uncomplicated Qualified Code(s): J45.909 - Unspecified asthma, uncomplicated Plan: Patient reports her asthma has been fairly well controlled with p.r.n. use of her albuterol inhaler, allergy medication and daily use of Flovent maintenance inhaler. Has not had any as his asthma exacerbations or nighttime awakenings with asthma symptoms. (5) Memory deficit: Code(s): R41.3 - Other amnesia Plan: Patient now followed by Neurology. Has been started on amantadine. She does get a lot of family support and lives with her of 30 years, takes care for while. (6) Obese: Code(s): E66.9 - Obesity, unspecified Qualifiers: Obesity type: due to excess calories Serious obesity comorbidity presence: with serious comorbidity Body mass index: BMI 39.0-39.9 Obesity classification: adult class 2 (BMI 35 - 39.9) Qualified Code(s): E66.01 - Morbid (severe) obesity due to excess calories; Z68.39 - Body mass index [BMI] 39.0-39.9, adult Plan: Patient has been able to reduce her weight and BMI now under 40. Has done this by dietary control. (7) Plantar fasciitis, bilateral: Code(s): M72.2 - Plantar fascial fibromatosis Plan: Has bilateral plantar pain worse after long periods of sitting and 1st steps in the morning. Most consistent with a plantar fasciitis. Will be getting EMG testing of lower extremities to rule out neuropathy. Orders: Orders Microalbumin, Random (w Creat) Today I10 - Essential (primary) hypertension Complete Blood Count no Diff Today D64.9 - Anemia, unspecified Lipid Panel Today E78.2 - Mixed hyperlipidemia Medications: Refilled ibuprofen 800 mg PO TID PRN 60 tabs 4RF pain M54.5 - Low back pain Coding Level of Care Code Est Pt Level 4 (22419) Diagnoses Primary hypertension I10 Hypertension type: primary hypertension Mixed hyperlipidemia E78.2 Hyperlipidemia type: mixed hyperlipidemia Thrombocythemia D75.839 Mild asthma without complication, unspecified whether persistent J45.909 Asthma severity: mild Asthma persistence: unspecified Asthma complication type: uncomplicated Memory deficit R41.3 Class 2 severe obesity due to excess calories with serious comorbidity and body mass index (BMI) of 39.0 to 39.9 in adult E66.01; Z68.39 Obesity type: due to excess calories Serious obesity comorbidity presence: with serious comorbidity Body mass index: BMI 39.0-39.9 Obesity classification: adult class 2 (BMI 35 - 39.9) Plantar fasciitis, bilateral M72.2 Additional Codes KWADWO-7 Assessment Billing - KWADWO-7 Assessment Tool: KWADWO-7 Assessment [id number] ([id number])
== END 2023-11-05 14:30 | disposition home or self-care (01) ==
PROVIDERS: PCP Physician Assistant; Visit Provider Physician Assistant
DX: I10 Essential (primary) hypertension (principal); E66.01 Morbid (severe) obesity due to excess calories; Z68.39 Body mass index [BMI] 39.0-39.9, adult; E78.2 Mixed hyperlipidemia; D75.839 Thrombocytosis, unspecified; J45.909 Unspecified asthma, uncomplicated; R41.3 Other amnesia; M72.2 Plantar fascial fibromatosis
CPT/HCPCS: 99214

== ENCOUNTER 2024-01-07 12:56 | Outpatient (RCR) | payer MEDICARE, MEDICAID, SELFPAY ==
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
== END 2024-08-08 14:04 | disposition home or self-care (01) ==
LOC: HO.SH 12:56
PROVIDERS: Visit Provider Psychiatry & Neurology Neurology
DX: G31.84 Mild cognitive impairment of uncertain or unknown etiology (principal)
CPT/HCPCS: 96125

== ENCOUNTER 2024-02-15 08:49 | Outpatient (REF) | payer MEDICARE, MEDICAID, SELFPAY ==
[2024-02-15 09:34] LABS: Hematocrit 34.5 % (37.0-47.0); Hemoglobin 11.2 g/dl (12.0-16.0); Mean Corpuscular HGB Conc 32.5 g/dl (31.0-35.0); Mean Corpuscular Hemoglobin 28.6 pg (27.0-33.0); Mean Platelet Volume 8.3 fL (9.4-12.3); Platelet Count 514 X10*3/uL (160-400); Red Blood Count 3.92 X10*6/uL (4.20-5.50); Red Cell Distribution Width 13.1 % (11.0-16.0)
[2024-02-15 10:09] LABS: Cholesterol 172 mg/dL (<200); HDL Cholesterol 62 mg/dL (>40); LDL Cholesterol Calculated 84 mg/dL (<100); Triglycerides 132 mg/dL (<150)
[2024-02-15 10:20] LABS: Creatinine Urine 76.27 mg/dL; Microalbumin Urine < 5.0 mg/L
== END 2024-02-15 08:50 | disposition home or self-care (01) ==
LOC: HO.LAB 08:49
PROVIDERS: PCP Physician Assistant; Visit Provider Physician Assistant
DX: E78.2 Mixed hyperlipidemia (principal); D64.9 Anemia, unspecified; I10 Essential (primary) hypertension
CPT/HCPCS: 36415; 80061; 82043; 82570; 85027

== ENCOUNTER 2024-02-20 08:19 | Outpatient (AMB) | payer MEDICARE, MEDICAID, SELFPAY ==
--- NOTE | 2024-02-20 08:27 | AM.OFFWIN_ITS ---
Intake Vital Signs 02/20/24 08:28 Height 4 ft 11 in Weight 195 lb BMI 39.4 BP 136/80 Blood Pressure Location Rt brachial Position Sitting Pulse 78 Pulse Source Pulse Oximeter Temp 97.8 F Temp Source Oral Pulse Oximetry (%) 98 Intake Visit Reasons: EP feeling irritation? Intake Note: pt is here for c/o feeling irritation in the private area, she agreed to give urine sample due to possible UTI Patient Tobacco Use Status: Never used Tobacco Allergies morphine [MORPHINE] Allergy (Severe, Verified 02/20/24 08:29) DIFF BREATHING, DIZZY, anaphylaxis, shortness of breath oxycodone [OXYCODONE] Allergy (Severe, Verified 02/20/24 08:29) DIFF BREATHING, DIZZY sulfamethoxazole [From BACTRIM] Allergy (Unknown, Verified 02/20/24 08:29) UNKNOWN trimethoprim [From BACTRIM] Allergy (Unknown, Verified 02/20/24 08:29) UNKNOWN SEASONAL ALLERGIES Allergy (Intermediate, Uncoded 11/05/23 13:55) ITCHY Do you need a note to return to daycare/school/sports/work: Yes HPI HPI Comments History of Present Illness Details She said + irritation in vaginal area Ongoing x 2 days She denies itching + discomfort Denies pressure No denies discharge vaginally + dysuria No frequency or urgency No fevers No hematuria or vaginal discharge No new meds or similar symptoms in past PFSH Medical History Mild cognitive impairment COVID-19 Lumbar spondylitis Other chronic pain UTI (urinary tract infection) Osteoarthritis Breast pain Hemorrhoids Diverticulosis Arthritis Hx of transfusion of whole blood Anemia Depression Lab test negative for COVID-19 virus Asthma Elevated cholesterol Surgical History Hx of hysterectomy Hx of Achilles tendon repair Hx of colonoscopy History of carpal tunnel release Family History Father Diabetes Mental health disorder Schizo-affective schizophrenia Mother CHF (congestive heart failure) Dementia Maternal Aunt Stomach cancer Social History Household Members: Spouse Housing: Apartment Alcohol intake: never Patient Tobacco Use Status: Never used Tobacco e-Cigarette/Vaping Use: Never Used Second Hand Smoke Exposure: No service: No Current occupational status: retired and disabled 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 Cognitive needs: No Hearing needs: No Vision needs: No Review of Systems Const Denies chills and Denies fever(s) GI Denies abdominal pain, Denies diarrhea, Denies nausea and Denies vomiting Denies abnormal vaginal bleeding, Denies difficulty voiding, Reports dysuria, Reports pelvic pain, Denies urinary incontinence, Denies urinary hesitancy, Denies urinary urgency, Denies vaginal discharge and Denies vaginal odor Musc Denies back pain Skin/Breast Denies rash Physical Exam Vital Signs: Last Vital Signs Temp 97.8 F 02/20/24 08:28 Pulse 78 02/20/24 08:28 BP 136/80 02/20/24 08:28 Pulse Ox 98 02/20/24 08:28 BMI result Body Mass Index 39.4 General: Non-toxic, NAD. Speaking full sentences. Skin: Warm dry throughout Eye: EOMI Respiratory: CTA bilaterally. No wheezes, rales or rhonchi Cardiac: RRR. No murmur Abdominal: BS present. Non-tender to palpation. No rebound or guarding. No flank pain. MSK: Full ROM extremities. Neurology: A/O. No aphasia or facial droop. Gait without abnormality Psych: Good mood and affect Results AMB Urinalysis, Automated UA Leukoctes 500 Bebe/uL Last Edit by Nelson Amador CMA on 02/20/24 08:3 6 UA Nitrite Negative Last Edit by Nelson Amador CMA on 02/20/24 08:36 UA Urobilinogen 0.2 mg/dL Last Edit by Nelson Amador CMA on 02/20/24 08 :36 UA Protein 0 mg/dL Last Edit by Nelson Amador CMA on 02/20/24 08:36 UA pH 7.0 Last Edit by Nelson Amador CMA on 02/20/24 08:36 UA Blood 200 Maury/uL Last Edit by Nelson Amador CMA on 02/20/24 08:36 UA Specific [place] 1.010 Last Edit by Nelson Amador CMA on 02/20/24 08:36 UA Ketone Negative Last Edit by Nelson Amador CMA on 02/20/24 08:36 UA Bilirubin 0 mg/dL Last Edit by Nelson Amador CMA on 02/20/24 08:36 UA Glucose 0 mg/dL Last Edit by Nelson Amador CMA on 02/20/24 08:36 Results Reviewed Results Reviewed: Laboratory Last Values Urine pH (Auto) 7.0 02/20/24 08:35 Specific [place] (Auto) 1.010 02/20/24 08:35 Urine Protein (Auto) 0 mg/dL 02/20/24 08:35 Glucose (UA)(Auto) 0 mg/dL 02/20/24 08:35 Urine Ketones (Auto) Negative 02/20/24 08:35 Urine Blood (Auto) 200 Maruy/uL 02/20/24 08:35 Urine Nitrite (Auto) Negative 02/20/24 08:35 Urine Bilirubin (Auto) 0 mg/dL 02/20/24 08:35 Urine Urobilinogen (Auto) 0.2 mg/dL 02/20/24 08:35 Leukocyte Esterase (Auto) 500 Bebe/uL 02/20/24 08:35 Assessment & Plan Assessment & Plan (1) UTI (urinary tract infection): Code(s): N39.0 - Urinary tract infection, site not specified Qualifiers: Hematuria presence: without hematuria Urinary tract infection type: acute cystitis Qualified Code(s): N30.00 - Acute cystitis without hematuria Plan: Patient seen and evaluated. U/A: + leuks and blood Pt denies vaginal discharge or bleeding but + dysuria Non-toxic without flank or abdominal pain Keflex to pharmacy Increase fluids F/U with PCP in 1 week in not resolved Calll with cocnerns Inability to urinate or worsening symptoms go to ED Patient gave verbal understanding and had no additional questions or concerns at time of discharge All questions answered Orders: Orders AMB Urinalysis Automated Today Z13.9 - Encounter for screening, unspecified Medications: New cephalexin 500 mg PO BID 14 caps 0RF Coding Level of Care Code Est Pt Level 3 (79580) Diagnoses Acute cystitis without hematuria N30.00 Hematuria presence: without hematuria Urinary tract infection type: acute cystitis
[2024-02-20 08:28] VITALS: BP 136/80; PULSE 78; TEMP 36.6; O2SAT 98; BMI 39.4
== END 2024-02-20 08:59 | disposition home or self-care (01) ==
PROVIDERS: PCP Physician Assistant; Visit Provider Physician Assistant
DX: N30.00 Acute cystitis without hematuria (principal); Z13.9 Encounter for screening, unspecified
CPT/HCPCS: 81003; 99213

== ENCOUNTER 2024-07-15 11:34 | Outpatient (AMB) | payer MEDICARE, MEDICAID, SELFPAY ==
--- NOTE | 2024-07-15 11:36 | MHC.OFFVIS ---
Vital Signs 07/15/24 11:38 Height 4 ft 11 in Weight 190 lb 6 oz BMI 38.4 BP 120/58 L Blood Pressure Location Rt brachial Position Sitting Pulse 84 Pulse Source Pulse Oximeter Pulse Oximetry (%) 98 Oxygen Delivery Method Room Air Intake Visit Reasons: 6 mnts f/u for Amnesia Intake Note: Patient presents for a 10 mon follow up. 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 Accompanied by: Spouse Allergies morphine [MORPHINE] Allergy (Severe, Verified 07/15/24 11:43) DIFF BREATHING, DIZZY, anaphylaxis, shortness of breath oxycodone [OXYCODONE] Allergy (Severe, Verified 07/15/24 11:43) DIFF BREATHING, DIZZY sulfamethoxazole [From BACTRIM] Allergy (Unknown, Verified 07/15/24 11:43) UNKNOWN trimethoprim [From BACTRIM] Allergy (Unknown, Verified 07/15/24 11:43) UNKNOWN SEASONAL ALLERGIES Allergy (Intermediate, Uncoded 11/05/23 13:55) ITCHY Medication List - Last Reconciled 07/15/24 by Porsche Taylor MD acetaminophen 500 mg PO Q4-6H PRN albuterol sulfate 2.5 mg (3 mL) PO Q4H PRN cephalexin 500 mg PO BID cetirizine 10 mg PO DAILY PRN 90 days diclofenac sodium 1% 2 grams topical QID fenofibrate nanocrystallized 48 mg PO DAILY fluticasone propionate 110 mcg/actuation (Flovent HFA) 1 puff PO BID ibuprofen 800 mg PO TID PRN lisinopril 5 mg PO DAILY memantine 28 mg PO DAILY olopatadine 0.2% 1 drp ophthalmic (eye) DAILY 30 days rosuvastatin 20 mg PO DAILY 90 days tizanidine 4 mg PO BID PRN 30 days HPI Comments Details: 63 y/o female comes for follow up of memory issues. She is accompanied by her . She is on memantine 28 mg and no side effect reported.she is more confused in the evenings. She still can misplaces her keys, forgets her grocery list but it happen much less. She is independent in all her ADL and does chores at home. she stopped driving - as she gets confused with directions. Denies anxiety or depression at this time. No hallucinations or behavior issues. She sleeps good for 8 hrs. PFSH Medical History (Updated 07/15/24 @ 11:58 by Porsche Taylor MD) Dementia Mild cognitive impairment COVID-19 Lumbar spondylitis Other chronic pain UTI (urinary tract infection) Osteoarthritis Breast pain Hemorrhoids Diverticulosis Arthritis Hx of transfusion of whole blood Anemia Depression Lab test negative for COVID-19 virus Asthma Elevated cholesterol Surgical History Hx of hysterectomy Hx of Achilles tendon repair Hx of colonoscopy History of carpal tunnel release Family History Father Diabetes Mental health disorder Schizo-affective schizophrenia Mother CHF (congestive heart failure) Dementia Maternal Aunt Stomach cancer Social History Household Members: Spouse Housing: Apartment Alcohol intake: never Patient Tobacco Use Status: Never used Tobacco e-Cigarette/Vaping Use: Never Used Second Hand Smoke Exposure: No service: No Current occupational status: retired and disabled 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 Cognitive needs: No Hearing needs: No Vision needs: No Physical Exam Vital Signs: Last Vital Signs Pulse 84 07/15/24 11:38 BP 120/58 L 07/15/24 11:38 Pulse Ox 98 07/15/24 11:38 Oxygen Delivery Method Room Air 07/15/24 11:38 BMI result Body Mass Index 38.4 Const General: cooperative, healthy appearing and comfortable Eyes Pupils: Equal, round and reactive pupils present Neuro General: gait normal, tone normal, moves all extremities and no focal motor deficits Cranial nerves: Yes Facial sensation intact/muscles of mastication intact, Yes Equal, round and reactive pupils present, Yes Bilaterally intact EOM present, Yes Nystagmus not present, Yes Normal facial strength present, Yes Midline tongue present and Yes Symmetric palate elevation present Gait exam (Neuro): Antalgic gait present Motor exam (neuro): 5/5 motor strength present throughout and Normal motor muscle tone present throughout Deep tendon reflexes (DTR's): Right triceps reflex intensity grade: 2+, Left triceps reflex intensity grade: 2+, Rt Biceps (C5, C6): 2+, Left biceps reflex intensity grade: 2+, Right brachioradialis reflex intensity grade: 2+, Left brachioradialis reflex intensity grade: 2+, Right patellar reflex intensity grade: 2+ and Left patellar reflex intensity grade: 2+ Coordination: [id number] test normal Psych Appearance: grossly normal Speech and movement: Normal speech and movement present Affect: Anxious affect present Orientation What is the (year) (season) (date) (day) (month)?: year, season, day and month Where are we (state) (county) (town or city) (hospital) (floor)?: state, hospital/clinic and floor Registration Name of 3 unrelated objects clearly and slowly, then ask patient to repeat all 3 of them. (1st repeat determines score. Make sure they can repeat all three): object 1, object 2 and object 3 Attention & Calculation (CHOOSE ONE) Spell WORLD backwards (DLROW): 3 letters Language Show patient a wristwatch & ask what it is. Repeat for pencil.: watch and pencil Ask the patient to repeat the phrase 'No ifs, ands, or buts' after you.: correct Ask the patient to 'take a piece of paper with their right hand' 'fold paper in half' 'place paper on floor': take paper in right hand Give patient a blank piece of paper & ask to write a sentence. Score if it contains a noun & verb.: sentence contains subject and verb Ask patient to copy figure of intersecting pentagons exactly. Score if all 10 angles & 2 intersects are included.: all 10 angles present & 2 are intersected Score Score: 19 Assessment & Plan Assessment & Plan (1) Dementia: Code(s): F03.90 - Unspecified dementia, unspecified severity, without behavioral disturbance, psychotic disturbance, mood disturbance, and anxiety Category: Medical Qualifiers: Dementia type: unspecified type Dementia severity: mild Dementia behavioral or psychological symptom: with anxiety Qualified Code(s): F03.A4 - Unspecified dementia, mild, with anxiety Plan Continue to take memantine 28 mg daily. Advised patient to increase physical, social and cognitive activities. Have well balanced diet, manages blood pressure well. Orders: Referrals Speech and Hearing Referral F03.A4 - Unspecified dementia, mild, with anxiety Medications: New donepezil 1/2 tab qd for 4 weeks then 1 tab qd orally bedtime; 30 tabs 6RF Coding Level of Care Code Est Pt Level 4 (85413) Complex EM visit Add On G2211 Diagnoses Mild dementia with anxiety, unspecified dementia type F03.A4 Dementia type: unspecified type Dementia severity: mild Dementia behavioral or psychological symptom: with anxiety
[2024-07-15 11:38] VITALS: BP 120/58; PULSE 84; O2SAT 98; BMI 38.4
== END 2024-07-15 12:07 | disposition home or self-care (01) ==
PROVIDERS: PCP Physician Assistant; Visit Provider Psychiatry & Neurology Neurology
DX: F03.A4 Unspecified dementia, mild, with anxiety (principal)
CPT/HCPCS: 99214; G2211

== ENCOUNTER → 2024-07-15 11:34 | Outpatient (BNVA) | payer MEDICARE, MEDICAID, SELFPAY | PROVIDERS: PCP Physician Assistant; Visit Provider Psychiatry & Neurology Neurology | DX: F03.A4 Unspecified dementia, mild, with anxiety (principal) | CPT/HCPCS: 99212 ==

== ENCOUNTER → 2024-08-02 10:10 | Outpatient (BNV) | payer MEDICARE, MEDICAID, SELFPAY | PROVIDERS: PCP Physician Assistant; Visit Provider Radiology Diagnostic Radiology | DX: F03.90 Unspecified dementia, unspecified severity, without behavioral disturbance, psychotic disturbance, mood disturbance, and anxiety (principal) | CPT/HCPCS: 70551 ==

== ENCOUNTER 2024-08-02 10:31 | Outpatient (REF) | payer MEDICARE, MEDICAID, SELFPAY ==
--- NOTE | ~2024-08-02 | MR_ITS ---
EXAMINATION: MR BRAIN WITHOUT CONTRAST CLINICAL INFORMATION: Unspecified dementia. COMPARISON: MRI dated 05/27/2023. TECHNIQUE: MRI of the brain was obtained using routine sequences without contrast. FINDINGS: Submitted for interpretation on September 08, 2024. No restricted diffusion. No acute intracranial hemorrhage, mass effect, midline shift, hydrocephalus or herniation. Bilateral multifocal patchy and punctate deep periventricular matter hyperintense T2 FLAIR signal involving centrum semiovale and anglin radiata, basal ganglia, extracapsular. Old lacunar infarcts with the cribriform pattern involving basal ganglia. Zhong-white matter differentiation is normal. There is a 7 mm fluid signal characteristic structure medial to the left temporal horn lateral ventricle/uncus without perilesional vasogenic edema or mass effect. Flow-void signal within the main cerebral vessels is normal. 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 Craniocervical junction is intact. Posterior cranial fossa contents demonstrated no acute brain abnormality. MR/MR head/brain wo con IMPRESSION: No acute brain abnormality. Probable small vessel occlusive disease. 7 mm choroid fissure cyst, left side. Electronically signed by: Cyril Magana MD 09/08/2024 03:40 PM EST
== END 2024-08-02 10:32 | disposition home or self-care (01) ==
LOC: HO.MRI 10:31
PROVIDERS: PCP Physician Assistant; Visit Provider Psychiatry & Neurology Neurology
DX: F03.90 Unspecified dementia, unspecified severity, without behavioral disturbance, psychotic disturbance, mood disturbance, and anxiety (principal)
CPT/HCPCS: 70551

== ENCOUNTER 2024-09-30 07:14 | Outpatient (REF) | payer MEDICARE, MEDICAID, SELFPAY ==
[2024-09-30 07:35] LABS: MANUAL DIFF FLAG NO
[2024-09-30 08:02] LABS: Basophils Percent Auto 0.7 % (0-2); Eosinophils Absolute Auto 0.4 X10*3/uL (0.0-0.4); Hematocrit 36.3 % (37.0-47.0); Hemoglobin 11.8 g/dl (12.0-16.0); Imm Gran Abs Auto 0.01 X10*3/uL (0.00-0.03); Imm Gran Pct Auto 0.2 % (0.0-0.4); Lymphocytes Absolute Auto 1.1 X10*3/uL (1.2-4.9); Mean Corpuscular HGB Conc 32.5 g/dl (31.0-35.0); Mean Corpuscular Hemoglobin 28.6 pg (27.0-33.0); Mean Corpuscular Volume 87.9 fL (80.0-98.0); Mean Platelet Volume 8.2 fL (9.4-12.3); Monocytes Absolute Auto 0.5 X10*3/uL (0.1-1.2); Monocytes Percent Auto 8.1 % (2-11); Neutrophils Absolute Auto 3.8 x10*3/uL (2.0-8.3); Platelet Count 510 X10*3/uL (160-400); Red Blood Count 4.13 X10*6/uL (4.20-5.50); Red Cell Distribution Width 13.1 % (11.0-16.0); White Blood Count 5.8 X10*3/uL (4.8-10.8)
[2024-09-30 08:23] LABS: Albumin Level 4.4 g/dL (3.5-5.0); Anion Gap 12 (12-20); Aspartate Amino Transferase 37 U/L (5-31); Bilirubin Total 0.4 mg/dL (0.0-1.0); Blood Urea Nitrogen 19 mg/dL (9-16); Calcium 10.3 mg/dL (8.4-10.2); Carbon Dioxide 27 mmol/L (22-29); Chloride 107 mmol/L (96-108); Estimated Glomerular Filt Rate > 60; Glucose Random 88 mg/dL (60-115); Iron 112 mcg/dL (30-160); Percent Iron Saturation 39 % (15-50); Potassium 3.8 mmol/L (3.3-5.1); Sodium 142 mmol/L (135-145); Total Iron Binding Capacity 289 mcg/dL (228-428); Total Protein 7.4 g/dL (6.5-8.0); Unsaturated Iron Binding 177 ug/dL
[2024-09-30 08:52] LABS: Ferritin 127 ng/mL (10-250)
[2024-09-30 08:58] LABS: Folate 15.2 ng/mL (> or = 4.0); Vitamin B12 912 pg/mL (200-900)
[2024-09-30 09:11] LABS: Alanine Aminotransferase 21 U/L (0-31); Alkaline Phosphatase 52 U/L (39-117)
[2024-10-01 22:58] LABS: Homocysteine 9.1 umol/L (<10.4)
[2024-10-04 03:19] LABS: Methylmalonic Acid 142 nmol/L (69-390)
== END 2024-09-30 07:15 | disposition home or self-care (01) ==
LOC: HO.LAB 07:14
PROVIDERS: PCP Physician Assistant; Visit Provider Nurse Practitioner Family
DX: D64.9 Anemia, unspecified (principal); F03.A4 Unspecified dementia, mild, with anxiety
CPT/HCPCS: 36415; 80053; 82607; 82728; 82746; 83090; 83540; 83921; 84443; 85025

== ENCOUNTER 2024-11-19 09:19 | Outpatient (AMB) | payer MEDICARE, MEDICAID, SELFPAY ==
[2024-11-19 09:33] VITALS: BP 130/60; PULSE 71; TEMP 36.2; O2SAT 98; BMI 37.8
--- NOTE | 2024-11-19 09:36 | AM.OFFVISMDC ---
Intake Vital Signs 11/19/24 09:33 Height 4 ft 11 in Weight 187 lb 4 oz BMI 37.8 BP 130/60 Blood Pressure Location Lt brachial Position Sitting Pulse 71 Pulse Source Pulse Oximeter Temp 97.1 F Temp Source Skin Pulse Oximetry (%) 98 Oxygen Delivery Method Room Air Intake Visit Reasons: annual exam Intake Note: Patient is here for an Annual Wellness Visit. 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 Guide Present Accompanied by: Spouse Allergies morphine [MORPHINE] Allergy (Severe, Verified 11/19/24 09:46) DIFF BREATHING, DIZZY, anaphylaxis, shortness of breath oxycodone [OXYCODONE] Allergy (Severe, Verified 11/19/24 09:46) DIFF BREATHING, DIZZY sulfamethoxazole [From BACTRIM] Allergy (Unknown, Verified 11/19/24 09:46) UNKNOWN trimethoprim [From BACTRIM] Allergy (Unknown, Verified 11/19/24 09:46) UNKNOWN SEASONAL ALLERGIES Allergy (Intermediate, Uncoded 11/19/24 09:46) ITCHY Medication List - Last Reconciled 11/19/24 by Lit Billings PA-C acetaminophen 500 mg PO Q4-6H PRN albuterol sulfate 2.5 mg (3 mL) PO Q4H PRN cetirizine 10 mg PO DAILY PRN 90 days diclofenac sodium 1% 2 grams topical QID donepezil 1/2 tab qd for 4 weeks then 1 tab qd orally bedtime; fenofibrate nanocrystallized 48 mg PO DAILY fluticasone propionate 110 mcg/actuation 1 puff PO BID ibuprofen 800 mg PO TID PRN lisinopril 5 mg PO DAILY memantine 28 mg PO DAILY olopatadine 0.2% 1 drp ophthalmic (eye) DAILY 30 days rosuvastatin 20 mg PO DAILY 90 days tizanidine 4 mg PO BID PRN 30 days HPI annual exam HPI Details Patient is a 63 year-old female?here today for an annual wellness visit. . Patient's past medical history significant for bilateral carpal syndrome, hyperlipidemia, obesity hypertension, asthma, memory impairment. Concern--> reports having bilateral plantar pain which has been evident as an issue in the past. She did get cortisone injections in her plantar regions which significantly reduced her plantar pain. 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 Also reviewed her comprehensive care plan that was scanned into patient's documents Colonoscopy: 2019- hx of polyps- need repeat colonoscopy 2024 Vaccine: UTD with PCV and Tdap , UTD COVID vaccine, Considering shingrex Mammo: MAmmo-02/2022 BIRADS 1 - PFSH Medical History (Updated 11/19/24 @ 10:10 by Lit Billings PA-C) Dementia Mild cognitive impairment COVID-19 Lumbar spondylitis Other chronic pain UTI (urinary tract infection) Osteoarthritis Breast pain Hemorrhoids Diverticulosis Arthritis Hx of transfusion of whole blood Anemia Depression Lab test negative for COVID-19 virus Asthma Elevated cholesterol Surgical History Hx of hysterectomy Hx of Achilles tendon repair Hx of colonoscopy History of carpal tunnel release Family History Father Diabetes Mental health disorder Schizo-affective schizophrenia Mother CHF (congestive heart failure) Dementia Maternal Aunt Stomach cancer Social History Household Members: Spouse Housing: Apartment Alcohol intake: never Patient Tobacco Use Status: Never used Tobacco e-Cigarette/Vaping Use: Never Used Second Hand Smoke Exposure: No service: No Current occupational status: retired and disabled 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 Cognitive needs: No Hearing needs: No Vision needs: No Questionnaire Medicare Wellness Checkup [age] What gender do you identify with?: female During the past 4 weeks, how much have you been bothered by emotional problems such as feeling anxious, depressed, irritable, sad or downhearted, and blue?: moderately During the past 4 weeks, has your physical & emotional health limited your social activities with family, friends, neighbors, or groups?: quite a bit During the past 4 weeks, how much bodily pain have you generally had?: moderate pain During the past 4 weeks, was someone available to help you if you needed & wanted help?: yes, some During the past 4 weeks, what was the hardest physical activity you could do for at least 2 minutes?: very light Can you get to places out of walking distance without help? (For eg., can you travel alone on buses, taxis or drive your car?): No Can you go shopping for groceries or clothes without someone's help?: No Can you prepare your own meals?: No Can you do your housework without help?: No Because of any health problems, do you need the help of another person with your personal care needs such as eating, bathing, dressing or getting around the house?: Yes Can you handle your own money without help?: No During the past 4 weeks, how would you rate your health in general?: good During the past 4 weeks how have things been going for you?: good & bad parts about equal Are you having difficulties driving your car?: not applicable, I don't use a car Do you always fasten your seat belt when you are in a car?: yes, usually During past 4 weeks, have you been bothered by the following: never: Falling or dizzy when standing up, Sexual problems?, Trouble eating well?, Teeth or denture problems? and Problems using the telephone? and sometimes: Tiredness or fatigue? Have you fallen 2 or more times in the past year?: No Are you afraid of falling?: Yes Are you a smoker?: no During the past 4 weeks, how many drinks of wine, beer, or other alcoholic beverages did you have?: no alcohol at all Do you exercise for about 20 minutes 3 or more times a week?: no, I usually do not exercise this much Have you been given information to help with the following?: no: Hazards in your house that might hurt you? and no: Keeping track of your medications? How often do you have trouble taking medicines the way you have been told to take them?: I do not have to take medicine How confident are you that you can control & manage most of your health problems?: very confident What is your race?: or origin or descent Mini Mental State Exam (MMSE) Orientation What is the (year) (season) (date) (day) (month)?: year Where are we (state) (county) (town or city) (hospital) (floor)?: town or city Attention & Calculation (CHOOSE ONE) Ask pt to begin with 100 & count backward by 7. Stop after 5 repeats. If pt cannot ask them to spell the word WORLD backward.: 93 Spell WORLD backwards (DLROW): 5 letters Score Score: 8 Activity of Daily Living Bathing - sponge bath, tub bath or shower: receives help in bathing only one body part (such as back or leg) Dressing - getting clothes from closets & drawers, including inner/outer garments & fasteners.: gets clothes & gets completely dressed without help Toileting - going to the 'toilet room' for urine/bowel elimination & cleaning self/arranging clothes: goes to toilet room, cleans self, arranges clothes without help Transfer: moves in & out of bed and chair without help (may use support object) Continence: controls urination/bowel movements completely by self Feeding: feeds self without help Total Score: 0 Information obtained from: patient Using telephone: independent Traveling: needs assistance Shopping: needs assistance Preparing meals: dependent Housework: needs assistance Taking medicine: needs assistance Managing money: needs assistance PHQ-9 Over the last 2 weeks, how often have you been bothered by any of the following problems? 1. Little interest or pleasure in doing things: nearly every day 2. Feeling down, depressed, or hopeless: several days 3. Trouble falling or staying asleep, or sleeping too much: not at all 4. Feeling tired or having little energy: more than half the days 5. Poor appetite or overeating: not at all 6. Feeling bad about yourself - or that you are a failure or have let yourself or your family down: not at all 7. Trouble concentrating on things, such as reading the newspaper or watching television: nearly every day 8. Moving or speaking so slowly that other people could have noticed. Or the opposite - being so fidgety or restless that you have been moving around a lot more than usual: more than half the days 9. Thoughts that you would be better off or of hurting yourself in some way: not at all Total score: 11 Depression Screening Interpretation: Positive Depression Screening Follow-up: Existing condition and Declines treatment Depression Screening Done: Yes 95245 - PHQ-9 Billing: Yes Source: Developed by Drs. Nakul Lee, Sonya Jo, Freddie Kothari and colleagues, with an educational jena from [employer]. Thrive Questionnaire Date Thrive assessed: 11/19/24 I am a: Patient What is your living situation today?: I have a steady place to live Within the past 12 months, did the food you bought not last and you didn't have the money to get more?: Often true Within the past 12 months, did you worry whether your food would run out before you got money to buy more?: I choose not to answer this question Do you have trouble paying for medicines?: I choose not to answer this question Do you have trouble getting transportation to medical appointments?: I choose not to answer this question Do you have trouble paying your heating and electricity bill?: I choose not to answer this question Do you have trouble taking care of your child, family member or friend?: I choose not to answer this question Do you have trouble with day-to-day activities such as bathing, preparing meals, shopping, managing finances, etc.?: I choose not to answer this question Are you currently unemployed and looking for a job?: I choose not to answer this question Are you interested in more education?: I choose not to answer this question Please select the resources that you would like help with: None Currently or been in a relationship where the following occur: I choose not to answer THRIVE Score: 1 KWADWO-7 AMB Questionnaire KWADWO-7 Date KWADWO - 7 assessed: 11/19/24 Feeling nervous, anxious, or on edge: 1 = Several days Not being able to stop or control worryin = Not at all Worrying too much about different things: 0 = Not at all Trouble relaxin = Not at all Being so restless that it is hard to sit still: 0 = Not at all Becoming easily annoyed or irritable: 0 = Not at all Feeling afraid as if something awful might happen: 0 = Not at all Total KWADWO-7 score (0-4 normal; 5-9 mild; 10-14 moderate; 15-21 severe): 1 Source: Developed by Drs. Nakul Lee, Sonya Jo, Freddie Kothari and colleagues, with an educational jena from [employer]. KWADWO-7 Assessment Billing KWADWO-7 Assessment Tool: KWADWO-7 Assessment 40318 AUDIT C Alcohol Use Questionnaire (AUDIT-C) 1. How often do you have a drink containing alcohol?: Never Total Score: 0 Physical Exam Vital Signs: Last Vital Signs Temp 97.1 F 11/19/24 09:33 Pulse 71 11/19/24 09:33 BP 130/60 11/19/24 09:33 Pulse Ox 98 11/19/24 09:33 Oxygen Delivery Method Room Air 11/19/24 09:33 BMI result Body Mass Index 37.8 Assessment & Plan Assessment & Plan (1) Annual wellness visit: Code(s): Z00.00 - Encounter for general adult medical examination without abnormal findings Plan: As per HPI (2) History of adenomatous polyp of colon: Code(s): Z86.0101 - Personal history of adenomatous and serrated colon polyps Plan: History of colonic polyps. Done in 2019 needed repeat in 5 years (3) Breast cancer screening: Code(s): Z12.39 - Encounter for other screening for malignant neoplasm of breast Qualifiers: Breast cancer screening modality: mammogram Qualified Code(s): Z12.31 - Encounter for screening mammogram for malignant neoplasm of breast Plan: Need for screening mammogram (4) Postmenopausal: Code(s): Z78.0 - Asymptomatic menopausal state Plan: Willing to do bone density (5) Plantar fasciitis, bilateral: Code(s): M72.2 - Plantar fascial fibromatosis Plan: As per HPI and will try to set patient up with Podiatry for evaluation and possible cortisone injections in plantar regions. Orders: Orders XR DEXA axial skeleton 11/19/24 Z78.0 - Asymptomatic menopausal state MM tomosynthesis screening BI 11/19/24 Z12.31 - Encounter for screening mammogram for malignant neoplasm of breast Referrals Gastroenterology Referral Z86.0101 - Personal history of adenomatous and serrated colon polyps Podiatry Referral M72.2 - Plantar fascial fibromatosis Medications: Refilled tizanidine 4 mg PO BID PRN 60 tabs 2RF for muscle spasm 30 days M62.830 - Muscle spasm of back Quality Reporting (2019) Depression/Bipolar (159/160/161/177) PHQ-9: Total score: 11 Coding Level of Care Code Medicare Subsequent (G0439) Est Pt Level 3 (93011) Diagnoses Annual wellness visit Z00.00 History of adenomatous polyp of colon Z86.0101 Encounter for screening mammogram for malignant neoplasm of breast Z12.31 Breast cancer screening modality: mammogram Postmenopausal Z78.0 Plantar fasciitis, bilateral M72.2 Additional Codes PHQ-9 - 53123 - PHQ-9 Billing: Yes ([id number]) KWADWO-7 Assessment Billing - KWADWO-7 Assessment Tool: KWADWO-7 Assessment 32691 ([id number]) Advance Care Planning Advance Care Planning discussion: Completed/Scanned Date of discussion: 11/19/24
== END 2024-11-19 10:17 | disposition home or self-care (01) ==
PROVIDERS: PCP Physician Assistant; Visit Provider Physician Assistant
DX: Z00.00 Encounter for general adult medical examination without abnormal findings (principal); M72.2 Plantar fascial fibromatosis; Z78.0 Asymptomatic menopausal state; Z86.0101 Personal history of adenomatous and serrated colon polyps; Z12.31 Encounter for screening mammogram for malignant neoplasm of breast

== ENCOUNTER → 2024-11-19 09:19 | Outpatient (BNVA) | payer MEDICARE, MEDICAID, SELFPAY | PROVIDERS: PCP Physician Assistant; Visit Provider Physician Assistant | DX: Z00.00 Encounter for general adult medical examination without abnormal findings (principal); M72.2 Plantar fascial fibromatosis; Z78.0 Asymptomatic menopausal state; Z86.0101 Personal history of adenomatous and serrated colon polyps | CPT/HCPCS: 96127; 99212 ==

== ENCOUNTER 2025-01-16 09:05 | Outpatient (REF) | payer MEDICARE, MEDICAID, SELFPAY ==
--- NOTE | ~2025-01-16 | MM_ITS ---
EXAMINATION: DXA BONE DENSITY AXIAL HISTORY: Z78.0 - Asymptomatic menopausal state TECHNIQUE: Red Zebra Dual energy absorptiometry (DEXA) of the lumbar spine, total left hip, and femoral neck was performed. COMPARISON: There are no prior studies for comparison. FINDINGS: The bone mineral density of the lumbar spine is 1.982 with a T-score of 6.7, and a Z-score of 7.7. This is indicative of normal bone mineral density. The bone mineral density of the left total hip is 1.250 with a T-score of 1.9, and a Z-score of 2.7. This is indicative of normal bone mineral density. The bone mineral density of the left femoral neck is 1.140 with a T-score of 0.7, and a Z-score of 1.9. This is indicative of normal bone mineral density. FRACTURE RISK: The FRAX index suggests a risk of major osteoporotic fracture of 3.1%, and of hip fracture 0.1%. MM/XR DEXA axial skeleton IMPRESSION: Based on bone mineral density, and according to World Health Organization (WHO) criteria, the diagnosis is consistent with normal bone mineral density. All bone density values are in grams per centimeter squared (g/cm2). Statistically, 68% of repeat scans fall within 1 SD (+/- 0.010 g/cm2 for AP spine L1-L4) and 1 SD (+/- 0.012 g/cm2 for femur total) FRAX is a trademark of the [employer]'s [place] [facility] [employer], a World Health Organization (WHO) Collaborating Center. Electronically signed by: Nakul Garcia MD 01/16/2025 10:34 AM EDT
== END 2025-01-16 09:06 | disposition home or self-care (01) ==
LOC: HO.MAMMO 09:05
PROVIDERS: PCP Physician Assistant; Visit Provider Physician Assistant
DX: Z12.31 Encounter for screening mammogram for malignant neoplasm of breast (principal); Z13.820 Encounter for screening for osteoporosis; Z78.0 Asymptomatic menopausal state
CPT/HCPCS: 77063; 77067; 77080

== ENCOUNTER → 2025-01-16 10:00 | Outpatient (BNV) | payer MEDICARE, MEDICAID, SELFPAY | PROVIDERS: PCP Physician Assistant; Visit Provider Radiology Diagnostic Radiology | DX: E28.39 Other primary ovarian failure (principal) | CPT/HCPCS: 77080 ==

== ENCOUNTER 2025-02-11 08:03 | Outpatient (REF) | payer MEDICARE, MEDICAID, SELFPAY ==
[2025-02-11 09:40] LABS: MANUAL DIFF FLAG NO
[2025-02-11 10:26] LABS: Basophils Absolute Auto 0.1 X10*3/uL (0.0-0.2); Basophils Percent Auto 0.9 % (0-2); Eosinophils Absolute Auto 0.4 X10*3/uL (0.0-0.4); Hemoglobin 11.5 g/dl (12.0-16.0); Imm Gran Abs Auto 0.02 X10*3/uL (0.00-0.03); Imm Gran Pct Auto 0.3 % (0.0-0.4); Mean Corpuscular HGB Conc 32.9 g/dl (31.0-35.0); Mean Corpuscular Hemoglobin 28.5 pg (27.0-33.0); Mean Corpuscular Volume 86.8 fL (80.0-98.0); Mean Platelet Volume 8.1 fL (9.4-12.3); Monocytes Absolute Auto 0.6 X10*3/uL (0.1-1.2); Monocytes Percent Auto 8.4 % (2-11); Neutrophils Absolute Auto 3.6 x10*3/uL (2.0-8.3); Neutrophils Percent Auto 54.4 % (45-73); Platelet Count 487 X10*3/uL (160-400); Red Blood Count 4.03 X10*6/uL (4.20-5.50); Red Cell Distribution Width 13.5 % (11.0-16.0); White Blood Count 6.5 X10*3/uL (4.8-10.8)
[2025-02-11 11:14] LABS: Alanine Aminotransferase 24 U/L (0-31); Albumin Level 4.2 g/dL (3.5-5.0); Alkaline Phosphatase 50 U/L (39-117); Anion Gap 12 (12-20); Aspartate Amino Transferase 33 U/L (5-31); Bilirubin Total 0.4 mg/dL (0.0-1.0); Blood Urea Nitrogen 21 mg/dL (9-16); Calcium 9.7 mg/dL (8.4-10.2); Carbon Dioxide 28 mmol/L (22-29); Chloride 106 mmol/L (96-108); Estimated Glomerular Filt Rate > 60; Glucose Random 88 mg/dL (60-115); Sodium 142 mmol/L (135-145); TSH reflex Free T4 0.91 uIU/mL (0.32-4.0); Total Protein 7.1 g/dL (6.5-8.0)
[2025-02-11 11:32] LABS: Folate 15.2 ng/mL (> or = 4.0); Vitamin B12 714 pg/mL (200-900)
== END 2025-02-11 08:04 | disposition home or self-care (01) ==
LOC: HO.LAB 08:03
PROVIDERS: PCP Physician Assistant; Visit Provider Psychiatry & Neurology Neurology
DX: G30.1 Alzheimer's disease with late onset (principal); F02.B0 Dementia in other diseases classified elsewhere, moderate, without behavioral disturbance, psychotic disturbance, mood disturbance, and anxiety
CPT/HCPCS: 80053; 82542; 82607; 82746; 84443; 85025; 99212

== ENCOUNTER 2025-02-11 08:03 | Outpatient (AMB) | payer MEDICARE, MEDICAID, SELFPAY ==
[2025-02-11 08:07] VITALS: BP 140/74; PULSE 68; O2SAT 99; BMI 38.0
--- NOTE | 2025-02-11 08:07 | MHC.OFFVIS ---
Vital Signs 02/11/25 08:07 Height 4 ft 11 in Weight 188 lb BMI 38.0 BP 140/74 H Blood Pressure Location Rt brachial Position Sitting Pulse 68 Pulse Source Pulse Oximeter Pulse Oximetry (%) 99 Oxygen Delivery Method Room Air Intake Visit Reasons: 6 mnts f/u for Amnesia Intake Note: Patient presents for follow up Speech therapy note scanned 01/11/24 and new med trial donepezil Allergies morphine [MORPHINE] Allergy (Severe, Verified 02/11/25 08:09) DIFF BREATHING, DIZZY, anaphylaxis, shortness of breath oxycodone [OXYCODONE] Allergy (Severe, Verified 02/11/25 08:09) DIFF BREATHING, DIZZY sulfamethoxazole [From BACTRIM] Allergy (Unknown, Verified 02/11/25 08:09) UNKNOWN trimethoprim [From BACTRIM] Allergy (Unknown, Verified 02/11/25 08:09) UNKNOWN SEASONAL ALLERGIES Allergy (Intermediate, Uncoded 02/11/25 08:09) ITCHY Medication List - Last Reconciled 02/11/25 by Porsche Taylor MD acetaminophen 500 mg PO Q4-6H PRN albuterol sulfate 2.5 mg (3 mL) PO Q4H PRN cetirizine 10 mg PO DAILY PRN 90 days diclofenac sodium 1% 2 grams topical QID donepezil 1/2 tab qd for 4 weeks then 1 tab qd orally bedtime; fenofibrate nanocrystallized 48 mg PO DAILY fluticasone propionate 110 mcg/actuation 1 puff PO BID ibuprofen 800 mg PO TID PRN lisinopril 5 mg PO DAILY memantine 28 mg PO DAILY olopatadine 0.2% 1 drp ophthalmic (eye) DAILY 30 days rosuvastatin 20 mg PO DAILY 90 days tizanidine 4 mg PO BID PRN 30 days HPI Comments Details: 64 y/o female comes for follow up of memory issues. she is doing good except for evenings but if she takes a nap for 30 minutes she is better She is accompanied by her . She is on memantine 28 mg and no side effect reported. She still can misplaces her keys, forgets her grocery list but it happen much less. She is independent in most ADL and does chores at home. 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 she becomes anxious and worries a lot No hallucinations or behavior issues. She sleeps good for 8 hrs. 7pm-4am [facility] Medical History (Updated 02/11/25 @ 08:31 by Porsche Taylor MD) Alzheimer's dementia, late onset Dementia Mild cognitive impairment COVID-19 Lumbar spondylitis Other chronic pain UTI (urinary tract infection) Osteoarthritis Breast pain Hemorrhoids Diverticulosis Arthritis Hx of transfusion of whole blood Anemia Depression Lab test negative for COVID-19 virus Asthma Elevated cholesterol Surgical History Hx of hysterectomy Hx of Achilles tendon repair Hx of colonoscopy History of carpal tunnel release Family History Father Diabetes Mental health disorder Schizo-affective schizophrenia Mother CHF (congestive heart failure) Dementia Maternal Aunt Stomach cancer Social History Household Members: Spouse Housing: Apartment Alcohol intake: never Patient Tobacco Use Status: Never used Tobacco e-Cigarette/Vaping Use: Never Used Second Hand Smoke Exposure: No service: No Current occupational status: retired and disabled 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 Cognitive needs: No Hearing needs: No Vision needs: No Physical Exam Vital Signs: Last Vital Signs Pulse 68 02/11/25 08:07 BP 140/74 H 02/11/25 08:07 Pulse Ox 99 02/11/25 08:07 Oxygen Delivery Method Room Air 02/11/25 08:07 BMI result Body Mass Index 38.0 Const General: cooperative, healthy appearing and comfortable Eyes Pupils: Equal, round and reactive pupils present Neuro General: gait normal, tone normal, moves all extremities and no focal motor deficits Cranial nerves: Yes Facial sensation intact/muscles of mastication intact, Yes Equal, round and reactive pupils present, Yes Bilaterally intact EOM present, Yes Nystagmus not present, Yes Normal facial strength present, Yes Midline tongue present and Yes Symmetric palate elevation present Gait exam (Neuro): Antalgic gait present Motor exam (neuro): 5/5 motor strength present throughout and Normal motor muscle tone present throughout Coordination: [id number] test normal Psych Appearance: grossly normal Speech and movement: Normal speech and movement present Affect: Anxious affect present Orientation What is the (year) (season) (date) (day) (month)?: year, season and month Where are we (state) (county) (town or city) (hospital) (floor)?: state, hospital/clinic and floor Registration Name of 3 unrelated objects clearly and slowly, then ask patient to repeat all 3 of them. (1st repeat determines score. Make sure they can repeat all three): object 1, object 2 and object 3 Attention & Calculation (CHOOSE ONE) Spell WORLD backwards (DLROW): 4 letters Language Show patient a wristwatch & ask what it is. Repeat for pencil.: watch and pencil Ask the patient to repeat the phrase 'No ifs, ands, or buts' after you.: correct Ask the patient to 'take a piece of paper with their right hand' 'fold paper in half' 'place paper on floor': take paper in right hand and fold paper in half Print the sentence 'CLOSE YOUR EYES' on a piece. If patient actually closes eyes then score.: followed written direction Give patient a blank piece of paper & ask to write a sentence. Score if it contains a noun & verb.: sentence contains subject and verb Ask patient to copy figure of intersecting pentagons exactly. Score if all 10 angles & 2 intersects are included.: all 10 angles present & 2 are intersected Score Score: 21 Assessment & Plan Assessment & Plan (1) Alzheimer's dementia, late onset: Comment: positive AMYVID scan Code(s): G30.1 - Alzheimer's disease with late onset; F02.80 - Dementia in other diseases classified elsewhere, unspecified severity, without behavioral disturbance, psychotic disturbance, mood disturbance, and anxiety Category: Medical Qualifiers: Dementia behavioral or psychological symptom: without behavioral, psychotic, or mood disturbance or anxiety Dementia severity: moderate Qualified Code(s): G30.1 - Alzheimer's disease with late onset; F02.B0 - Dementia in other diseases classified elsewhere, moderate, without behavioral disturbance, psychotic disturbance, mood disturbance, and anxiety Plan she will be a good candidate for treatment with ANti amyloid therapy Info on Renee given I will check her APO E status to determine leo risk for ARIA Get prior auth form insurance and schedule her for infusions.Continue to take memantine 28 mg daily donepezil 10mg qd Advised patient to increase physical, social and cognitive activities. Have well balanced diet, manages blood pressure well. Orders: Orders Other Ref Test - Misc Today F02.B0 - Dementia in other diseases classified elsewhere, moderate, without behavioral disturbance, psychotic disturbance, mood disturbance, and anxiety, G30.1 - Alzheimer's disease with late onset Vitamin B12 and Folate Today F02.B0 - Dementia in other diseases classified elsewhere, moderate, without behavioral disturbance, psychotic disturbance, mood disturbance, and anxiety, G30.1 - Alzheimer's disease with late onset Complete Blood Count Auto Diff Today F02.B0 - Dementia in other diseases classified elsewhere, moderate, without behavioral disturbance, psychotic disturbance, mood disturbance, and anxiety, G30.1 - Alzheimer's disease with late onset Comprehensive Met. Panel Today F02.B0 - Dementia in other diseases classified elsewhere, moderate, without behavioral disturbance, psychotic disturbance, mood disturbance, and anxiety, G30.1 - Alzheimer's disease with late onset TSH reflex Free T4 Today F02.B0 - Dementia in other diseases classified elsewhere, moderate, without behavioral disturbance, psychotic disturbance, mood disturbance, and anxiety, G30.1 - Alzheimer's disease with late onset Coding Level of Care Code Est Pt Level 4 (27545) Complex EM visit Add On G2211 Diagnoses Moderate late onset Alzheimer's dementia without behavioral disturbance, psychotic disturbance, mood disturbance, or anxiety G30.1; F02.B0 Dementia behavioral or psychological symptom: without behavioral, psychotic, or mood disturbance or anxiety Dementia severity: moderate
== END 2025-02-11 08:36 | disposition home or self-care (01) ==
LOC: HO.HSMS 08:04
PROVIDERS: PCP Physician Assistant; Visit Provider Psychiatry & Neurology Neurology
DX: G30.1 Alzheimer's disease with late onset (principal); F02.B0 Dementia in other diseases classified elsewhere, moderate, without behavioral disturbance, psychotic disturbance, mood disturbance, and anxiety
CPT/HCPCS: 99214; G2211

== ENCOUNTER → 2025-02-17 08:57 | Outpatient (BNVA) | payer MEDICARE, MEDICAID, SELFPAY | PROVIDERS: PCP Physician Assistant; Visit Provider Psychiatry & Neurology Neurology ==

== ENCOUNTER 2025-04-23 11:39 | Outpatient (REF) | payer MEDICARE, MEDICAID, SELFPAY ==
--- NOTE | ~2025-04-23 | MR_ITS ---
EXAMINATION: MR BRAIN WITHOUT CONTRAST CLINICAL INFORMATION: Late onset Alzheimer's disease. 10 days post Kinsula infusion. COMPARISON: 08/02/2024, and 02/24/2023. TECHNIQUE: MRI of the brain was obtained using routine sequences without contrast. Examination performed on a Siemens 1.5 Lizzette high-field unit. FINDINGS: There is no diffusion restriction. There is no intracranial hemorrhage, acute infarction, mass effect, or edema. Ventricles, sulci, and cisterns are mildly diffusely prominent, in keeping with age-appropriate cerebral and cerebellar volume loss. No asymmetric pattern of atrophy. No shift of midline. No abnormal hemosiderin deposition is identified. There are similar numerous scattered punctate and mildly confluent foci of white matter T2 hyperintensity in the periventricular, subcortical, and hemispheric deep white matter. These foci are nonspecific but statistically most likely relate to small vessel ischemic changes. There is a 7 mm left choroid fissure cyst, unchanged. Midline structures appear normally formed. There is a partial empty sella present. Posterior fossa structures appear normal. Cerebellar tonsils are appropriately located. Major flow voids are preserved within the skull base. The globes and orbital contents demonstrate no abnormalities. Paranasal sinuses are clear bilaterally. Nasal septum is midline without spur. The mastoids and tympanic cavities are normally aerated. Extracranial soft tissues demonstrate no abnormalities. No suspicious bone marrow changes are evident. Atlantoaxial joint demonstrates mild to moderate degenerative changes. MR/MR head/brain wo con IMPRESSION: 1. No evidence of intracranial hemorrhage, acute infarction, mass effect, or edema. 2. Mild to moderate changes of small vessel ischemia, similar to the prior exam. 3. Stable age-appropriate cerebral and cerebellar involutional changes. No asymmetric pattern of atrophy present. Electronically signed by: Lorenzo Brown MD 04/23/2025 01:12 PM EDT
== END 2025-04-23 11:40 | disposition home or self-care (01) ==
LOC: HO.MRI 11:39
PROVIDERS: PCP Physician Assistant; Visit Provider Psychiatry & Neurology Neurology
DX: G30.1 Alzheimer's disease with late onset (principal); F02.B0 Dementia in other diseases classified elsewhere, moderate, without behavioral disturbance, psychotic disturbance, mood disturbance, and anxiety
CPT/HCPCS: 70551

== ENCOUNTER → 2025-04-23 11:39 | Outpatient (BNV) | payer MEDICARE, MEDICAID, SELFPAY | PROVIDERS: PCP Physician Assistant; Visit Provider Radiology Diagnostic Radiology | DX: I67.82 Cerebral ischemia (principal) | CPT/HCPCS: 70551 ==

== ENCOUNTER 2025-05-11 10:15 | Outpatient (RCR) | payer MEDICARE, MEDICAID, SELFPAY ==
[2025-04-13 09:31] VITALS: BP 145/55; PULSE 68; RESP 16; TEMP 36.7; O2SAT 98; BMI 37.4
--- NOTE | 2025-04-13 10:10 | HE.PHANOTE ---
Renee Patients last MRI in July 2024. Patients 1st treatment 04/13/25. Contacted MD to make sure OK to initiate treatment with Kisunla. Dr. Taylor said to start Kisunla today and follow up MRI will be ordered, which is needed before 2nd dose.
[2025-04-13] MEDS: SODIUM CHLORIDE 0.9% IV (10:43)
[2025-04-13] MEDS: [UNRECOGNIZED DRUG - OTHER] IV (10:43)
[2025-04-13 11:19] VITALS: BP 140/64; PULSE 69
[2025-05-11 10:28] VITALS: BP 152/77; PULSE 69; RESP 16; TEMP 36.8; O2SAT 97
[2025-05-11] MEDS: SODIUM CHLORIDE 0.9% IV (11:09)
[2025-05-11] MEDS: [UNRECOGNIZED DRUG - OTHER] IV (11:09)
== END 2025-05-27 09:43 | disposition home or self-care (01) ==
LOC: HO.INF 10:15
PROVIDERS: Visit Provider Psychiatry & Neurology Neurology
DX: G30.1 Alzheimer's disease with late onset (principal); Z00.6 Encounter for examination for normal comparison and control in clinical research program
CPT/HCPCS: 96365; J0175

== ENCOUNTER 2025-06-22 08:07 | Outpatient (AMB) | payer MEDICARE, MEDICAID, SELFPAY ==
--- NOTE | 2025-06-22 08:15 | A.OFFPC_ITS ---
Vital Signs 06/22/25 08:16 Height 4 ft 11 in Weight 175 lb 2 oz BMI 35.4 BP 130/70 Blood Pressure Location Lt brachial Position Sitting Pulse 68 Pulse Source Pulse Oximeter Temp 97.3 F Temp Source Temporal Artery Scan Pulse Oximetry (%) 97 Oxygen Delivery Method Room Air Intake Visit Reasons: f/u HTN /HLD Intake Note: Patient is here to follow up on HTN, HLD. 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 Required: No Nutrition Internship: Present Accompanied by: Spouse Allergies morphine (MORPHINE) Allergy (Severe, Verified 06/22/25 08:30) DIFF BREATHING, DIZZY, anaphylaxis, shortness of breath oxycodone (OXYCODONE) Allergy (Severe, Verified 06/22/25 08:30) DIFF BREATHING, DIZZY sulfamethoxazole (From BACTRIM) Allergy (Unknown, Verified 06/22/25 08:30) UNKNOWN trimethoprim (From BACTRIM) Allergy (Unknown, Verified 06/22/25 08:30) UNKNOWN SEASONAL ALLERGIES Allergy (Intermediate, Uncoded 06/22/25 08:30) ITCHY Medication List - Last Reconciled 06/22/25 by Lit Billings PA-C acetaminophen 500 mg PO Q4-6H PRN albuterol sulfate 2.5 mg (3 mL) PO Q4H PRN atovaquone 1,500 mg PO QAM [Bedside commode As directed] cetirizine 10 mg PO DAILY PRN 90 days diclofenac sodium 1% 2 grams topical QID donepezil 1/2 tab qd for 4 weeks then 1 tab qd orally bedtime; fenofibrate nanocrystallized 48 mg PO DAILY fluticasone propionate 110 mcg/actuation 1 puff PO BID ibuprofen 800 mg PO TID PRN lisinopril 5 mg PO DAILY memantine 28 mg PO DAILY olopatadine 0.2% 1 drp ophthalmic (eye) DAILY 30 days prednisone mg PO rosuvastatin 20 mg PO DAILY 90 days [Shower chair As directed] tizanidine 4 mg PO BID PRN 30 days walker (Ultra-Light Rollator misc) As directed Tobacco use date assessed: 06/22/25 Fall risk assessment: 1 Fall in past year Last assessed Fall Risk: 06/22/25 Dental Screening Dental Screen Date: 06/22/25 Did you have a dental visit in the last 12 months?: No Did you have a dental problem in the last 6 months where you did not have access to dental care?: No Was dental information given to patient?: No HPI f/u HTN /HLD HPI Details Patient is a 64 year-old female?here today for a follow-up. Patient's past medical history significant for bilateral carpal syndrome, hyperlipidemia, obesity hypertension, asthma, memory impairment Patient has sustained a fall in early May resulting left arm and leg stiffness she eventually was seen at a local ER with workup including CT of head showing a right greater than left frontotemporoparietal subcortical white matter hypodensities likely representing edema. Has no large vessel occlusions. Repeat MRI was normal of the brain. Patient was consulted on tele Neurology at [facility] and discontinued denosumab and she received IV methylprednisone for 5 days and then taper down on prednisone. He needed a repeat MRI in 4 weeks from discharge. Also needs neurology outpatient follow-up. ..-- > personally reach out to patient's local neurologist whom will be getting patient repeat MRI to evaluate concern area frontoparietal region Concern-- > The patient also suffers from plantar fasciitis, which causes significant discomfort in both feet. She has experienced tightness and heaviness in her legs, described as a sensation of rubber bands around them. . .. Asthma:? Has been stable with the use of her albuterol inhaler and need. Has some trouble with changes in seasons. Otherwise no recent asthma exacerbations .. Obesity: Patient's BMI remains elevated at 39.4. She does understand she needs to be more physically active and adapt to better eating habits to reduce her weight. .. Hyperlipidemia:? Most recent lipid panel showing much improved total cholesterol and LDL. She continues now on moderate dose statin therapy. .. Thrombocythemia: Followed by Hematology for her elevated platelet count levels, ? myelodysplastic disease. Has underwent bone marrow biopsy which was negative. [facility] Medical History (Updated 06/22/25 @ 08:59 by Lit Billings PA-C) Alzheimer's dementia, late onset Dementia Mild cognitive impairment COVID-19 Lumbar spondylitis Other chronic pain UTI (urinary tract infection) Osteoarthritis Breast pain Hemorrhoids Diverticulosis Arthritis Hx of transfusion of whole blood Anemia Depression Lab test negative for COVID-19 virus Asthma Elevated cholesterol Surgical History Hx of hysterectomy Hx of Achilles tendon repair Hx of colonoscopy History of carpal tunnel release Family History Father Diabetes Mental health disorder Schizo-affective schizophrenia Mother CHF (congestive heart failure) Dementia Maternal Aunt Stomach cancer Social History Household Members: Spouse Housing: Apartment Alcohol intake: never Patient Tobacco Use Status: Never used Tobacco e-Cigarette/Vaping Use: Never Used Second Hand Smoke Exposure: No service: No Current occupational status: retired and disabled 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 Cognitive needs: Yes (Walker) Hearing needs: No Vision needs: Yes (Glasses) Questionnaire Thrive Questionnaire Date Thrive assessed: 11/19/24 I am a: Patient What is your living situation today?: I have a steady place to live Within the past 12 months, did the food you bought not last and you didn't have the money to get more?: Often true Within the past 12 months, did you worry whether your food would run out before you got money to buy more?: I choose not to answer this question Do you have trouble paying for medicines?: I choose not to answer this question Do you have trouble getting transportation to medical appointments?: I choose not to answer this question Do you have trouble paying your heating and electricity bill?: I choose not to answer this question Do you have trouble taking care of your child, family member or friend?: I choose not to answer this question Do you have trouble with day-to-day activities such as bathing, preparing meals, shopping, managing finances, etc.?: I choose not to answer this question Are you currently unemployed and looking for a job?: I choose not to answer this question Are you interested in more education?: I choose not to answer this question Please select the resources that you would like help with: None Currently or been in a relationship where the following occur: I choose not to answer THRIVE Score: 1 KWADWO-7 AMB Questionnaire KWADWO-7 Date KWADWO - 7 assessed: 11/19/24 Source: Developed by Drs. Nakul Lee, Sonya Jo, Freddie Kothari and colleagues, with an educational jena from [employer]. Review of Systems Const Denies headache(s) Eyes Denies loss of vision ENT Denies vertigo, Denies dizziness, Denies headache(s) and Denies sore throat Card Denies chest pain, Denies leg edema and Denies lightheadedness Resp Denies cough, Denies hemoptysis and Denies wheezing GI Denies abdominal pain, Denies melena, Denies constipation, Denies diarrhea and Denies vomiting Denies urinary frequency, Denies dysuria and Denies urinary urgency Musc Denies arthralgias, Denies joint swelling, Denies numbness and Denies tingling Neuro Denies Abnormal speech present, Denies behavioral changes, Denies vertigo, Denies dizziness, Denies headache(s), Denies loss of vision, Denies memory loss, Denies numbness and Denies tingling Psych Denies anxiety, Denies behavioral changes, Denies depression, Denies memory loss and Denies panic attacks Darrel/Lymph Denies easy bleeding and Denies easy bruising Aller/Immun Denies wheezing Physical exam (Primary Care) Vital Signs: Last Vital Signs Temp 97.3 F 06/22/25 08:16 Pulse 68 06/22/25 08:16 BP 130/70 06/22/25 08:16 Pulse Ox 97 06/22/25 08:16 Oxygen Delivery Method Room Air 06/22/25 08:16 BMI result Body Mass Index 35.4 Tobacco/Smoking Status: Tobacco use Status Tobacco use date assessed 06/22/25 06/22/25 08:24 Patient Tobacco Use Status Never used Tobacco 06/22/25 08:24 e-Cigarette/Vaping Use Never Used 06/22/25 08:24 Thrive Assessment: Date of Thrive Assessment Date Thrive assessed 11/19/24 06/22/25 08:24 Currently or been in a relationship where the following occur: I choose not to answer Const Other: Obese General: healthy appearing, no acute distress, alert and awake Nutritional Appearance: well nourished Orientation/consciousness: oriented to person HENMT Ears: TM's normal bilaterally General nose exam: Normal nasal mucous membranes and turbinates present Eyes Conjunctivae: conjunctivae normal Sclerae: sclerae normal Pupils: Equal, round and reactive pupils present Neck Neck: Yes no lymphadenopathy and Yes no JVD Thyroid: Thyroid normal Carotids: no bruits Resp Effort & Inspection: normal respiratory effort and not tachypneic Auscultation: no crackles, no rales, no rhonchi and no wheezes Cardio Rate: regular rate Rhythm: regular rhythm Heart sounds: no murmurs and normal S1 and S2 GI Palpation (GI): Soft to palpation, nontender, no hepatomegaly and no splenomegaly Auscultation: normal bowel sounds Skin General skin exam: no rashes or lesions noted and dry skin Neuro Other: Somewhat confused General: oriented to person Cranial nerves: Yes Equal, round and reactive pupils present Speech: No Abnormal speech present Gait exam (Neuro): Normal gait present Motor exam (neuro): no tremor noted Extrem Right upper extremity: full ROM Left upper extremity: full ROM Right lower extremity: full ROM; no edema Left lower extremity: full ROM; no edema Psych Mental Status: mental status grossly normal Speech and movement: Normal speech and movement present Affect: normal affect Attitude: cooperative Thought process: Normal thought process present Coding Level of Care Code Est Pt Level 4 (44641) Diagnoses Intracranial edema G93.6 Plantar fasciitis, bilateral M72.2 Chronic idiopathic constipation K59.04 Constipation type: chronic idiopathic constipation Assessment & Plan Assessment & Plan (1) Intracranial edema: Code(s): G93.6 - Cerebral edema Category: Medical Plan: The plan for managing intracranial edema includes ordering a follow-up MRI to assess the current status of the condition. The MRI will be coordinated with the neurologist to ensure the appropriate protocol is followed, potentially requiring a special MRI in [place] if local facilities are unable to perform it. The patient will continue to be monitored for any changes in symptoms, and adjus tments to her treatment plan will be made as necessary. (2) Plantar fasciitis, bilateral: Code(s): M72.2 - Plantar fascial fibromatosis Category: Medical Plan: Patient continues to suffer with bilateral plantar fasciitis. Has seen Podiatry in the past and has worked to reduce her for pain. She is interested in seeing a exchange engineer again. (3) Constipation: Code(s): K59.00 - Constipation, unspecified Category: Medical Qualifiers: Constipation type: chronic idiopathic constipation Qualified Code(s): K59.04 - Chronic idiopathic constipation Plan: The management of constipation will involve the introduction of a stool softener or laxative to facilitate bowel movements. The patient is advised to maintain adequate hydration to support gastrointestinal function. Orders: Referrals Podiatry Referral M72.2 - Plantar fascial fibromatosis Medications: New sennosides (senna) 17.2 mg (2 x 8.6 mg) PO BEDTIME 60 caps 2RF 30 days K59.04 - Chronic idiopathic constipation
[2025-06-22 08:16] VITALS: BP 130/70; PULSE 68; TEMP 36.3; O2SAT 97; BMI 35.4
== END 2025-06-22 09:09 | disposition home or self-care (01) ==
LOC: HO.HMCH 08:07
PROVIDERS: PCP Physician Assistant; Visit Provider Physician Assistant
DX: G93.6 Cerebral edema (principal); M72.2 Plantar fascial fibromatosis; K59.04 Chronic idiopathic constipation

== ENCOUNTER → 2025-06-22 08:07 | Outpatient (BNVA) | payer MEDICARE, MEDICAID, SELFPAY | PROVIDERS: PCP Physician Assistant; Visit Provider Physician Assistant | DX: G93.6 Cerebral edema (principal); M72.2 Plantar fascial fibromatosis; K59.04 Chronic idiopathic constipation | CPT/HCPCS: 99212 ==

== ENCOUNTER 2025-06-25 10:38 | Outpatient (AMB) | payer MEDICARE, MEDICAID, SELFPAY ==
--- OUTSIDE RECORDS SUMMARY | 2025-06-17 11:00 | XMS_ITS | Encounter Summary ---
Author Organization [facility] Address [address] [facility] [address] [place] [address] Phone Care Team Providers Care Gluing Machine Operator Name Role Phone Lit Billings Primary Care Provider + Reason for Visit * Auth/Cert (Routine) Specialty Diagnoses / Procedures Referred By Emmanuel quintanilla Referred To Contact Referral ID Status Reason Start Date Expiration Date Visits Re quested Visits Authorized [id number] 1 1 Encounter Details Date Type Department Care Team (Late st Contact Info) Description 06/17/2025 11:00 AM EDT Home [facility] Visit [facility] [address] [place] [phone] Rocky Stovall RN [address] [place] [address] [email or web address] SN OASIS START OF CARE (SOC) Social History Tobacco Use Types Packs/Day Years Used Date Smoking Tobacco: Former Cigarettes Smokeless Tobacco: Never Comments:quit many many yea rs ago Alcohol Use Standard Drinks/Week Comments Never 0 (1 standard drink = 0.6 oz pur e alcohol) Home Health Assessment: Transportation Answer Date Recorded Lack of Transportation (Medical) No 06/17/2025 Lack of Transportation (Non-Medical) No 06/17/2025 Patient Unable or Declines to Respond No 06/17/2025 Education Answer Date Recorded Are you interested in more education? Not on sandi e 02/02/2023 Are you concerned about learning? Not on file 02/02/2023 No 02/02/2023 No 02/02/2023 Food Answer Date Recorded Within the past 6 months we worried whether our food would run out before we got money to buy more. Never True 05/20/2025 Within the past 6 months the food we bought just didn't last and we didn't have enough money to get more. Never True Residential Stability Answer Date Recor ded What is your housing situation today? I have roderick gaytan 05/20/2025 How many times have you moved in the past 12 sun ths? One time 05/20/2025 Paying for Meds Answer Date Recorded Do you have trouble paying for medicines? No 05/20/2025 Paying Utility Bills Answer Date Record ed Do you have trouble paying your heating or elect ricity bill? No 05/20/2025 Transportation Answer Date Recorded Has the lack of transportati on kept you from medical appointments or from getting medications? No 05/20/2025 Digital Access Answer Date Recorded No 05/20/2025 Yes 05/20/2025 Do you have reliable internet access at home? Ye s 05/20/2025 Do you have a device (e.g., phone, tablet, computer) with a working camera? Yes 05/20/2025 Intimate Partner Violence Answer Date R ecorded Are you denied basic needs s uch as food, clothing, or medical care? No 05/20/2025 In the past 12 months have y ou been in a relationship with a person who hurts, threatens, or tries to control you? No 05/20/2025 Are you denied basic needs s uch as food, clothing, or medical care? No 05/20/2025 In the past 12 months have y ou been in a relationship with a person who hurts, threatens, or tries to control you? No 05/20/2025 Comments No Sex and Gender Information Value Date Recorded Sex Assigned at Female 08/11/2021 7:46 PM EDT Legal Sex Female 9:51 PM EDT Gender Identity Female 08/11/2021 7:46 PM EDT Sexual Orientation Not on file documented as of this encounter Plan of Treatment Upcoming Encounters Date Type Department Care Team (Late st Contact Info) Description 06/29/2025 2:15 AM EDT Home Care Visit [facility] [address] [place] [phone] Vickie Perez, OT [address] [place] [address] 07/01/2025 12:30 AM EDT [facility] [address] [place] [phone] Rocky Stovall, MARY [address] [place] [address] 07/01/2025 12:30 PM EDT Home [facility] [address] [place] [address] Maribel Lyon, PT [address] [place] [address] 07/02/2025 2:00 AM EDT Home Care Visit [facility] [address] [place] [phone] Vickie Perez, OT [address] [place] [address] 07/06/2025 2:15 AM EDT Home Care Visit [facility] [address] [place] [address] Vickie Perez, OT [address] [place] [address] 07/08/2025 1:00 AM EDT Home Care Visit [facility] [address] [place] [address] Rocky Stovall, MARY [address] [place] [address] 07/08/2025 2:30 AM EDT Home Care [facility] [address] [facility] [place] [address] Maribel Lyon, PT [address] [place] [address] 07/09/2025 Home Care Visit [facility] [address] [place] [address] Vickie Perez, OT [address] [place] [address] 07/13/2025 1:15 AM EDT Home Care Visit [facility] [address] [place] [address] Vickie Perez, OT [address] [place] [address] 07/15/2025 1:00 AM EDT Home Care Visit [facility] [address] [place] [phone] Rocky Stovall RN [address] [place] [address] 07/15/2025 1:30 AM EDT Home Care Visit [facility] [address] [place] [phone] Maribel Lyon, PT [address] [place] [address] 07/16/2025 Home Care Visit [facility] [address] [place] [address] Vickie Perez, OT [address] [place] [address] 07/22/2025 1:00 AM EDT Home Care Visit [facility] [address] [place] [address] Rocky Stovall RN [address] [place] [address] 07/29/2025 12:30 AM EDT [facility] Visit [facility] [address], [place] [phone] Rocky Stovall RN [address] [place] [address] 08/05/2025 12:30 AM EDT Appointment [facility] [address], [place] [phone] Rocky Stovall RN [address] [place] [address] 09/01/2025 8:30 AM EST [facility] [address] [place] [address] Nakul Briones MD [address] [place] [address] [email or web address] documented as of this encounter Visit Diagnoses Not on filedocumented in this encounter Home Health Visit - Care Plan Visit Details Visit Type -SN OASIS START O F CARE (SOC) Discipline -Chcf Problems Problem Description Start Date Status Goals Interve ntions HH - Infection - Actual or Risk of Disciplines: All Active Home Health Disciplines 06/17/2025 Active 1 goal linked to scheduled/documen yue intervention 2 goal interventions scheduled/document ed in this visit HH - Community Resources - Lack of Knowledge/Access Disciplines: All Active Home Health Disciplines 06/17/2025 Active 1 goal linked to scheduled/documen yue intervention 1 goal intervention scheduled/document ed in this visit HH - Falls - Risk of Disciplines: All Active Home Health Disciplines 06/17/2025 Active 1 goal linked to scheduled/documen yue intervention 2 goal interventions scheduled/document ed in this visit HH - Standard of Care Disciplines: All Active Home Health Disciplines 06/17/2025 Active 1 goal linked to scheduled/documen yue intervention 7 goal interventions scheduled/document ed in this visit HH - Pain Disciplines: All Active Home Health Disciplines 06/17/2025 Active 1 goal linked to scheduled/documen yue intervention 2 goal interventions scheduled/document ed in this visit HH - Telehealth/Virtual Care Disciplines: All Active Home Health Disciplines 06/17/2025 Active 1 goal linked to scheduled/documen yue intervention 2 goal interventions scheduled/document ed in this visit HH - Medication Management Disciplines: All Active Home Health Disciplines 06/17/2025 Active 1 goal linked to scheduled/documen yue intervention 2 goal interventions scheduled/document ed in this visit HH - Health Maintenance Disciplines: All Active Home Health Disciplines 06/17/2025 Active 1 goal linked to scheduled/documen yue intervention 1 goal intervention scheduled/document ed in this visit HH - Focus of Care and Teaching Disciplines: All Active Home Health Disciplines w/RD 06/17/2025 Active 1 goal linked to scheduled/documen yue intervention 1 goal intervention scheduled/document ed in this visit HH - Advance Care Planning Disciplines: All Active Home Health Disciplines 06/17/2025 Active 1 goal linked to scheduled/documen yue intervention 1 goal intervention scheduled/document ed in this visit HH - Emergency Planning - Knowledge of Disciplines: All Active Home Health Disciplines 06/17/2025 Active 1 goal linked to scheduled/documen yue intervention 3 goal interventions scheduled/document ed in this visit HH - Neurological Status - Actual or Risk of Impairment Disciplines: All Active Home Health Disciplines 06/17/2025 Active 1 goal linked to scheduled/documen yue intervention 2 goal interventions scheduled/document ed in this visit Goals Goal Associated Problem Outcome Goal Met? Visit Notes HH - Patient will have no new infection; any new infection that occurs will be identified and treated promptly; existing infection will resolve without complication Description: Patient and caregiver(s) will demonstrate understanding of infection prevention, monitoring, and treatment as appropriate HH - Infection - Actual or Risk of No HH - Demonstrate/verbalize knowledge of community resources HH - Community Resources - Lack of Knowledge/Access No HH - Knowledge and management of fall prevention measures. HH - Falls - Risk of No HH - Achieve care management for a safe to home/community discharge from homecare HH - Standard of Care No HH - Frequency of pain interfering with patient's activity or movement will improve with activity or movement by discharge. Description: Pain will be managed over the course of care. Patient's acceptable level of pain is 0 - no pain. HH - Pain No HH - Telehealth visits along with in-person home visits will be utilized when appropriate to achieve optimal wellness and home safety Description: Telehealth visits along with in-person home visits will be utilized when appropriate to achieve optimal wellness and home safety related to assessment, demonstration, observation, teaching and training. HH - Telehealth/Virtual Care No HH - Safe medication management, avoid unnecessary harm related to medication errors and/or interactions HH - Medication Management No HH - Patient preferences will be utilized to achieve optimal wellness and home safety. HH - Health Maintenance No HH - Communication and collaboration to achieve patient goals HH - Focus of Care and Teaching No HH - Verbalize awareness of Advance Care Planning. HH - Advance Care Planning No HH - Knowledge of options for managing care in the event of an emergency related situation. HH - Emergency Planning - Knowledge of No HH - Knowledge of neuro-sensory deficits related to HH - Neurological Status - Actual or Risk of Impairment No Interventions Intervention Associated Problem/Goal Status Variance Visit Notes HH - I/E infection Description: adhere to infection precautions, infection prevention measures and s/s of infection Problem:HH - Infection - Actual or Risk of Goal:HH - Patient will have no new infection; any new infection that occurs will be identified and treated promptly; existing infection will resolve without complication Completed - Assess infection risk and s/s Problem:HH - Infection - Actual or Risk of Goal:HH - Patient will have no new infection; any new infection that occurs will be identified and treated promptly; existing infection will resolve without complication Completed - Assess need for community resources Problem:HH - Community Resources - Lack of Knowledge/Access Goal:HH - Demonstrate/verbali ze knowledge of community resources Completed HH - Complete fall risk assessment scale Problem:HH - Falls - Risk of Goal:HH - Knowledge and management of fall prevention measures. Completed HH - I/E fall prevention measures Description: cognitive impairment: strategies to minimize impairments with memory deficits, distractibility, judgement, impulsivity, and safety awareness, diagnosis/age related changes/prior history of falls: symptoms and side effects of illness/injury/histor y of falls placing patient at increased risk for falls. may include management of dizziness/orthostasis , environmental hazards: modification of environment to include clear walkways, secure animals, and move frequently used items within reach, use of equipment, impaired functional mobility: supervision for mobility/activity, appropriate footwear and as indicated safe use of assistive device(s), pain affecting level of function: impact of pain on an increased risk of falls and poly pharmacy: side effects of medications placing a patient at high risk for a fall Problem: - Falls - Risk of Goal:HH - Knowledge and management of fall prevention measures. Completed HH - Assess vital signs, pulse oximetry, pain, and as indicated, orthostatic vital signs Description: use agency-specific parameters Problem:HH - Standard of Care Goal:HH - Achieve care management for a safe to home/community discharge from homecare Completed HH - Assess skin integrity Problem:HH - Standard of Care Goal:HH - Achieve care management for a safe to home/community discharge from homecare Completed HH - I/E management of skin integrity and non-wound impairment Description: s/s of pressure injury, pressure reduction, and injury prevention measures and skin care Problem: - Standard of Care Goal:HH - Achieve care management for a safe to home/community discharge from homecare Completed HH - Assess safety needs of patient (other than falls) Problem: - Standard of Care Goal:HH - Achieve care management for a safe to home/community discharge from homecare Completed HH - I/E discharge plan Problem:HH - Standard of Care Goal:HH - Achieve care management for a safe to home/community discharge from homecare Completed HH - Complete Jb scale at SOC and weekly Problem: - Standard of Care Goal:HH - Achieve care management for a safe to home/community discharge from homecare Completed HH - Diet: Description: Regular diet Problem: - Standard of Care Goal:HH - Achieve care management for a safe to home/community discharge from homecare Completed HH - Assess pain Problem:HH - Pain Goal:HH - Frequency of pain interfering with patient's activity or movement will improve with activity or movement by discharge. Completed HH - I/E pain management Problem:HH - Pain Goal:HH - Frequency of pain interfering with patient's activity or movement will improve with activity or movement by discharge. Completed HH - Assess the patient's access/technology, monitoring device availability, cognitive, mental, physical ability, and willingness to effectively participate in telehealth care Problem: - Telehealth/Virtual Care Goal: - Telehealth visits along with in-person home visits will be utilized when appropriate to achieve optimal wellness and home safety Completed The patient has: 1. Reliable Wi-Fi/Internet access: Yes 2. Patient [place]: Active 3. An active e-mail address: Yes 4. The following device(s): Android 5. The following monitoring device(s): No Devices and does not need training 6. The patient has the ability, only with assistance of a caregiver, to participate in Telehealth Care. 7. The patient is willing to participate. HH - I/E telehealth care including access/technology, patient monitoring devices, and willingness to effectively participate in telehealth care Problem: - Telehealth/Virtual Care Goal: - Telehealth visits along with in-person home visits will be utilized when appropriate to achieve optimal wellness and home safety Completed HH - I/E medication management: administration, purpose, dosages, preparation, setup, scheduling, side effects, food/drug interactions, and potential complications as indicated Description: Update patient's copy of medication list as needed. Problem: - Medication Management Goal: - Safe medication management, avoid unnecessary harm related to medication errors and/or interactions Completed HH - Complete medication review every visit and medication reconciliation as indicated. Pharmacy information: Description: [facility] Problem:HH - Medication Management Goal:HH - Safe medication management, avoid unnecessary harm related to medication errors and/or interactions Completed - Assess the patient's care preferences, goals, and strengths, the assessment of the patient's mental, psychosocial, and cognitive status were completed, and the following were identified: Description: explain directions for new medications, explain medical terms/forms, provide written education and call caregiver to set up visit bathe and dress without assistance, management of medications, managing symptoms and be treated at home, avoid emergency room visits and/or hospitalizations, be treated at home and increase strength/endurance sets and pursues goals, strong coping skills, housing stability, financial stability and/or steady employment, adequate support systems in place, willing to follow established treatment plan, good communication skills, motivated and/or ready for change and accepts and/or pursues goals Problem: - Health Maintenance Goal: - Patient preferences will be utilized to achieve optimal wellness and home safety. Completed HH - Focus of care, teaching completed and plan for next visit Problem: - Focus of Care and Teaching Goal:HH - Communication and collaboration to achieve patient goals Completed Primary Clinical Focus this Visit & Instruction Provided: Patient referred to homecare services after STR s/p hospitalization fall,increased fatigue and mild left side weakness on Wednesday 05/16. describes patient having stiffness of the left arm and leg. She sustained a fall but when she was evaluated by EMS declined transfer to the ED. Over the past 3 days left-sided weakness has worsened and patient was brought in for evaluation -ED discussed case with neurology and further workup with MRI with and without contrast has been recommended. There is concern for ARIA-E (inflammatory consequence of anti-amyloid therapy that can lead to cerebral edema) vs. new ischemic stroke. -Holding off aspirin and any anticoagulation until MRI results are known -CT head and CTA head and neck performed showed right greater than left frontoparietal subcortical white matter hypodensities with sulcal effacement, likely representing edema. No large vessel occlusions Repeat MRI performed which is read as normal. Tx as follow as per Neurology recommendation: Discontinuation of donanemab Received Methylprednisolone 1g IV x 5 days, followed by taper- 60 mg prednisone daily x 2 weeks, then down by 10 mg every 2 weeks. When at 20 mg, can consider further taper or continuation depending on clinical picture. Continue atovaquone until dose is down to 20mg daily -Repeat MRI brain in 4 weeks. Her PMHX includes: Alzheimer's dementia, hypertension, hyperlipidemia Today Patient seen lying in bed @ 2 level apartment where she resides with her spouse/HCP. Patient has alzheimer's dementia and need assistance with activities and is receiving 13.5 hrs/week EMAIL ADMINISTRATOR service through [employer]. Spouse said patient now transferred to 1st floor and using commode and is been bathed @ kitchen d/t difficulties getting up to second floor. Bathroom and shower only located in second floor. Per spouse moving to first floor one level apartment in a month or two. VSS, A&O X 2, with complains of pain to her Right hip and increased weakness to BLEs, notable weak grasp to her R Hand. Per spouse pt. usually more confused in the evening. Denies any Resp.distress, GI/ concerns. LSCTA. Appetite fair per spouse-mostly forgets to eat-finish her meals-will benefit from supplemental drinks. Pt. need continuous supervision / d/t dementia per spouse. Spouse and EMAIL ADMINISTRATOR administer all the oral pills, spouse able to ID proper dosages and usages of all the medications including the prednisone taper dose. Using bottles for now-and agrees to work on to pre-fill weekly med box for better management of oral meds. I/E on fall/safety/bleeding precautions, s/s of alter mental status to monitor for, slow position changes, and when to contact VNA//911- partial verbalization Pt./CG agrees to have 8-10 SN visit for cv/cp/neurological assessment, response to prednisone taper dose fall/safety/meds management teaching. PCP office contacted via phone for meds review- pending response and also requested to send prescription for VIT D-3, Glucerna, and Glucometer Identified skills to be provided and taught: cv/cp/neurological assessment, fall/safety/meds management teaching, response to prednisone taper dose The identified person that we will be teaching is patient/CG Other disciplines ordered to assist patient in meeting goals: PT/OT Anticipated number of visits to meet goals: 8-10 SN visits Instruction Provided to: patient and caregiver Response to Instruction/Teaching: Is partially able to teach back topics as evidenced by needing re-enforcement. Plan for Next Visit Specific Focus & Education Needed: cv/cp/neurological assessment, fall/safety/meds management teaching, response to prednisone taper dose New Orders: SOC Updated Discharge Plan: 8-10 SN visits or until goals met HH - I/E advance directive information. Written information provided to the patient and caregiver, as indicated. The patient has: Description: [facility] Problem:HH - Advance Care Planning Goal:HH - Verbalize awareness of Advance Care Planning. Completed HH - I/E management of care in an urgent or emergency (ER) situation: When to call your Home Care Team/911, ER plans, supplies, evacuation, when to contact local ER officials and how to stay informed Problem:HH - Emergency Planning - Knowledge of Goal:HH - Knowledge of options for managing care in the event of an emergency related situation. Completed HH - Emergency planning assessment: the emergency plan, supplies needed, emergency contact numbers and an evacuation plan were reviewed Description: Patient and Caregiver is/are knowledgeable of emergency plans. Problem:HH - Emergency Planning - Knowledge of Goal:HH - Knowledge of options for managing care in the event of an emergency related situation. Completed HH - Establish an individualized emergency plan: Description: Evacuation Plan is: evacuate Priority Medical Needs are: N/A A triage code has been assigned. A triage code and emergency plan will be reassessed for continued accuracy. Specific risks based on location: loss of utilities and severe storms An emergency supply list has been provided. Problem:HH - Emergency Planning - Knowledge of Goal:HH - Knowledge of options for managing care in the event of an emergency related situation. Completed HH - I/E management of neurological status: Description: confusion/delirium/co gnitive impairment/communicat ion management, disease management and positioning Problem:HH - Neurological Status - Actual or Risk of Impairment Goal:HH - Knowledge of neuro-sensory deficits related to Completed HH - Assess neurological status, cognition, delirium, communication, and positioning Problem:HH - Neurological Status - Actual or Risk of Impairment Goal:HH - Knowledge of neuro-sensory deficits related to Completed documented in this encounter Care Teams Gluing Machine Operator Relationship Specialty Start Date End Date Lit Billings PA [address] [place] [id number] PCP - General 08/11/21 documented as of this encounter Additional Source Comments The information contained in this document represents components of the legal health record. It is not the complete legal health record.[facility]
--- OUTSIDE RECORDS SUMMARY | 2025-06-22 13:30 | XMS_ITS | Encounter Summary ---
Author Organization [facility] Address [address] [place] [address] Phone Care Team Providers Care Cad Librarian Name Role Phone Lit Billings Primary Care Provider + Reason for Visit * Auth/Cert (Routine) Specialty Diagnoses / Procedures Referred By Emmanuel quintanilla Referred To Contact Referral ID Status Reason Start Date Expiration Date Visits Re quested Visits Authorized [id number] 1 1 Encounter Details Date Type Department Care Team (Late st Contact Info) Description 06/22/2025 1:30 PM EDT Home Care Visit [facility] [address] [place] [phone] Vickie Perez, OT [address] [place] [address] [email or web address] OT EVALUATION Social History Tobacco Use Types Packs/Day Years [...] you moved in the past 12 sun th? One time 05/20/2025 Paying for Meds Answer [...] on file documented as of this encounter Last Filed Vital Signs Vital Sign Reading Time Taken Comments Blood Pressure 138/76 06/22/2025 2:26 PM EDT Pulse 74 06/22/2025 2:26 PM EDT Temperature - - Respiratory Rate - - Oxygen Saturation 96% 06/22/2025 2:26 PM EDT Inhaled Oxygen Concentration - - Weight - - Height - - Body Mass Index - - documented in this encounter Plan of Treatment Upcoming Encounters Date Type Department Care Team (Late st Contact Info) Description 06/29/2025 2:15 AM EDT Home Care Visit [facility] [address] [place] [phone] Vickie Perez, OT [address] [place] [address] [email or web address] 07/01/2025 12:30 AM EDT Home Care Visit [facility] [address] [place] [phone] Rocky Stovall, RN [address] [place] [address] 07/01/2025 12:30 PM EDT Home Care Visit [facility] [address] [place] [phone] Maribel Lyon, PT [address] [place] [address] 07/02/2025 2:00 AM EDT Home Care Visit [facility] [address] [place] [phone] Vickie Perez, OT [address] [place] [address] [email or web address] 07/06/2025 2:15 AM EDT Home Care Visit [facility] [address] [place] [phone] Vickie Perez, OT [address] [place] [address] 07/08/2025 1:00 AM EDT Home Care Visit [facility] [address] [place] [phone] Rocky Stovall, MARY [address] [place] [address] [email or web address] 07/08/2025 2:30 AM EDT Home Care Visit [facility] [address] [place] [phone] Maribel Lyon, PT [address] [place] [address] [email or web address] 07/09/2025 Home Care Visit [facility] [address] [place] [phone] Vickie Perez, OT [address] [place] [address] [email or web address] 07/13/2025 1:15 AM EDT Home Care Visit [facility] [address] [place] [phone] Vickie Perez, OT [address] [place] [address] [email or web address] 07/15/2025 1:00 AM EDT Home Care Visit [facility] [address] [place] [phone] Rocky Stovall RN [address] [place] [address] [email or web address] 07/15/2025 1:30 AM EDT Home Care Visit [facility] [address] [place] [phone] Maribel Lyon, PT [address] [place] [address] [email or web address] 07/16/2025 Home Care Visit [facility] [address] [place] [phone] Vickie Perez, OT [address] [place] [address] [email or web address] 07/22/2025 1:00 AM EDT Home Care Visit [facility] [address] [place], [place] [phone] Rocky Stovall RN [address] [place] [address] [email or web address] 07/29/2025 12:30 AM EDT Home Care Visit [facility] [address] [place], [place] [phone] Rocky Stovall RN [address] [place] [address] [email or web address] 08/05/2025 12:30 AM EDT Appointment [facility] [address] [place], [place] [phone] Rocky Stovall RN [address] [place] [address] [email or web address] 09/01/2025 8:30 AM EST Office Visit [facility] [address] [place] [address] Nakul Briones MD [address] [place] [phone] [email or web address] as of this encounter Visit Diagnoses Not on filedocumented in this encounter Home Health Visit - Care Plan Visit Details Visit Type -OT EVALUATION Discipline -Occupational Therapy Problems Problem Description Start Date Status Goals Interve ntions HH - Falls - Risk of Disciplines: All Active Home Health Disciplines 06/17/2025 Active 1 goal linked to scheduled/document ed intervention 1 goal intervention scheduled/document ed in this visit HH - Standard of Care Disciplines: All Active Home Health Disciplines 06/17/2025 Active 1 goal linked to scheduled/document ed intervention 2 goal interventions scheduled/document ed in this visit HH - Telehealth/Virtua l Care Disciplines: All Active Home Health Disciplines 06/17/2025 Active 1 goal linked to scheduled/document ed intervention 1 goal intervention scheduled/document ed in this visit HH - Medication Management Disciplines: All Active Home Health Disciplines 06/17/2025 Active 1 goal linked to scheduled/document ed intervention 2 goal interventions scheduled/document ed in this visit HH - Focus of Care and Teaching Disciplines: All Active Home Health Disciplines w/RD 06/17/2025 Active 1 goal linked to scheduled/document ed intervention 1 goal intervention scheduled/document ed in this visit HH - Emergency Planning - Knowledge of Disciplines: All Active Home Health Disciplines 06/17/2025 Active 1 goal linked to scheduled/document ed intervention 2 goal interventions scheduled/document ed in this visit Goals Goal Associated Problem Outcome Goal Met? Visit Notes HH - Knowledge and management of fall prevention measures. HH - Falls - Risk of No HH - Achieve care management for a safe to home/community discharge from homecare HH - Standard of Care No HH - Telehealth visits along with [...] HH - Medication Management No HH - Communication and collaboration to achieve patient goals HH - Focus of Care and Teaching No HH - Knowledge of options for managing care in the event of an emergency related situation. HH - Emergency Planning - Knowledge of No Interventions Intervention Associated Problem/Goal Status Variance Visit Notes HH - I/E fall prevention measures Description: cognitive impairment: strategies to minimize impairments with memory deficits, distractibility, judgement, impulsivity, and safety awareness, diagnosis/age related changes/prior history of falls: symptoms and side effects of illness/injury/hist ory of falls placing patient at increased risk for falls. may include management of dizziness/orthostas is, environmental hazards: modification of environment to include [...] orthostatic vital signs Description: use agency-specific parameters Problem: - Standard of Care Goal:HH - Achieve care management for a safe to home/community discharge from homecare Completed HH - Assess skin integrity Problem: - Standard of Care Goal:HH - Achieve care management for a safe to home/community discharge from homecare Completed HH - Assess the patient's access/technology, monitoring device availability, cognitive, mental, physical ability, and willingness to effectively participate in telehealth care Problem: - Telehealth/Virtual Care Goal: - Telehealth visits along with in-person home visits will be utilized when appropriate to achieve optimal wellness and home safety Scheduled with variance Not Applicable for Visiting Discipline - I/E medication management: administration, purpose, dosages, preparation, setup, scheduling, side effects, food/drug interactions, and potential complications as indicated Description: Update patient's copy of medication list as needed. Problem: - Medication Management Goal: - Safe medication management, avoid unnecessary harm related to medication errors and/or interactions Completed - Complete medication review every visit and medication reconciliation as indicated. Pharmacy information: Description: [facility] Problem: - Medication Management Goal: - Safe medication management, avoid unnecessary harm related to medication errors and/or interactions Completed - Focus of care, teaching completed and plan for next visit Problem: - Focus of Care and Teaching Goal: - Communication and collaboration to achieve patient goals Completed Primary Clinical Focus this Visit & Instruction Provided: OT juaquin for 64 yo female per soc note Patient referred to homecare services after STR [...] weeks. Her PMHX includes: Alzheimer's dementia, hypertension, hyperlipidemia. Patient went to rehab following hospital stay, now dc home with spouse as primary caregiver. Patient also does have RIPSAW GRADER support. Patient is living on the first floor of the home due to not being able to access stairs to second floor. No bathroom on first floor, patient is using a commode, spouse or blood bank assistant bathing patient on shower chair next to sink. Patinet is using a rollator , completing mobility at times without due to forgetting however more instability noted walking without. Spouse is working on getting family into one level living. Due to patient's decreased STM/carryover /cognition patient will req constant cues/Spv for safety. Spouse does not leave patient alone. Spouse goals for patient to be more stable, eventually be able to get up stairs (will work on with PT), strength, endurance, resume use of her cell phone (used to call family and have increased ease of answering calls). OT plan to address these deficits plan for 1 x 1 week, 2 x 3 weeks. OT GOALS: 1. Patient will answer incoming call on phone with > or = 75% accuracy by 07/18/25. 2. Patient will make a phone call to friend/family with less than or = mod vc by 07/18/25. 3. Caregiver will demonstrate understanding of recommendations for UE HEP for functioanl strength/endurance for ADL by 07/18/25. 4. Patient will complete transitional movements/functional mobility in context of ADL with dist Spv no LOB by 07/18/25. 5. Patient will access and navigate through [employer] with [employer] of device only by 07/18/25. Instruction Provided to: patient, caregiver Response to Instruction/Teaching: req further educ Plan for Next Visit Specific Focus & Education Needed: UE HEP, use of phone New Orders: 1 x 1 week, 2 x 3 weeks Updated Discharge Plan: when patient/caregiver are able to carry out recommendations HH - I/E management of care in [...] event of an emergency related situation. Completed documented in this encounter Care Teams Cad Librarian Relationship Specialty Start Date End Date Lit Billings PA [address] [place] [id number] PCP - General 08/11/21 documented as of this encounter Additional Source Comments The information contained in this document represents components of the legal health record. It is not the complete legal health record.[facility]
--- OUTSIDE RECORDS SUMMARY | 2025-06-23 13:00 | XMS_ITS | Encounter Summary ---
Author Organization [facility] Address [address] [place] [address] Phone Care Team Providers Care Sand Buffer Name Role Phone Lit Billings Primary Care Provider + Reason for Visit * Auth/Cert (Routine) Specialty Diagnoses / Procedures Referred By Emmanuel quintanilla Referred To Contact Referral ID Status Reason Start Date Expiration Date Visits Re quested Visits Authorized [id number] 1 1 Encounter Details Date Type Department Care Team (Late st Contact Info) Description 06/23/2025 1:00 PM EDT [facility] Visit [facility] [address] [place] [phone] Maribel Lyon, PT [address] [place] [address] [email or web address] PT EVALUATION Social History Tobacco Use Types Packs/Day [...] have you moved in the past 12 sun? One time 05/20/2025 Paying for Meds Answer [...] Sign Reading Time Taken Comments Blood Pressure 140/74 06/23/2025 1:07 PM EDT Pulse 80 06/23/2025 1:07 PM EDT Temperature - - Respiratory Rate - - Oxygen Saturation 97% 06/23/2025 1:07 PM EDT Inhaled Oxygen Concentration - - Weight - - Height - - Body Mass Index - - documented in this encounter Plan of Treatment Upcoming Encounters Date Type Department Care Team (Late st Contact Info) Description 06/29/2025 2:15 AM EDT [facility] Visit [facility] [address] [place] [phone] Vickie Perez, OT [address] [place] [address] 07/01/2025 12:30 AM EDT Home Care Visit [facility] [address] [place] [phone] Rocky Stovall, RN [address] [place] [address] 07/01/2025 12:30 PM EDT Home Care Visit [facility] [address] [place] [phone] Maribel Lyon, PT [address] [place] [address] 07/02/2025 2:00 AM EDT Home Care Visit [facility] [address] [place] [phone] Vickie Perez, OT [address] [place] [address] 07/06/2025 2:15 AM EDT Home [facility] [address] [place] [phone] Vickie Perez, OT [address] [place] [address] 07/08/2025 1:00 AM EDT Home Care Visit [facility] [address] [place] [phone] Rocky Stovall, MARY [address] [place] [address] 07/08/2025 2:30 AM EDT Home [facility] [address] [place] [phone] Maribel Lyon, PT [address] [place] [address] 07/09/2025 Home Care Visit [facility] [address] [place] [phone] Vickie Perez, OT [address] [place] [address] 07/13/2025 1:15 AM EDT Home Care Visit [facility] [address] [place] [phone] Vickie Perez, OT [address] [place] [address] 07/15/2025 1:00 AM EDT Home Care Visit [facility] [address] [place] [phone] Rocky Stovall RN [address] [place] [address] 07/15/2025 1:30 AM EDT Home Care Visit [facility] [address] [place] [address] Maribel Lyon, PT [address] [place] [address] 07/16/2025 Home Care Visit [facility] [address] [place] [phone] Vickie Preez, OT [address] [place] [address] 07/22/2025 1:00 AM EDT Home Care Visit [facility] [address], [place] [phone] Rocky Stovall RN [address] [place] [address] 07/29/2025 12:30 AM EDT Home Care Visit [facility] [address], [place] [phone] Rocky Stovall RN [address] [place] [address] 08/05/2025 12:30 AM EDT Appointment [facility] [address] [place] [address] Rocky Stovall RN [address] [place] [address] 09/01/2025 8:30 AM EST Office Visit [facility] [place] [address] [facility] [address] [place] [address] Nakul Briones MD [address] [facility] [address] [place] [phone] [email or web address] documented as of this encounter Visit Diagnoses Not on filedocumented in this encounter Home Health Visit - Care Plan Visit Details Visit Type -PT EVALUATION Discipline -Physical Therapy Problems Problem Description Start Date Status Goals Interve ntions HH - Standard of Care Disciplines: All [...] goal intervention scheduled/document ed in this visit Goals Goal Associated Problem Outcome Goal Met? Visit Notes HH - Achieve care management for a [...] Problem/Goal Status Variance Visit Notes HH - Assess vital signs, pulse oximetry, [...] a safe to home/community discharge from homecare Scheduled HH - Assess pain Problem: - Pain Goal:HH - Frequency of pain interfering with patient's activity or movement will improve with activity or movement by discharge. Completed HH - Assess the patient's access/technology, monitoring device availability, cognitive, mental, physical ability, and willingness to effectively participate in telehealth care Problem:HH - Telehealth/Virtual Care Goal:HH - Telehealth visits along with in-person home visits will be utilized when appropriate to achieve optimal wellness and home safety Scheduled HH - Complete medication review every visit and medication reconciliation as indicated. [facility] information: [facility] Problem:HH - Medication Management Goal:HH - Safe medication management, avoid unnecessary harm related to medication errors and/or interactions Completed HH - I/E medication management: administration, purpose, dosages, preparation, setup, scheduling, side effects, food/drug interactions, and potential complications as indicated Description: Update patient's copy of medication list as needed. Problem:HH - Medication Management Goal:HH - Safe medication management, avoid unnecessary harm related to medication errors and/or interactions Scheduled - Focus of care, teaching completed and plan for next visit Problem: - Focus of Care and Teaching Goal: - Communication and collaboration to achieve patient goals Completed PHYSICAL THERAPY EVALUATION Pt with moderate dementia referred for home health physical therapy evaluation after STR s/p hospitalization due to a fall on the stairs and new mild left side weakness on Sunday05/16/25. The Left-sided weakness progressed over a period of 3 days and the pt presented to the ED for evaluation. Neurology was consulted. There is question of a new ischemic stroke. MRI is pending. PMH sig for: Chronic bilateral plantarfaciitis, dementia, GERD, HTN PLOF: No device. Mobility was independent with no assistive device, with pt needing SPV for cognition only due to dementia. Alexei showed therapist a video of pt dancing in her living room 1 week before her suspected stroke. Environment/Social: Lives in a 2 level apartment with Alexei who takes attentive care of pt. Has [employer] 30 hyrs/week in the morning and at night. The bedrooms and the only bathroom is upstairs. Alexei has brought pts bed down to the living room and pt is using a bedside commode. Pt has not done the stairs since her fall on the stairs in early May, and she has developed a fear of the stairs. Pt's c/c is burning pain in bilateral plantar surface of her feet. Current status: Transfers: SPV with reminders to use the rollator Bed mobility: Mod I Gait: Ambulates with SPV with rollator Stairs: Pt agrees to attempt 2 steps today on the stiars, which she did with ease with 2 hands on 1 rail, but expressed nervousness doing so. Strength: Grossly symmetrical 4 extremities, but pt reports h eaviness in the left extremities. Balance: Tinetti: The pt appears to recovering well from her stroke. She would benefit from brief skilled physical therapy in the home to specifically to work on the stairs. Recommended to Alexei that the pt would benefit from a pair of shoes which provided arch support. Recommend out-pt physical therapy once no longer home bound to address the plantarfaciitis. New Orders: HHPT 1x per week x 4 weeks HH - I/E management of care in an urgent or emergency (ER) situation: When to call your Home Care Team/911, ER plans, supplies, evacuation, when to contact local ER officials and how to stay informed Problem:HH - Emergency Planning - Knowledge of Goal:HH - Knowledge of options for managing care in the event of an emergency related situation. Scheduled HH - Emergency planning assessment: the emergency plan, supplies needed, emergency contact numbers and an evacuation plan were reviewed Description: Patient and Caregiver is/are knowledgeable of emergency plans. Problem:HH - Emergency Planning - Knowledge of Goal:HH - Knowledge of options for managing care in the event of an emergency related situation. Scheduled HH - Assess neurological status, cognition, delirium, communication, and positioning Problem:HH - Neurological Status - Actual or Risk of Impairment Goal:HH - Knowledge of neuro-sensory deficits related to Completed documented in this encounter Care Teams Sand Buffer Relationship Specialty Start Date End Date Lit Billings PA [address] [place] [phone] PCP - General 08/11/21 documented as of this encounter Additional Source Comments The information contained in this document represents components of the legal health record. It is not the complete legal health record.[facility]
--- OUTSIDE RECORDS SUMMARY | 2025-06-24 12:00 | XMS_ITS | Encounter Summary ---
Author Organization [facility] Address [address] [place] [address] Phone Care Team Providers Care Grain Sampler Name Role Phone Lit Billings Primary Care Provider + Reason for Visit * Auth/Cert (Routine) Specialty Diagnoses / Procedures Referred By Emmanuel quintanilla Referred To Contact Referral ID Status Reason Start Date Expiration Date Visits Re quested Visits Authorized [id number] 1 1 Encounter Details Date Type Department Care Team (Late st Contact Info) Description 06/24/2025 12:00 PM EDT Home [facility] [address] [place] [phone] Rocky Stovall RN [address] [place] [address] [email or web address] SN HOME VISIT Social History Tobacco Use Types Packs/Day Years [...] Sign Reading Time Taken Comments Blood Pressure 130/78 06/24/2025 12:14 PM EDT Pulse 73 06/24/2025 12:14 PM EDT Temperature 37 C (98.6 F) 06/24/2025 12:14 PM EDT Respiratory Rate 18 06/24/2025 12:14 PM EDT Oxygen Saturation 94% 06/24/2025 12:14 PM EDT Inhaled Oxygen Concentration - - Weight - - Height - - Body Mass Index - - documented in this encounter Plan of Treatment Upcoming Encounters Date Type Department Care Team (Late st Contact Info) Description 06/29/2025 2:15 AM EDT Home [facility] Visit [facility] [address] [place] [phone] Vickie Perez, OT [address] [place] [address] 07/01/2025 12:30 AM EDT Home [facility] Visit [facility] [address] [place] [phone] Rocky Stovall, RN [address] [place] [address] 07/01/2025 12:30 PM EDT Home [facility] [address] [place] [phone] Maribel Lyon, PT [address] [place] [address] 07/02/2025 2:00 AM EDT Home Care Visit [facility] [address] [place] [phone] Vickie Perez, OT [address] [place] [address] 07/06/2025 2:15 AM EDT Home Care Visit [facility] [address] [place] [phone] Vickie Perez, OT [address] [place] [address] 07/08/2025 1:00 AM EDT Home [facility] Visit [facility] [address] [place] [phone] Rocky Stovall RN [address] [place] [address] 07/08/2025 2:30 AM EDT Home Care Visit [facility] [address] [place] [address] Maribel Lyon, PT [address] [place] [address] 07/09/2025 Home Care Visit [facility] [address] [place] [phone] Vickie Perez, OT [address] [place] [address] 07/13/2025 1:15 AM EDT Home Care Visit [facility] [address] [place] [phone] Vickie Perez, OT [address] [place] [address] 07/15/2025 1:00 AM EDT Home Care Visit [facility] [address] [place] [address] Rocky Stovall RN [address] [place] [address] 07/15/2025 1:30 AM EDT Home Care Visit [facility] [address] [place] [address] Maribel Lyon, PT [address] [place] [address] 07/16/2025 Home Care Visit [facility] [address], [place] [phone] Vickie Perez, OT [address] [place] [address] 07/22/2025 1:00 AM EDT Home Care Visit [facility] [address] [place], [place] [phone] Rocky Stovall RN [address] [place] [address] 07/29/2025 12:30 AM EDT Home Care Visit [facility] [address] [place], [place] [phone] Rocky Stovall RN [address] [place] [address] 08/05/2025 12:30 AM EDT Appointment [facility] [address], [place] [phone] Rocky Stovall RN [address] [place] [address] 09/01/2025 8:30 AM EST Office [facility] [address] [facility] [address] [place] [address] Nakul Briones MD [address] [facility] [address] [place] [address] [email or web address] documented as of this encounter Visit Diagnoses Not on filedocumented in this encounter Home Health Visit - Care Plan Visit Details Visit Type -SN HOME VISIT Discipline -Halfway Problems Problem Description Start Date Status Goals [...] 1 goal linked to scheduled/documen yue intervention 6 goal interventions scheduled/document ed in this visit [...] Actual or Risk of No HH - Knowledge and management of [...] teaching and training. HH - Telehealth/Virtual Care Completed Yes HH - Safe medication management, avoid unnecessary [...] existing infection will resolve without complication Completed HH - Assess infection risk and s/s Problem:HH - Infection - Actual or Risk of Goal:HH - Patient will have no new infection; any new infection that occurs will be identified and treated promptly; existing infection will resolve without complication Completed HH - I/E fall prevention measures Description: cognitive impairment: strategies to minimize impairments with memory deficits, distractibility, judgement, impulsivity, and safety awareness, diagnosis/age related changes/prior history of falls: symptoms and side effects of illness/injury/history of falls placing patient at increased risk for falls. may include management of dizziness/orthostasis, environmental hazards: modification of environment to include [...] and injury prevention measures and skin care Problem:HH - Standard of Care Goal:HH - Achieve care management for a safe to home/community discharge from homecare Completed HH - I/E discharge plan Problem:HH - Standard of Care Goal:HH - Achieve care management for a safe to home/community discharge from homecare Completed HH - Complete Jb scale at SOC and weekly Problem:HH - Standard of Care Goal:HH - Achieve care management for a safe to home/community discharge from homecare Completed HH - Diet: Description: Regular diet Problem:HH - Standard of Care Goal:HH - [...] 1. Reliable Wi-Fi/Internet access: Yes 2. Patient Busy: Active 3. An active e-mail address: Yes 4. The following device(s): Android 5. The following monitoring device(s): No Monitoring Devices and does not need training 6. The patient has the ability, only with assistance of a caregiver, to participate in Telehealth Care. 7. The patient is willing to participate. HH - I/E medication management: administration, purpose, [...] medication errors and/or interactions Completed HH - Focus of care, teaching completed and plan for next visit Problem:HH - Focus of Care and Teaching Goal:HH - Communication and collaboration to achieve patient goals Completed Primary Clinical Focus this Visit & Instruction Provided: Patient lying on bed, cooperative with care/assessment. VSS, afebrile with complains of pain to her LLE and weak grasp to Left hand. Pt. started senna which been effective for bowel movements. Still poor appetite- PCP declined to prescribe supplement protein drink. Spouse been buying but very expensive per him. Glucometer not prescribed yet by PCP for glucose monitoring d/t prednisone use. Will start 40 mg dose starting tomorrow. Demonstrated the med box pre-fill to spouse-agrees to fill it own his own next week. Spouse agrees to follow up again with PCP office about it. Neurology appointment in August- not able to get sooner appointment d/t waiting list. Per spouse patient has sundowning-more agitated and confused in the evening. I/E on re-directing with calendar, wall board, watches and distraction techniques. Re-enforce on fall/safety, neuro precautions and when to contact VNA/MD/911. Instruction Provided to: patient/CG Response to Instruction/Teaching : Is partially able to teach back topics as evidenced by Plan for Next Visit Specific Focus & Education Needed: cv/cp/neuro assessment, fall/safety teaching, med box-Prefill teaching New Orders: no Updated Discharge Plan: on, once stable and goals met - I/E management of care in an urgent or emergency (ER) situation: When to call your Home Care Team/91, ER plans, supplies, evacuation, when to contact [...] - I/E management of neurological status: Description: confusion/delirium/cogn itive impairment/communicatio n management, disease management and positioning Problem:HH - Neurological Status - Actual or Risk of Impairment Goal:HH - Knowledge of neuro-sensory deficits related to Completed HH - Assess neurological status, cognition, delirium, communication, and positioning Problem:HH - Neurological Status - Actual or Risk of Impairment Goal:HH - Knowledge of neuro-sensory deficits related to Completed documented in this encounter Care Teams Grain Sampler Relationship Specialty Start Date End Date Lit Billings PA [address] [place] [id number] PCP - General 08/11/21 documented as of this encounter Additional Source Comments The information contained in this document represents components of the legal health record. It is not the complete legal health record.[facility]
--- OUTSIDE RECORDS SUMMARY | 2025-06-24 14:00 | XMS_ITS | Encounter Summary ---
Author Organization [facility] Address [address] [address] [place] [address] Phone Care Team Providers Care Bakery Associate Name Role Phone Lit Billings Primary Care Provider + Reason for Visit * Auth/Cert (Routine) Specialty Diagnoses / Procedures Referred By Emmanuel quintanilla Referred To Contact Referral ID Status Reason Start Date Expiration Date Visits Re quested Visits Authorized [id number] 1 1 Encounter Details Date Type Department Care Team (Late st Contact Info) Description 06/24/2025 2:00 PM EDT Home [facility] [address] [place] [phone] Vickie Perez, OT [address] [place] [address] [email or web address] OT HOME VISIT Social History Tobacco Use Types [...] 2:15 AM EDT Home Care Visit [facility] [address] [place] [address] Vickie Perez, OT [address] [place] [address] 07/01/2025 12:30 AM EDT Home Care Visit [facility] [address] [place] [address] Rocky Stovall, MARY [address] [place] [address] 07/01/2025 12:30 PM EDT Home Care Visit [facility] [address] [place] [address] Maribel Lyon, PT [address] [place] [address] 07/02/2025 2:00 AM EDT Home Care Visit [facility] [address] [place] [phone] Vickie Perez, OT [address] [place] [address] 07/06/2025 2:15 AM EDT Home Care Visit [facility] [address] [place] [address] Vickie Perez, OT [address] [place] [address] 07/08/2025 1:00 AM EDT Home Care Visit [facility] [address] [place] [address] Rocky Stovall, MARY [address] [place] [address] 07/08/2025 2:30 AM EDT Home Care Visit [facility] [address] [place] [phone] LyonMaribel, PT [address] [place] [address] 07/09/2025 Home Care Visit [facility] [address] [place] [address] Vickie Perez, OT [address] [place] [address] 07/13/2025 1:15 AM EDT Home Care Visit [facility] [address] [place] [phone] Vickie Perez, OT [address] [place] [address] 07/15/2025 1:00 AM EDT Home Care Visit [facility] [address] [place] [address] Rocky Stovall RN [address] [place] [address] 07/15/2025 1:30 AM EDT Home Care Visit [facility] [address] [place] [phone] Maribel Lyon, PT [address] [place] [address] 07/16/2025 Home Care Visit [facility] [address] [place] [address] Vickie Perez, OT [address] [place] [address] 07/22/2025 1:00 AM EDT Home Care Visit [facility] [address] [place] [address] Rocky Stovall RN [address] [place] [address] 07/29/2025 12:30 AM EDT Home Care Visit [facility] [address] [place], [place] [phone] Rocky Stovall RN [address] [place] [address] 08/05/2025 12:30 AM EDT Appointment [facility] [address] [place], [place] [phone] Rocky Stovall RN [address] [place] [address] 09/01/2025 8:30 AM EST Office Visit [facility] [address] [facility] [address] [place] [address] Nakul Briones MD [address] [facility] [address] [place] [address] [email or web address] documented as of this encounter Visit Diagnoses Not on filedocumented in this encounter Home Health Visit - Care Plan Visit Details Visit Type -OT HOME VISIT Discipline -Occupational Therapy Problems Problem Description Start [...] discharge from homecare Scheduled HH - Assess skin integrity Problem: - Standard of Care Goal:HH - Achieve care management for a safe to home/community discharge from homecare Scheduled HH - Assess the patient's access/technology, monitoring device availability, cognitive, mental, physical ability, and willingness to effectively participate in telehealth care Problem:HH - Telehealth/Virtual Care Goal:HH - Telehealth visits along with in-person home visits will be utilized when appropriate to achieve optimal wellness and home safety Scheduled HH - I/E medication management: administration, purpose, dosages, preparation, setup, scheduling, side effects, food/drug interactions, and potential complications as indicated Description: Update patient's copy of medication list as needed. Problem:HH - Medication Management Goal:HH - Safe medication management, avoid unnecessary harm related to medication errors and/or interactions Scheduled HH - Complete medication review every visit and medication reconciliation as indicated. [facility] information: [facility] Problem:HH - Medication Management Goal:HH - Safe medication management, avoid unnecessary harm related to medication errors and/or interactions Scheduled HH - Focus of care, teaching completed and plan for next visit Problem: - Focus of Care and Teaching Goal:HH - Communication and collaboration to achieve patient goals Scheduled HH - I/E management of care in [...] event of an emergency related situation. Scheduled documented in this encounter Care Teams Bakery Associate Relationship Specialty Start Date End Date Lit Billings PA [address] [place] [phone] PCP - General 08/11/21 documented as of this encounter Additional Source Comments The information contained in this document represents components of the legal health record. It is not the complete legal health record.[facility]
--- NOTE | 2025-06-25 10:44 | A.OFFVIS_ITS ---
Vital Signs 06/25/25 11:04 Height 4 ft 11 in Weight 174 lb BMI 35.1 Intake Visit Reasons: Plantar Fascial Fibromatosis Intake Note: Shobha is a 64 year old female who presents today as a new patient for an evaluation of her bilateral Plantar fascial fibromatosis. She states this has been going on for about 6-7 years. She states she has tried OTC ibuprofen and massages but it has not helped. Patient states the bottom of her feet feel numb and tight and it affects her ability to walk. She mentions she has tried injections in the past and found relief for her pain and now she is interested in receiving injections again. Allergies morphine (MORPHINE) Allergy (Severe, Verified 06/25/25 11:03) DIFF BREATHING, DIZZY, anaphylaxis, shortness of breath oxycodone (OXYCODONE) Allergy (Severe, Verified 06/25/25 11:03) DIFF BREATHING, DIZZY sulfamethoxazole (From BACTRIM) Allergy (Unknown, Verified 06/25/25 11:03) UNKNOWN trimethoprim (From BACTRIM) Allergy (Unknown, Verified 06/25/25 11:03) UNKNOWN SEASONAL ALLERGIES Allergy (Intermediate, Uncoded 06/22/25 08:30) ITCHY Medication List - Last Reconciled 06/25/25 by Nam Coffey DPM acetaminophen 500 mg PO Q4-6H PRN albuterol sulfate 2.5 mg (3 mL) PO Q4H PRN atovaquone 1,500 mg PO QAM [Bedside commode As directed] cetirizine 10 mg PO DAILY PRN 90 days diclofenac sodium 1% 2 grams topical QID donepezil 1/2 tab qd for 4 weeks then 1 tab qd orally bedtime; fenofibrate nanocrystallized 48 mg PO DAILY fluticasone propionate 110 mcg/actuation 1 puff PO BID ibuprofen 800 mg PO TID PRN lisinopril 5 mg PO DAILY memantine 28 mg PO DAILY olopatadine 0.2% 1 drp ophthalmic (eye) DAILY 30 days prednisone mg PO rosuvastatin 20 mg PO DAILY 90 days sennosides (senna) 17.2 mg (2 x 8.6 mg) PO BEDTIME 30 days [Shower chair As directed] tizanidine 4 mg PO BID PRN 30 days walker (Ultra-Light Rollator misc) As directed HPI HPI Plantar Fascial Fibromatosis: Details: The patient is a 64-year-old female past medical history of Alzheimer's dementia, CVA, right hip pain, hyperlipidemia, lumbar radiculopathy who presents with chronic worsening bilateral feet pain and numbness. The symptoms have persisted for several years, with numbness and tightness affecting the toes and bottom of both feet, accompanied by burning sensations and cramping, particularly at night. The patient has a history of a recent stroke workup/cerebral edema in early May. She denies any lower extremity motor weakness. Patient ambulates using a rolling walker for assistance. She is also participating in home-based physical therapy due to her stroke, focusing on walking and strength exercises. She also has a history of right hip pain. The patient previously had injections for plantar fasciitis to her heels which had helped in the past. She denies pain to her heels, she denies pain first step in the morning, she denies pain that worsens after resting. [facility] Medical History (Updated 06/25/25 @ 11:55 by Nam Coffey DPM) Alzheimer's dementia, late onset Dementia Mild cognitive impairment COVID-19 Lumbar spondylitis Other chronic pain UTI (urinary tract infection) Osteoarthritis Breast pain Hemorrhoids Diverticulosis Arthritis Hx of transfusion of whole blood Anemia Depression Lab test negative for COVID-19 virus Asthma Elevated cholesterol Surgical History Hx of hysterectomy Hx of Achilles tendon repair Hx of colonoscopy History of carpal tunnel release Family History Father Diabetes Mental health disorder Schizo-affective schizophrenia Mother CHF (congestive heart failure) Dementia Maternal Aunt Stomach cancer Social History Household Members: Spouse Housing: Apartment Alcohol intake: never Patient Tobacco Use Status: Never used Tobacco e-Cigarette/Vaping Use: Never Used Second Hand Smoke Exposure: No service: No Current occupational status: retired and disabled 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 Mild varicosities noted to the dorsal feet bilaterally. Derm: No ecchymosis, no open lesions, no lacerations. No wounds. No clinical signs of infection. Neuro: [place] David Monofilament test 6/10 right foot, 8/10 left foot. MSK: Positive straight leg raise test bilaterally. No pain on palpation along the medial calcaneal tubercle or along the arch, no pain to the medial fascia band, no pain on maximum dorsiflexion of the ankle or activation of windlass mechanism. Results Reviewed Results Reviewed: Laboratory Tests 02/11/25 09:38 Vitamin B12 714 Laboratory Tests 02/11/25 09:38 Folate 15.2 Podiatry X-ray Read: 08/13/2023 X-ray [right/left] ankle 3 views (AP, Mortise, Lateral) reviewed which shows moderate plantar calcaneal heel spur, no fractures, dislocations, osteochondral defects, or gross abnormalities. Anatomic alignment of the tibiotalar joint. Bone density is within normal limits. No evidence of swelling, foreign body, or calcifications. I personally reviewed the imaging and my findings are listed above. Assessment & Plan Assessment & Plan (1) Numbness of foot: Comment: Right worse than left Code(s): R20.0 - Anesthesia of skin Category: Medical Plan: * I discussed with the patient the potential causes of her neuropathy, including lumbar radiculopathy, vitamin-B deficiency, idiopathic peripheral neuropathy. * Given her normal vitamin-B test in February of this year, and her history with lumbar radiculopathy, she has recommended further workup and management of her lumbar radiculopathy first. * Referred to pain management. * Rx EMG/NCV * I explained the role of gabapentin as a possible medication in managing her symptoms and the importance of discussing this option with her primary care physician due to her recent stroke. * We also discussed the benefits of physical therapy focusing on back exercises to alleviate her symptoms. * Rx physical therapy (2) Lumbar radiculopathy: Code(s): M54.16 - Radiculopathy, lumbar region Category: Medical Plan: * Referred to pain management for further workup including lumbar x-rays/MRI e valuation. * The patient states that she is taking muscle relaxant medication which she finds relief from. Continue as needed. (3) Alzheimer's dementia, late onset: Comment: positive AMYVID scan Code(s): G30.1 - Alzheimer's disease with late onset; F02.80 - Dementia in other diseases classified elsewhere, unspecified severity, without behavioral disturbance, psychotic disturbance, mood disturbance, and anxiety Category: Medical Qualifiers: Dementia severity: moderate Dementia behavioral or psychological symptom: without behavioral, psychotic, or mood disturbance or anxiety Qualified Code(s): G30.1 - Alzheimer's disease with late onset; F02.B0 - Dementia in other diseases classified elsewhere, moderate, without behavioral disturbance, psychotic disturbance, mood disturbance, and anxiety Plan: positive AMYVID scan (4) Plantar fasciitis, bilateral: Code(s): M72.2 - Plantar fascial fibromatosis Category: Medical Plan: * Reviewed right ankle x-ray of the patient. * No clinical signs or symptoms of plantar fasciitis at this time. * Continue stretching and ctpev-ye-easotn exercises. * The patient is working with physical therapy for gait mobility and strengthening exercises. Orders: Orders NE electromyogram (EMG) Today M54.16 - Radiculopathy, lumbar region, R20.0 - Anesthesia of skin PT Evaluation and Treatment Today M54.16 - Radiculopathy, lumbar region NE nerve conduction velocity Today M54.16 - Radiculopathy, lumbar region, R20.0 - Anesthesia of skin Referrals Pain Management Referral M54.16 - Radiculopathy, lumbar region Coding Level of Care Code New Pt Level 4 (79658) Diagnoses Numbness of foot R20.0 Lumbar radiculopathy M54.16 Moderate late onset Alzheimer's dementia without behavioral disturbance, psychotic disturbance, mood disturbance, or anxiety G30.1; F02.B0 Dementia severity: moderate Dementia behavioral or psychological symptom: without behavioral, psychotic, or mood disturbance or anxiety Plantar fasciitis, bilateral M72.2 Time Spent (min) 35
[2025-06-25 11:04] VITALS: BMI 35.1
--- OUTSIDE RECORDS SUMMARY | 2025-06-25 12:48 | XMS_ITS | Encounter Summary ---
Author Organization [employer] [facility] Address [address] [place] [address] Phone Care Team Providers Care Mr Teacher Name Role Phone Lit Billings Primary Care Provider + Encounter Details Date Type Department Care Team (Late st Contact Info) Description 05/20/2025 Procedure Pass [facility], [facility] Scan - [facility] [address] [place] [address] Social History Tobacco Use Types Packs/Day Years Used Date Smoking Tobacco: Former Cigarettes Smokeless Tobacco: Never Comments:quit many many yea rs ago Alcohol Use Standard Drinks/Week Comments Never 0 (1 standard drink = 0.6 oz pur e alcohol) Education Answer Date Recorded Are you interested [...] your housing situation today? I have roderick sing 05/20/2025 How many times have you moved [...] on file documented as of this encounter Functional Status * Calculated C-SSRS Risk Score (Lifetime/Recent) Answer Date of Assessment Author No Risk Indicated 05/20/2025 4:03 PM EDT Matias Mcqueen RN * [place] Suicide Severity Rating Scale (Screener/Recent Self-Report) Question Answer Date of Assessment Author 1. Wish to be (Past 1 Month) No 05/20/2025 4:03 PM EDT Matias Mcqueen RN 2. Non-Specific Active Suicidal Thoughts (Past 1 Month) No 05/20/2025 4:03 PM EDT Matias Mcqueen RN 6. Suicidal Behavior (Lifetime) No 05/20/2025 4:03 PM EDT Matias Mcqueen RN documented as of this encounter Plan of Treatment Upcoming Encounters Date Type Department Care Team (Late st Contact Info) Description 06/29/2025 2:15 AM EDT Home Care Visit [facility] [address] [place] [phone] Vickie Perez, OT [address] [place] [address] 07/01/2025 12:30 AM EDT Home Care Visit [facility] [address] [place] [phone] Rocky Stovall RN [address] [place] [address] 07/01/2025 12:30 PM EDT Home Care Visit [facility] [address] [place] [phone] Maribel Lyon, PT [address] [place] [address] 07/02/2025 2:00 AM EDT [facility] [address] [place] [phone] Vickie Perez, OT [address] [place] [address] 07/06/2025 2:15 AM EDT Home Care Visit [facility] [address] [place] [phone] Vickie Perez, OT [address] [place] [address] 07/08/2025 1:00 AM EDT Home Care Visit [facility] [address] [place] [phone] Rocky Stovall, MARY [address] [place] [address] 07/08/2025 2:30 AM EDT Home Care Visit [facility] [address] [place] [phone] Maribel Lyon, PT [address] [place] [address] 07/09/2025 Home Care Visit [facility] [address] [place] [phone] Vickie Perez, OT [address] [place] [address] 07/13/2025 1:15 AM EDT Home Care Visit [facility] [address] [place] [phone] Vickie Perez, OT [address] [place] [address] 07/15/2025 1:00 AM EDT Home Care Visit [facility] [address] [place] [phone] Rocky Stovall, RN [address] [place] [address] 07/15/2025 1:30 AM EDT Home Care Visit [facility] [address] [place] [phone] Maribel Lyon, PT [address] [place] [address] 07/16/2025 Home Care Visit [facility] [address] [place] [phone] Vickie Perez, OT [address] [place] [address] 07/22/2025 1:00 AM EDT Home Care Visit [facility] [address] [place], [place] [phone] Rocky Stovall RN [address] [place] [address] 07/29/2025 12:30 AM EDT Home Care Visit [facility] [address] [place], [place] [phone] Rocky Stovall RN [address] [place] [address] 08/05/2025 12:30 AM EDT Appointment [facility] [address] [place], [place] [phone] Rocky Stovall RN [address] [place] [address] 09/01/2025 8:30 AM EST Office Visit [facility] [place] [facility] [address] [address] [place] [address] Nakul Briones MD [address] [facility] [address], [address] [place] [address] [email or web address] documented as of this encounter Visit Diagnoses Not on filedocumented in this encounter Additional Health Concerns Infection Onset Date Last Indicated Resolved Time CoV-Risk Comment:Per note documentation 05/20/2025 05/20/2025 7:54 AM EDT documented as of this encounter Care Teams Mr Teacher Relationship Specialty Start Date End Date Lit Billings PA [address] [place] [address] PCP - General 08/11/21 documented as of this encounter Additional Source Comments The information contained in this document represents components of the legal health record. It is not the complete legal health record.[facility]
--- OUTSIDE RECORDS SUMMARY | 2025-06-25 12:48 | XMS_ITS | Encounter Summary ---
Author Organization [facility] Address [address] [facility] [address] [place] [address] Phone Care Team Providers Care Pressing Machine Tender Name Role Phone Lit Billings Primary Care Provider + Encounter Details Date Type Department Care Team (Late st Contact Info) Description 05/20/2025 Procedure Pass [facility] [address] [place] [address] Social History Tobacco Use Types Packs/Day Years [...] 4:03 PM EDT Matias Mcqueen RN * [place] Suicide Severity Rating Scale (Screener/Recent Self-Report) Question Answer Date of Assessment Author 1. Wish to be (Past 1 Month) No 05/20/2025 4:03 PM EDT Matias Mcqueen, MARY 2. Non-Specific Active Suicidal Thoughts (Past 1 Month) No 05/20/2025 4:03 PM EDT Matias Mcqueen, MARY 6. Suicidal Behavior (Lifetime) No 05/20/2025 4:03 PM EDT Matias Mcqueen, MARY documented as of this encounter Plan of Treatment Upcoming Encounters Date Type Department Care Team (Late st Contact Info) Description 06/29/2025 2:15 AM EDT Home Care Visit [facility] [address] [place] [phone] Vickie Perez, OT [address] [place] [address] 07/01/2025 12:30 AM EDT Home Care Visit [facility] [address] [place] [phone] Rocky Stovall, MARY [address] [place] [address] 07/01/2025 12:30 PM EDT Home Care Visit [facility] [address] [place] [phone] Maribel Lyon, PT [address] [place] [address] 07/02/2025 2:00 AM EDT Home Care Visit [facility] [address] [place] [phone] Vickie Perez, OT [address] [place] [address] 07/06/2025 2:15 AM EDT Home Care Visit [facility] [address] [place] [phone] Vickie Perez, OT [address] [place] [address] 07/08/2025 1:00 AM EDT Home Care Visit [facility] [address] [place] [phone] Rocky Stovall, MARY [address] [place] [address] 07/08/2025 2:30 AM EDT Home Care Visit [facility] [address] [place] [address] Maribel Lyon, PT [address] [place] [address] 07/09/2025 Home Care Visit [facility] [address] [place] [address] Vickie Perez, OT [address] [place] [address] 07/13/2025 1:15 AM EDT Home Care Visit [facility] [address] [place] [phone] Vickie Perez, OT [address] [place] [address] 07/15/2025 1:00 AM EDT Home Care Visit [facility] [address] [place] [phone] Rocky Stovall, RN [address] [place] [address] 07/15/2025 1:30 AM EDT Home Care Visit [facility] [address] [place] [phone] Maribel Lyon, PT [address] [place] [address] 07/16/2025 Home Care Visit [facility] [address] [place] [phone] Vickie Perez, OT [address] [place] [address] 07/22/2025 1:00 AM EDT Home Care Visit [facility] [address] [place] [phone] Rocky Stovall RN [address] [place] [address] 07/29/2025 12:30 AM EDT Home Care Visit [facility] [address] [place] [phone] Rocky Stovall RN [address] [place] [address] 08/05/2025 12:30 AM EDT Appointment [facility] [address] [place] [phone] Rocky Stovall RN [address] [place] [address] 09/01/2025 8:30 AM EST Office Visit [facility] [address] [facility] [address] [place] [address] Nakul Briones MD [address] [facility] [address], [address] [place] [phone] [email or web address] documented as of this encounter Visit Diagnoses Not on filedocumented in this encounter Additional Health Concerns Infection Onset Date Last Indicated Resolved Time CoV-Risk Comment:Per note documentation 05/20/2025 05/20/2025 7:54 AM EDT documented as of this encounter Care Teams Pressing Machine Tender Relationship Specialty Start Date End Date Lit Billings PA [address] [place] [address] PCP - General 08/11/21 documented as of this encounter Additional Source Comments The information contained in this document represents components of the legal health record. It is not the complete legal health record.[facility]
--- OUTSIDE RECORDS SUMMARY | 2025-06-25 12:49 | XMS_ITS | Encounter Summary ---
Author Organization [facility] [facility] Address [address] [place] [phone] Phone Care Team Providers Care Self Pay Collector Name Role Phone Lit Billings Primary Care Provider + Encounter Details Date Type Department Care Team (Late st Contact Info) Description 05/21/2025 Procedure Pass [facility] [address] [place] [address] Social History Tobacco Use Types Packs/Day Years [...] 2:15 AM EDT Home Care Visit [facility] [address] [place], [place] [phone] Vickie Perez OT [address] [place] [address] 07/01/2025 12:30 AM EDT Home Care Visit [facility] [address] [place], [place] [phone] Rocky Stovall, RN [address] [place] [address] 07/01/2025 12:30 PM EDT Home Care Visit [facility] [address] [place] [phone] Maribel Lyon, PT [address] [place] [address] 07/02/2025 2:00 AM EDT Home Care Visit [facility] [address] [place] [phone] Vickie Perez, OT [address] [place] [address] 07/06/2025 2:15 AM EDT Home Care Visit [facility] [address] [place] [phone] Vickie Perez, OT [address] [place] [address] 07/08/2025 1:00 AM EDT Home Care Visit [facility] [address] [place] [phone] Rocky Stovall, RN [address] [place] [address] 07/08/2025 2:30 AM EDT Home Care Visit [facility] [address] [place] [phone] Maribel Lyon, PT [address] [place] [address] 07/09/2025 Home Care Visit [facility] [address] [place] [phone] Vickie Perez, OT [address] [place] [address] 07/13/2025 1:15 AM EDT Home Care Visit [facility] [address] [place] [phone] Vickie Perez, OT [address] [place] [address] 07/15/2025 1:00 AM EDT Home Care Visit [facility] [address] [place] [phone] Rocky Stovall RN [address] [place] [address] 07/15/2025 1:30 AM EDT Home Care Visit [facility] [address] [place] [phone] Maribel Lyon, PT [address] [place] [address] 07/16/2025 Home Care Visit [facility] [address] [place] [phone] Vickie Perez, OT [address] [place] [address] 07/22/2025 1:00 AM EDT Home Care Visit [facility] [address] [place] [phone] Rocky Stovall RN [address] [place] [address] 07/29/2025 12:30 AM EDT Home Care Visit [facility] [address] [place] [phone] Rocky Stovall RN [address] [place] [address] 08/05/2025 12:30 AM EDT Appointment [facility] [address] [place] [phone] Rocky Stovall RN [address] [place] [address] 09/01/2025 8:30 AM EST Office Visit [facility] [place] [facility] [address] [facility] [address] [place] [address] Nakul Briones MD [address] [place] [address] [email or web address] documented as of this encounter Visit Diagnoses Not on filedocumented in this encounter Additional Health Concerns Infection Onset Date Last Indicated Resolved Time CoV-Risk Comment:Per note documentation 05/20/2025 05/20/2025 7:54 AM EDT documented as of this encounter Care Teams Self Pay Collector Relationship Specialty Start Date End Date Lit Billings PA [address] [place] [address] PCP - General 08/11/21 documented as of this encounter Additional Source Comments The information contained in this document represents components of the legal health record. It is not the complete legal health record.[facility]
--- OUTSIDE RECORDS SUMMARY | 2025-06-25 12:49 | XMS_ITS | Encounter Summary ---
Author Organization [facility] Formerly [facility], 1928–[address] Address [address] [place] [phone] Phone Care Team Providers Care Die Cast Supervisor Name Role Phone Lit Billings Primary Care Provider + Encounter Details Date Type Department Care Team (Late st Contact Info) Description 05/20/2025 Procedure Pass [facility] [address] [place] [address] Social History Tobacco Use Types Packs/Day Years [...] 4:03 PM EDT Matias Mcqueen RN * [place] Suicide Severity Rating Scale (Screener/Recent Self-Report) Question [...] 06/29/2025 2:15 AM EDT Home Care [facility] [address] [place] [phone] Vickie Perez, OT [address] [place] [address] [email or web address] 07/01/2025 12:30 AM EDT Home Care Visit [facility] [address] [place] [phone] Rocky Stovall, RN [address] [place] [address] [email or web address] 07/01/2025 12:30 PM EDT Home Care Visit [facility] [address] [place] [phone] Maribel Lyon, PT [address] [place] [address] 07/02/2025 2:00 AM EDT Home Care Visit [facility] [address] [place] [phone] Vickie Perez, OT [address] [place] [address] [email or web address] 07/06/2025 2:15 AM EDT Home Care [facility] [address] [place] [phone] Vickie Perez, OT [address] [place] [address] 07/08/2025 1:00 AM EDT Home Care Visit [facility] [address] [place] [phone] Rocky Stovall, RN [address] [place] [address] [email or web address] 07/08/2025 2:30 AM EDT Home Care Visit [facility] [address] [place] [phone] Maribel Lyon, PT [address] [place] [address] 07/09/2025 Home Care Visit [facility] [address] [place] [phone] Vickie Perez, OT [address] [place] [address] 07/13/2025 1:15 AM EDT Home Care Visit [facility] [address] [place] [phone] Vickie Perez, OT [address] [place] [address] [email or web address] 07/15/2025 1:00 AM EDT Home Care Visit [facility] [address] [place] [phone] Rocky Stovall, RN [address] [place] [address] 07/15/2025 1:30 AM EDT Home Care Visit [facility] [address] [place] [phone] Maribel Lyon, PT [address] [place] [address] 07/16/2025 Home Care Visit [facility] [address] [place] [phone] Vickie Perez, OT [address] [place] [address] 07/22/2025 1:00 AM EDT Home Care Visit [facility] [address], [place] [phone] Rocky Stovall RN [address] [place] [address] [email or web address] 07/29/2025 12:30 AM EDT Home Care Visit [facility] [address], [place] [phone] Rocky Stovall RN [address] [place] [address] [email or web address] 08/05/2025 12:30 AM EDT Appointment [facility] [address], [place] [phone] Rocky Stovall RN [address] [place] [address] [email or web address] 09/01/2025 8:30 AM EST Office Visit [facility] [address] [address] [address] [place] [address] Nakul Briones MD [address] [facility] [address] [place] [phone] [email or web address] documented as of this encounter Visit Diagnoses Not on filedocumented in this encounter Additional Health Concerns Infection Onset Date Last Indicated Resolved Time CoV-Risk Comment:Per note documentation 05/20/2025 05/20/2025 7:54 AM EDT documented as of this encounter Care Teams Die Cast Supervisor Relationship Specialty Start Date End Date Lit Billings PA [address] [place] [address] PCP - General 08/11/21 documented as of this encounter Additional Source Comments The information contained in this document represents components of the legal health record. It is not the complete legal health record.[facility]
--- OUTSIDE RECORDS SUMMARY | 2025-06-25 12:49 | XMS_ITS | Clinical Summary ---
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 3 Active fenofibrate (TRICOR) 48 MG tablet Take 48 mg by mouth daily. 3 Active donepeziL (ARICEPT) 10 MG tablet Take 10 mg by mouth nightly at bedtime. at bedtime. 3 Active diclofenac sodium (VOLTAREN) 1 % Gel APPLY 2 GRAMS TOPICALLY 4 TIMES A DAY 3 Active cholecalciferol (VITAMIN D3) 25 MCG (1,000 unit) tablet 1 tablet Active albuterol 2.5 mg /3 mL (0.083 %) nebulizer solution INHALE CONTENTS OF 1 VIAL THROUGH NEBULIZER EVERY 4 HOURS NEEDED FOR WHEEZING 3 Active acetaminophen (TYLENOL) 500 MG tablet take 1 tablet by mouth every 4 to 6 hours as needed for pain 3 Active memantine (NAMENDA XR) 28 mg 24 hr sprinkle capsule Take 1 capsule by mouth nightly at bedtime. 5 Active ibuprofen (ADVIL,MOTRIN) 800 MG tablet Take 800 mg by mouth every 8 (eight) hours as needed for pain (specific location in comments). 5 Active lisinopril (PRINIVIL,ZESTR IL) 10 MG tablet Take 1 tablet (10 mg total) by mouth daily. 5 Active atovaquone (MEPRON) 750 mg/5 mL suspension Take 10 mL (1,500 mg total) by mouth daily with breakfast. 5 Active hydrALAZINE (APRESOLINE) 50 MG tablet Take 1 tablet (50 mg total) by mouth every 6 (six) hours. 5 Active predniSONE (DELTASONE) 10 MG tablet Take 6 tablets (60 mg total) by mouth daily with breakfast for 14 days, THEN 5 tablets (50 mg total) daily with breakfast for 14 days, THEN 4 tablets (40 mg total) daily with breakfast for 14 days, THEN 3 tablets (30 mg total) daily with breakfast for 14 days, THEN 2 tablets (20 mg total) daily with breakfast for 14 days. 5 08/04/20 25 Active pantoprazole (PROTONIX) 40 MG tablet Take 40 mg by mouth 2 (two) times a day. 5 Active Active Problems Problem Noted Date Diagnosed Date Left-sided weakness 05/20/2025 Assessment & Plan (05/25/2025 4:20 PM EDT): Treating as YANIRA Frias and YANIRA H. Family first noticed increased fatigue and mild left side weakness on Wednesday 05/16. describes patient having stiffness of the left arm and leg. She sustained a fall but when she was evaluated by EMS declined transfer to the ED. Over the past 3 days left-sided weakness has worsened and patient was brought in for evaluation today -ED discussed case with neurology and further [...] Repeat MRI performed which is read as normal Could not reach outpatient neuro. [facility] teleneurolgy recommendations as follows: -Discontinuation of donanemab Methylprednisone 1g IV x 5 days, followed by taper- 60 mg prednisone daily x 2 weeks, then down by 10 mg every 2 weeks. When at 20 mg, can consider further taper or continuation depending on clinical picture -Repeat MRI brain in 4 weeks - Maintain SBP <140 - Monitor glucose closely given new steroids - Ensure outpatient neurology follow up Will add atovaquone for PJP prophylaxis as well Left side no longer rigid. Improved strength of right side Assessment & Plan (05/24/2025 3:27 PM EDT): Treating as YANIRA Mcclellan Family first noticed increased fatigue and mild left side weakness on Wednesday 05/16. describes patient having stiffness of the left arm and leg. She sustained a fall but when she was evaluated by EMS declined transfer to the ED. Over the past 3 days left-sided weakness has worsened and patient was brought in for evaluation today -ED discussed case with neurology and further [...] Repeat MRI performed which is read as normal Could not reach outpatient neuro. [facility] teleneurolgy recommendations as follows: -Discontinuation of donanemab Methylprednisone 1g IV x 5 days, followed by taper- 60 mg prednisone daily x 2 weeks, then down by 10 mg every 2 weeks. When at 20 mg, can consider further taper or continuation depending on clinical picture -Repeat MRI brain in 4 weeks - Maintain SBP <140 - Monitor glucose closely given new steroids - Ensure outpatient neurology follow up Will add atovaquone for PJP prophylaxis as well Left side still mostly flaccid. Right side is improving. Mental status seems to be improving. Assessment & Plan (05/23/2025 3:50 PM EDT): Treating as ARIA E and ARIA H. Family first noticed increased fatigue and mild left side weakness on Wednesday 05/16. describes patient having stiffness of the left arm and leg. She sustained a fall but when she was evaluated by EMS declined transfer to the ED. Over the past 3 days left-sided weakness has worsened and patient was brought in for evaluation today -ED discussed case with neurology and further [...] Repeat MRI performed which is read as normal Could not reach outpatient neuro. [facility] teleneurolgy recommendations as follows: -Discontinuation of donanemab Methylprednisone 1g IV x 5 days, followed by taper- 60 mg prednisone daily x 2 weeks, then down by 10 mg every 2 weeks. When at 20 mg, can consider further taper or continuation depending on clinical picture -Repeat MRI brain in 4 weeks - Maintain SBP <140 - Monitor glucose closely given new steroids - Ensure outpatient neurology follow up Will add atovaquone for PJP prophylaxis as well Assessment & Plan (05/22/2025 3:17 PM EDT): Treating as YANIRA Frias and YANIRA H. Family first noticed increased fatigue and mild left side weakness on Wednesday 05/16. describes patient having stiffness of the left arm and leg. She sustained a fall but when she was evaluated by EMS declined transfer to the ED. Over the past 3 days left-sided weakness has worsened and patient was brought in for evaluation today -ED discussed case with neurology and further [...] Repeat MRI performed which is read as normal Could not reach outpatient neuro. [facility] teleneurolgy recommendations as follows: -Discontinuation of donanemab Methylprednisone 1g IV x 5 days, followed by taper- 60 mg prednisone daily x 2 weeks, then down by 10 mg every 2 weeks. When at 20 mg, can consider further taper or continuation depending on clinical picture -Repeat MRI brain in 4 weeks - Maintain SBP <140 - Monitor glucose closely given new steroids - Ensure outpatient neurology follow up Will add atovaquone for PJP prophylaxis as well Assessment & Plan (05/21/2025 3:46 PM EDT): - Family first noticed increased fatigue and mild left side weakness on Wednesday 05/16. describes patient having stiffness of the left arm and leg. She sustained a fall but when she was evaluated by EMS declined transfer to the ED. Over the past 3 days left-sided weakness has worsened and patient was brought in for evaluation today -ED discussed case with neurology and further [...] Repeat MRI performed which is read as normal Called teleneurology, they are recommending her outpatient neurologist provide further treatment recommendations. Have call out to Dr. Taylor from [facility] Assessment & Plan (05/20/2025 10:21 PM EDT): - Family first noticed increased fatigue and mild left side weakness on Wednesday 05/16. describes patient having stiffness of the left arm and leg. She sustained a fall but when she was evaluated by EMS declined transfer to the ED. Over the past 3 days left-sided weakness has worsened and patient was brought in for evaluation today -ED discussed case with neurology and further [...] likely representing edema. No large vessel occlusions -Follow-up TTE -Will discuss with tele neuro once imaging results available -Monitor on tele -PT/OT eval -HEAD INSPECTOR eval -Follow up HbA1c, TSH, ESR, CRP, lipid panel Alzheimer's dementia 05/20/2025 Assessment & Plan (05/25/2025 4:20 PM EDT): -Continue donepezil and Namenda -Patient is receiving donanemab (has received 2 infusions, the first 1 in March and the second one on 05/11). Unfortunately this will have to be discontinued at least until the APOE status is known which might change her risk profile. Assessment & Plan (05/24/2025 3:27 PM EDT): -Continue donepezil and Namenda -Patient is receiving donanemab (has received 2 infusions, the first 1 in March and the second one on 05/11). Unfortunately this will have to be discontinued at least until the APOE status is known which might change her risk profile. Assessment & Plan (05/23/2025 3:50 PM EDT): -Continue donepezil and Namenda -Patient is receiving donanemab (has received 2 infusions, the first 1 in March and the second one on 05/11). Unfortunately this will have to be discontinued at least until the APOE status is known which might change her risk profile. Assessment & Plan (05/22/2025 3:17 PM EDT): -Continue donepezil and Namenda -Patient is receiving donanemab (has received 2 infusions, the first 1 in March and the second one on 05/11). Unfortunately this will have to be discontinued at least until the APOE status is known which might change her risk profile. Assessment & Plan (05/21/2025 3:46 PM EDT): -Continue donepezil and Namenda -Patient is receiving donanemab (has received 2 infusions, the first 1 in March and the second one on 05/11) Assessment & Plan (05/20/2025 10:21 PM EDT): -Continue donepezil and Namenda -Patient is receiving donanemab (has received 2 infusions, the first 1 in March and the second one on 05/11) HTN (hypertension) 05/20/2025 Assessment & Plan (05/25/2025 4:20 PM EDT): Will reintroduce lisinopril and use hydralazine to get Bps <140. No changes needed today Assessment & Plan (05/24/2025 3:27 PM EDT): Will reintroduce lisinopril and use hydralazine to get Bps <140. No changes needed today Assessment & Plan (05/23/2025 3:50 PM EDT): Will reintroduce lisinopril and use hydralazine to get Bps <140. Uptitrate as needed. Assessment & Plan (05/22/2025 3:17 PM EDT): Will reintroduce lisinopril and use hydralazine to get Bps <140 Assessment & Plan (05/21/2025 3:46 PM EDT): - Lisinopril on hold for permissive hypertension while stroke is being ruled out Assessment & Plan (05/20/2025 10:21 PM EDT): - Lisinopril on hold for permissive hypertension while stroke is being ruled out Hyperlipidemia 05/20/2025 Assessment & Plan (05/25/2025 4:20 PM EDT): - Patient on Tricor which is nonformulary, on high-dose statin for now Assessment & Plan (05/24/2025 3:27 PM EDT): - Patient on Tricor which is nonformulary, on high-dose statin for now Assessment & Plan (05/23/2025 3:50 PM EDT): - Patient on Tricor which is nonformulary, on high-dose statin for now Assessment & Plan (05/22/2025 3:17 PM EDT): - Patient on Tricor which is nonformulary, on high-dose statin for now Assessment & Plan (05/21/2025 3:46 PM EDT): - Patient on Tricor which is nonformulary, on high-dose statin for now Assessment & Plan (05/20/2025 10:21 PM EDT): - Patient on Tricor which is nonformulary, on high-dose statin for now Hypernatremia 05/20/2025 Assessment & Plan (05/25/2025 4:20 PM EDT): -Family denies any dehydration as patient has been eating and drinking normally Assessment & Plan (05/24/2025 3:27 PM EDT): -Family denies any dehydration as patient has been eating and drinking normally Assessment & Plan (05/23/2025 3:50 PM EDT): -Family denies any dehydration as patient has been eating and drinking normally Assessment & Plan (05/22/2025 3:17 PM EDT): -Family denies any dehydration as patient has been eating and drinking normally Assessment & Plan (05/21/2025 3:46 PM EDT): -Family denies any dehydration as patient has been eating and drinking normally -IV fluids overnight Will recheck bmp, can provide free water if needed. Assessment & Plan (05/20/2025 10:21 PM EDT): -Family denies any dehydration as patient has been eating and drinking normally -IV fluids overnight -Repeat sodium in the morning -Monitor urine output Resolved Problems Problem Noted Date Diagnosed Date Resolved Date Neurological abnormality 05/20/2025 Encounters Date Type Department Care Team Description 06/25/2025 Episode Documentation Update [facility] [address] [place] [address] Kim Chu 06/24/2025 2:00 PM EDT Home Care Visit [facility] [address] [place] [address] Vickie Perez, OT OT HOME VISIT 06/24/2025 12:00 PM EDT Home Care Visit [facility] [address] [place] [address] Rocky Stovall RN SN HOME VISIT 06/23/2025 1:00 PM EDT Home Care Visit [facility] [address] [place] [address] Maribel Lyon, PT PT EVALUATION 06/23/2025 Episode Documentation Update [facility] [address] [place] [address] Kim Chu 06/22/2025 1:30 PM EDT Home Care Visit [facility] [address] [place] [address] Vickie Perez, OT OT EVALUATION 06/22/2025 Home Care Visit [facility] [address] [place] [address] Vickie Perez, OT CASE COMMUNICATION 06/17/2025 11:00 AM EDT Home Care Visit [facility] [address] [place] [address] Rocky Stovall RN SN OASIS START OF CARE (SOC) 06/17/2025 Plan of Care Documentation [facility] [address] [place] [address] 06/11/2025 Orders Only [facility] [address] [place] [address] Homehealth, Interface MD Daniel 06/02/2025 Telephone Virtual Department [address] [place] [address] Lyssa Jean Baptiste NP 05/21/2025 Procedure Pass [address] [address] 05/20/2025 3:40 PM EDT - 05/26/2025 2:42 PM EDT Hospital Encounter [facility] [address] [place] [address] Christiane Brewer MD Israeli, Diana A, DO McKenna-Weiss, Eli, MD Discharge Disposition: Rehab Facility 05/20/2025 Procedure Pass [facility] [address] [place] [address] 05/20/2025 Procedure Pass [address] [address] 05/20/2025 Procedure Pass [facility] Ct Scan [address] [address] from Last 3 Months Immunizations Immunization Administration Dates Next Due Influenza Quadrivalent Preservative Free IM 08/08 Influenza Quadrivalent w/ Preservative IM 2017 Pneumococcal polysaccharide PPSV23 10/06/2019 Tdap 08/06/2018 Family History Medical History Relation Comments Hypertension Father Hypertension Maternal Grandfather Hypertension Maternal Grandmother Cervical cancer Mother Hypertension Mother Hypertension Paternal Grandfather Hypertension Paternal Grandmother Hypertension Sister Relation Status Comments Father Maternal Grandfather Maternal Grandmother Mother Paternal Grandfather Paternal Grandmother Sister Social History Tobacco Use Types Packs/Day Years Used Date Smoking Tobacco: Former Cigarettes Smokeless Tobacco: Never Tobacco Cessation:Counseling Given: Not Answered Comments:quit many many years ago Alcohol Use Standard Drinks/Week Comments Never [...] PM EDT Sexual Orientation Not on file Last Filed Vital Signs Vital Sign Reading Time Taken Comments Blood Pressure 130/78 06/24/2025 12:14 PM EDT Pulse 73 06/24/2025 12:14 PM EDT Temperature 37 C (98.6 F) 06/24/2025 12:14 PM EDT Respiratory Rate 18 06/24/2025 12:1 4 PM EDT Oxygen Saturation 94% 06/24/2025 12: 14 PM EDT Inhaled Oxygen Concentration - - Weight 87.4 kg (192 lb 11.2 oz) 05/26/2025 5:14 AM EDT Height 149.8 cm (4' 10.98 ) 05/20/2025 11:43 PM EDT Body Mass Index 38.95 05/20/2025 11:43 PM EDT Plan of Treatment Upcoming Encounters Date Type Department Care Team (Late st Contact Info) Description 06/29/2025 2:15 AM EDT Home Care Visit [facility] [address] [place] [phone] Vickie Perez, OT [address] [place] [address] [email or web address] 07/01/2025 12:30 AM EDT Home Care Visit [facility] [address] [place] [address] Rocky Stovall, RN [address] [place] [address] 07/01/2025 12:30 PM EDT Home Care Visit [facility] [address] [place] [phone] Maribel Lyon, PT [address] [place] [address] [email or web address] 07/02/2025 2:00 AM EDT Home Care Visit [facility] [address] [place] [phone] Vickie Perez, OT [address] [place] [address] 07/06/2025 2:15 AM EDT Home Care Visit [facility] [address] [place] [address] Vickie Perez, OT [address] [place] [address] 07/08/2025 1:00 AM EDT Home Care Visit [facility] [address] [place] [phone] Rocky Stovall, MARY [address] [place] [address] 07/08/2025 2:30 AM EDT Home Care Visit [facility] [address] [place] [address] Maribel Lyon, PT [address] [place] [address] 07/09/2025 Home Care Visit [facility] [address] [place] [address] Vickie Perez, OT [address] [place] [address] 07/13/2025 1:15 AM EDT Home Care Visit [facility] [address] [place] [address] Vickie Perez, OT [address] [place] [address] 07/15/2025 1:00 AM EDT Home Care Visit [facility] [address] [place] [address] Rocky Stovall, MARY [address] [place] [address] [email or web address] 07/15/2025 1:30 AM EDT Home Care Visit [facility] [address] [place] [address] Maribel Lyon, PT [address] [place] [address] [email or web address] 07/16/2025 Home Care Visit [facility] [address] [place] [address] Vickie Perez, OT [address] [place] [address] [email or web address] 07/22/2025 1:00 AM EDT Home Care Visit [facility] [address] [place] [phone] Rocky Stovall RN [address] [place] [address] [email or web address] 07/29/2025 12:30 AM EDT Home Care Visit [facility] [address] [place] [phone] Rocky Stovall RN [address] [place] [address] [email or web address] 08/05/2025 12:30 AM EDT Appointment [facility] [address] [place] [phone] Rocky Stovall RN [address] [place] [address] [email or web address] 09/01/2025 8:30 AM EST Office Visit [facility] [address] [place] [address] Nakul Briones MD [address] [place] [address] [email or web address] Health Maintenance Due Date Last Done Comments DEPRESSION SCREENING 1970 SMOKING Hx and SMOKELESS TOBACCO SCREENING 1971 HEPATITIS C SCREENING 1976 MAMMOGRAM 1998 COLOGUARD 2003 COLONOSCOPY 2003 COLORECTAL CANCER SCREENING 2003 FIT TEST 2003 FOBT 2003 SIGMOIDOSCOPY 2003 VIRTUAL COLONOSCOPY 2003 ZOSTER VACCINES (1 of 2) 2008 PNEUMOCOCCAL VACCINES (50+ years) (2 of 2 - PCV) 10/06/2020 10/06/2019 OSTEOPOROSIS SCREENING INITIAL (ONE-TIME) 2023 INFLUENZA VACCINE (#1) 2025 08/26/2020, 2017 COVID-19 VACCINE ( season) 2025 02/06/2021, 01/16/2021 BLOOD PRESSURE 12/22/2025 06/24/2025 CREATININE LEVEL 05/26/2026 05/26/2025, , 05/23/2025, Additional history exists POTASSIUM LEVEL 05/26/2026 05/26/2025, 05/08, 05/23/2025, Additional history exists SCREENING FOR DIABETES 05/24/2028 05/24/2025, 2024 Adult Td,Tdap Booster 08/06/2028 08/06/2018 LIPID PANEL 05/24/2030 05/24/2025 RSV VACCINE (1 - 1-dose 75+ series) 2033 HEPATITIS A VACCINES Aged Out No long er eligible based on patient's age to complete this topic HIB VACCINES Aged Out No longer eligi ble based on patient's age to complete this topic MENINGOCOCCAL VACCINES (ACWY) Aged Out No longer eligible based on patient's age to complete this topic MENINGOCOCCAL VACCINES (B) Aged Out N o longer eligible based on patient's age to complete this topic Medical Devices Not on file Procedures Procedure Name Priority Date/Time Associated Diagnosis Comments BASIC METABOLIC PANEL Routine 05/26/2025 5:39 AM EDT CBC Routine 05/26/2025 5:39 AM EDT TSH Routine 05/24/2025 5:56 AM EDT SEDIMENTATION RATE (ESR) Routine 05/24/2025 5:56 AM EDT PTT Routine 05/24/2025 5:56 AM EDT PT-INR Routine 05/24/2025 5:56 AM EDT PHOSPHORUS Routine 05/24/2025 5:56 AM EDT MAGNESIUM Routine 05/24/2025 5:56 AM EDT LIPID PANEL Routine 05/24/2025 5:56 AM EDT HEMOGLOBIN A1C Routine 05/24/2025 5:56 AM EDT CBC AND DIFFERENTIAL Routine 05/24/2025 5:56 AM EDT C-REACTIVE PROTEIN, HIGH SENSITIVITY Routine 05/24/2025 5:56 AM EDT BASIC METABOLIC PANEL Routine 05/24/2025 5:56 AM EDT BASIC METABOLIC PANEL Routine 05/23/2025 5:43 AM EDT TTE COMPREHENSIVE W/ LVO CONTRAST AND AGITATED SALINE Routine 05/21/2025 11:33 AM EDT Cerebral infarction, unspecified mechanism MRI BRAIN WITH CONTRAST Routine 05/21/2025 9:05 AM EDT IP CONSULT TO WOUND NURSE Routine 05/21/2025 1:33 AM EDT MRI BRAIN WITHOUT CONTRAST Required for discharge 05/20/2025 11:[address] ANGIO HEAD WITH AND WITHOUT CONTRAST, CT ANGIO NECK WITH CONTRAST Routine 05/20/2025 6:26 PM EDT TROPONIN STAT 05/20/2025 6:01 PM EDT COVID PANDEMIC RESPIRATORY VIRAL ORDER (PRO) STAT 05/20/2025 5:39 PM EDT TOXICOLOGY SCREEN, URINE STAT 05/20/2025 5:39 PM EDT URINALYSIS W/REFLEX URINE CULTURE STAT 05/20/2025 5:39 PM EDT SALICYLATES STAT 05/20/2025 5:02 PM EDT ACETAMINOPHEN LEVEL STAT 05/20/2025 5 :02 PM EDT ETHANOL, BLOOD STAT 05/20/2025 5:02 PM EDT NT-PROBNP STAT 05/20/2025 5:02 PM EDT TROPONIN STAT 05/20/2025 5:02 PM EDT MAGNESIUM STAT 05/20/2025 5:02 PM EDT LFTS (HEPATIC PANEL) STAT 05/20/2025 5:02 PM EDT BASIC METABOLIC PANEL STAT 05/20/2025 5:02 PM EDT CBC AND DIFFERENTIAL STAT 05/20/2025 5:02 PM EDT ECG 12-LEAD STAT 05/20/2025 3:56 PM EDT from Last 3 Months Results * (ABNORMAL) CBC (05/26/2025 5:39 AM EDT) WBC 15.80(H) 4.00 - 11.00 K/uL [facility] RBC 4.26 4.00 - 5.20 M/uL [facility] HGB 12.0 12.0 - 16.0 g/dL [facility] HCT 37.0 36.0 - 46.0 % [facility] PLT 573(H) 150 - 450 K/uL [facility] MCV 86.9 80.0 - 100.0 fL [facility] MCH 28.2 27.0 - 31.0 pg [facility] MCHC 32.4 32.0 - 36.0 g/dL [facility] RDW 13.8 11.5 - 14.5 % [facility] MPV 8.4 8.4 - 12.0 [facility] NRBC 0.10(H) 0.00 /100 WBCs [facility] ABSOLUTE NRBC 0.02(H) 0.00 K/uL [facility] Blood 05/26/2025 5:39 AM EDT 05/26/2025 5:56 AM EDT Genet Jean Baptiste MD LAB BLOOD ORDERABLES Final Result Performing Organization Address City/[facility] Co de Phone Number [address] [address] * (ABNORMAL) Basic metabolic panel (05/26/2025 5:39 AM EDT) Only the most recent of4 resultswithin the time period is included. SODIUM 140 133 - 146 mmol/L [facility] CHLORIDE 106 96 - 108 mmol/L [facility] POTASSIUM 4.3 3.3 - 5.1 mmol/L [facility] CO2 23 21 - 35 mmol/L [facility] BUN 50(H) 6 - 19 mg/dL [facility] CREATININE 0.60 0.5 - 1.5 mg/dL [facility] GLUCOSE 131(H) 70 - 99 mg/dL [facility] CALCIUM 8.7 8.4 - 10.3 mg/dL [facility] EGFR 99 >59 mL/min/1.7 3m2 [facility] Comment:Estimated glomerular filtration rate calculated using the CKD-EPI refit equation. ANION GAP 15 10 - 20 mmol/L [facility] Blood 05/26/2025 5:39 AM EDT 05/26/2025 5:56 AM EDT Genet Jean Baptiste MD LAB BLOOD ORDERABLES Final Result [address] [address] * C-reactive protein, high sensitivity (05/24/2025 5:56 AM EDT) [facility] CRP, HIGH SENSITIVITY 0.3 0.0 - 5.0 mg/L [facility] Comment: Interpretation: hsCRP level (mg/L) Relative Risk <1.0 Low 1.0 - 3.0 Average >3.0 High Neonates (0-3 weeks): 0.1 - 4.1 mg/L Children (2 months - 15 years): 0.1 - 2.8 mg/L Blood 05/24/2025 5:56 AM EDT 05/24/2025 6:14 AM EDT Genet Jean Baptiste MD LAB BLOOD ORDERABLES Final Result [address] [address] * PTT (05/24/2025 5:56 AM EDT) [facility] APTT 28.5 25.1 - 36.5 sec [facility] Comment:APTT response to unf ractionated heparin concentrations between 0.3 and 0.7 IU/mL is typically 54.0-94.0 seconds in uncomplicated cases. The Anti-Xa assay is the preferred method. Blood 05/24/2025 5:56 AM EDT 05/24/2025 6:14 AM EDT Geent Jean Baptiste MD LAB BLOOD ORDERABLES Final Result [address] [address] * (ABNORMAL) Sedimentation rate (ESR) (05/24/2025 5:56 AM EDT) [facility] ESR 33(H) 0 - 30 mm/h [facility] Blood 05/24/2025 5:56 AM EDT 05/24/2025 6:14 AM EDT Genet Jean Baptiste MD LAB BLOOD ORDERABLES Final Result Performing Organization Address City/[facility]/ZIP Co de Phone Number [address] [address] * PT-INR (05/24/2025 5:56 AM EDT) [facility] PT 11.4 10.2 - 12.9 sec [facility] INR 0.9 0.9 - 1.1 [facility] Comment:Therapeutic range fo r oral Vitamin K antagonists: 2.0-3.5 Blood 05/24/2025 5:56 AM EDT 05/24/2025 6:14 AM EDT Genet Jean Baptiste MD LAB BLOOD ORDERABLES Final Result Performing Organization Address [facility] de Phone Number [address] [address] * (ABNORMAL) CBC and differential (05/24/2025 5:56 AM EDT) Only the most recent of2 resultswithin the time period is included. [facility] WBC 21.36(H) 4.00 - 11.00 K/uL [facility] RBC 4.05 4.00 - 5.20 M/uL [facility] HGB 11.8(L) 12.0 - 16.0 g/dL [facility] HCT 35.2(L) 36.0 - 46.0 % [facility] PLT 543(H) 150 - 450 K/uL [facility] MCV 86.9 80.0 - 100.0 fL [facility] MCH 29.1 27.0 - 31.0 pg [facility] MCHC 33.5 32.0 - 36.0 g/dL [facility] RDW 13.6 11.5 - 14.5 % [facility] MPV 8.3(L) 8.4 - 12.0 fL [facility] NRBC 0.00 0.00 /100 WBCs [facility] ABSOLUTE NRBC 0.00 0.00 K/uL [facility] DIFF METHOD Auto [facility] NEUTS 92.3(H) 48.0 - 76.0 % [facility] LYMPHS 2.9(L) 18.0 - 41.0 % [facility] MONOS 4.1 4.0 - 11.0 % [facility] EOS 0.0 0.0 - 5.0 % [facility] BASOS 0.0 0.0 - 1.5 % [facility] Granulocytes, immature (%) 0.7 0.0 - 0.9 % [facility] ABSOLUTE NEUTS 19.71(H) 1.92 - 7.60 K/uL [facility] ABSOLUTE LYMPHS 0.62(L) 0.72 - 4.10 K/uL [facility] ABSOLUTE MONOS 0.87 0.16 - 1.10 K/uL [facility] ABSOLUTE EOS 0.00 0.00 - 0.50 K/uL [facility] ABSOLUTE BASOS 0.01 0.00 - 0.15 K/uL [facility] Granulocytes, immature 0.15(H) 0.00 - 0.09 K/uL [facility] Blood 05/24/2025 5:56 AM EDT 05/24/2025 6:14 AM EDT Genet Jean Baptiste MD LAB BLOOD ORDERABLES Final Result [address] [address] * TSH (05/24/2025 5:56 AM EDT) TSH 0.33 0.27 - 4.20 uIU/mL [facility] Blood 05/24/2025 5:56 AM EDT 05/24/2025 6:14 AM EDT Genet Jean Baptiste MD LAB BLOOD ORDERABLES Final Result [address] [address] * Phosphorus (05/24/2025 5:56 AM EDT) PHOSPHORUS 3.5 2.7 - 4.5 mg/dL [facility] Blood 05/24/2025 5:56 AM EDT 05/24/2025 6:14 AM EDT us Genet Jean Baptiste MD LAB BLOOD ORDERABLES Final Result [address] [address] * Magnesium (05/24/2025 5:56 AM EDT) Only the most recent of2 resultswithin the time period is included. MAGNESIUM 2.4 1.6 - 2.6 mg/dL [facility] Blood 05/24/2025 5:56 AM EDT 05/24/2025 6:14 AM EDT us Genet Jean Baptiste MD LAB BLOOD ORDERABLES Final Result Performing Organization Address [facility]/ZIP Co de Phone Number [address] [address] * Hemoglobin A1c (05/24/2025 5:56 AM EDT) [facility] HEMOGLOBIN A1C 5.5 4.3 - 5.8 % [facility] Blood 05/24/2025 5:56 AM EDT 05/24/2025 6:15 AM EDT Genet Jean Baptiste MD LAB BLOOD ORDERABLES Final Result Performing Organization Address City/[facility]/ZIP Co de Phone Number [address] [address] * (ABNORMAL) Lipid panel (05/24/2025 5:56 AM EDT) HDL 77 mg/dL [facility] Comment: Interpretation <40 mg/dL: Low HDL cholesterol (major risk factor for CHD) Greater than or equal to 60 mg/dL: High HDL cholesterol ( negative risk factor for CHD) HDL - cholesterol is affected by a number of factors, e.g. smoking, excerise, hormones, sex and age. CHOLESTEROL 213 0 - 240 mg/dL [facility] TRIGLYCERIDES 82 30 - 160 mg/dL [facility] LDL 120 50 - 129 mg/dL [facility] Comment: LDL levels in terms of risk for coronary heart disease: <100 mg/dL: Optimal 100-129 mg/dL: Near or above optimal 130-159 mg/dL: Borderline high 160-189 mg/dL: High >190 mg/dL: Very High CARDIAC RISK RATIO 2.8(L) 3.3 - 4.4 [facility] Blood 05/24/2025 5:56 AM EDT 05/24/2025 6:15 AM EDT Genet Jean Baptiste MD LAB BLOOD ORDERABLES Final Result [address] [address] * TTE COMPREHENSIVE W/ LVO CONTRAST AND AGITATED SALINE (05/21/2025 11:33 AM EDT) Body Surface Area 1.75 m2 Height 150 cm Weight 81 kg Systolic BP 146 mmHg Diastolic BP 77 mmHg Left Atrium Dimension Anterior-Posterior 31 15 - 40 mm Aortic Valve Mean Gradient 3 mmHg Aortic Valve Time Velocity Integral 264.0 mm Aortic Valve Peak Velocity 1.3 m/s Aortic Valve Peak Gradient 7 mmHg Aortic Sinus Diameter 32 <40 mm Ascending Aorta Diameter 26 <36 mm Inferior Vena Cava Diameter 13 <21 mm Interventricular Septum Thickness 10 6 - 11 mm Left Ventricle Internal Diameter End Diastole 43 37 - 52 mm Left Ventricle Internal Diameter End Systole 31 <35 mm Left Ventricular Outflow Tract Diameter 19.0 mm LVOT VTI REST 142.0 mm Left Ventricular Outflow Tract Velocity 0.7 m/s Left Ventricular Outflow Tract Gradient at Rest 2 mmHg Left Ventricular Posterior Wall Thickness 10 6 - 11 mm Left Ventricle Ea Lateral Wave Speed 6.5 cm/s Left Ventricle Ea Septal Wave Speed 7.7 cm/s Ejection Fraction 52 50 - 75 Percent Left Ventricle A Wave Speed 81.8 cm/s Left Ventricle E Wave Speed 58.7 cm/s Pulmonary Valve Peak Velocity 0.9 m/s Pulmonary Valve Peak Gradient 3 mmHg Right Ventricle Basal Diameter 39 25 - 41 mm Tricuspid Valve Peak Velocity 2.4 m/s Raw LV EF% 48 % MV E/E' Tissue Velocity Lateral 9.03 Relative Wall Thickness 0.47 0.22 - 0.42 Left Ventricle indexed to BSA 81.4 g/m2 MV E/A ratio 0.7 MV E/e' septal 7.62 Left Ventricle E/e' Average 8.3 Aortic Valve Prosthetic Peak Gradient 7 mmHg Aortic Valve Prosthetic Mean Gradient 3 mmHg Aortic Valve Sinus Index by BSA 18 mm/m2 Aorta Sinus Index by Height 2.13 cm/m Aorta Sinus CSA index by Height 5.36 cm2/m Ascending Aorta Index 15 mm/m2 Asc Aorta CSA Index by Height 3.54 cm2/m Right Ventricle to Right Atrium Pressure Gradient 23 mmHg Right Ventricle Peak Systolic Pressure (Assuming RAP 10) 33 mmHg MGB CV ECHO TV RVSP (ASSUMING RAP OF 5) 28 mmHg RVSP (Exclusive of RAP) 23 mmHg Pulmonic Valve Prosthetic Peak Gradient 3 mmHg MGB CV AV DIMENSIONLESS INDEX (PEAK) - STRESS ECHO DOBUT - REST 0.54 Ascending Aorta Index 15 mm Aortic Sinus Index 18 mm Ascending Aorta Diameter 15 mm Aortic Valve Sinus Index 1 18 19 - 27 mm AO ASC DIAM BSA INDEX 14.86 Echo E/Ea 7.62 Right Ventricle Peak Systolic Pressure 26 mmHg Right Ventricle TAPSE 25 >=17 mm Right Ventricle Pulse Doppler S Wave 14.4 >=9.5 cm/s Mitral Valve Deceleration Time 190 ms Right Atrium Pressure Estimated 3 mmHg Anatomical Region Laterality Modality Heart Ultrasound Narrative 05/22/2025 10:49 AM EDT Images from the original result were not included. - Rhythm is sinus - Normal LV size and systolic function - EF is estimated at 52% - Normal appearing RV function - No evidence of a PFO present - Mild tricuspid valve regurgitation - RVSP calculated at 26 mmHg - No pericardial effusion present - IVC is normal Multiple poor acoustic windows present limiting interpretation Left Ventricle The left ventricle is normal in size. There is mild concentric hypertrophy. Left ventricular systolic function is at the lower limits of normal. The LV ejection fraction is 52% (calculated via the single dimension method). LV diastolic function appears within normal limits for age. The E wave velocity is 58.7 cm/s. The A wave velocity is 81.8 cm/s. The E/A ratio is 0.7. The E/e' septal ratio is 7.62. The E/e' lateral ratio is 9.03. The average E/e' ratio is 8.3. The MV deceleration time is 190 ms. Right Ventricle The right ventricle is normal in size. TAPSE is 25 mm. RV S' wave is 14.4 cm/s. Left Atrium The left atrium is normal in size. Right Atrium The right atrium is normal in size. The IVC is normal in size with normal inspiratory collapse. Tricuspid Valve The tricuspid valve appears normal. There is no tricuspid stenosis. There is mild tricuspid regurgitation. The RV systolic pressure was calculated at 26 mmHg (using TR peak velocity of 2.4 m/s and assuming an RA pressure of 3 mmHg). Aortic Valve The aortic valve is tricuspid. There is no aortic stenosis. There is no aortic regurgitation. Pulmonic Valve There is no pulmonic stenosis. There is trace pulmonic regurgitation. Pericardium There is no pericardial effusion. General Findings The study was technically difficult (4). Technique(s) used in the evaluation: Color flow Doppler and Spectral Doppler. Meds reconciled and reviewed (see chart). Consent was obtained from: patient An ultrasound enhancing agent was administered IV, per ASE guidelines Agitated saline was administered during the study (Lumason). Comparison Findings There are no prior studies for comparison. IAS/IVS The interatrial septum appears normal. There is no evidence of patent foramen ovale (PFO) by Doppler and agitated saline contrast. Bubble contrast study is performed according to the [facility] HHT protocol. Contrast grade: 0 (no bubbles). us Isamar A [place] DO CV ECHO ORDERABLES Final Resu lt * MRI BRAIN WITH CONTRAST (05/21/2025 9:05 AM EDT) Anatomical Region Laterality Modality Head Magnetic Resonan ce 05/21/2025 9:34 AM EDT Impressions 05/21/2025 9:41 AM EDT 1. No abnormal intracranial enhancement. Narrative 05/21/2025 9:41 AM EDT MRI BRAIN WITH CONTRAST Referring clinician's provided indication for this examination in [facility]: * Brain mass or lesion; Concern for ARIA E, cannot r/o ARIA H. But neuro recommed with contrast to r/o other underlying etiologies TECHNIQUE: MRI BRAIN WITH CONTRAST Multi-sequence, multi-planar MRI of the brain was performed with intravenous contrast. COMPARISON: MRI brain May 20, 2025 FINDINGS: Brain Parenchyma: No abnormal intracranial enhancement. Ventricular System and Extra-Axial Spaces: There is no evidence of midline shift or hydrocephalus. Extracranial Structures: The dural venous sinuses are patent. Procedure Note Judson Graham, DO - 05/21/2025 MRI BRAIN WITH CONTRAST Referring clinician's provided indication for this examination in [facility]: *Brain mass or lesion; Concern for ARIA E, cannot r/o ARIA H. But neurorecommed with contrast to r/o other underlying etiologies TECHNIQUE: MRI BRAIN WITH CONTRAST Multi-sequence, multi-planar MRI of the brain was performed withintravenous contrast. COMPARISON: MRI brain May 20, 2025 FINDINGS: Brain Parenchyma: No abnormal intracranial enhancement. Ventricular System and Extra-Axial Spaces: There is no evidence of midlineshift or hydrocephalus. Extracranial Structures: The dural venous sinuses are patent. IMPRESSION: 1. No abnormal intracranial enhancement. Hermes Ford MD IMG MR HEAD/NECK Final Result * MRI BRAIN WITHOUT CONTRAST (05/20/2025 11:32 PM EDT) MGB IMG MACHINE STITCHER COMMENT ARIA E moderate in degree. call back [phone] [facility] Anatomical Region Laterality Modality Head Magnetic Resonan ce 05/21/2025 2:33 AM EDT Impressions 05/21/2025 3:08 AM EDT 1. Near confluent predominantly subcortical T2/FLAIR hyperintensity in the bilateral frontoparietal lobes (right greater than left), and smaller lesion in the bilateral occipital (right greater than left) with additional sulcal edema in the right parietal and occipital lobes, mostly likely represent ARIA E moderate in degree, given the patient's history of infusion of donanemab and acute symptoms. 2. Additional increased FLAIR hyperintensity in the inferior frontal lobes (right greater than left), indeterminate in the absence of the baseline MRI 3. Multiple microhemorrhages as described above. In absence of baseline MR, new ARIA H can not be excluded. 4. No acute infarct. RECOMMENDATIONS: For impression #2 and 3: Recommend comparison with the baseline MRI if available. Pertinent findings were discussed with HERMES FORD at 05/21/2025 3:07 AM A clinically significant result was initiated on 05/21/2025 3:02 AM, Message ID [id number]. Narrative 05/21/2025 3:08 AM EDT MRI BRAIN WITHOUT CONTRAST Referring clinician's provided indication for this examination in Epic: * Neuro deficit, acute, stroke suspected; left side weakness, recent administration of donanemab TECHNIQUE: MRI BRAIN WITHOUT CONTRAST Multi-sequence, multi-planar MRI of the brain was performed without intravenous contrast. COMPARISON: CT ANGIO HEAD WITH AND WITHOUT CONTRAST, CT ANGIO NECK WITH CO.. 18:23:06.000 FINDINGS: Brain Parenchyma: There is a near confluent predominantly subcortical T2/FLAIR hyperintensity in the bilateral frontoparietal lobe (right greater than left) measuring up to 8.6 cm on sagittal view with smaller patchy FLAIR hyperintense signals in the bilateral occipital lobes (right greater than left). There is also increased FLAIR hyperintensity in the inferior frontal lobes (right greater than left), indeterminate in the absence of the baseline MRI. Additional increased sulci hyperintensity in the right parietal and occipital lobe. There are mild scattered foci of T2 hyperintensity in the white matter, likely a manifestation of chronic small vessel disease. On GRE sequence, there are at least 3 punctate microhemorrhage in the left superior frontal gyrus (5:23), left single gyrus (5:20) and left inferior cerebellum (5:5). On SWAN sequences, there are at least 7 microhemorrhages involving the bilateral hemispheres. Ventricular System and Extra-Axial Spaces: There is no evidence of midline shift or hydrocephalus. Extracranial Structures: Expected arterial flow signal is observed at the skull base. No significant paranasal sinus disease. Unremarkable globes and orbits. Procedure Note Chance Moreno MD, PhD - 05/21/2025 MRI BRAIN WITHOUT CONTRAST Referring clinician's provided indication for this examination in [facility]: *Neuro deficit, acute, stroke suspected; left side weakness, recentadministration of donanemab TECHNIQUE: MRI BRAIN WITHOUT CONTRAST Multi-sequence, multi-planar MRI of the brain was performed withoutintravenous contrast. COMPARISON: CT ANGIO HEAD WITH AND WITHOUT CONTRAST, CT ANGIO NECK WITHCO.. 18:23:06.000 FINDINGS: Brain Parenchyma: There is a near confluent predominantly subcorticalT2/FLAIR hyperintensity in the bilateral frontoparietal lobe (rightgreater than left) measuring up to 8.6 cm on sagittal view with smallerpatchy FLAIR hyperintense signals in the bilateral occipital lobes (rightgreater than left). There is also increased FLAIR hyperintensity in theinferior frontal lobes (right greater than left), indeterminate in theabsence of the baseline MRI. Additional increased sulci hyperintensity inthe right parietal and occipital lobe. There are mild scattered foci of [id number] in the white matter, likely a manifestation of chronicsmall vessel disease. On GRE sequence, there are at least 3 punctatemicrohemorrhage in the left superior frontal gyrus (5:23), left singlegyrus (5:20) and left inferior cerebellum (5:5). On SWAN sequences, thereare at least 7 microhemorrhages involving the bilateral hemispheres. Ventricular System and Extra-Axial Spaces: There is no evidence of midlineshift or hydrocephalus. Extracranial Structures: Expected arterial flow signal is observed at theskull base. No significant paranasal sinus disease. Unremarkable globesand orbits. IMPRESSION: 1. Near confluent predominantly subcortical T2/FLAIR hyperintensity inthe bilateral frontoparietal lobes (right greater than left), and smallerlesion in the bilateral occipital (right greater than left) withadditional sulcal edema in the right parietal and occipital lobes, mostlylikely represent ARIA E moderate in degree, given the patient's history ofinfusion of donanemab and acute symptoms. 2. Additional increased FLAIR hyperintensity in the inferior frontallobes (right greater than left), indeterminate in the absence of thebaseline MRI 3. Multiple microhemorrhages as described above. In absence of baselineMR, new ARIA H can not be excluded. 4. No acute infarct. RECOMMENDATIONS: For impression #2 and 3: Recommend comparison with the baseline MRI ifavailable. Pertinent findings were discussed with HERMES FORD at 05/21/2025 3:07AM A clinically significant result was initiated on 05/21/2025 3:02 AM,Message ID [id number]. us Isamar A South Korean DO IMG MR HEAD/NECK Final Result * CT ANGIO HEAD WITH AND WITHOUT CONTRAST, CT ANGIO NECK WITH CONTRAST (05/20/2025 6:26 PM EDT) Anatomical Region Laterality Modality Neck Computed Tomogra phy 05/20/2025 8:45 PM EDT Impressions 05/20/2025 8:56 PM EDT 1. Right greater than left frontoparietal subcortical white matter hypodensities with sulcal effacement, likely representing edema. Recommend MRI with contrast for further evaluation. 2. No large vessel occlusion, high-grade stenosis, aneurysm or dissection in the head or neck. Narrative 05/20/2025 8:[address] ANGIO HEAD WITH AND WITHOUT CONTRAST, CT ANGIO NECK WITH CONTRAST Referring clinician's provided indication for this examination in [facility]: * Stroke/TIA, assess intracranial arteries; symptoms on Sunday with left leg and arm weakness, that have since been progressing, with increased weakness today, and difficulty following commands TECHNIQUE: * CTA of the head was performed before and after administration of intravenous contrast using tailored dose modulation techniques. Images were reconstructed in the axial, coronal, and sagittal planes, including angiographic image post-processing. 3D angiographic images with reformatting and post-processing reconstructions were performed and interpreted. * CTA of the neck was performed after administration of intravenous contrast using tailored dose modulation techniques. Images were reconstructed in the axial, coronal, and sagittal planes. 3D angiographic images with reformatting and post- processing reconstructions were performed and interpreted. COMPARISON: None FINDINGS: CT HEAD: Brain Parenchyma: Subcortical white matter hypodensities in the right frontoparietal and left frontal regions with sulcal effacement. No midline shift, parenchymal hemorrhage, or evidence of acute territorial infarct. Ventricular System and Extra-Axial Spaces: No extra-axial fluid collections. Basal cisterns are patent. No hydrocephalus. Osseous and Extracranial Structures: No calvarial fracture or significant soft tissue hematoma. No significant paranasal sinus disease. No orbital abnormality. CTA HEAD: No aneurysm or arteriovenous malformation. Intracranial internal carotid arteries: No occlusion or high grade stenosis. Anterior cerebral arteries: No occlusion or high grade stenosis. Middle cerebral arteries: No occlusion or high grade stenosis. Vertebrobasilar system: No occlusion or high grade stenosis. Posterior cerebral arteries: No occlusion or high grade stenosis. Venous: No dural sinus thrombosis. CTA NECK: Aortic Arch and Branch Vessel Origins: Normal branching anatomy. No high grade stenosis. Right Carotid Artery: No occlusion, high grade stenosis or dissection. Left Carotid Artery: No occlusion, high grade stenosis or dissection. Right Vertebral Artery: No occlusion, high grade stenosis or dissection. Left Vertebral Artery: No occlusion, high grade stenosis or dissection. Venous structures: The jugular veins enhance normally. NON-VASCULAR FINDINGS: Lungs and Airways: No acute abnormality. Soft tissues: No adenopathy. Bones: Degenerative changes of the cervical spine. Procedure Note Batsheva Cronin MD - 05/20/2025 CT ANGIO HEAD WITH AND WITHOUT CONTRAST, CT ANGIO NECK WITH CONTRAST Referring clinician's provided indication for this examination in Epic: *Stroke/TIA, assess intracranial arteries; symptoms on Sunday with left legand arm weakness, that have since been progressing, with increasedweakness today, and difficulty following commands TECHNIQUE: * CTA of the head was performed before and after administration ofintravenous contrast using tailored dose modulation techniques. Imageswere reconstructed in the axial, coronal, and sagittal planes, includingangiographic image post- processing. 3D angiographic images withreformatting and post-processing reconstructions were performed andinterpreted. * CTA of the neck was performed after administration of intravenouscontrast using tailored dose modulation techniques. Images werereconstructed in the axial, coronal, and sagittal planes. 3D angiographicimages with reformatting and post-processing reconstructions wereperformed and interpreted. COMPARISON: None FINDINGS: CT HEAD: Brain Parenchyma: Subcortical white matter hypodensities in the rightfrontoparietal and left frontal regions with sulcal effacement. No midlineshift, parenchymal hemorrhage, or evidence of acute territorial infarct. Ventricular System and Extra-Axial Spaces: No extra-axial fluidcollections. Basal cisterns are patent. No hydrocephalus. Osseous and Extracranial Structures: No calvarial fracture or significantsoft tissue hematoma. No significant paranasal sinus disease. No orbitalabnormality. CTA HEAD: No aneurysm or arteriovenous malformation. Intracranial internal carotid arteries: No occlusion or high gradestenosis. Anterior cerebral arteries: No occlusion or high grade stenosis. Middle cerebral arteries: No occlusion or high grade stenosis. Vertebrobasilar system: No occlusion or high grade stenosis. Posterior cerebral arteries: No occlusion or high grade stenosis. Venous: No dural sinus thrombosis. CTA NECK: Aortic Arch and Branch Vessel Origins: Normal branching anatomy. No highgrade stenosis. Right Carotid Artery: No occlusion, high grade stenosis or dissection. Left Carotid Artery: No occlusion, high grade stenosis or dissection. Right Vertebral Artery: No occlusion, high grade stenosis or dissection. Left Vertebral Artery: No occlusion, high grade stenosis or dissection. Venous structures: The jugular veins enhance normally. NON-VASCULAR FINDINGS: Lungs and Airways: No acute abnormality. Soft tissues: No adenopathy. Bones: Degenerative changes of the cervical spine. IMPRESSION: 1. Right greater than left frontoparietal subcortical white matterhypodensities with sulcal effacement, likely representing edema. RecommendMRI with contrast for further evaluation. 2. No large vessel occlusion, high-grade stenosis, aneurysm or dissectionin the head or neck. Christiane Brewer MD IM CT HEAD/NECK Final Re sult * Troponin (05/20/2025 6:01 PM EDT) Only the most recent of2 resultswithin the time period is included. Troponin-T, HS Gen5 8 0 - 9 ng/L [facility] Blood 05/20/2025 6:01 PM EDT 05/20/2025 6:15 PM EDT Christiane Brewer MD LAB BLOOD ORDERABLES Meri l Result Performing Organization Address [facility]/ZIP Co de Phone Number [address] [address] * (ABNORMAL) Urinalysis w/reflex Urine Culture (05/20/2025 5:39 PM EDT) COLOR Yellow Yellow [facility] CLARITY Clear [facility] GLUCOSE Negative Negative [facility] BILI Negative Negative [facility] KETONES Negative Negative [facility] SPECIFIC GRAVITY 1.010 1.005 - 1.030 [facility] BLOOD Trace(A) Negative [facility] PH 7.5 5.0 - 8.0 [facility] Protein-UA Negative Negative [facility] NITRITE Negative Negative [facility] Leukocyte esterase, ur Negative Negative [facility] Urine (Urine) 05/20/2025 5:3 9 PM EDT 05/20/2025 6:11 PM EDT us Christiane Brewer MD URINE ORDERABLES Final Re sult Performing Organization Address [facility] Co de Phone Number [address] [address] * COVID Pandemic Respiratory Viral Order (PRO) (05/20/2025 5:39 PM EDT) Test Ordered Rapid COVID has been ordered [facility] Specimen Source/Description NASAL [facility] SARS-CoV 2 (COVID-19) PCR Not Detected Not Detected [facility] Comment: SARS-CoV-2 not detected Negative results do not preclude SARS-CoV-2 infection and should not be used as the sole basis for patient management decisions. Negative results must be combined with clinical observations, patient history, and epidemiological information. Other (Nasopharyngeal swab) 05/20/2025 5:39 PM EDT 05/20/2025 6:08 PM EDT us Christiane Brewer MD BODY FLUIDS AND STOOLS OR DERABLES Final Result Performing Organization Address [facility]/ZIP Co de Phone Number [address] [address] * Toxicology screen, urine (05/20/2025 5:39 PM EDT) URINE CANNABINOIDS NONE DETECTED NONE DETECTED [facility] Comment:Cutoff: 50 ng/mL URINE COCAINE METAB NONE DETECTED NONE DETECTED [facility] Comment:Cutoff: 300 ng/mL URINE AMPHETAMINES NONE DETECTED NONE DETECTED [facility] Comment:Cutoff: 1000 ng/mL URINE METHADONE NONE DETECTED NONE DETECTED [facility] Comment:Cutoff: 300 ng/mL URINE OPIATES NONE DETECTED NONE DETECTED [facility] Comment:Cutoff: 300 ng/mL URINE PHENCYCLIDINE NONE DETECTED NONE DETECTED [facility] Comment:Cutoff: 25 ng/mL URINE OXYCODONE NONE DETECTED NONE DETECTED [facility] Comment:Cutoff: 300 ng/mL URINE BARBITURATES NONE DETECTED NONE DETECTED [facility] Comment:Cutoff: 200 ng/mL URINE BENZODIAZEPINE NONE DETECTED NONE DETECTED [facility] Comment:Cutoff: 200 ng/mL URINE BUPRENORPHINE NONE DETECTED NONE DETECTED [facility] Comment:Cutoff: 5 ng/mL Fentanyl, urine NONE DETECTED NONE DETECTED [facility] Comment: Cutoff: 5 ng/mL INTERPRETATION FOR TOXICOLOGY PANEL: These results are unconfirmed and should be used for Medical Treatment purposes only. Urine (Urine) 05/20/2025 5:3 9 PM EDT 05/20/2025 6:11 PM EDT us Christiane Brewer MD URINE ORDERABLES Final Re sult Performing Organization Address [facility]/ZIP Co de Phone Number [facility] [address] [place] [address] * Ethanol, blood (05/20/2025 5:02 PM EDT) ETHANOL <10 <10 mg/dL [facility] Blood 05/20/2025 5:02 PM EDT 05/20/2025 5:09 PM EDT us Christiane Brewer MD LAB BLOOD ORDERABLES Meri l Result Performing Organization Address City/[facility]/ZIP Co de Phone Number [address] [address] * LFTs (hepatic panel) (05/20/2025 5:02 PM EDT) ALKALINE PHOSPHATASE 57 39 - 117 U/L [facility] TOTAL BILIRUBIN <0.2 0.0 - 1.2 mg/dL [facility] DIRECT BILIRUBIN <0.1 0.0 - 0.2 mg/dL [facility] Bilirubin (Indirect) NOT CALCULATED 0 - 1.5 mg/dL [facility] AST 21 0 - 37 U/L [facility] ALT 15 0 - 40 U/L [facility] TOTAL PROTEIN 7.0 6.5 - 8.0 g/dL [facility] ALBUMIN 4.1 3.9 - 4.8 g/dL [facility] GLOBULIN 2.9 1 - 4.8 g/dL [facility] A/G Ratio 1.41 1.00 - 4.80 RATIO [facility] Blood 05/20/2025 5:02 PM EDT 05/20/2025 5:09 PM EDT us Christiane Brewer MD LAB BLOOD ORDERABLES Meri l Result [address] [address] * NT-proBNP (05/20/2025 5:02 PM EDT) [facility] NT-PROBNP <36 0 - 125 pg/mL [facility] Blood 05/20/2025 5:02 PM EDT 05/20/2025 5:09 PM EDT us Christiane Brewer MD LAB BLOOD ORDERABLES Meri l Result [address] [address] * (ABNORMAL) Acetaminophen level (05/20/2025 5:02 PM EDT) ACETAMINOPHEN <5.0(L) 15.0 - 30.0 ug/mL [facility] Blood 05/20/2025 5:02 PM EDT 05/20/2025 5:09 PM EDT Christiane Brewer MD LAB BLOOD ORDERABLES Meri l Result Performing Organization Address [facility]/ZIP Co de Phone Number [address] [address] * (ABNORMAL) Salicylates (05/20/2025 5:02 PM EDT) SALICYLATES <0.3(L) 2.8 - 19.9 mg/dL [facility] Blood 05/20/2025 5:02 PM EDT 05/20/2025 5:09 PM EDT Christiane Brewer MD LAB BLOOD ORDERABLES Meri l Result Performing Organization Address [facility] Co de Phone Number [address] [address] * ECG 12-LEAD (05/20/2025 3:56 PM EDT) Ventricular Rate EKG/MIN 69 BPM [facility] Atrial Rate 69 BPM [facility] [place] Interval 194 ms [facility] QRS Duration 78 ms [facility] QT Interval 372 ms [facility] QTC Interval 398 ms [facility] P [place] 50 degrees [facility] R Wave [place] 6 degrees [facility] T Wave [place] 30 degrees [facility] 05/20/2025 3:56 PM EDT 05/21/2025 3:17 PM EDT Narrative [facility] - 05/21/2025 3:17 PM EDT Normal sinus rhythm Inferior infarct , age undetermined Anterior infarct (cited on or before 10-Jan-2022) Abnormal ECG When compared with ECG of 10-Jan-2022 01:37, Inferior infarct is now Present Confirmed by Sacha MCGEE ([id number]) on 05/21/2025 3:17:40 PM us Rogelio Thompson MD ECG ORDERABLES F inal Result [facility] from Last 3 Months Insurance [place] [facility] [place] [facility] & B Advance Directives For more information, please contact: [phone] (9AM - 5PM [facility], Sunday-Sunday) * Full Code (Latest Code Status on File) Date Activated Date Inactivated Comments 05/20/2025 9:51 PM Question Answer Comments Code Status Confirmed With: Patient Care Teams Building And Grounds Supervisor Relationship Specialty Start Date End Date Lit Billings PA [address] [place] [address] PCP - General 08/11/21 Additional Source Comments The information contained in this document represents components of the legal health record. It is not the complete legal health record.[facility]
--- OUTSIDE RECORDS SUMMARY | 2025-06-25 12:49 | XMS_ITS | Encounter Summary ---
Author Organization [employer] [facility] Address [facility] [address] [place] [address] Phone Care Team Providers Care Water Quality Manager Name Role Phone Lit Billings Primary Care Provider + Encounter Details Date Type Department Care Team (Late st Contact Info) Description 06/23/2025 Episode Documentatio n Update [facility] [address] [place] [address] Kim Chu [address] [place] [address] [email or web address] Social History Tobacco Use Types Packs/Day Years [...] Visit [facility] [address] [place] [address] Vickie Perez, OT [address] [place] [address] 07/01/2025 12:30 AM EDT Home Care Visit [facility] [address] [place] [address] Rocky Stovall RN [address] [place] [address] 07/01/2025 12:30 PM EDT Home Care Visit [facility] [address] [place] [address] Maribel Lyon, PT [address] [place] [address] 07/02/2025 2:00 AM EDT Home Care Visit [facility] [address] [place] [address] Vickie Perez, OT [address] [place] [address] 07/06/2025 2:15 AM EDT Home Care Visit [facility] [address] [place] [phone] Vickie Perez, OT [address] [place] [address] 07/08/2025 1:00 AM EDT Home Care Visit [facility] [address] [place] [address] Rocky Stovall RN [address] [place] [address] 07/08/2025 2:30 AM EDT Home Care Visit [facility] [address] [place] [address] Maribel Lyon, PT [address] [place] [address] 07/09/2025 Home Care Visit [facility] [address] [place] [address] Vickie Perez, OT [address] [place] [address] 07/13/2025 1:15 AM EDT Home Care Visit [facility] [address] [place] [phone] Vickie Perez, OT [address] [place] [address] 07/15/2025 1:00 AM EDT Home Care Visit [facility] [address] [place] [phone] Rocky Stovall RN [address] [place] [address] 07/15/2025 1:30 AM EDT Home Care Visit [facility] [address] [place] [phone] Maribel Lyon, PT [address] [place] [address] 07/16/2025 Home Care Visit [facility] [address] [place] [phone] Vickie Perez, OT [address] [place] [address] 07/22/2025 1:00 AM EDT Home Care Visit [facility] [address] [place] [address] Rocky Stovall RN [address] [place] [address] 07/29/2025 12:30 AM EDT Home Care Visit [facility] [address] [place] [phone] Rocky Stovall RN [address] [place] [address] 08/05/2025 12:30 AM EDT Appointment [facility] [address] [place] [address] Rocky Stovall RN [address] [place] [address] 09/01/2025 8:30 AM EST Office Visit [facility] [address] [place] [address] Nakul Briones MD [address] [place] [address] [email or web address] documented as of this encounter Visit Diagnoses Not on filedocumented in this encounter Care Teams Water Quality Manager Relationship Specialty Start Date End Date Lit Billings PA [address] [place] [address] PCP - General 08/11/21 documented as of this encounter Additional Source Comments The information contained in this document represents components of the legal health record. It is not the complete legal health record.[facility]
--- OUTSIDE RECORDS SUMMARY | 2025-06-25 12:50 | XMS_ITS | Encounter Summary ---
Author Organization [facility] Address [address] [place] [address] Phone Care Team Providers Care Molasses And Caramel Operator Name Role Phone Lit Billings Primary Care Provider + Reason for Visit * Auth/Cert (Routine) Specialty Diagnoses / Procedures Referred By Emmanuel quintanilla Referred To Contact Referral ID Status Reason Start Date Expiration Date Visits Re quested Visits Authorized [id number] 1 1 Encounter Details Date Type Department Care Team (Late st Contact Info) Description 06/22/2025 Home Care Visit [facility] [address] [place] [address] Vickie Perez, OT [address] [place] [address] [email or web address] CASE COMMUNICATION Social History Tobacco Use Types Packs/Day Years [...] 2:15 AM EDT Home Care Visit [facility] [address] [place] [address] Vickie Perez, OT [address] [place] [address] 07/01/2025 12:30 AM EDT Home Care Visit [facility] [address] [place] [phone] Rocky Stovall, MARY [address] [place] [address] 07/01/2025 12:30 PM EDT Home Care Visit [facility] [address] [place] [phone] Maribel Lyon, PT [address] [place] [address] 07/02/2025 2:00 AM EDT Home Care Visit [facility] [address] [place] [phone] Vickie Perez, OT [address] [place] [address] 07/06/2025 2:15 AM EDT Home Care Visit [facility] [address] [place] [phone] Vickie Perez, OT [address] [place] [address] 07/08/2025 1:00 AM EDT Home Care Visit [facility] [address] [place] [address] Rocky Stovall, MARY [address] [place] [address] 07/08/2025 2:30 AM EDT Home Care Visit [facility] [address] [place] [phone] Maribel Lyon, PT [address] [place] [address] 07/09/2025 Home Care Visit [facility] [address] [place] [address] Vickie Perez, OT [address] [place] [address] 07/13/2025 1:15 AM EDT Home Care Visit [facility] [address] [place] [phone] Vickie Perez, OT [address] [place] [address] 07/15/2025 1:00 AM EDT Home Care Visit [facility] [address] [place] [phone] Rocky Stovall RN [address] [place] [address] 07/15/2025 1:30 AM EDT Home Care Visit [facility] [address] [place] [phone] Ruby Lyona, PT [address] [place] [address] 07/16/2025 Home Care Visit [facility] [address] [place] [address] Vickie Perez, OT [address] [place] [address] 07/22/2025 1:00 AM EDT Home Care Visit [facility] [address] [place] [phone] Rocky Stovall RN [address] [place] [address] 07/29/2025 12:30 AM EDT Home Care Visit [facility] [address] [place], [place] [phone] Rocky Stovall RN [address] [place] [address] 08/05/2025 12:30 AM EDT Appointment [facility] [address] [place] [address] Rocky Stovall RN [address] [place] [address] 09/01/2025 8:30 AM EST Office Visit [facility] [address] [place] [address] Nakul Briones MD [address] [place] [address] [email or web address] documented as of this encounter Visit Diagnoses Not on filedocumented in this encounter Care Teams Molasses And Caramel Operator Relationship Specialty Start Date End Date Lit Billings PA [address] [place] [address] PCP - General 08/11/21 documented as of this encounter Additional Source Comments The information contained in this document represents components of the legal health record. It is not the complete legal health record.[facility]
--- OUTSIDE RECORDS SUMMARY | 2025-06-25 12:50 | XMS_ITS | Encounter Summary ---
Author Organization [employer] [facility] Address [facility] [address] [place] [address] Phone Care Team Providers Care Ct Mri Technologist Name Role Phone Lit Billings Primary Care Provider + Encounter Details Date Type Department Care Team (Late st Contact Info) Description 06/25/2025 Episode Documentatio n Update [facility] [address] [place] [address] Kim Chu [address] [place] [address] [email or web address] Social History Tobacco Use Types Packs/Day Years [...] Visit [facility] [address] [place] [address] Vickie Perez, OT [address] [place] [address] 07/01/2025 12:30 AM EDT Home Care Visit [facility] [address] [place] [address] Rocky Stovall RN [address] [place] [address] 07/01/2025 12:30 PM EDT Home Care Visit [facility] [address] [place] [address] Maribel Lyon, PT [address] [place] [address] [email or web address] 07/02/2025 2:00 AM EDT Home Care Visit [facility] [address] [place] [address] Vickie Perez, OT [address] [place] [address] 07/06/2025 2:15 AM EDT Home Care Visit [facility] [address] [place] [phone] Vickie Perez, OT [address] [place] [address] [email or web address] 07/08/2025 1:00 AM EDT Home Care Visit [facility] [address] [place] [address] Rocky Stovall RN [address] [place] [address] [email or web address] 07/08/2025 2:30 AM EDT Home Care Visit [facility] [address] [place] [address] Maribel Lyon, PT [address] [place] [address] [email or web address] 07/09/2025 Home Care Visit [facility] [address] [place] [address] Vickie Perez, OT [address] [place] [address] [email or web address] 07/13/2025 1:15 AM EDT Home Care Visit [facility] [address] [place] [phone] Vickie Perez, OT [address] [place] [address] 07/15/2025 1:00 AM EDT Home Care Visit [facility] [address] [place] [phone] Rocky Stovall RN [address] [place] [address] [email or web address] 07/15/2025 1:30 AM EDT Home Care Visit [facility] [address] [place] [phone] Maribel Lyon, PT [address] [place] [address] 07/16/2025 Home Care Visit [facility] [address] [place] [phone] Vickie Perez, OT [address] [place] [address] [email or web address] 07/22/2025 1:00 AM EDT Home Care Visit [facility] [address] [place] [address] Rocky Stovall RN [address] [place] [address] 07/29/2025 12:30 AM EDT Home Care Visit [facility] [address] [place] [phone] Rocky Stovall RN [address] [place] [address] [email or web address] 08/05/2025 12:30 AM EDT Appointment [facility] [address] [place] [address] Rocky Stovall RN [address] [place] [address] 09/01/2025 8:30 AM EST Office Visit [facility] [address] [place] [address] Nakul Briones MD [address] [place] [address] [email or web address] documented as of this encounter Visit Diagnoses Not on filedocumented in this encounter Care Teams Ct Mri Technologist Relationship Specialty Start Date End Date Lit Billings PA [address] [place] [address] PCP - General 08/11/21 documented as of this encounter Additional Source Comments The information contained in this document represents components of the legal health record. It is not the complete legal health record.[facility]
== END 2025-06-25 11:33 | disposition home or self-care (01) ==
LOC: HO.HPODS 10:39
PROVIDERS: PCP Physician Assistant; Visit Provider Student in an Organized Health Care Education/Training Program
DX: R20.0 Anesthesia of skin (principal); M54.16 Radiculopathy, lumbar region; G30.1 Alzheimer's disease with late onset; F02.B0 Dementia in other diseases classified elsewhere, moderate, without behavioral disturbance, psychotic disturbance, mood disturbance, and anxiety; M72.2 Plantar fascial fibromatosis
CPT/HCPCS: 99204

== ENCOUNTER → 2025-06-25 10:38 | Outpatient (BNVA) | payer MEDICARE, MEDICAID, SELFPAY | PROVIDERS: PCP Physician Assistant; Visit Provider Student in an Organized Health Care Education/Training Program | DX: M72.2 Plantar fascial fibromatosis (principal); R20.0 Anesthesia of skin; M54.16 Radiculopathy, lumbar region; G30.1 Alzheimer's disease with late onset; F02.B0 Dementia in other diseases classified elsewhere, moderate, without behavioral disturbance, psychotic disturbance, mood disturbance, and anxiety | CPT/HCPCS: 99202 ==

== ENCOUNTER 2025-07-05 13:43 | Outpatient (REF) | payer MEDICARE, MEDICAID, SELFPAY ==
--- OUTSIDE RECORDS SUMMARY | 2025-07-01 10:45 | XMS_ITS | Encounter Summary ---
Author Organization [facility] Address [address] [place] [address] Phone Care Team Providers Care Medical Delivery Driver Name Role Phone Lit Billings Primary Care Provider + Reason for Visit * Auth/Cert (Routine) Specialty Diagnoses / Procedures Referred By Emmanuel quintanilla Referred To Contact Referral ID Status Reason Start Date Expiration Date Visits Re quested Visits Authorized [id number] 1 1 Encounter Details Date Type Department Care Team (Late st Contact Info) Description 07/01/2025 10:45 AM EDT Home Care Visit [facility] [address] [place] [address] Dalila Briones, OT [address] [place] [address] [email or web address] OT HOME VISIT Social History Tobacco Use [...] is your housing situation today? I have orderick gaytan 05/20/2025 How many times have you [...] Sign Reading Time Taken Comments Blood Pressure 122/72 07/01/2025 11:00 AM EDT Pulse 78 07/01/2025 11:00 AM EDT Temperature - - Respiratory Rate - - Oxygen Saturation 99% 07/01/2025 11:00 AM EDT Inhaled Oxygen Concentration - - Weight - - Height - - Body Mass Index - - documented in this encounter Plan of Treatment Upcoming Encounters Date Type Department Care Team (Late st Contact Info) Description 07/06/2025 2:15 AM EDT Home Care Visit [facility] [address] [place] [phone] Vickie Perez, OT [address] [place] [address] 07/08/2025 1:00 AM EDT Home Care Visit [facility] [address] [place] [phone] Rocky Stovall RN [address] [place] [address] 07/09/2025 Home Care Visit [facility] [address] [place] [phone] Vickie Perez, OT [address] [place] [address] 07/13/2025 1:15 AM EDT Home Care Visit [facility] [address] [place] [phone] Vickie Perez, OT [address] [place] [address] 07/15/2025 1:00 AM EDT Home Care Visit [facility] [address] [place] [phone] Rocky Stovall, MARY [address] [place] [address] 07/16/2025 Home Care Visit [facility] [address] [place] [phone] Vickie Perez, OT [address] [place] [address] 07/22/2025 1:00 AM EDT [facility] [address] [place], [place] [phone] Rocky Stovall RN [address] [place] [address] 07/29/2025 12:30 AM EDT Home [facility] [address] [place], [place] [phone] Rocky Stovall RN [address] [place] [address] 08/05/2025 12:30 AM EDT Appointment [facility] [address] [place], [place] [phone] Rocky Stovall RN [address] [place] [address] 09/01/2025 8:30 AM EST Office Visit [facility] [address] [facility] [address] [place] [address] Nakul Briones MD [address] [place] [address] [email or web address] documented as of this encounter Visit Diagnoses [...] scheduled/document ed in this visit HH - ADL/IADL Impairment and Therapeutic Interventions Disciplines: Occupational Therapy 06/22/2025 Active 1 goal linked to scheduled/document ed intervention Goals Goal Associated Problem Outcome Goal Met? Visit Notes HH - Achieve care management for a safe to home/community discharge from homecare HH - Standard of Care No HH - Safe medication management, [...] Planning - Knowledge of No HH - Promote higher level of independence with performance of ADLs/IADLs. Description: OT GOALS: 1. Patient will answer incoming [...] 5. Patient will access and navigate through [place] with V[place]se of device only by 07/18/25. HH - ADL/IADL Impairment and Therapeutic Interventions Progressing No Interventions Intervention Associated Problem/Goal Status Variance [...] discharge from homecare Completed HH - I/E medication management: administration, [...] Clinical Focus this Visit & Instruction Provided: Spouse, granddaughter, and great grandaughter present for session. Patient reports new dull headache today. HEP initiated today focusing on B UE generalized strength with lightly weightes household items bicep curl, lateral raises, IE/ER, chest press, shoulder press, and tricep extensions 15x for 2 sets. Verbal cuing for appropraite form to maximize benefits of ther ex. Visual aid needed for next session. Patient also cued to initiate phone call to spouse. With initiation cue, patient used Dalila with S to call spouse. Patient required 2 cues to call spouse manually with smart phone. Spouse reports that he plans to continue to declutter main phone screen to improve ease of smart phone use. Instruction Provided to: caregivers Response to Instruction/Teaching : verbalized understanding Plan for Next Visit Specific Focus & Education Needed: technology use New Orders: Updated Discharge Plan: unchanged HH - I/E management of care in an urgent or emergency (ER) situation: When to call your Home Care Team/[facility], ER plans, supplies, evacuation, when to contact [...] Completed documented in this encounter Care Teams Medical Delivery Driver Relationship Specialty Start Date End Date Lit Billings PA [address] [place] [address] PCP - General 08/11/21 documented as of this encounter Additional Source Comments The information contained in this document represents components of the legal health record. It is not the complete legal health record.[facility]
--- NOTE | ~2025-07-05 | MR_ITS ---
CLINICAL HISTORY: G30.1 - Alzheimers disease with late onset MR brain without contrast. COMPARISON: MR brain dated 04/23/25 at 11:56 EDT FINDINGS: No abnormal diffusion restriction in the brain parenchyma or extra-axial spaces. No evidence of mass, mass effect or midline shift. 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 No intracranial hemorrhage or abnormal extra-axial fluid collection. The ventricles are proportional with the degree of mild to moderate cerebral volume loss without evidence of hydrocephalus. Basilar cisterns are patent. Patchy hyperintense T2/FLAIR areas within the periventricular white matter and anglin radiata compatible with moderate white matter small vessel disease. Cerebellar hemispheres and cerebellar vermis are normal. Fourth ventricle is normal. No brainstem abnormality is identified. Intracranial flow voids are patent. The visualized paranasal sinuses and mastoid air-cells are clear. IMPRESSION: 1. No acute intracranial findings. No evidence of acute ischemia, mass or mass effect. 2. Moderate white-matter small-vessel disease with global cerebral volume loss. This document has been electronically signed by: Mello Mccoy MD on 07/05/2025 17:29:42
--- OUTSIDE RECORDS SUMMARY | 2025-07-05 13:52 | XMS_ITS | Encounter Summary ---
Author Organization [facility] Address [address] [place] [phone] Phone Care Team Providers Care Carbonator Name Role Phone Lit Billings Primary Care Provider + Encounter Details Date Type Department Care Team (Late st Contact Info) Description 05/20/2025 Procedure [facility] [address] [place] [address] Social History Tobacco Use Types Packs/Day Years [...] 4:03 PM EDT Matias Mcqueen RN * Nancy Suicide Severity Rating Scale (Screener/Recent Self-Report) Question [...] Care Visit [facility] [address] [place] [phone] Vickie Perez, OT [address] [place] [address] 07/08/2025 1:00 AM EDT Home Care Visit [facility] [address] [place] [phone] Rocky Stovall, MARY [address] [place] [address] 07/09/2025 Home Care Visit [facility] [address] [place] [phone] Vickie Perez, OT [address] [place] [address] 07/13/2025 1:15 AM EDT Home Care Visit [facility] [address] [place] [phone] Vickie Perez, OT [address] [place] [address] 07/15/2025 1:00 AM EDT Home Care Visit [facility] [address] [place] [phone] Rocky Stovall, MARY [address] [place] [address] 07/16/2025 Home Care Visit [facility] [address] [place] [phone] Vickie Perez, OT [address] [place] [address] 07/22/2025 1:00 AM EDT Home Care Visit [facility] [address] [place], [place] [phone] Rocky Stovall RN [address] [place] [address] 07/29/2025 12:30 AM EDT Home Care Visit [facility] [address] [place], [place] [phone] Rocky Stovall RN [address] [place] [address] 08/05/2025 12:30 AM EDT Appointment [facility] [address] [place] [phone] Rocky Stovall RN [address] [place] [address] 09/01/2025 8:30 AM EST Office Visit [facility] [address] [place] [address] Nakul Briones MD [address] [facility] [address] [place] [phone] [email or web address] documented as of this encounter Visit Diagnoses Not on filedocumented in this encounter Additional Health Concerns Infection Onset Date Last Indicated Resolved Time CoV-Risk Comment:Per note documentation 05/20/2025 05/20/2025 7:54 AM EDT documented as of this encounter Care Teams Carbonator Relationship Specialty Start Date End Date Lit Billings PA [facility] [place] [address] PCP - General 08/11/21 documented as of this encounter Additional Source Comments The information contained in this document represents components of the legal health record. It is not the complete legal health record.[email or web address]
--- OUTSIDE RECORDS SUMMARY | 2025-07-05 13:52 | XMS_ITS | Clinical Summary ---
Author Organization [facility] Address Formerly [facility] enrich-in [address] [address] Phone Care Team Providers Care Sanitizer Name Role Phone Lit [facility] [...] as normal Could not reach outpatient neuro. [facility] teleneurolgy recommendations as follows: -Discontinuation of donanemab [...] as normal Could not reach outpatient neuro. [facility] [place] teleneurolgy recommendations as follows: -Discontinuation of donanemab [...] as normal Could not reach outpatient neuro. [facility] [place] teleneurolgy recommendations as follows: -Discontinuation of donanemab [...] as normal Could not reach outpatient neuro. [facility] teleneurolgy recommendations as follows: -Discontinuation of donanemab [...] Have call out to Dr. Taylor from [facility] Assessment & Plan (05/20/2025 10:21 PM EDT): [...] results available -Monitor on tele -PT/OT eval -CERTIFIED PROFESSIONAL CODER eval -Follow up HbA1c, TSH, ESR, CRP, [...] Encounters Date Type Department Care Team Description 07/01/2025 10:45 AM EDT Home Care Visit [facility] [address] [place] [address] Dalila Briones, OT OT HOME VISIT 06/29/2025 1:00 PM EDT Home Care Visit [facility] [address] [place] [phone] Maribel Lyon, PT PT DISCIPLINE DISCHARGE VISIT 06/29/2025 11:45 AM EDT Home Care Visit [facility] [address] [place] [phone] Dalila Briones, OT OT HOME VISIT 06/25/2025 Episode Documentation Update [facility] [address] [place] [phone] Kim Chu 06/24/2025 2:00 PM EDT Home Care Visit [facility] [address] [place] [address] Vickie Perez, OT OT HOME VISIT 06/24/2025 12:00 PM EDT Home Care Visit [facility] [address] [place] [address] Rocky Stovall RN SN HOME VISIT 06/23/2025 1:00 PM EDT Home Care Visit [facility] [address] [place] [address] Maribel Lyon, PT PT EVALUATION 06/23/2025 Episode Documentation Update [facility] [address] [place] [address] Kim Chu 06/22/2025 1:30 PM EDT Home Care Visit [facility] [address] [place] [phone] Vickie Perez, OT OT EVALUATION 06/22/2025 Home Care Visit [facility] [address] [place] [phone] Vickie Perez, OT CASE COMMUNICATION 06/17/2025 11:00 AM EDT Home Care Visit [facility] [address] [place] [phone] Rocky Stovall, MARY SN OASIS START OF CARE (SOC) 06/17/2025 Plan of Care Documentation [facility] [address] [place] [phone] 06/11/2025 Orders Only [facility] [address] [place] [phone] Homehealth, Interface Provider, 06/02/2025 Telephone Virtual Department [address] [place] [phone] Lyssa Jean Baptiste NP 05/21/2025 Procedure Pass [address] [address] 05/20/2025 3:40 PM EDT - 05/26/2025 2:42 PM EDT Hospital Encounter [facility] [address] [place] [address] Christiane Brewer MD Israeli, Diana A, DO McKenna-Weiss, Eli, MD Discharge Disposition: Rehab Facility 05/20/2025 Procedure Pass [facility] [address] [place] [id number] 05/20/2025 Procedure Pass [address] [address] 05/20/2025 Procedure Pass [facility] Ct Scan [address] [address] from Last 3 Months Immunizations Immunization Administration [...] Pulse 78 07/01/2025 11:00 AM EDT Temperature 37 C (98.6 F) 06/24/2025 12:14 PM EDT Respiratory Rate 18 06/24/2025 12:1 4 PM EDT Oxygen Saturation 99% 07/01/2025 11: 00 AM EDT Inhaled Oxygen Concentration - - [...] Visit [facility] [address] [place], [place] [phone] Vickie Perez OT [address] [place] [address] 07/08/2025 1:00 AM EDT Home Care Visit [facility] [address] [place], [place] [phone] Rocky Stovall, RN [address] [place] [address] 07/09/2025 Home Care Visit [facility] [address] [place] [phone] Vickie Perez, OT [address] [place] [address] 07/13/2025 1:15 AM EDT Home Care Visit [facility] [address] [place] [phone] Vickie Perez, OT [address] [place] [address] 07/15/2025 1:00 AM EDT Home Care Visit [facility] [address] [place] [phone] Rocky Stovall RN [address] [place] [address] 07/16/2025 Home Care Visit [facility] [address] [place] [phone] Vickie Perez, OT [address] [place] [address] 07/22/2025 1:00 AM EDT Home Care Visit [facility] [address] [place] [phone] Rocky Stovall RN [address] [place] [address] 07/29/2025 12:30 AM EDT Home Care Visit [facility] [address] [place] [phone] Rocky Stovall RN [address] [place] [address] 08/05/2025 12:30 AM EDT Appointment [facility] [address] [place] [phone] Rocky Stovall, MARY [address] [place] [address] 09/01/2025 8:30 AM EST Office Visit [facility] [address] [facility] [address] [place] [address] Nakul Briones MD [address] [place] [address] [email or web address] Maintenance Due Date Last [...] ( season) 2025 02/06/2021, 01/16/2021 BLOOD PRESSURE 12/29/2025 07/01/2025 CREATININE LEVEL 05/26/2026 05/26/2025, , 05/23/2025, Additional [...] EDT) WBC 15.80(H) 4.00 - 11.00 K/uL [facility] RBC 4.26 4.00 - 5.20 M/uL [facility] HGB 12.0 12.0 - 16.0 g/dL [facility] HCT 37.0 36.0 - 46.0 % [facility] PLT 573(H) 150 - 450 K/uL [facility] MCV 86.9 80.0 - 100.0 fL [facility] MCH 28.2 27.0 - 31.0 pg [facility] MCHC 32.4 32.0 - 36.0 g/dL [facility] RDW 13.8 11.5 - 14.5 % [facility] MPV 8.4 8.4 - 12.0 [facility] NRBC 0.10(H) 0.00 /100 WBCs [facility] ABSOLUTE NRBC 0.02(H) 0.00 K/uL [facility] Blood 05/26/2025 5:39 AM EDT 05/26/2025 5:56 AM EDT Genet Jean Baptiste MD LAB BLOOD ORDERABLES Final Result [address] [id number] * (ABNORMAL) Basic metabolic panel (05/26/2025 5:39 AM EDT) Only the most recent of4 resultswithin the time period is included. SODIUM 140 133 - 146 mmol/L [facility] CHLORIDE 106 96 - 108 mmol/L [facility] POTASSIUM 4.3 3.3 - 5.1 mmol/L [facility] CO2 23 21 - 35 mmol/L [facility] BUN 50(H) 6 - 19 mg/dL [facility] CREATININE 0.60 0.5 - 1.5 mg/dL [facility] GLUCOSE 131(H) 70 - 99 mg/dL [facility] CALCIUM 8.7 8.4 - 10.3 mg/dL [facility] EGFR 99 >59 mL/min/1.7 3m2 [facility] Comment:Estimated glomerular filtration rate calculated using the CKD-EPI refit equation. ANION GAP 15 10 - 20 mmol/L [facility] Blood 05/26/2025 5:39 AM EDT 05/26/2025 5:56 AM EDT Genet Jean Baptiste MD LAB BLOOD ORDERABLES Final Result Performing Organization Address [facility] Co de Phone Number [address] [address] * C-reactive protein, high sensitivity (05/24/2025 5:56 AM EDT) Pathologist [facility] CRP, HIGH SENSITIVITY 0.3 0.0 - 5.0 mg/L [facility] Comment: Interpretation: hsCRP level (mg/L) Relative Risk <1.0 Low 1.0 - 3.0 Average >3.0 High Neonates (0-3 weeks): 0.1 - 4.1 mg/L Children (2 months - 15 years): 0.1 - 2.8 mg/L Blood 05/24/2025 5:56 AM EDT 05/24/2025 6:14 AM EDT Genet Jean Baptiste MD LAB BLOOD ORDERABLES Final Result Performing Organization Address City/[facility]/ZIP Co de Phone Number [address] [address] * PTT (05/24/2025 5:56 AM EDT) APTT 28.5 25.1 - 36.5 sec [facility] Comment:APTT response to unf ractionated heparin concentrations between 0.3 and 0.7 IU/mL is typically 54.0-94.0 seconds in uncomplicated cases. The Anti-Xa assay is the preferred method. Blood 05/24/2025 5:56 AM EDT 05/24/2025 6:14 AM EDT us Genet Jean Baptiste MD LAB BLOOD ORDERABLES Final Result Performing Organization Address [facility] Co de Phone Number [address] [address] * (ABNORMAL) Sedimentation rate (ESR) (05/24/2025 5:56 AM EDT) ESR 33(H) 0 - 30 mm/h [facility] Blood 05/24/2025 5:56 AM EDT 05/24/2025 6:14 AM EDT us Genet Jean Baptiste MD LAB BLOOD ORDERABLES Final Result Performing Organization Address [facility] Co de Phone Number [address] [address] * PT-INR (05/24/2025 5:56 AM EDT) PT 11.4 10.2 - 12.9 sec [facility] INR 0.9 0.9 - 1.1 [facility] Comment:Therapeutic range fo r oral Vitamin K antagonists: 2.0-3.5 Blood 05/24/2025 5:56 AM EDT 05/24/2025 6:14 AM EDT us Genet Jean Baptiste MD LAB BLOOD ORDERABLES Final Result Performing Organization Address [facility] de Phone Number [address] [address] * (ABNORMAL) CBC and differential (05/24/2025 5:56 AM EDT) Only the most recent of2 resultswithin the time period is included. WBC 21.36(H) 4.00 - 11.00 K/uL [facility] RBC 4.05 4.00 - 5.20 M/uL [facility] HGB 11.8(L) 12.0 - 16.0 g/dL [facility] HCT 35.2(L) 36.0 - 46.0 % [facility] PLT 543(H) 150 - 450 K/uL [facility] MCV 86.9 80.0 - 100.0 fL [facility] MCH 29.1 27.0 - 31.0 pg [facility] MCHC 33.5 32.0 - 36.0 g/dL [facility] RDW 13.6 11.5 - 14.5 % [facility] MPV 8.3(L) 8.4 - 12.0 fL [facility] NRBC 0.00 0.00 /100 WBCs [facility] ABSOLUTE NRBC 0.00 0.00 K/uL [facility] DIFF METHOD Auto [facility] NEUTS 92.3(H) 48.0 - 76.0 % [facility] LYMPHS 2.9(L) 18.0 - 41.0 % [facility] MONOS 4.1 4.0 - 11.0 % [facility] EOS 0.0 0.0 - 5.0 % [facility] BASOS 0.0 0.0 - 1.5 % [facility] Granulocytes, immature (%) 0.7 0.0 - 0.9 % [facility] ABSOLUTE NEUTS 19.71(H) 1.92 - 7.60 K/uL [facility] ABSOLUTE LYMPHS 0.62(L) 0.72 - 4.10 K/uL [facility] ABSOLUTE MONOS 0.87 0.16 - 1.10 K/uL [facility] ABSOLUTE EOS 0.00 0.00 - 0.50 K/uL [facility] ABSOLUTE BASOS 0.01 0.00 - 0.15 K/uL [facility] Granulocytes, immature 0.15(H) 0.00 - 0.09 K/uL [facility] Blood 05/24/2025 5:56 AM EDT 05/24/2025 6:14 AM EDT Genet Jean Baptiste MD LAB BLOOD ORDERABLES Final Result [address] [address] * TSH (05/24/2025 5:56 AM EDT) TSH 0.33 0.27 - 4.20 uIU/mL [facility] Blood 05/24/2025 5:56 AM EDT 05/24/2025 6:14 AM EDT Genet Jean Baptiste MD LAB BLOOD ORDERABLES Final Result Performing Organization Address [facility]/ZIP Co de Phone Number [address] [address] * Phosphorus (05/24/2025 5:56 AM EDT) PHOSPHORUS 3.5 2.7 - 4.5 mg/dL [facility] Blood 05/24/2025 5:56 AM EDT 05/24/2025 6:14 AM EDT Genet Jean Baptiste MD LAB BLOOD ORDERABLES Final Result Performing Organization Address [facility]/ZIP Co de Phone Number [address] [address] * Magnesium (05/24/2025 5:56 AM EDT) Only the most recent of2 resultswithin the time period is included. MAGNESIUM 2.4 1.6 - 2.6 mg/dL [facility] Blood 05/24/2025 5:56 AM EDT 05/24/2025 6:14 AM EDT us Genet Jean Baptiste MD LAB BLOOD ORDERABLES Final Result Performing Organization Address City/[facility]/ZIP Co de Phone Number [address] [address] * Hemoglobin A1c (05/24/2025 5:56 AM EDT) HEMOGLOBIN A1C 5.5 4.3 - 5.8 % [facility] Blood 05/24/2025 5:56 AM EDT 05/24/2025 6:15 AM EDT Genet Jean Baptiste MD LAB BLOOD ORDERABLES Final Result Performing Organization Address City/[facility]/ZIP Co de Phone Number [address] [address] * (ABNORMAL) Lipid panel (05/24/2025 5:56 AM EDT) HDL 77 mg/dL [facility] Comment: Interpretation <40 mg/dL: Low HDL cholesterol (major risk factor for CHD) Greater than or equal to 60 mg/dL: High HDL cholesterol ( negative risk factor for CHD) HDL - cholesterol is affected by a number of factors, e.g. smoking, excerise, hormones, sex and age. CHOLESTEROL 213 0 - 240 mg/dL [facility] TRIGLYCERIDES 82 30 - 160 mg/dL [facility] LDL 120 50 - 129 mg/dL [facility] Comment: LDL levels in terms of risk for coronary heart disease: <100 mg/dL: Optimal 100-129 mg/dL: Near or above optimal 130-159 mg/dL: Borderline high 160-189 mg/dL: High >190 mg/dL: Very High CARDIAC RISK RATIO 2.8(L) 3.3 - 4.4 C [facility] Blood 05/24/2025 5:56 AM EDT 05/24/2025 6:15 AM EDT Genet Jean Baptiste MD LAB BLOOD ORDERABLES Final Result Performing Organization Address City/[facility]/ZIP Co de Phone Number [address] [address] * TTE COMPREHENSIVE W/ LVO CONTRAST AND [...] contrast study is performed [facility] to [facility]. Contrast grade: 0 (no bubbles). us Isamar A Anguillan DO CV ECHO ORDERABLES Final Resu lt * MRI BRAIN WITH CONTRAST (05/21/2025 9:05 AM EDT) Anatomical Region Laterality Modality Head Magnetic Resonan ce 05/21/2025 9:34 AM EDT Impressions 05/21/2025 9:41 AM EDT 1. No abnormal intracranial enhancement. Narrative 05/21/2025 9:41 AM EDT MRI BRAIN WITH CONTRAST Referring clinician's provided indication for this examination in [facility]: * Brain mass or lesion; Concern [...] venous sinuses are patent. Procedure Note Judson Graham DO - 05/21/2025 MRI BRAIN WITH CONTRAST Referring clinician's provided indication for this examination in [facility]: *Brain mass or lesion; Concern for [...] patent. IMPRESSION: 1. No abnormal intracranial enhancement. us Hermes Ford MD IMG MR HEAD/NECK Final Result * MRI BRAIN WITHOUT CONTRAST (05/20/2025 11:32 PM EDT) MGB IMG ASSISTANT TERMINAL MANAGER COMMENT ARIA E moderate in degree. call back [phone] [facility] Anatomical Region Laterality Modality Head Magnetic Resonan [...] initiated on 05/21/2025 3:02 AM, Message ID [id number]. Narrative 05/21/2025 3:08 AM EDT MRI BRAIN WITHOUT CONTRAST Referring clinician's provided indication for this examination in [facility]: * Neuro deficit, acute, stroke suspected; left [...] clinician's provided indication for this examination in [facility]: *Neuro deficit, acute, stroke suspected; left [...] lobe. There are mild scattered foci of [id number] in the white matter, likely a manifestation [...] was initiated on 05/21/2025 3:02 AM,Message ID [id number]. Isamar Calverti DO IM MR HEAD/NECK Final Result * CT ANGIO [...] clinician's provided indication for this examination in [facility]: * Stroke/TIA, assess intracranial arteries; symptoms [...] clinician's provided indication for this examination in [facility]: *Stroke/TIA, assess intracranial arteries; symptoms on Sunday [...] the head or neck. Christiane Brewer MD IMG CT HEAD/NECK Final Re sult * Troponin (05/20/2025 6:01 PM EDT) Only the most recent of2 resultswithin the time period is included. Troponin-T, HS Gen5 8 0 - 9 ng/L [facility] Blood 05/20/2025 6:01 PM EDT 05/20/2025 6:15 PM EDT Christiane Brewer MD LAB BLOOD ORDERABLES Meri l Result Performing Organization Address [facility] Co de Phone Number [address] [address] * (ABNORMAL) Urinalysis w/reflex Urine Culture (05/20/2025 5:39 PM EDT) COLOR Yellow Yellow [facility] CLARITY Clear [facility] GLUCOSE Negative Negative [facility] BILI Negative Negative [facility] KETONES Negative Negative [facility] SPECIFIC GRAVITY 1.010 1.005 - 1.030 [facility] BLOOD Trace(A) Negative [facility] PH 7.5 5.0 - 8.0 [facility] Protein-UA Negative Negative [facility] NITRITE Negative Negative [facility] Leukocyte esterase, ur Negative Negative [facility] Urine (Urine) 05/20/2025 5:3 9 PM EDT 05/20/2025 6:11 PM EDT Christiane Brewer MD URINE ORDERABLES Final Re sult Performing Organization Address [facility] Co de Phone Number [address] [address] * COVID Pandemic Respiratory Viral Order (PRO) (05/20/2025 5:39 PM EDT) Test Ordered Rapid COVID has been ordered [facility] Specimen Source/Description NASAL [facility] SARS-CoV 2 (COVID-19) PCR Not Detected Not Detected [facility] Comment: SARS-CoV-2 not detected Negative results do not preclude SARS-CoV-2 infection and should not be used as the sole basis for patient management decisions. Negative results must be combined with clinical observations, patient history, and epidemiological information. Other (Nasopharyngeal swab) 05/20/2025 5:39 PM EDT 05/20/2025 6:08 PM EDT us Christiane Brewer MD BODY FLUIDS AND STOOLS OR DERABLES Final Result [facility] [address] [place] [address] * Toxicology screen, urine (05/20/2025 5:39 PM EDT) URINE CANNABINOIDS NONE DETECTED NONE DETECTED [facility] Comment:Cutoff: 50 ng/mL URINE COCAINE METAB NONE DETECTED NONE DETECTED [facility] Comment:Cutoff: 300 ng/mL URINE AMPHETAMINES NONE DETECTED NONE DETECTED [facility] Comment:Cutoff: 1000 ng/mL URINE METHADONE NONE DETECTED NONE DETECTED [facility] Comment:Cutoff: 300 ng/mL URINE OPIATES NONE DETECTED NONE DETECTED [facility] Comment:Cutoff: 300 ng/mL URINE PHENCYCLIDINE NONE DETECTED NONE DETECTED [facility] Comment:Cutoff: 25 ng/mL URINE OXYCODONE NONE DETECTED NONE DETECTED [facility] Comment:Cutoff: 300 ng/mL URINE BARBITURATES NONE DETECTED NONE DETECTED [facility] Comment:Cutoff: 200 ng/mL URINE BENZODIAZEPINE NONE DETECTED NONE DETECTED [facility] Comment:Cutoff: 200 ng/mL URINE BUPRENORPHINE NONE DETECTED NONE DETECTED [facility] Comment:Cutoff: 5 ng/mL Fentanyl, urine NONE DETECTED NONE DETECTED [facility] Comment: Cutoff: 5 ng/mL INTERPRETATION FOR TOXICOLOGY PANEL: These results are unconfirmed and should be used for Medical Treatment purposes only. Urine (Urine) 05/20/2025 5:3 9 PM EDT 05/20/2025 6:11 PM EDT us Christiane Brewer MD URINE ORDERABLES Final Re sult [address] [address] * Ethanol, blood (05/20/2025 5:02 PM EDT) ETHANOL <10 <10 mg/dL [facility] Blood 05/20/2025 5:02 PM EDT 05/20/2025 5:09 PM EDT us Christiane Brewer MD LAB BLOOD ORDERABLES Meri l Result Performing Organization Address [facility] Co de Phone Number [address] [address] * LFTs (hepatic panel) (05/20/2025 5:02 PM EDT) ALKALINE PHOSPHATASE 57 39 - 117 U/L [facility] TOTAL BILIRUBIN <0.2 0.0 - 1.2 mg/dL [facility] DIRECT BILIRUBIN <0.1 0.0 - 0.2 mg/dL [facility] Bilirubin (Indirect) NOT CALCULATED 0 - 1.5 mg/dL [facility] AST 21 0 - 37 U/L [facility] ALT 15 0 - 40 U/L [facility] TOTAL PROTEIN 7.0 6.5 - 8.0 g/dL [facility] ALBUMIN 4.1 3.9 - 4.8 g/dL [facility] GLOBULIN 2.9 1 - 4.8 g/dL [facility] A/G Ratio 1.41 1.00 - 4.80 RATIO [facility] Blood 05/20/2025 5:02 PM EDT 05/20/2025 5:09 PM EDT us Christiane Brewer MD LAB BLOOD ORDERABLES Meri l Result Performing Organization Address City/[facility]/ZIP Co de Phone Number [address] [address] * NT-proBNP (05/20/2025 5:02 PM EDT) NT-PROBNP <36 0 - 125 pg/mL [facility] Blood 05/20/2025 5:02 PM EDT 05/20/2025 5:09 PM EDT us Christiane Brewer MD LAB BLOOD ORDERABLES Meri l Result [address] [address] * (ABNORMAL) Acetaminophen level (05/20/2025 5:02 PM EDT) ACETAMINOPHEN <5.0(L) 15.0 - 30.0 ug/mL [facility] Blood 05/20/2025 5:02 PM EDT 05/20/2025 5:09 PM EDT Christiane Brewer MD LAB BLOOD ORDERABLES Meri l Result Performing Organization Address [facility]/ZIP Co de Phone Number [address] [address] * (ABNORMAL) Salicylates (05/20/2025 5:02 PM EDT) SALICYLATES <0.3(L) 2.8 - 19.9 mg/dL [facility] Blood 05/20/2025 5:02 PM EDT 05/20/2025 5:09 PM EDT Christiane Brewer MD LAB BLOOD ORDERABLES Meri l Result Performing Organization Address City/[facility]/ZIP Co de Phone Number [address] [address] * ECG 12-LEAD (05/20/2025 3:56 PM EDT) Ventricular Rate EKG/MIN 69 BPM [facility] Atrial Rate 69 BPM [facility] VT Interval 194 ms [facility] QRS Duration 78 ms [facility] QT Interval 372 ms [facility] QTC Interval 398 ms [facility] P [place] 50 degrees [facility] R Wave [place] 6 degrees [facility] T Wave [place] 30 degrees [facility] 05/20/2025 3:56 PM EDT 05/21/2025 3:17 PM EDT Narrative [facility] - 05/21/2025 3:17 PM EDT Normal sinus rhythm Inferior infarct , age undetermined Anterior infarct (cited on or before 10-Jan-2022) Abnormal ECG When compared with ECG of 10-Jan-2022 01:37, Inferior infarct is now Present Confirmed by Sacha MCGEE ([id number]) on 05/21/2025 3:17:40 PM Rogelio Thompson MD ECG ORDERABLES F inal Result [facility] from Last 3 Months Insurance [facility] MEDICARE PART A & B Member Subscriber Plan / Payer (Ef fective 2023-Present) Name:Shobha Malloy Member ID:[id number] Relation to Subscriber:Self Name:Shobha Malloy Subscriber ID:[id number] Payer ID:[id number] Group ID:Not on file Type:Medicare Address: [facility] [employer] [facility] [address] [place] [address] [place] & [place] & B MEDICARE PART [place] [address] [place] [address] [place] [address] Advance Directives For more information, please contact: [phone] (9AM - 5PM [place], Sunday-Sunday) * Full Code (Latest Code Status on File) Date Activated Date Inactivated Comments 05/20/2025 9:51 PM Question Answer Comments Code Status Confirmed With: Patient Care Teams Sanitizer Relationship Specialty Start Date End Date Lit Billings PA [facility] [place] [address] PCP - General 08/11/21 Additional Source Comments The information contained in this document represents components of the legal health record. It is not the complete legal health record.[facility]
--- OUTSIDE RECORDS SUMMARY | 2025-07-05 13:52 | XMS_ITS | Encounter Summary ---
Author Organization [employer] [facility] Address [address] [place] [address] Phone Care Team Providers Care Social Worker School Name Role Phone Lit Billings Primary Care Provider + Encounter Details Date Type Department Care Team (Late st Contact Info) Description 05/21/2025 Procedure Pass [facility], [facility] [address] [place] [address] Social History Tobacco Use Types Packs/Day Years [...] 2:15 AM EDT Home Care Visit [facility] [address] [place], [place] [phone] Vickie Perez OT [address] [place] [address] 07/08/2025 1:00 AM EDT Home Care Visit [facility] [address] [place], [place] [phone] Rocky Stovall, RN [address] [place] [address] 07/09/2025 Home Care Visit [facility] [address] [place] [address] Vickie Perez, OT [address] [place] [address] 07/13/2025 1:15 AM EDT Home Care Visit [facility] [address] [place] [address] Vickie Perez, OT [address] [place] [address] [email or web address] 07/15/2025 1:00 AM EDT Home Care Visit [facility] [address] [place] [address] Rocky Stovall RN [address] [place] [address] [email or web address] 07/16/2025 Home Care Visit [facility] [address] [place] [address] Vickie Perez, OT [address] [place] [address] [email or web address] 07/22/2025 1:00 AM EDT Home Care Visit [facility] [address] [place] [phone] Rocky Stovall RN [address] [place] [address] [email or web address] 07/29/2025 12:30 AM EDT Home Care Visit [facility] [address] [place] [address] Rocky Stovall RN [address] [place] [address] 08/05/2025 12:30 AM EDT Appointment [facility] [address] [place] [address] Rocky Stovall RN [address] [place] [address] 09/01/2025 8:30 AM EST Office Visit [facility] [place] [address] [facility] [address] [place] [address] Nakul Briones MD [address], [address] [place] [phone] [email or web address] documented as of this encounter Visit Diagnoses Not on filedocumented in this encounter Additional Health Concerns Infection Onset Date Last Indicated Resolved Time CoV-Risk Comment:Per note documentation 05/20/2025 05/20/2025 7:54 AM EDT documented as of this encounter Care Teams Social Worker School Relationship Specialty Start Date End Date Lit Billings PA [address] [place] [address] PCP - General 08/11/21 documented as of this encounter Additional Source Comments The information contained in this document represents components of the legal health record. It is not the complete legal health record.[facility]
--- OUTSIDE RECORDS SUMMARY | 2025-07-05 13:52 | XMS_ITS | Encounter Summary ---
Author Organization [facility] Address [address] [facility] [address] [place] [address] Phone Care Team Providers Care Highway Painter Name Role Phone Lit Billings Primary Care Provider + Encounter Details Date Type Department Care Team (Late st Contact Info) Description 05/20/2025 Procedure Pass [facility] [address] [place] [address] Social History Tobacco Use Types Packs/Day Years [...] 4:03 PM EDT Matias Mcqueen RN * [place] Suicide Severity Rating Scale (Screener/Recent Self-Report) Question [...] Visit [facility] [address] [place] [phone] Vickie Perez, OT [address] [place] [address] [email or web address] 07/08/2025 1:00 AM EDT Home Care Visit [facility] [address] [place] [phone] Rocky Stovall, MARY [address] [place] [address] [email or web address] 07/09/2025 Home Care Visit [facility] [address] [place] [address] Vickie Perez, OT [address] [place] [address] [email or web address] 07/13/2025 1:15 AM EDT Home Care Visit [facility] [address] [place] [address] Vickie Perez, OT [address] [place] [address] [email or web address] 07/15/2025 1:00 AM EDT Home Care Visit [facility] [address] [place] [address] Rocky Stovall, MARY [address] [place] [address] [email or web address] 07/16/2025 Home Care Visit [facility] [address] [place] [address] Vickie Perez, OT [address] [place] [address] [email or web address] 07/22/2025 1:00 AM EDT Home Care Visit [facility] [address] [place] [address] Rocky Stovall RN [address] [place] [address] [email or web address] 07/29/2025 12:30 AM EDT Home [facility] Visit [facility] [address] [place] [address] Rocky Stovall RN [address] [place] [address] [email or web address] 08/05/2025 12:30 AM EDT Appointment [facility] [address] [place] [phone] Rocky Stovall RN [address] [place] [address] [email or web address] 09/01/2025 8:30 AM EST Office Visit [facility] [address] [facility] [address] [place] [address] Nakul Briones MD [address] [facility] [address], [address] [place] [address] [email or web address] documented as of this encounter Visit Diagnoses Not on filedocumented in this encounter Additional Health Concerns Infection Onset Date Last Indicated Resolved Time CoV-Risk Comment:Per note documentation 05/20/2025 05/20/2025 7:54 AM EDT documented as of this encounter Care Teams Highway Painter Relationship Specialty Start Date End Date Lit Billings PA [facility] [place] [address] PCP - General 08/11/21 documented as of this encounter Additional Source Comments The information contained in this document represents components of the legal health record. It is not the complete legal health record.[facility]
--- OUTSIDE RECORDS SUMMARY | 2025-07-05 13:52 | XMS_ITS | Encounter Summary ---
Author Organization [employer] [facility] Address [address] [place] [address] Phone Care Team Providers Care Tissue Packer Name Role Phone Lit Billings Primary Care Provider + Encounter Details Date Type Department Care Team (Late st Contact Info) Description 05/20/2025 Procedure Pass [facility], Ct Scan - [facility] [address] [place] [address] Social History Tobacco Use Types Packs/Day Years [...] 4:03 PM EDT Matias Mcqueen RN * [place] Suicide Severity Rating Scale (Screener/Recent Self-Report) Question [...] 2:15 AM EDT Home Care Visit [facility] [address] [place] [phone] Vickie Perez, OT [address] [place] [address] 07/08/2025 1:00 AM EDT Home Care Visit [facility] [address] [place] [phone] Rocky Stovall, MARY [address] [place] [address] 07/09/2025 Home Care Visit [facility] [address] [place] [phone] Vickie Perez, OT [address] [place] [address] 07/13/2025 1:15 AM EDT Home Care Visit [facility] [address] [place] [phone] Vickie Perez, OT [address] [place] [address] 07/15/2025 1:00 AM EDT Home Care Visit [facility] [address] [place] [phone] Rocky Stovall, MARY [address] [place] [address] 07/16/2025 Home Care Visit [facility] [address] [place] [phone] Vickie Perez, OT [address] [place] [address] 07/22/2025 1:00 AM EDT Home Care Visit [facility] [address] [place], [place] [phone] Rocky Stovall RN [address] [place] [address] 07/29/2025 12:30 AM EDT Home Care Visit [facility] [address] [place], [place] [phone] Rocky Stovall RN [address] [place] [address] 08/05/2025 12:30 AM EDT Appointment [facility] [address] [place] [address] Rocky Stovall RN [address] [place] [address] 09/01/2025 8:30 AM EST Office Visit [facility] [place] [address] [facility] [address] [place] [address] Nakul Briones MD [address] [facility] [address], [address] [place] [address] [email or web address] documented as of this encounter Visit Diagnoses Not on filedocumented in this encounter Additional Health Concerns Infection Onset Date Last Indicated Resolved Time CoV-Risk Comment:Per note documentation 05/20/2025 05/20/2025 7:54 AM EDT documented as of this encounter Care Teams Tissue Packer Relationship Specialty Start Date End Date Lit Billings PA [facility] [place] [address] PCP - General 08/11/21 documented as of this encounter Additional Source Comments The information contained in this document represents components of the legal health record. It is not the complete legal health record.[facility]
== END 2025-07-05 13:44 | disposition home or self-care (01) ==
LOC: HO.MRI 13:43
PROVIDERS: PCP Physician Assistant; Visit Provider Psychiatry & Neurology Neurology
DX: G30.1 Alzheimer's disease with late onset (principal); F02.B0 Dementia in other diseases classified elsewhere, moderate, without behavioral disturbance, psychotic disturbance, mood disturbance, and anxiety; G93.6 Cerebral edema
CPT/HCPCS: 70551

== ENCOUNTER → 2025-07-05 13:43 | Outpatient (BNV) | payer MEDICARE, MEDICAID, SELFPAY | PROVIDERS: PCP Physician Assistant; Visit Provider Radiology Diagnostic Radiology | DX: I67.82 Cerebral ischemia (principal); R90.82 White matter disease, unspecified | CPT/HCPCS: 70551 ==

== ENCOUNTER 2025-08-21 14:15 | Outpatient (AMB) | payer MEDICARE, MEDICAID, SELFPAY ==
--- NOTE | 2025-08-21 14:31 | A.OFFVIS_ITS ---
Vital Signs 08/21/25 14:32 Height 4 ft 11 in Weight 184 lb BMI 37.2 BP 175/79 H Blood Pressure Location Rt brachial Position Sitting Respiration 16 Pulse 93 Pulse Source Pulse Oximeter Pulse Oximetry (%) 96 Oxygen Delivery Method Room Air Intake Visit Reasons: Lumbar Radiculopathy KRISTA: 06/29/23 Manufacturing Technology Professor Required: No Accompanied by: Spouse Allergies morphine (MORPHINE) Allergy (Severe, Verified 08/21/25 14:36) DIFF BREATHING, DIZZY, anaphylaxis, shortness of breath oxycodone (OXYCODONE) Allergy (Severe, Verified 08/21/25 14:36) DIFF BREATHING, DIZZY sulfamethoxazole (From BACTRIM) Allergy (Unknown, Verified 08/21/25 14:36) UNKNOWN trimethoprim (From BACTRIM) Allergy (Unknown, Verified 08/21/25 14:36) UNKNOWN SEASONAL ALLERGIES Allergy (Intermediate, Uncoded 06/22/25 08:30) ITCHY HPI Comments Details: The patient is a 64-year-old female presenting with right hip pain. The hip pain has been persistent, with the patient reporting discomfort primarily localized over right GTB, exacerbated by palpation, walking and lying on the affected side. The pain was previously managed with an injection in the bursa, which provided relief for a couple of years, but the symptoms have since returned. The patient recently was hospitalized after she experienced an adverse reaction to the medication Kisunla, which was administered twice for dementia/alzheimers, with the second administration leading to noticeable changes in her gait and cognitive function. She has been doing PT while in patient and since being discharged home. - Onset: Persistent pain in the hip region - Quality: Burning sensation in the legs - Location: Localized to the hip, particularly over the bursa - Exacerbating factors: Walking and lying on the affected side - Relieving factors: Previous injection in the bursa provided relief - Affect: Pain impacts daily activities and mood - Analgesia: Previous injection in the bursa provided relief - Adverse Effects: None from current pain management - Activities of Daily Living: Pain limits walking and lying on the affected side - Aberrant Drug Related Behaviors: None reported [facility] Medical History (Updated 06/25/25 @ 11:55 by Nam Coffey DPM) Alzheimer's dementia, late onset Dementia Mild cognitive impairment COVID-19 Lumbar spondylitis Other chronic pain UTI (urinary tract infection) Osteoarthritis Breast pain Hemorrhoids Diverticulosis Arthritis Hx of transfusion of whole blood Anemia Depression Lab test negative for COVID-19 virus Asthma Elevated cholesterol Surgical History Hx of hysterectomy Hx of Achilles tendon repair Hx of colonoscopy History of carpal tunnel release Family History Father Diabetes Mental health disorder Schizo-affective schizophrenia Mother CHF (congestive heart failure) Dementia Maternal Aunt Stomach cancer Social History Household Members: Spouse Housing: Apartment Alcohol intake: never Patient Tobacco Use Status: Never used Tobacco e-Cigarette/Vaping Use: Never Used Second Hand Smoke Exposure: No service: No Current occupational status: retired and disabled 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 Answers questions appropriately. Fully engaged in examination. Skin: warm, dry, intact HEENT: Normocephalic. Hearing intact. Cardiac: External chest normal in appearance. Respiratory: No cough, audible wheezing or stridor. Abdomen: without gross distension. MS: No obvious swelling or deformities. SLR neg bilaterally Able to transition from sit to stand unassisted. Ambulates with bilaterally normal heel strike and toe off Tenderness to palpation over right GTB Neurological: Oriented to person, place, time and situation. Thought process intact. Ambulates with use of rollator walker Psychiatric: Appropriate mood and affect. Good judgment and insight. Vital Signs: Last Vital Signs Pulse 93 08/21/25 14:32 Resp 16 08/21/25 14:32 BP 175/79 H 08/21/25 14:32 Pulse Ox 96 08/21/25 14:32 Oxygen Delivery Method Room Air 08/21/25 14:32 BMI result Body Mass Index 37.2 Assessment & Plan Assessment & Plan (1) Trochanteric bursitis of right hip: Code(s): M70.61 - Trochanteric bursitis, right hip Category: Medical (2) Plantar fasciitis, bilateral: Code(s): M72.2 - Plantar fascial fibromatosis Category: Medical (3) Memory impairment: Code(s): R41.3 - Other amnesia Category: Medical (4) Alzheimer's dementia, late onset: Comment: positive AMYVID scan Code(s): G30.1 - Alzheimer's disease with late onset; F02.80 - Dementia in other diseases classified elsewhere, unspecified severity, without behavioral disturbance, psychotic disturbance, mood disturbance, and anxiety Category: Medical Qualifiers: Dementia severity: moderate Dementia behavioral or psychological symptom: without behavioral, psychotic, or mood disturbance or anxiety Qualified Code(s): G30.1 - Alzheimer's disease with late onset; F02.B0 - Dementia in other diseases classified elsewhere, moderate, without behavioral disturbance, psychotic disturbance, mood disturbance, and anxiety (5) Numbness of foot: Comment: Right worse than left Code(s): R20.0 - Anesthesia of skin Category: Medical Plan The plan includes scheduling the patient for a follow-up appointment to administer an injection to the right greater trochanteric bursa to alleviate the pain. Additionally, the patient is advised to use lidocaine patches for localized pain relief and to avoid tight footwear that may exacerbate symptoms. Follow up as planned for EMG/NCS as planned. Patient was informed and verbally consented to the use of an ambient scribe for clinic note documentation during this visit. Patient Instructions: - Schedule a follow-up appointment for a GTB injection. - Use lidocaine patches for pain relief as needed. - Avoid tight footwear to prevent exacerbating symptoms. - Monitor for any adverse reactions to medications and report them immediately. Coding Level of Care Code Est Pt Level 3 (40253) Complex EM visit Add On G2211 Diagnoses Trochanteric bursitis of right hip M70.61 Plantar fasciitis, bilateral M72.2 Memory impairment R41.3 Moderate late onset Alzheimer's dementia without behavioral disturbance, psychotic disturbance, mood disturbance, or anxiety G30.1; F02.B0 Dementia severity: moderate Dementia behavioral or psychological symptom: without behavioral, psychotic, or mood disturbance or anxiety Numbness of foot R20.0
[2025-08-21 14:32] VITALS: BP 175/79; PULSE 93; RESP 16; O2SAT 96; BMI 37.2
--- OUTSIDE RECORDS SUMMARY | 2025-08-21 21:13 | XMS_ITS | Encounter Summary ---
Author Organization [employer] [facility] Address [address] [place] [address] Phone Care Team Providers Care Light Rail Signal Technician Name Role Phone Lit Billings Primary Care Provider + Encounter Details Date Type Department Care Team (Late st Contact Info) Description 05/20/2025 Procedure Pass [facility], [facility] [address] [place] [address] Social History Tobacco Use Types Packs/Day Years [...] 4:03 PM EDT Matias Mcqueen RN * [place] Suicide Severity Rating Scale (Screener/Recent Self-Report) Question [...] Care Team (Late st Contact Info) Description 09/01/2025 8:30 AM EST Office Visit [facility] [place] [address] [place] [address] Nakul Briones MD [address] [facility] [address], [address] [place] [phone] [email or web address] documented as of this encounter Visit Diagnoses Not on filedocumented in this encounter Additional Health Concerns Infection Onset Date Last Indicated Resolved Time CoV-Risk Comment:Per note documentation 05/20/2025 05/20/2025 7:54 AM EDT documented as of this encounter Care Teams Light Rail Signal Technician Relationship Specialty Start Date End Date Lit Billings PA [address] [place] [address] PCP - General 08/11/21 documented as of this encounter Additional Source Comments The information contained in this document represents components of the legal health record. It is not the complete legal health record.[facility]
--- OUTSIDE RECORDS SUMMARY | 2025-08-21 21:13 | XMS_ITS | Encounter Summary ---
Author Organization [facility] Address [address] [place] [address] Phone Care Team Providers Care Surgical Tech Name Role Phone Lit Billings Primary Care Provider + Encounter Details Date Type Department Care Team (Late st Contact Info) Description 05/20/2025 Procedure Pass [facility], Ct Scan - [facility] [address] [place] [address] Social History Tobacco Use Types Packs/Day Years [...] 4:03 PM EDT Matias Mcqueen RN * [place] Suicide Severity Rating Scale (Screener/Recent Self-Report) Question [...] EST Office Visit [facility] [place] [address] [place] [address] Nakul Briones MD [address] [facility] [address], [address] [place] [address] [email or web address] documented as of this encounter Visit Diagnoses Not on filedocumented in this encounter Additional Health Concerns Infection Onset Date Last Indicated Resolved Time CoV-Risk Comment:Per note documentation 05/20/2025 05/20/2025 7:54 AM EDT documented as of this encounter Care Teams Surgical Tech Relationship Specialty Start Date End Date Lit Billings PA [address] [place] [address] PCP - General 08/11/21 documented as of this encounter Additional Source Comments The information contained in this document represents components of the legal health record. It is not the complete legal health record.[facility]
--- OUTSIDE RECORDS SUMMARY | 2025-08-21 21:13 | XMS_ITS | Encounter Summary ---
Author Organization [facility] Address [address] [facility] [address] [place] [address] Phone Care Team Providers Care Services Tech Name Role Phone Lit Billings Primary Care Provider + Encounter Details Date Type Department Care Team (Late st Contact Info) Description 05/20/2025 Procedure Pass [facility] [address] [place] [address] Social History Tobacco Use Types Packs/Day Years [...] 4:03 PM EDT Matias Mcqueen RN * [place] Suicide Severity Rating Scale (Screener/Recent Self-Report) Question [...] EST Office Visit [facility] [place] [address] [place] [address] Nakul Briones MD [address] [facility] [address], [address] [place] [phone] [email or web address] documented as of this encounter Visit Diagnoses Not on filedocumented in this encounter Additional Health Concerns Infection Onset Date Last Indicated Resolved Time CoV-Risk Comment:Per note documentation 05/20/2025 05/20/2025 7:54 AM EDT documented as of this encounter Care Teams Services Tech Relationship Specialty Start Date End Date Lit Billings PA [address] [place] [address] PCP - General 08/11/21 documented as of this encounter Additional Source Comments The information contained in this document represents components of the legal health record. It is not the complete legal health record.[facility]
--- OUTSIDE RECORDS SUMMARY | 2025-08-21 21:13 | XMS_ITS | Encounter Summary ---
Author Organization [facility] Address [address] [place] [phone] Phone Care Team Providers Care English As A Second Language Teacher Name Role Phone Lit Billings Primary Care Provider + Encounter Details Date Type Department Care Team (Late st Contact Info) Description 05/21/2025 Procedure Pass [facility], [facility] [address] [place] [address] Social History Tobacco Use Types Packs/Day Years [...] EST Office Visit [facility] [address] [place] [address] Nakul Briones MD [address] [place] [address] [email or web address] documented as of this encounter Visit Diagnoses Not on filedocumented in this encounter Additional Health Concerns Infection Onset Date Last Indicated Resolved Time CoV-Risk Comment:Per note documentation 05/20/2025 05/20/2025 7:54 AM EDT documented as of this encounter Care Teams English As A Second Language Teacher Relationship Specialty Start Date End Date Lit Billings PA [facility] [place] [address] PCP - General 08/11/21 documented as of this encounter Additional Source Comments The information contained in this document represents components of the legal health record. It is not the complete legal health record.[facility]
== END 2025-08-21 15:12 | disposition home or self-care (01) ==
LOC: HO.PMC 14:15
PROVIDERS: PCP Physician Assistant; Referring Provider Student in an Organized Health Care Education/Training Program; Visit Provider Registered Nurse Emergency
DX: M70.61 Trochanteric bursitis, right hip (principal); M72.2 Plantar fascial fibromatosis; R41.3 Other amnesia; G30.1 Alzheimer's disease with late onset; F02.B0 Dementia in other diseases classified elsewhere, moderate, without behavioral disturbance, psychotic disturbance, mood disturbance, and anxiety; R20.0 Anesthesia of skin
CPT/HCPCS: 99213; G2211

== ENCOUNTER → 2025-08-21 14:15 | Outpatient (BNVA) | payer MEDICARE, MEDICAID, SELFPAY | PROVIDERS: PCP Physician Assistant; Referring Provider Student in an Organized Health Care Education/Training Program; Visit Provider Registered Nurse Emergency | DX: M70.61 Trochanteric bursitis, right hip (principal); R20.0 Anesthesia of skin; M72.2 Plantar fascial fibromatosis; R41.3 Other amnesia; G30.1 Alzheimer's disease with late onset; F02.B0 Dementia in other diseases classified elsewhere, moderate, without behavioral disturbance, psychotic disturbance, mood disturbance, and anxiety | CPT/HCPCS: 99212 ==

== ENCOUNTER 2025-08-24 07:53 | Outpatient (AMB) | payer MEDICARE, MEDICAID, SELFPAY ==
[2025-08-24 08:13] VITALS: BMI 37.2
--- NOTE | 2025-08-24 08:13 | A.OFFVIS_ITS ---
Vital Signs 08/24/25 08:13 Height 4 ft 11 in Weight 184 lb BMI 37.2 Intake Visit Reasons: pain management referral Intake Note: Shobha is a 64 year old female who presents today for a follow up on her pain management referral. Pt states she has been seen by pain management on 08/21/25 and her next visit they will plan to administer an injections. Patient reports she still experiences bilateral foot pain and she now feels a tightening sensation as well Allergies morphine (MORPHINE) Allergy (Severe, Verified 08/24/25 08:15) DIFF BREATHING, DIZZY, anaphylaxis, shortness of breath oxycodone (OXYCODONE) Allergy (Severe, Verified 08/24/25 08:15) DIFF BREATHING, DIZZY sulfamethoxazole (From BACTRIM) Allergy (Unknown, Verified 08/24/25 08:15) UNKNOWN trimethoprim (From BACTRIM) Allergy (Unknown, Verified 08/24/25 08:15) UNKNOWN SEASONAL ALLERGIES Allergy (Intermediate, Uncoded 06/22/25 08:30) ITCHY HPI HPI pain management referral: Details: The patient is a 64-year-old female past medical history of Alzheimer's dementia, CVA, right hip pain, hyperlipidemia, lumbar radiculopathy who returns for follow up of chronic bilateral feet cramping and numbness. Denies burning and tingling sensations today. She was unable to receive her EMG/NCV studies. She went to see pain management to his treating her hip, scheduled for injection soon. History: The symptoms have persisted for several years, with numbness and tightness affecting the toes and bottom of both feet, accompanied by burning sensations and cramping, particularly at night. The patient has a history of a recent stroke workup/cerebral edema in early May. She denies any lower extremity motor weakness. Patient ambulates using a rolling walker for assistance. She is also participating in home-based physical therapy due to her stroke, focusing on walking and strength exercises. She also has a history of right hip pain. The patient previously had injections for plantar fasciitis to her heels which had helped in the past. She denies pain to her heels, she denies pain first step in the morning, she denies pain that worsens after resting. [facility] Medical History (Updated 06/25/25 @ 11:55 by Nam Coffey, DPM) Alzheimer's dementia, late onset Dementia Mild cognitive impairment COVID-19 Lumbar spondylitis Other chronic pain UTI (urinary tract infection) Osteoarthritis Breast pain Hemorrhoids Diverticulosis Arthritis Hx of transfusion of whole blood Anemia Depression Lab test negative for COVID-19 virus Asthma Elevated cholesterol Surgical History Hx of hysterectomy Hx of Achilles tendon repair Hx of colonoscopy History of carpal tunnel release Family History Father Diabetes Mental health disorder Schizo-affective schizophrenia Mother CHF (congestive heart failure) Dementia Maternal Aunt Stomach cancer Social History Household Members: Spouse Housing: Apartment Alcohol intake: never Patient Tobacco Use Status: Never used Tobacco e-Cigarette/Vaping Use: Never Used Second Hand Smoke Exposure: No service: No Current occupational status: retired and disabled 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 Mild varicosities noted to the dorsal feet bilaterally. Derm: No ecchymosis, no open lesions, no lacerations. No wounds. No clinical signs of infection. Neuro: Lavinia David Monofilament test 6/10 right foot, 8/10 left foot. Negative Tinel sign bilateral CP/DPN/Tibial nerve. MSK: Positive straight leg raise test bilaterally. No pain on palpation along the medial calcaneal tubercle or along the arch, no pain to the medial fascia band, no pain on maximum dorsiflexion of the ankle or activation of windlass mechanism. Assessment & Plan Assessment & Plan (1) Numbness of foot: Comment: Right worse than left Code(s): R20.0 - Anesthesia of skin Category: Medical Plan: * I discussed with the patient the potential causes of her neuropathy, including lumbar radiculopathy, vitamin-B deficiency, idiopathic peripheral neuropathy. * Given her normal vitamin-B test in February of this year, and her history with lumbar radiculopathy, she has recommended further workup and management of her lumbar radiculopathy first. * Instructed to receive her EMG/NCV testing. * I explained the role of gabapentin as a possible medication in managing her symptoms and the importance of discussing this option with her primary care physician due to her recent stroke. * We previously discussed the benefits of physical therapy focusing on back exercises to alleviate her symptoms. (2) Lumbar radiculopathy: Code(s): M54.16 - Radiculopathy, lumbar region Category: Medical Plan: * Referred to pain management for further workup including lumbar x-rays/MRI evaluation. * The patient states that she is taking muscle relaxant medication which she finds relief from. Continue as needed. (3) Alzheimer's dementia, late onset: Comment: positive AMYVID scan Code(s): G30.1 - Alzheimer's disease with late onset; F02.80 - Dementia in other diseases classified elsewhere, unspecified severity, without behavioral disturbance, psychotic disturbance, mood disturbance, and anxiety Category: Medical Qualifiers: Dementia severity: moderate Dementia behavioral or psychological symptom: without behavioral, psychotic, or mood disturbance or anxiety Qualified Code(s): G30.1 - Alzheimer's disease with late onset; F02.B0 - Dementia in other diseases classified elsewhere, moderate, without behavioral disturbance, psychotic disturbance, mood disturbance, and anxiety Plan: positive AMYVID scan (4) Plantar fasciitis, bilateral: Code(s): M72.2 - Plantar fascial fibromatosis Category: Medical Plan: * Reviewed right ankle x-ray of the patient. * No clinical signs or symptoms of plantar fasciitis at this time. * Continue stretching and [id number] exercises. * The patient is working with physical therapy for gait mobility and strengthening exercises. Coding Level of Care Code Est Pt Level 3 (47021) Diagnoses Numbness of foot R20.0 Lumbar radiculopathy M54.16 Moderate late onset Alzheimer's dementia without behavioral disturbance, psychotic disturbance, mood disturbance, or anxiety G30.1; F02.B0 Dementia severity: moderate Dementia behavioral or psychological symptom: without behavioral, psychotic, or mood disturbance or anxiety Plantar fasciitis, bilateral M72.2 Time Spent (min) 25
--- OUTSIDE RECORDS SUMMARY | 2025-08-24 09:15 | XMS_ITS | Encounter Summary ---
Author Organization [facility] Address [address] [place] [phone] Phone Care Team Providers Care Greenhouse Assistant Name Role Phone Lit Billings Primary Care Provider + Encounter Details Date Type Department Care Team (Late st Contact Info) Description 05/20/2025 Procedure Pass [facility], [facility] Scan - [facility] [address] [place] [address] Social History Tobacco Use Types Packs/Day Years [...] 4:03 PM EDT Matias Mcqueen RN * [place] Suicide Severity Rating Scale (Screener/Recent Self-Report) Question [...] EST Office Visit [facility] [address] [place] [address] Nakul Briones MD [address] [place] [address] [email or web address] documented as of this encounter Visit Diagnoses Not on filedocumented in this encounter Additional Health Concerns Infection Onset Date Last Indicated Resolved Time CoV-Risk Comment:Per note documentation 05/20/2025 05/20/2025 7:54 AM EDT documented as of this encounter Care Teams Greenhouse Assistant Relationship Specialty Start Date End Date Lit Billings PA [address] [place] [address] PCP - General 08/11/21 documented as of this encounter Additional Source Comments The information contained in this document represents components of the legal health record. It is not the complete legal health record.[facility]
--- OUTSIDE RECORDS SUMMARY | 2025-08-24 09:16 | XMS_ITS | Encounter Summary ---
Author Organization [facility] Address [address] [place] [address] Phone Care Team Providers Care Child Care Education Coordinator Name Role Phone Lit Billings Primary Care Provider + Encounter Details Date Type Department Care Team (Late st Contact Info) Description 05/20/2025 Procedure Pass [facility] [address] [place] [address] Social History Tobacco Use Types Packs/Day Years [...] 4:03 PM EDT Matias Mcqueen RN * [place] Suicide Severity Rating Scale (Screener/Recent Self-Report) Question [...] EST Office Visit [facility] [address] [place] [address] Nakul Briones MD [address] [place] [id number] [email or web address] documented as of this encounter Visit Diagnoses Not on filedocumented in this encounter Additional Health Concerns Infection Onset Date Last Indicated Resolved Time CoV-Risk Comment:Per note documentation 05/20/2025 05/20/2025 7:54 AM EDT documented as of this encounter Care Teams Child Care Education Coordinator Relationship Specialty Start Date End Date Lit Billings PA [address] [place] [address] PCP - General 08/11/21 documented as of this encounter Additional Source Comments The information contained in this document represents components of the legal health record. It is not the complete legal health record.[facility]
--- OUTSIDE RECORDS SUMMARY | 2025-08-24 09:17 | XMS_ITS | Clinical Summary ---
Author Organization [facility] Address [facility] [employer] [address] [address] Phone Care Team Providers Care Anatomic Pathology Manager Name Role Phone Lit Billings Primary [...] mouth every 6 (six) hours. 5 Active pantoprazole (PROTONIX) 40 MG tablet Take 40 mg by mouth 2 (two) times a day. 5 Active senna (SENOKOT) 8.6 mg tablet Take 2 tablets by mouth daily. Daily @ bed time 5 Active predniSONE (DELTASONE) 10 MG tablet [...] for 14 days. 5 08/04/20 25 Active Problems Problem Noted Date Diagnosed Date [...] as normal Could not reach outpatient neuro. [facility] [place] as follows: -Discontinuation of donanemab [...] (05/24/2025 3:27 PM EDT): Treating as YANIRA Frias and YANIRA Dumont. Family first noticed increased fatigue and mild [...] as normal Could not reach outpatient neuro. [facility] [place] as follows: -Discontinuation of donanemab [...] Plan (05/23/2025 3:50 PM EDT): Treating as YANIRA E and ARIKrishan H. Family first noticed increased fatigue and [...] as normal Could not reach outpatient neuro. [facility] [place] recommendations as follows: -Discontinuation of donanemab [...] as normal Could not reach outpatient neuro. [facility] [place] recommendations as follows: -Discontinuation of donanemab [...] Have call out to Dr. Taylor from [facility] Assessment & Plan (05/20/2025 10:21 PM EDT): [...] results available -Monitor on tele -PT/OT eval -HAND COMPOSITOR eval -Follow up HbA1c, TSH, ESR, CRP, [...] Encounters Date Type Department Care Team Description 07/22/2025 Episode Documentation Update [facility] [address] [place] [address] Karina Basilio 07/22/2025 Plan of Care Documentation [facility] [address] [place] [phone] 07/15/2025 12:00 PM EDT Home Care Visit [facility] [address] [place] [address] Rocky Stovall RN SN OASIS DISCHARGE VISIT 07/10/2025 Episode Documentation Update [facility] [address] [place] [address] Kay Gannon 07/07/2025 2:00 PM EDT Home Care Visit [facility] [address] [place] [address] Vickie Perez, OT OT DISCIPLINE DISCHARGE VISIT 07/01/2025 10:45 AM EDT Home Care Visit [facility] [address] [place] [address] Dalila Briones, OT OT HOME VISIT 06/29/2025 1:00 PM EDT Home Care Visit [facility] [address] [place] [address] Maribel Lyon, PT PT DISCIPLINE DISCHARGE VISIT 06/29/2025 11:45 AM EDT Home Care Visit [facility] [address] [place] [address] Dalila Briones, OT OT HOME VISIT 06/25/2025 Episode Documentation Update [facility] [address] [place] [address] Kim Chu 06/24/2025 2:00 PM EDT Home Care Visit [facility] [address] [place] [phone] Vickie Perez, OT OT HOME VISIT 06/24/2025 12:00 PM EDT Home Care Visit [facility] [address] [place] [address] Rocky Stovall RN SN HOME VISIT 06/23/2025 1:00 PM EDT Home Care Visit [facility] [address] [place] [address] Maribel Lyon, PT PT EVALUATION 06/23/2025 Episode Documentation Update [facility] [address] [place] [address] Kim Chu 06/22/2025 1:30 PM EDT Home Care Visit [facility] [address] [place] [address] Vickie Perez, OT OT EVALUATION 06/22/2025 Home Care Visit [facility] [address] [place] [address] Vickie Perez, OT CASE COMMUNICATION 06/17/2025 11:00 AM EDT Home Care Visit [facility] [address] [place] [address] Rocky Stovall RN SN OASIS START OF CARE (SOC) 06/11/2025 Orders Only [facility] [address] [place] [address] Homehealth, Martha Sanchez MD 06/02/2025 Telephone Virtual Department [address] [place] [address] Lyssa Jean Baptiste NP 05/20/2025 3:40 PM EDT - 05/26/2025 2:42 PM EDT Hospital Encounter [facility] [address] [place], [place] [phone] BrewerChristiane MD Israeli, Diana A, DO McKenna-Weiss, Eli, MD Discharge Disposition: Rehab Facility from Last 3 Months Immunizations Immunization Administration [...] Date Recorded Lack of Transportation (Medical) No 07/15/2025 Lack of Transportation (Non-Medical) No 07/15/2025 Patient Unable or Declines to Respond No 07/15/2025 Education Answer Date Recorded Are you interested [...] have you moved in the past 12 mon ths? One time 05/20/2025 Paying for Meds [...] Sign Reading Time Taken Comments Blood Pressure 128/72 07/15/2025 12:30 PM EDT Pulse 84 07/15/2025 12:30 PM EDT Temperature 36.2 C (97.2 F) 07/15/2025 12:30 PM EDT Respiratory Rate 18 07/15/2025 12:3 0 PM EDT Oxygen Saturation 98% 07/15/2025 12: 30 PM EDT Inhaled Oxygen Concentration - - Weight 87.4 kg (192 lb 11.2 oz) 05/26/2025 5:14 AM EDT Height 149.8 cm (4' 10.98 ) 05/20/2025 11:43 PM EDT Body Mass Index 38.95 05/20/2025 11:43 PM EDT Plan of Treatment Upcoming Encounters Date Type Department Care Team (Late st Contact Info) Description 09/01/2025 8:30 AM EST Office Visit [facility] [address] [place] [address] Nakul Briones MD [address] [place] [address] [email or web address] Health Maintenance Due Date Last [...] ( season) 2025 02/06/2021, 01/16/2021 BLOOD PRESSURE 01/13/2026 07/15/2025 CREATININE LEVEL 05/26/2026 05/26/2025, , 05/23/2025, Additional [...] Date/Time Associated Diagnosis Comments BASIC METABOLIC PANEL (BMP) Routine 05/26/2025 5:39 AM EDT CBC Routine 05/26/2025 5:39 AM EDT THYROID STIMULATING HORMONE (TSH) Routine 05/24/2025 5:56 AM EDT SEDIMENTATION RATE (ESR) Routine 05/24/2025 5:56 AM EDT PTT Routine 05/24/2025 5:56 AM EDT PT-INR Routine 05/24/2025 5:56 AM EDT PHOSPHORUS Routine 05/24/2025 5:56 AM EDT MAGNESIUM Routine 05/24/2025 5:56 AM EDT LIPID PANEL Routine 05/24/2025 5:56 AM EDT HEMOGLOBIN A1C Routine 05/24/2025 5:56 AM EDT CBC AND DIFFERENTIAL Routine 05/24/2025 5:56 AM EDT C-REACTIVE PROTEIN (CRP), HIGH SENSITIVITY Routine 05/24/2025 5:56 AM EDT BASIC METABOLIC PANEL (BMP) Routine 05/24/2025 5:56 AM EDT from Last 3 Months Results * (ABNORMAL) CBC (05/26/2025 5:39 AM EDT) WBC 15.80(H) 4.00 - 11.00 K/uL [facility] RBC 4.26 4.00 - 5.20 M/uL [facility] HGB 12.0 12.0 - 16.0 g/dL [facility] HCT 37.0 36.0 - 46.0 % [facility] PLT 573(H) 150 - 450 K/uL [facility] MCV 86.9 80.0 - 100.0 fL [facility] MCH 28.2 27.0 - 31.0 pg [facility] MCHC 32.4 32.0 - 36.0 g/dL [facility] RDW 13.8 11.5 - 14.5 % [facility] MPV 8.4 8.4 - 12.0 fL [facility] NRBC 0.10(H) 0.00 /100 WBCs [facility] ABSOLUTE NRBC 0.02(H) 0.00 K/uL [facility] Blood 05/26/2025 5:39 AM EDT 05/26/2025 5:56 AM EDT Genet Jean Baptiste MD LAB BLOOD BKR ORDERABLES Fi nal Result Performing Organization Address City/[facility]/ZIP Co de Phone Number [address] [address] * (ABNORMAL) Basic metabolic panel (05/26/2025 5:39 AM EDT) Only the most recent of2 resultswithin the time period is included. SODIUM 140 133 - 146 mmol/L [facility] CHLORIDE 106 96 - 108 mmol/L [facility] POTASSIUM 4.3 3.3 - 5.1 mmol/L [facility] CO2 23 21 - 35 mmol/L [facility] BUN 50(H) 6 - 19 mg/dL [facility] CREATININE 0.60 0.5 - 1.5 mg/dL [facility] GLUCOSE 131(H) 70 - 99 mg/dL [facility] CALCIUM 8.7 8.4 - 10.3 mg/dL [facility] EGFR 99 >59 mL/min/1.7 3m2 [facility] Comment:Estimated glomerular filtration rate calculated using the CKD-EPI refit equation. ANION GAP 15 10 - 20 mmol/L [facility] Blood 05/26/2025 5:39 AM EDT 05/26/2025 5:56 AM EDT Genet Jean Baptiste MD LAB BLOOD BKR ORDERABLES Fi nal Result [address] [address] * C-reactive protein, high sensitivity (05/24/2025 5:56 AM EDT) [facility] CRP, HIGH SENSITIVITY 0.3 0.0 - 5.0 mg/L [facility] Comment: Interpretation: hsCRP level (mg/L) Relative Risk <1.0 Low 1.0 - 3.0 Average >3.0 High Neonates (0-3 weeks): 0.1 - 4.1 mg/L Children (2 months - 15 years): 0.1 - 2.8 mg/L Blood 05/24/2025 5:56 AM EDT 05/24/2025 6:14 AM EDT Genet Jean Baptiste MD LAB BLOOD BKR ORDERABLES Fi nal Result [address] [address] * PTT (05/24/2025 5:56 AM EDT) [facility] APTT 28.5 25.1 - 36.5 sec [facility] Comment:APTT response to unf ractionated heparin concentrations between 0.3 and 0.7 IU/mL is typically 54.0-94.0 seconds in uncomplicated cases. The Anti-Xa assay is the preferred method. Blood 05/24/2025 5:56 AM EDT 05/24/2025 6:14 AM EDT Genet Jean Baptiste MD LAB BLOOD BKR ORDERABLES Fi nal Result [address] [address] * (ABNORMAL) Sedimentation rate (ESR) (05/24/2025 5:56 AM EDT) [facility] ESR 33(H) 0 - 30 mm/h [facility] Blood 05/24/2025 5:56 AM EDT 05/24/2025 6:14 AM EDT Genet Jean Baptiste MD LAB BLOOD BKR ORDERABLES Fi nal Result Performing Organization Address City/[facility]/ZIP Co de Phone Number [address] [address] * PT-INR (05/24/2025 5:56 AM EDT) PT 11.4 10.2 - 12.9 sec [facility] INR 0.9 0.9 - 1.1 [facility] Comment:Therapeutic range fo r oral Vitamin K antagonists: 2.0-3.5 Blood 05/24/2025 5:56 AM EDT 05/24/2025 6:14 AM EDT Genet Jean Baptiste MD LAB BLOOD BKR ORDERABLES Fi nal Result Performing Organization Address City/[facility] Co de Phone Number [address] [address] * (ABNORMAL) CBC and differential (05/24/2025 5:56 AM EDT) WBC 21.36(H) 4.00 - 11.00 K/uL [facility] RBC 4.05 4.00 - 5.20 M/uL [facility] HGB 11.8(L) 12.0 - 16.0 g/dL [facility] HCT 35.2(L) 36.0 - 46.0 % [facility] PLT 543(H) 150 - 450 K/uL [facility] MCV 86.9 80.0 - 100.0 fL [facility] MCH 29.1 27.0 - 31.0 pg [facility] MCHC 33.5 32.0 - 36.0 g/dL [facility] RDW 13.6 11.5 - 14.5 % [facility] MPV 8.3(L) 8.4 - 12.0 fL [facility] NRBC 0.00 0.00 /100 WBCs [facility] ABSOLUTE NRBC 0.00 0.00 K/uL [facility] DIFF METHOD Auto [facility] NEUTS 92.3(H) 48.0 - 76.0 % [facility] LYMPHS 2.9(L) 18.0 - 41.0 % [facility] MONOS 4.1 4.0 - 11.0 % [facility] EOS 0.0 0.0 - 5.0 % [facility] BASOS 0.0 0.0 - 1.5 % [facility] Granulocytes, immature (%) 0.7 0.0 - 0.9 % [facility] ABSOLUTE NEUTS 19.71(H) 1.92 - 7.60 K/uL [facility] ABSOLUTE LYMPHS 0.62(L) 0.72 - 4.10 K/uL [facility] ABSOLUTE MONOS 0.87 0.16 - 1.10 K/uL [facility] ABSOLUTE EOS 0.00 0.00 - 0.50 K/uL [facility] ABSOLUTE BASOS 0.01 0.00 - 0.15 K/uL [facility] Granulocytes, immature 0.15(H) 0.00 - 0.09 K/uL [facility] Blood 05/24/2025 5:56 AM EDT 05/24/2025 6:14 AM EDT Genet Jean Baptiste MD LAB BLOOD BKR ORDERABLES Fi nal Result Performing Organization Address City/[facility]/ZIP Co de Phone Number [address] [address] * TSH (05/24/2025 5:56 AM EDT) TSH 0.33 0.27 - 4.20 uIU/mL [facility] Blood 05/24/2025 5:56 AM EDT 05/24/2025 6:14 AM EDT us Genet Jean Baptiste MD LAB BLOOD BKR ORDERABLES Fi nal Result Performing Organization Address City/[facility]/ZIP Co de Phone Number [address] [address] * Phosphorus (05/24/2025 5:56 AM EDT) PHOSPHORUS 3.5 2.7 - 4.5 mg/dL [facility] Blood 05/24/2025 5:56 AM EDT 05/24/2025 6:14 AM EDT us Genet Jean Baptiste MD LAB BLOOD BKR ORDERABLES Fi nal Result [address] [address] * Magnesium (05/24/2025 5:56 AM EDT) MAGNESIUM 2.4 1.6 - 2.6 mg/dL [facility] Blood 05/24/2025 5:56 AM EDT 05/24/2025 6:14 AM EDT us Genet Jean Baptiste MD LAB BLOOD BKR ORDERABLES Fi nal Result Performing Organization Address [facility]/ZIP Co de Phone Number [address] [address] * Hemoglobin A1c (05/24/2025 5:56 AM EDT) HEMOGLOBIN A1C 5.5 4.3 - 5.8 % [facility] Blood 05/24/2025 5:56 AM EDT 05/24/2025 6:15 AM EDT us Genet Jean Baptiste MD LAB BLOOD BKR ORDERABLES Fi nal Result Performing Organization Address City/[facility] Co de Phone Number [address] [address] * (ABNORMAL) Lipid panel (05/24/2025 5:56 AM EDT) HDL 77 mg/dL [facility] Comment: Interpretation <40 mg/dL: Low HDL cholesterol (major risk factor for CHD) Greater than or equal to 60 mg/dL: High HDL cholesterol ( negative risk factor for CHD) HDL - cholesterol is affected by a number of factors, e.g. smoking, excerise, hormones, sex and age. CHOLESTEROL 213 0 - 240 mg/dL [facility] TRIGLYCERIDES 82 30 - 160 mg/dL [facility] LDL 120 50 - 129 mg/dL [facility] Comment: LDL levels in terms of risk for coronary heart disease: <100 mg/dL: Optimal 100-129 mg/dL: Near or above optimal 130-159 mg/dL: Borderline high 160-189 mg/dL: High >190 mg/dL: Very High CARDIAC RISK RATIO 2.8(L) 3.3 - 4.4 [facility] Blood 05/24/2025 5:56 AM EDT 05/24/2025 6:15 AM EDT Genet Jean Baptiste MD LAB BLOOD BKR ORDERABLES Fi nal Result Performing Organization Address City/State/[facility] Co de Phone Number [facility] [address] [place] [address] from Last 3 Months Insurance [facility] MEDICARE PART A & B [place] B [facility] MEDICARE PART A & B Advance Directives For more information, please contact: [phone] (9AM - 5PM [facility], Sunday-Sunday) * Full Code (Latest Code Status on File) Date Activated Date Inactivated Comments 05/20/2025 9:51 PM Question Answer Comments Code Status Confirmed With: Patient Care Teams Anatomic Pathology Manager Relationship Specialty Start Date End Date Lit Billings PA [address] [place] [address] PCP - General 08/11/21 Additional Source Comments The information contained in this document represents components of the legal health record. It is not the complete legal health record.[facility]
--- OUTSIDE RECORDS SUMMARY | 2025-08-24 09:18 | XMS_ITS | Encounter Summary ---
Author Organization [employer] [facility] Address [address] [place] [address] Phone Care Team Providers Care Nurse Practitioner Physicians Assistant Name Role Phone Lit Billings Primary Care Provider + Encounter Details Date Type Department Care Team (Late st Contact Info) Description 05/21/2025 Procedure Pass [facility], [facility] [address] [place] [address] Social History Tobacco Use Types Packs/Day Years [...] EST Office Visit [facility] [place] [address] [place] [address] Nakul Briones MD [address] [place] [address] [email or web address] documented as of this encounter Visit Diagnoses Not on filedocumented in this encounter Additional Health Concerns Infection Onset Date Last Indicated Resolved Time CoV-Risk Comment:Per note documentation 05/20/2025 05/20/2025 7:54 AM EDT documented as of this encounter Care Teams Nurse Practitioner Physicians Assistant Relationship Specialty Start Date End Date Lit Billings PA [facility] [place] [address] PCP - General 08/11/21 documented as of this encounter Additional Source Comments The information contained in this document represents components of the legal health record. It is not the complete legal health record.[facility]
== END 2025-08-24 08:25 | disposition home or self-care (01) ==
PROVIDERS: PCP Physician Assistant; Visit Provider Student in an Organized Health Care Education/Training Program
DX: R20.0 Anesthesia of skin (principal); M54.16 Radiculopathy, lumbar region; G30.1 Alzheimer's disease with late onset; F02.B0 Dementia in other diseases classified elsewhere, moderate, without behavioral disturbance, psychotic disturbance, mood disturbance, and anxiety; M72.2 Plantar fascial fibromatosis
CPT/HCPCS: 99213

== ENCOUNTER → 2025-08-24 07:53 | Outpatient (BNVA) | payer MEDICARE, MEDICAID, SELFPAY | PROVIDERS: PCP Physician Assistant; Visit Provider Student in an Organized Health Care Education/Training Program | DX: R20.0 Anesthesia of skin (principal); M54.16 Radiculopathy, lumbar region; G30.1 Alzheimer's disease with late onset; F02.B0 Dementia in other diseases classified elsewhere, moderate, without behavioral disturbance, psychotic disturbance, mood disturbance, and anxiety; M72.2 Plantar fascial fibromatosis | CPT/HCPCS: 99212 ==

== ENCOUNTER 2025-08-26 08:58 | Outpatient (AMB) | payer MEDICARE, MEDICAID, SELFPAY ==
--- NOTE | 2025-08-26 09:00 | MHC.OFFVIS ---
Vital Signs 08/26/25 09:01 Height 4 ft 11 in Weight 180 lb BMI 36.4 BP 165/81 H Blood Pressure Location Rt brachial Position Sitting Respiration 16 Pulse 77 Pulse Source Pulse Oximeter Pulse Oximetry (%) 98 Oxygen Delivery Method Room Air Intake Visit Reasons: RIGHT GTB INJECTION Property Management Bookkeeper Required: No Allergies morphine (MORPHINE) Allergy (Severe, Verified 08/26/25 09:05) DIFF BREATHING, DIZZY, anaphylaxis, shortness of breath oxycodone (OXYCODONE) Allergy (Severe, Verified 08/26/25 09:05) DIFF BREATHING, DIZZY sulfamethoxazole (From BACTRIM) Allergy (Unknown, Verified 08/26/25 09:05) UNKNOWN trimethoprim (From BACTRIM) Allergy (Unknown, Verified 08/26/25 09:05) UNKNOWN SEASONAL ALLERGIES Allergy (Intermediate, Uncoded 06/22/25 08:30) ITCHY PFSH Medical History (Updated 08/26/25 @ 10:45 by Felice Burr MD) Alzheimer's dementia, late onset Dementia Mild cognitive impairment COVID-19 Lumbar spondylitis Other chronic pain UTI (urinary tract infection) Osteoarthritis Breast pain Hemorrhoids Diverticulosis Arthritis Hx of transfusion of whole blood Anemia Depression Lab test negative for COVID-19 virus Asthma Elevated cholesterol Surgical History Hx of hysterectomy Hx of Achilles tendon repair Hx of colonoscopy History of carpal tunnel release Family History Father Diabetes Mental health disorder Schizo-affective schizophrenia Mother CHF (congestive heart failure) Dementia Maternal Aunt Stomach cancer Social History Household Members: Spouse Housing: Apartment Alcohol intake: never Patient Tobacco Use Status: Never used Tobacco e-Cigarette/Vaping Use: Never Used Second Hand Smoke Exposure: No service: No Current occupational status: retired and disabled 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 Cognitive needs: Yes (Walker) Hearing needs: No Vision needs: Yes (Glasses) Physical Exam Vital Signs: Last Vital Signs Pulse 77 08/26/25 09:01 Resp 16 08/26/25 09:01 BP 165/81 H 08/26/25 09:01 Pulse Ox 98 08/26/25 09:01 Oxygen Delivery Method Room Air 08/26/25 09:01 BMI result Body Mass Index 36.4 Office Procedures Therapeutic Injection Therapeutic Injection [id number] Point Injection 1 or 2 sites All charges added?: Procedure code (CPT) selection complete Office Meds triamcinolone acetonide 40 mg/mL suspension for injection Performing Provider: Felice Burr MD Performing Location: [facility] Administered by: Felice Burr MD on 08/26/25 10:46 Dose Route Admin Location Dispensed Lot Number Expiration Date [facility] Histologic Aide 40 mg IM 1 mL [id number] [employer] Total Dispensed Waste 1 mL 0 % Assessment & Plan Assessment & Plan (1) Myofascial pain: Code(s): M79.18 - Myalgia, other site Category: Medical Plan Right-sided trigger point injection in the projection of the trochanteric bursa. Informed consent was explained to the patient including risks of the administration of the steroid medication. Patient expressed understanding. Patient was informed about yatrogenic diabetes. The patient was positioned left lateral decubitus on the examination bed. The nondependent right trochanteric area was prepped with ChloraPrep and the location of the most painful area was noted. After that injection was performed using triamcinolone 40 mg and ropivacaine 0.5% 7 cc total amount of F 8 mL in fan-like fashion in the projection of most painful area. The patient tolerated procedure well. Needle was withdrawn sterile Band-Aid was applied. Orders: Orders AMB Trigger Point Injection Today M79.18 - Myalgia, other site Coding Level of Care Code Procedure Only Diagnoses Myofascial pain M79.18 CPT Codes Therapeutic Injection - Ther Injection 1: [id number] Point Injection 1 or 2 sites ([id number])
[2025-08-26 09:01] VITALS: BP 165/81; PULSE 77; RESP 16; O2SAT 98; BMI 36.4
--- OUTSIDE RECORDS SUMMARY | 2025-08-26 16:40 | XMS_ITS | Encounter Summary ---
Author Organization [facility] Address [address] [place] [address] Phone Care Team Providers Care Sales Operations Lead Name Role Phone Lit Billings Primary Care Provider + Encounter Details Date Type Department Care Team (Late st Contact Info) Description 05/21/2025 Procedure Pass [facility], [facility] [address] [place] [address] Social History Tobacco Use Types Packs/Day Years [...] as of this encounter Plan of Treatment Not on file documented as of this encounter Visit Diagnoses Not on filedocumented in this encounter Additional Health Concerns Infection Onset Date Last Indicated Resolved Time CoV-Risk Comment:Per note documentation 05/20/2025 05/20/2025 7:54 AM EDT documented as of this encounter Care Teams Sales Operations Lead Relationship Specialty Start Date End Date Lit Billings PA [address] [place] [address] PCP - General 08/11/21 documented as of this encounter Additional Source Comments The information contained in this document represents components of the legal health record. It is not the complete legal health record.[facility]
--- OUTSIDE RECORDS SUMMARY | 2025-08-26 16:40 | XMS_ITS | Encounter Summary ---
Author Organization [facility] Address [address] [facility] [address] [place] [address] Phone Care Team Providers Care Nurse Extern Name Role Phone Lit Billings Primary Care Provider + Encounter Details Date Type Department Care Team (Late st Contact Info) Description 05/20/2025 Procedure Pass [facility] [address] [place] [address] Social History Tobacco Use Types Packs/Day Years [...] 4:03 PM EDT Matias Mcqueen RN * [place] Suicide Severity Rating Scale (Screener/Recent Self-Report) Question [...] as of this encounter Care Teams Nurse Extern Relationship Specialty Start Date End Date Lit Billings PA [address] [place] [address] PCP - General 08/11/21 documented as of this encounter Additional Source Comments The information contained in this document represents components of the legal health record. It is not the complete legal health record.[facility]
--- OUTSIDE RECORDS SUMMARY | 2025-08-26 16:40 | XMS_ITS | Encounter Summary ---
Author Organization [employer] [facility] Address [address] [place] [address] Phone Care Team Providers Care Proced Tech Name Role Phone Lit Billings Primary Care Provider + Encounter Details Date Type Department Care Team (Late st Contact Info) Description 05/20/2025 Procedure Pass [facility], [facility] [address] [place] [address] Social History Tobacco Use Types Packs/Day Years [...] 4:03 PM EDT Matias Mcqueen RN * [place] Suicide Severity Rating Scale (Screener/Recent Self-Report) Question [...] documented as of this encounter Care Teams Proced Tech Relationship Specialty Start Date End Date Lit Billings PA [address] [place] [address] PCP - General 08/11/21 documented as of this encounter Additional Source Comments The information contained in this document represents components of the legal health record. It is not the complete legal health record.[facility]
--- OUTSIDE RECORDS SUMMARY | 2025-08-26 16:40 | XMS_ITS | Encounter Summary ---
Author Organization [facility] Address [email or web address] [place] [address] Phone Care Team Providers Care Service Parts Driver Name Role Phone Lit Billings Primary Care Provider + Encounter Details Date Type Department Care Team (Late st Contact Info) Description 05/20/2025 Procedure Pass [facility], Ct Scan - [facility] [address] [place] [address] Social History Tobacco Use Types Packs/Day Years [...] 4:03 PM EDT Matias Mcqueen RN * [place] Suicide Severity Rating Scale (Screener/Recent Self-Report) Question [...] documented as of this encounter Care Teams Service Parts Driver Relationship Specialty Start Date End Date Lit Billings PA [address] [place] [address] PCP - General 08/11/21 documented as of this encounter Additional Source Comments The information contained in this document represents components of the legal health record. It is not the complete legal health record.[facility]
--- OUTSIDE RECORDS SUMMARY | 2025-08-26 16:40 | XMS_ITS | Encounter Summary ---
Author Organization [facility] Address [address] [place] [address] Phone Care Team Providers Care High School Librarian Name Role Phone Lit Billings Primary Care Provider + Reason for Visit * Reason Onset Date Comments Canceled Appointment 08/26/2025 Encounter Details Date Type Department Care Team (Late st Contact Info) Description 08/26/2025 Telephone [facility] Neuro Sv Magalis B [address] [facility] [address] [place] [address] Nakul Briones MD [address] [address] [place] [address] [email or web address] Canceled Appointment Social History Tobacco Use Types Packs/Day Years [...] on file documented as of this encounter Progress Notes * Julissa Ornelas - 08/26/2025 1:49 PM EST referral is for [facility] main campus not SERVICE WORKER HELPER - LMOM for patient that appt is canceled and to reach out to [facility] to schedule with them documented in this encounter Plan of Treatment Not on file documented as of this encounter Visit Diagnoses Not on filedocumented in this encounter Care Teams High School Librarian Relationship Specialty Start Date End Date Lit Billings PA [address] [place] [address] PCP - General 08/11/21 documented as of this encounter Additional Source Comments The information contained in this document represents components of the legal health record. It is not the complete legal health record.[facility]
--- OUTSIDE RECORDS SUMMARY | 2025-08-26 16:40 | XMS_ITS | Clinical Summary ---
Author Organization [facility] Address [facility] [address] [address] Phone Care Team Providers Care Supervisor Inspecting Name Role Phone Lit Billings Primary Care [...] as normal Could not reach outpatient neuro. [facility] teleneurolgy recommendations as follows: [...] as normal Could not reach outpatient neuro. [facility] teleneurolgy recommendations as follows: [...] as normal Could not reach outpatient neuro. [facility] teleneurolgy recommendations as follows: [...] as normal Could not reach outpatient neuro. [facility] teleneurolgy recommendations as follows: [...] Have call out to Dr. Taylor from [facility] Assessment & Plan (05/20/2025 10:21 PM EDT): [...] results available -Monitor on tele -PT/OT eval -MANAGER QUALITY eval -Follow up HbA1c, TSH, ESR, CRP, [...] Encounters Date Type Department Care Team Description 08/26/2025 Telephone [facility] Neuro Svcs Magalis B [address] [place] [address] Nakul Briones MD Canceled Appointment 07/22/2025 Episode Documentation Update [facility] [address] [place] [address] Karina Basilio 07/22/2025 Plan of Care Documentation [facility] [address] [place] [address] 07/15/2025 12:00 PM EDT Home Care Visit [facility] [address] [place] [address] Rocky Stovall, RN SN OASIS DISCHARGE VISIT 07/10/2025 Episode Documentation Update [facility] [address] [place] [address] Kay Gannon 07/07/2025 2:00 PM EDT Home Care Visit [facility] [address] [place] [address] Vickie Perez, OT OT DISCIPLINE DISCHARGE VISIT 07/01/2025 10:45 AM EDT Home Care Visit [facility] [address] [place] [address] Dalila Briones, OT OT HOME VISIT 06/29/2025 1:00 PM EDT Home Care Visit [facility] [address] [place] [address] Maribel Lyon, PT PT DISCIPLINE DISCHARGE VISIT 06/29/2025 11:45 AM EDT Home Care Visit [facility] [address] [place] [address] Dalila Briones, OT OT HOME VISIT 06/25/2025 Episode Documentation Update [facility] [address] [place] [address] [facility] 06/24/2025 2:00 PM EDT Home Care Visit [facility] [address] [place] [address] Vickie Perez, OT OT HOME VISIT 06/24/2025 12:00 PM EDT Home Care Visit [facility] [address] [place] [address] Rocky Stovall, MARY SN HOME VISIT 06/23/2025 1:00 PM EDT Home Care Visit [facility] [address] [place] [address] Maribel Lyon, PT PT EVALUATION 06/23/2025 Episode Documentation Update [facility] [address] [place] [address] [facility] 06/22/2025 1:30 PM EDT Home Care Visit [facility] [address] [place] [address] Vickie Perez, OT OT EVALUATION 06/22/2025 Home Care Visit [facility] [address] [place] [address] Vickie Perez, OT CASE COMMUNICATION 06/17/2025 11:00 AM EDT Home Care Visit [facility] [address] [place] [address] Rocky Stovall, MARY SN OASIS START OF CARE (SOC) 06/11/2025 Orders Only [facility] [address] [place] [address] Homehealth, Interface MD Daniel 06/02/2025 Telephone Virtual Department [address] [place] [address] Lyssa Jean Baptiste NP 05/20/2025 3:40 PM EDT - 05/26/2025 2:42 PM EDT Hospital Encounter [facility] [address] [place] [address] Christiane Brewer MD Israeli, Diana A, DO [...] 05/20/2025 11:43 PM EDT Plan of Treatment Health Maintenance Due Date Last Done Comments [...] VACCINE (#1) 2025 08/26/2020, 2017 COVID-19 VACCINE (3 - season) 2025 02/06/2021, 01/16/2021 BLOOD PRESSURE 01/13/2026 [...] EDT CBC Routine 05/26/2025 5:39 AM EDT LIPID PANEL Routine 05/24/2025 5:56 AM EDT from Last 3 Months or Most Recently Relevant to Health Maintenance Results * (ABNORMAL) CBC (05/26/2025 5:39 AM EDT) WBC 15.80(H) 4.00 - 11.00 K/uL [facility] RBC 4.26 4.00 - 5.20 M/uL [facility] HGB 12.0 12.0 - 16.0 g/dL [facility] HCT 37.0 36.0 - 46.0 % [facility] PLT 573(H) 150 - 450 K/uL [facility] MCV 86.9 80.0 - 100.0 fL [facility] MCH 28.2 27.0 - 31.0 pg [facility] MCHC 32.4 32.0 - 36.0 g/dL [facility] RDW 13.8 11.5 - 14.5 % [facility] MPV 8.4 8.4 - 12.0 fL [facility] NRBC 0.10(H) 0.00 /100 WBCs [facility] ABSOLUTE NRBC 0.02(H) 0.00 K/uL [facility] Blood 05/26/2025 5:39 AM EDT 05/26/2025 5:56 AM EDT Genet Jean Baptiste MD LAB BLOOD BKR ORDERABLES Fi nal Result [address] [address] * (ABNORMAL) Basic metabolic panel (05/26/2025 5:39 AM EDT) SODIUM 140 133 - 146 mmol/L [facility] CHLORIDE 106 96 - 108 mmol/L [facility] POTASSIUM 4.3 3.3 - 5.1 mmol/L [facility] CO2 23 21 - 35 mmol/L [facility] BUN 50(H) 6 - 19 mg/dL [facility] CREATININE 0.60 0.5 - 1.5 mg/dL [facility] GLUCOSE 131(H) 70 - 99 mg/dL [facility] CALCIUM 8.7 8.4 - 10.3 mg/dL [facility] EGFR 99 >59 mL/min/1.7 3m2 [facility] Comment:Estimated glomerular filtration rate calculated using the CKD-EPI refit equation. ANION GAP 15 10 - 20 mmol/L [facility] Blood 05/26/2025 5:39 AM EDT 05/26/2025 5:56 AM EDT Genet Jean Baptiste MD LAB BLOOD BKR ORDERABLES Fi nal Result Performing Organization Address [facility] Co de Phone Number [address] [address] * (ABNORMAL) Lipid panel (05/24/2025 5:56 AM EDT) HDL 77 mg/dL [facility] Comment: Interpretation <40 mg/dL: Low HDL cholesterol (major risk factor for CHD) Greater than or equal to 60 mg/dL: High HDL cholesterol ( negative risk factor for CHD) HDL - cholesterol is affected by a number of factors, e.g. smoking, excerise, hormones, sex and age. CHOLESTEROL 213 0 - 240 mg/dL [facility] TRIGLYCERIDES 82 30 - 160 mg/dL [facility] LDL 120 50 - 129 mg/dL [facility] Comment: LDL levels in terms of risk for coronary heart disease: <100 mg/dL: Optimal 100-129 mg/dL: Near or above optimal 130-159 mg/dL: Borderline high 160-189 mg/dL: High >190 mg/dL: Very High CARDIAC RISK RATIO 2.8(L) 3.3 - 4.4 C [facility] Blood 05/24/2025 5:56 AM EDT 05/24/2025 6:15 AM EDT Genet Jean Baptiste MD LAB BLOOD BKR ORDERABLES Fi nal Result Performing Organization Address [facility]/ZIP Co de Phone Number [address] [address] from Last 3 Months or Most Recently Relevant to Health Maintenance Insurance [place] & [place] & [place] MEDIC[place] PART A & B [address] [place] [address] [address] [facility] [place] [address] [address] [place] [address] Advance Directives For more information, please contact: [phone] (9AM - 5PM [facility], Sunday-Sunday) * Full Code (Latest Code Status on File) Date Activated Date Inactivated Comments 05/20/2025 9:51 PM Question Answer Comments Code Status Confirmed With: Patient Care Teams Supervisor Inspecting Relationship Specialty Start Date End Date Lit Billings PA [facility] [place] [address] PCP - General 08/11/21 Additional Source Comments The information contained in this document represents components of the legal health record. It is not the complete legal health record.[facility]
== END 2025-08-26 09:20 | disposition home or self-care (01) ==
PROVIDERS: PCP Physician Assistant; Visit Provider Anesthesiology
DX: M79.18 Myalgia, other site (principal)
CPT/HCPCS: 20552

== ENCOUNTER → 2025-08-26 08:58 | Outpatient (BNVA) | payer MEDICARE, MEDICAID, SELFPAY | PROVIDERS: PCP Physician Assistant; Visit Provider Anesthesiology | DX: M79.18 Myalgia, other site (principal) | CPT/HCPCS: 20552; J3300 ==

== ENCOUNTER 2025-09-30 09:00 | Outpatient (REF) | payer MEDICARE, MEDICAID, SELFPAY ==
--- OUTSIDE RECORDS SUMMARY | 2025-09-30 09:06 | XMS_ITS | Clinical Summary ---
Author Organization [facility] Address [facility] [employer] [address] [address] Phone Care Team Providers Care Eye Surgeon Name Role Phone Lit Billings Primary Care [...] daily. Daily @ bed time 5 Active Active Problems Problem Noted Date [...] Could not reach outpatient neuro. [facility] teleneurolgy recommendations as follows: -Discontinuation of donanemab [...] (05/24/2025 3:27 PM EDT): Treating as YANIRA Dumont. Family first noticed increased fatigue [...] Could not reach outpatient neuro. [facility] teleneurolgy recommendations as follows: -Discontinuation of donanemab [...] (05/23/2025 3:50 PM EDT): Treating as YANIRA Dumont. Family first noticed increased fatigue [...] Could not reach outpatient neuro. [facility] teleneurolgy recommendations as follows: -Discontinuation of donanemab [...] Could not reach outpatient neuro. [facility] teleneurolgy recommendations as follows: -Discontinuation of donanemab [...] Have call out to Dr. Taylor from [facility] Assessment & Plan (05/20/2025 10:21 PM EDT): [...] results available -Monitor on tele -PT/OT eval -JOURNEY LINEMAN eval -Follow up HbA1c, TSH, ESR, CRP, [...] Type Department Care Team Description 08/26/2025 Telephone [facility] Neurology [facility] [address] [place] [address] Nakul Briones MD Canceled Appointment 07/22/2025 Episode Documentatio n Update [facility] [address] [place] [phone] Karina Basilio 07/15/2025 12:00 PM EDT Home Care Visit [facility] [address] [place] [phone] Rocky Stovall RN SN OASIS DISCHARGE VISIT 07/10/2025 Episode Documentatio n Update [facility] [address] [place] [address] Kay Gannon 07/07/2025 2:00 PM EDT Home Care Visit [facility] [address] [place] [phone] Vickie Perez, OT OT DISCIPLINE DISCHARGE VISIT 07/01/2025 10:45 AM EDT Home Care Visit [facility] [address] [place] [phone] Dalila Briones, JC OT HOME VISIT from Last 3 Months Immunizations Immunization Administration [...] PANEL (BMP) Routine 05/26/2025 5:39 AM EDT LIPID PANEL Routine 05/24/2025 5:56 AM EDT from Last 3 Months or Most Recently Relevant to Health Maintenance Results * (ABNORMAL) Basic metabolic panel (05/26/2025 5:39 AM EDT) SODIUM 140 133 - 146 mmol/L [facility] CHLORIDE 106 96 - 108 mmol/L [facility] POTASSIUM 4.3 3.3 - 5.1 mmol/L [facility] CO2 23 21 - 35 mmol/L [facility] BUN 50(H) 6 - 19 mg/dL [facility] CREATININE 0.60 0.5 - 1.5 mg/dL [facility] GLUCOSE 131(H) 70 - 99 mg/dL [facility] CALCIUM 8.7 8.4 - 10.3 mg/dL [facility] EGFR 99 >59 mL/min/1.7 3m2 [facility] Comment:Estimated glomerular filtration rate calculated using the CKD-EPI refit equation. ANION GAP 15 10 - 20 mmol/L [facility] Blood 05/26/2025 5:39 AM EDT 05/26/2025 5:56 AM EDT Genet Jean Baptiste MD LAB BLOOD BKR ORDERABLES Fi nal Result [facility] [address] [place] [address] * (ABNORMAL) Lipid panel (05/24/2025 5:56 AM EDT) HDL 77 mg/dL [facility] Comment: Interpretation <40 mg/dL: Low HDL cholesterol (major risk factor for CHD) Greater than or equal to 60 mg/dL: High HDL cholesterol ( negative risk factor for CHD) HDL - cholesterol is affected by a number of factors, e.g. smoking, excerise, hormones, sex and age. CHOLESTEROL 213 0 - 240 mg/dL [facility] TRIGLYCERIDES 82 30 - 160 mg/dL [facility] LDL 120 50 - 129 mg/dL [facility] Comment: LDL levels in terms of risk for coronary heart disease: <100 mg/dL: Optimal 100-129 mg/dL: Near or above optimal 130-159 mg/dL: Borderline high 160-189 mg/dL: High >190 mg/dL: Very High CARDIAC RISK RATIO 2.8(L) 3.3 - 4.4 C [facility] Blood 05/24/2025 5:56 AM EDT 05/24/2025 6:15 AM EDT Genet Jean Baptiste MD LAB BLOOD BKR ORDERABLES Fi nal Result [facility] [address] [place], [place] [id number] from Last 3 Months or Most Recently Relevant to Health Maintenance Insurance [facility] MEDIC[facility] PART A & B [address] [place] [address] [place] & B [address] [place] [address] [place] & [place] & B [facility] MEDICARE PART A & B Advance Directives For more information, please contact: [phone] (9AM - 5PM [facility], Sunday-Sunday) * Full Code (Latest Code Status on File) Date Activated Date Inactivated Comments 05/20/2025 9:51 PM Question Answer Comments Code Status Confirmed With: Patient Care Teams Eye Surgeon Relationship Specialty Start Date End Date Lit Billings PA [address] [place] [address] PCP - General 08/11/21 Additional Source Comments The information contained in this document represents components of the legal health record. It is not the complete legal health record.[facility]
--- OUTSIDE RECORDS SUMMARY | 2025-09-30 09:06 | XMS_ITS | Encounter Summary ---
Author Organization [facility] Address [address] [place] [address] Phone Care Team Providers Care Delicatessen Store Manager Name Role Phone Lit Billings Primary Care Provider + Encounter Details Date Type Department Care Team (Late st Contact Info) Description 05/20/2025 Procedure Pass [facility], [facility] [address] [place] [address] Social History Tobacco Use Types Packs/Day Years [...] documented as of this encounter Care Teams Delicatessen Store Manager Relationship Specialty Start Date End Date Lit Billings PA [address] [place] [address] PCP - General 08/11/21 documented as of this encounter Additional Source Comments The information contained in this document represents components of the legal health record. It is not the complete legal health record.[facility]
--- OUTSIDE RECORDS SUMMARY | 2025-09-30 09:06 | XMS_ITS | Encounter Summary ---
Author Organization [facility] Address [address] [place] [address] Phone Care Team Providers Care Batterboard Setter Name Role Phone Lit Billings Primary Care Provider + Encounter Details Date Type Department Care Team (Late st Contact Info) Description 05/20/2025 Procedure Pass [facility] [address] [place] [address] Social History Tobacco Use Types Packs/Day Years [...] documented as of this encounter Care Teams Batterboard Setter Relationship Specialty Start Date End Date Lit Billings PA [address] [place] [address] PCP - General 08/11/21 documented as of this encounter Additional Source Comments The information contained in this document represents components of the legal health record. It is not the complete legal health record.[facility]
--- OUTSIDE RECORDS SUMMARY | 2025-09-30 09:06 | XMS_ITS | Encounter Summary ---
Author Organization [email or web address] Address [address] [place] [address] Phone Care Team Providers Care Shuttle Spotter Name Role Phone Lit Billings Primary Care Provider + Encounter Details Date Type Department Care Team (Late st Contact Info) Description 05/21/2025 Procedure Pass [facility], [facility] [address] [place] [address] Social History Tobacco Use Types Packs/Day Years [...] documented as of this encounter Care Teams Shuttle Spotter Relationship Specialty Start Date End Date Lit Billings PA [address] [place] [address] PCP - General 08/11/21 documented as of this encounter Additional Source Comments The information contained in this document represents components of the legal health record. It is not the complete legal health record.[facility]
--- OUTSIDE RECORDS SUMMARY | 2025-09-30 09:06 | XMS_ITS | Encounter Summary ---
Author Organization [facility] Address [address] [place] [address] Phone Care Team Providers Care Palliative Care Coordinator Name Role Phone Lit Billings Primary Care Provider + Encounter Details Date Type Department Care Team (Late st Contact Info) Description 05/20/2025 Procedure Pass [facility], Ct Scan - [facility] [address] [place] [address] Social History Tobacco Use Types Packs/Day Years [...] documented as of this encounter Care Teams Palliative Care Coordinator Relationship Specialty Start Date End Date Lit Billings PA [address] [place] [phone] PCP - General 08/11/21 documented as of this encounter Additional Source Comments The information contained in this document represents components of the legal health record. It is not the complete legal health record.[facility]
--- NOTE | 2025-09-30 09:37 | EMG_ITS ---
Chief complaint:?Numbness, lumbar radiculopathy Referred by:?Nam Coffey MD Procedure done: Bilateral lower extremities NCS/EMG Bilateral peroneal and tibial motor studies were performed with F responses and tibial H reflexes. Bilateral superficial peroneal and sural sensory studies were performed and needle examination was performed. Findings: Right peroneal amplitude was moderately diminished. Bilateral superficial peroneal amplitude was mildly diminished while conduction velocities were bilaterally mildly slow. Right peroneal and left tibial F responses were absent. 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 No evidence of radiculopathy. Coding:? [id number] 2 extremities MTDD
== END 2025-09-30 09:01 | disposition home or self-care (01) ==
LOC: HO.NEURO 09:00
PROVIDERS: PCP Physician Assistant; Visit Provider Student in an Organized Health Care Education/Training Program
DX: M54.16 Radiculopathy, lumbar region (principal); R20.0 Anesthesia of skin
CPT/HCPCS: 95886; 95913

== ENCOUNTER → 2025-09-30 09:37 | Outpatient (BNV) | payer MEDICARE, MEDICAID, SELFPAY | PROVIDERS: PCP Physician Assistant; Visit Provider Psychiatry & Neurology Neurology | DX: G62.89 Other specified polyneuropathies (principal) | CPT/HCPCS: 95886; 95912 ==